=== PATIENT | female | born 1995 | race Caucasian/White ===

== ENCOUNTER 2023-07-22 14:01 | Outpatient (OUT) | payer OTHER, SELFPAY ==
[2023-07-22 14:49] LABS: HCG Quantitative <1 mIU/mL
== END 2023-07-22 14:02 | disposition home or self-care (01) ==
LOC: LAB 14:05
PROVIDERS: Visit Provider Obstetrics & Gynecology
DX: Z01.419 Encounter for gynecological examination (general) (routine) without abnormal findings (principal); N92.6 Irregular menstruation, unspecified
CPT/HCPCS: 36415; 84702; G0145

== ENCOUNTER 2023-07-22 19:12 | Outpatient (REF) | payer OTHER, SELFPAY ==
[2023-07-28 14:11] LABS: Age Gdln ACOG Testing Note (.); IGP, rfx Aptima HPV ASCU Note (.)
== END 2023-07-22 19:13 | disposition home or self-care (01) ==
LOC: LAB 19:12
PROVIDERS: Visit Provider Obstetrics & Gynecology
DX: Z01.419 Encounter for gynecological examination (general) (routine) without abnormal findings (principal)
CPT/HCPCS: G0145

== ENCOUNTER 2024-12-29 12:50 | Outpatient (OUT) | payer OTHER, SELFPAY ==
[2024-12-29 13:39] LABS: Estimated Average Glucose 100 mg/dL; Glycohemoglobin A1C 5.1 % (4.5-6.2)
[2024-12-29 14:08] LABS: Basophils Percent Auto 0.5 % (0.2-2.0); Eosinophils Absolute Auto 0.2 10^3/uL (0.0-0.7); Hematocrit 45.3 % (36.0-48.0); Hemoglobin 15.1 g/dL (12.0-16.0); Immature Granulocytes Abs Auto 0.01 10^3/uL (0.00-0.03); Immature Granulocytes Pct Auto 0.1 % (0.0-0.5); Lymphocytes Absolute Auto 2.3 10^3/uL (1.2-3.8); Lymphocytes Percent Auto 30.1 % (20.5-60.0); Mean Corpuscular HGB Conc 33.3 g/dL (29.9-35.2); Mean Corpuscular Hemoglobin 30.6 pg (26.7-34.0); Mean Corpuscular Volume 91.7 fL (81.0-99.0); Mean Platelet Volume 9.1 fL (9.5-13.5); Monocytes Absolute Auto 0.7 10^3/uL (0.3-0.8); Monocytes Percent Auto 8.9 % (1.7-12.0); Neutrophils Absolute Auto 4.4 10^3/uL (1.4-6.5); Neutrophils Percent Auto 58.4 % (43.0-75.0); Platelet Count 264 10^3/uL (150-450); Red Blood Count 4.94 10^6/uL (4.20-5.40); Red Cell Distribution Width 12.1 % (11.0-15.0); White Blood Count 7.5 10^3/uL (4.0-11.0)
[2024-12-29 14:10] LABS: Thyroid Stimulating Hormone 1.946 uIU/mL (0.358-3.740)
[2024-12-29 14:12] LABS: Free T4 1.05 ng/dL (0.76-1.46)
[2024-12-29 14:18] LABS: HCG Quantitative <1 mIU/mL
[2024-12-30 04:07] LABS: FSH 5.4 mIU/mL (.); Luteinizing Hormone(LH) 12.8 mIU/mL (.); Progesterone 0.4 ng/mL (.)
== END 2024-12-29 12:51 | disposition home or self-care (01) ==
LOC: LAB 13:00
PROVIDERS: Visit Provider Obstetrics & Gynecology
DX: E88.819 Insulin resistance, unspecified (principal); N97.0 Female infertility associated with anovulation; E28.2 Polycystic ovarian syndrome; N92.6 Irregular menstruation, unspecified
CPT/HCPCS: 36415; 82626; 82627; 83001; 83002; 83036; 84144; 84439; 84443; 84702; 85025

== ENCOUNTER 2025-02-04 23:05 | Emergency (ER) | payer OTHER, SELFPAY ==
[2025-02-04 23:15] VITALS: BP 146/80; PULSE 71; TEMP 37; O2SAT 98; BMI 49.6
--- NOTE | 2025-02-04 23:42 | ED.ABDPAIN1 ---
HPI - Abdominal Pain General Chief Complaint: Abdominal Pain Stated Complaint: abd pain Time Seen by Provider: 02/04/25 23:09 Source: patient Mode of arrival: walk-in Limitations: no limitations History of Present Illness HPI narrative: cc - I wanted a second opinion Patient Head: Few days of lower abdominal pain and went to the emergency department at [facility] and was found to have a 7 cm right ovarian cyst after CT scanning of the abdomen pelvis and pelvic ultrasound. test was negative. She is not sure whether or not she had a urinary tract infection but they put her on oral Keflex. She was told to take Motrin for pain and follow-up with Dr. Loredo. She did not take anything today for the pain. This evening she had a return of pain and was concerned that the ovarian cyst might be affecting her ability to get -she is currently taking medication to allow her to increase her chance of -so she decided to come to the emergency department in [facility] for evaluation. She had some nausea today but no vomiting. No diarrhea. No fever or chills. Related Data Home Medications ?Medication ?Instructions ?Recorded ?Confirmed cephalexin 500 mg capsule 500 mg PO DAILY 02/04/25 02/04/25 cholecalciferol (vitamin D3) 10 20 mcg PO DAILY 02/04/25 02/04/25 mcg (400 unit) tablet (Vitamin D3) Allergies Allergy/AdvReac Type Severity Reaction Status Date / Time No Known Drug Allergies Allergy Verified 02/04/25 23:21 PFSH PFSH Social History Little interest or pleasure in doing things: not at all Feeling down, depressed, or hopeless: not at all Exam Narrative Exam Narrative: Nurses notes and vital signs reviewed and patient is not hypoxic. afebrile General: Well-appearing and in no apparent distress. Skin: Warm, dry, no pallor noted. No rash. Eye: Pupils are equal, round and EOMI. No scleral icterus. Ears, Nose, Mouth, and Throat: Oral mucosa is moist Cardiovascular: Regular Rate and Rhythm without murmur, gallop or rub. Respiratory: No accessory muscle use or respiratory distress. Lungs are clear to auscultation, no wheezing, rales or rhonchi Back: No CVA tenderness Musculoskeletal: normal ROM GI: Abdomen is soft, non-distended. Normal bowel sounds. No masses appreciated but her obesity limits examination. Minimal right adnexal tenderness to palpation. No rebound, guarding, or rigidity noted. Neurological: A&O x4. No cranial nerve dysfunction observed. No truncal ataxia. Moves all extremities. Sensation intact. Psychiatric: Cooperative and interactive. Normal mood and affect. Constitutional Vital Signs, click to edit/add: Last Vital Signs Temp 98.6 F 02/04/25 23:15 Pulse 71 02/04/25 23:15 Resp 16 02/04/25 23:15 BP 146/80 H 02/04/25 23:15 Pulse Ox 98 02/04/25 23:15 O2 Del Method Room Air 02/04/25 23:15 Course Vital Signs Vital signs: Vital Signs Temperature 98.6 F 02/04/25 23:15 Pulse Rate 71 02/04/25 23:15 Respiratory Rate 16 02/04/25 23:15 Blood Pressure 146/80 H 02/04/25 23:15 Pulse Oximetry 98 02/04/25 23:15 Oxygen Delivery Method Room Air 02/04/25 23:15 Temperature 98.6 F 02/04/25 23:15 Pulse Rate 71 02/04/25 23:15 Respiratory Rate 16 02/04/25 23:15 Blood Pressure 146/80 H 02/04/25 23:15 Pulse Oximetry 98 02/04/25 23:15 Oxygen Delivery Method Room Air 02/04/25 23:15 MDM - Abdominal Pain MDM Narrative Medical decision making narrative: Patient already had an extensive workup with a diagnosis at [facility] 1 day ago. We requested that those records be sent to us for evaluation. Patient was given oral ibuprofen for her pain. I do long talk with the patient and family regarding her diagnosis, need for follow-up with Dr. Loredo, importance of taking Motrin and Tylenol at home for the pain, advised on appropriate use of the ED -not to be used as a second opinion . After 3 phone calls we finally got a fax from [facility] -I reviewed these documents and confirmed the patient was diagnosed with acute urinary tract infection for which she was placed on Keflex. I told her to continue the antibiotic as prescribed. Ultrasound showed good flow in both ovaries with a 6.6 cm ovarian cyst on the right ovary. She was informed of these results as well given reassurance. She was instructed to see Dr. Loredo in the upcoming week and to call his office on Thursday We discussed reasons to return to the ED, including pain that is worsening rather than improving after taking Tylenol and ibuprofen. Additionally she was reminded to take all antibiotics as prescribed. Discharge Plan Discharge Chief Complaint: Abdominal Pain Clinical Impression: Ovarian cyst, Abdominal pain Patient Disposition: Home, Self-Care Time of Disposition Decision: 00:58 Prescriptions / Home Meds: No Action cephalexin 500 mg capsule 500 mg PO DAILY cholecalciferol (vitamin D3) [Vitamin D3] 10 mcg (400 unit) tablet 20 mcg PO DAILY Print Language: Ukrainian Instructions: Ovarian Cyst (ED), Abdominal Pain (ED) Referrals: Jalen Loredo DO [Physician] - 02/06/25
[2025-02-04] MEDS: IBUPROFEN 400 MG TABLET 800 MG PO (23:55)
== END 2025-02-05 01:12 | disposition home or self-care (01) ==
PROVIDERS: Emergency Provider Emergency Medicine
DX: N83.201 Unspecified ovarian cyst, right side (principal); R10.9 Unspecified abdominal pain; Z87.440 Personal history of urinary (tract) infections
CPT/HCPCS: 99282

== ENCOUNTER 2025-02-09 08:16 | Outpatient (OUT) | payer OTHER, SELFPAY | END 2025-02-09 08:17 | disposition home or self-care (01) | LOC: PST 08:17 | PROVIDERS: Visit Provider Obstetrics & Gynecology | DX: Z01.818 Encounter for other preprocedural examination (principal); N83.201 Unspecified ovarian cyst, right side; R10.2 Pelvic and perineal pain ==

== ENCOUNTER 2025-02-14 06:13 | Day surgery (SDC) | payer OTHER, SELFPAY ==
[2025-02-09 08:55] VITALS: BP 119/67; PULSE 63; TEMP 36.3; O2SAT 98; BMI 52.3
[2025-02-14] VITALS (14 sets, daily range): BP systolic 114–171; BP diastolic 69–123; PULSE 94–114; TEMP 36.3; O2SAT 92–99; BMI 52.8
[2025-02-14 06:26] LABS: Basophils Percent Auto 0.5 % (0.2-2.0); Eosinophils Absolute Auto 0.2 10^3/uL (0.0-0.7); Eosinophils Percent Auto 2.3 % (0.9-7.0); Hematocrit 45.5 % (36.0-48.0); Hemoglobin 15.9 g/dL (12.0-16.0); Immature Granulocytes Abs Auto 0.02 10^3/uL (0.00-0.03); Immature Granulocytes Pct Auto 0.2 % (0.0-0.5); Mean Corpuscular HGB Conc 34.9 g/dL (29.9-35.2); Mean Corpuscular Hemoglobin 31.7 pg (26.7-34.0); Mean Corpuscular Volume 90.8 fL (81.0-99.0); Monocytes Absolute Auto 0.7 10^3/uL (0.3-0.8); Monocytes Percent Auto 8.5 % (1.7-12.0); Neutrophils Absolute Auto 4.2 10^3/uL (1.4-6.5); Neutrophils Percent Auto 51.5 % (43.0-75.0); Platelet Count 121 10^3/uL (150-450); Red Blood Count 5.01 10^6/uL (4.20-5.40); Red Cell Distribution Width 12.5 % (11.0-15.0); White Blood Count 8.2 10^3/uL (4.0-11.0)
[2025-02-14 06:50] LABS: HCG Quantitative <1 mIU/mL
[2025-02-14 07:32] LABS: Alanine Aminotransferase 37 U/L (14-59); Albumin Level 3.8 g/dL (3.4-5.0); Alkaline Phosphatase 47 U/L (46-116); Anion Gap 18.6; Aspartate Amino Transferase 22 U/L (15-37); Bilirubin Total 0.3 mg/dL (0.2-1.0); Calcium 8.9 mg/dL (8.5-10.1); Carbon Dioxide 22.4 mmol/L (21.0-32.0); Chloride 103 mmol/L (98-107); Estimated GFR (African America >60 (>=60 mL/min/1.73m^2); Estimated GFR (Non-African Ame >60 (>=60 mL/min/1.73m^2); Globulin 3.7 g/dL; Glucose 105 mg/dL (74-106); Sodium 140 mmol/L (136-145); Total Protein 7.5 g/dL (6.4-8.2)
[2025-02-14] MEDS: LACTATED RINGER'S SOLUTION 1,000 ML 50 ML IV ×2 (07:50→10:20)
[2025-02-14] MEDS: FAMOTIDINE/PF 20 MG/2 ML VIAL IV (07:50)
--- NOTE | 2025-02-14 08:14 | P.ON_ITS ---
Brief Operative Note Date of procedure: 02/14/25 Pre-op diagnosis general: pelvic pain, rt ovarian cyst Post-op diagnosis: same as pre-op Procedure: NAME OF PROCEDURE: robotic assisted laparoscopic rt ovarian cystectomy PROCEDURE: The patient was taken back to the Operating Room where she was given general anesthesia without difficulty. She was then prepped and draped in the normal sterile fashion after being placed in a dorsal lithotomy position. A wet sponge stick was placed into the patient's vagina. Attention was then turned to the patient's abdomen, where a scalpel was used to make a small infraumbilical inc ision. The S retractors were then used to dissect the underlying layers until the fascia could be seen. The fascia was then grasped with Ryan clamps and tented up. A knife was then used to make a small incision to the fascia. The muscle was identified, at that time two sutures of #0 Vicryl on a GI needle was then used and placed through the fascia. the peritoneum was then identified and entered bluntly. The 10-4 Peggy was then placed into the patient's abdomen. This was confirmed with direct visualization of the bowel, using the laparoscope. The patient's abdomen was then insufflated using approximately 4 liters of CO2 gas. Survey of the patient's abdomen demonstrated ovaries were normal in appearance as well as both tubes and uterus. A second and third rt and lt lateral robotic ports which were 8 mm in size, was then placed after the skin incision was made under direct visualization . the robotic arms were engaged. . the right ovary was identified and the vessel sealer was used to perform ovarian cystotomy. Excellent hemostasis was noted. no other pelvic disease identified, normal appearing lt ovary, uterus and tubes, no evidence of endometriosis. The lateral ports were then moved under direct visualization with excellent hemostasis. All instruments were removed from the patient's abdomen. The fascia was closed using the #0 Vicryl on GI needle. The skin was closed usi ng 4-0 Vicryl subcuticularly. All instruments were removed from the patient's vagina as well. The patient was taken out of the dorsal lithotomy position and placed in the supine position and taken to recovery in stable condition. Sponge, lap and needle counts were correct x2. ? Anesthesia: JEOVANNY Surgeon: Jalen Loredo Environmental Laboratory Technician: Rajni Lees Estimated blood loss (mL): 5 Pathology: none sent Condition: stable Disposition: PACU
[2025-02-14] MEDS: LACTATED RINGER'S SOLUTION 1,000 ML 1000 ML IV (08:51)
[2025-02-14] MEDS: MEPERIDINE HCL/PF 25 MG/ML VIAL IVP (09:41)
[2025-02-14] MEDS: HYDROCODONE/ACET 5-325 MG TABLET 1 TAB PO (10:18)
== END 2025-02-14 12:00 | disposition home or self-care (01) ==
PROVIDERS: Anesthesiology; Visit Provider Obstetrics & Gynecology
PROC: (CPT 840; principal; 2025-02-14 07:30)
DX: N83.201 Unspecified ovarian cyst, right side (principal); R10.2 Pelvic and perineal pain; E66.01 Morbid (severe) obesity due to excess calories; Z68.43 Body mass index [BMI] 50.0-59.9, adult
CPT/HCPCS: 58662; 36415; 80053; 82948; 84702; 85025; 99999; J1100; J1171; J1885; J2175; J2250; J2405; J2704; J3010; J3490

== ENCOUNTER 2025-03-01 14:10 | Outpatient (OUT) | payer OTHER, SELFPAY ==
--- OUTSIDE RECORDS SUMMARY | 2025-02-21 10:00 | XMS_ITS | Encounter Summary ---
Author Organization [facility] Address [address] [place] [address] Care Team Providers Care Program Specialist Name Role Phone Mariel Braun Unavailable Reason for Visit * Reason Comments Post-op Visit Encounter Details Date Type Department Care Team (Late st Contact Info) Description 02/21/2025 10:00 AM EDT Office Visit [facility] [address] [place] [address] Jalen Loredo, DO [address] [place] [address] Postoperative examination Social History Tobacco Use Types [...] (herpes simplex virus) infection 04/01/2023 Morbid obesity ([facility]) 04/01/2023 Ovarian cyst 04/01/2023 Pain in female genitalia on intercourse 04/01/2023 Pelvic pain 04/01/2023 Encounter for weight management 05/18/2024 COVID-19 05/18/2024 Insulin resistance 05/18/2024 Resolved Ambulatory Problems Diagnosis Date Noted No Resolved Ambulatory Problems Past Medical History: Diagnosis Date Abnormal weight gain Dyspareunia, female Encounter for gynecological examination (general) (routine) without abnormal findings Morbid obesity with BMI of 45.0-49.9, adult ([facility]) Patient desires HISTORY PAST MEDICAL HISTORY SOCIAL HISTORY Past Medical History: Diagnosis Date Abnormal weight gain Dyspareunia, female Encounter for gynecological examination (general) (routine) without abnormal findings HSV (herpes simplex virus) infection Morbid obesity with BMI of 45.0-49.9, adult ([facility]) Ovarian cyst Patient desires Pelvic [...] nursing note reviewed. Exam conducted with a secret service agent present. Vitals: Estimated body mass index is [...] Care Team (Late st Contact Info) Description 03/01/2025 3:30 PM EDT Office Visit [facility] [address] [place] [phone] Mariel Braun PA [address] [place] [address] 04/18/2025 2:00 PM EDT Office Visit [facility] [address] [place] [phone] Jalen Loredo DO [address] [place], [place] [id number] documented as of this encounter Procedures Procedure [...] surgery documented in this encounter Care Teams Program Specialist Relationship Specialty Start Date End Date Mariel Braun PA [address] [place], [place] [phone] PCP - [facility] 01/11/24 documented as of this encounter
--- OUTSIDE RECORDS SUMMARY | 2025-03-01 14:15 | XMS_ITS | Encounter Summary ---
Author Organization [facility] Address [address] [facility] [place] [address] Care Team Providers Care Sales Support Technician Name Role Phone Mariel Braun Unavailable Encounter Details Date Type Department Care Team (Late st Contact Info) Description 02/25/2024 Abstract [facility] [address] [place] [address] Lorin Rojas LPN [address] [facility] [address] [facility] Social History Tobacco Use Types Packs/Day Years Used Date Smoking Tobacco: Unknown Alcohol Use Standard Drinks/Week Comments Not Currently 0 (1 standard drink = 0.6 oz pur e alcohol) occasional Comments Unknown Sex and Gender Information Value Date Recorded Sex Assigned at Not on file Legal Sex Female 11:47 PM EDT Gender Identity Female 03/03/2023 10:11 PM EDT Sexual Orientation Not on file documented as of this encounter Plan of Treatment Upcoming Encounters Date Type Department Care Team (Late st Contact Info) Description 03/01/2025 3:30 PM EDT Office Visit [facility] [address] [place] [address] Mariel Braun PA [address] [place] [address] [place], [place] [id number] 04/18/2025 2:00 PM EDT Office Visit [facility] OB [address] [place] [address] [place] [address] Jalen Loredo DO [address] [place], [place] [id number] documented as of this encounter Visit Diagnoses Not on filedocumented in this encounter Care Teams Sales Support Technician Relationship Specialty Start Date End Date Mariel Braun PA [address] [place], [place] [id number] PCP - [facility] 01/11/24 documented as of this encounter
--- OUTSIDE RECORDS SUMMARY | 2025-03-01 14:15 | XMS_ITS | Clinical Summary ---
Author Organization [employer] tem Address [id number] [address] [place] [address] Care Team Providers Care Manufacturing Applications Engineer Name Role Phone Services, [facility] Primary Care Provider Allergies No known active allergies Medications 25/iron fum/folic/dha (-1 ORAL) Take by mouth. Activ e acetaminophen (TYLENOL EXTRA STRENGTH) 500 mg tablet Take 2 tablets (1,000 mg total) by mouth every 6 (six) hours as needed for pain. 30 tablet 3 Active Additional Information Patient not taking.Reported on 08/25/2024 ibuprofen (MOTRIN) 600 mg tablet Take 1 tablet (600 mg total) by mouth every 6 (six) hours as needed for pain. 30 tablet 3 Active Additional Information Patient not taking.Reported on 08/25/2024 Active Problems No known active problems Social History Tobacco Use Types Packs/Day Years Used Date Smoking Tobacco: Never Smokeless Tobacco: Never Alcohol Use Standard Drinks/Week Comments Yes 0 (1 standard drink = 0.6 oz pur e alcohol) occasional Childcare Answer Date Recorded Childcare Unknown 03/23/2019 Employment Answer Date Recorded Employment Unknown 03/23/2019 Hunger Screening Answer Date Recorded Within the past 12 months we worried whether our food would run out before we got money to buy more. Never True 09/12/2024 Within the past 12 months th e food we bought just didn't last and we didn't have money to get more. Never True 09/12/2024 Purpose - Life Answer Date Recorded Purpose and direction in life Unknown 02 /08/2021 Comments Unknown Sex and Gender Information Value Date Recorded Sex Assigned at Not on file Legal Sex Female 11:53 AM EDT Gender Identity Not on file Sexual Orientation Not on file Last Filed Vital Signs Vital Sign Reading Time Taken Comments Blood Pressure 143/99 09/12/2024 3:44 PM EST Pulse 88 09/12/2024 3:44 PM EST Temperature 37.3 C (99.2 F) 09/12/2024 3:44 PM EST Respiratory Rate 17 09/12/2024 3:44 PM EST Oxygen Saturation 100% 09/12/2024 3:44 PM EST Inhaled Oxygen Concentration - - Weight 127 kg (280 lb) 09/12/2024 3:44 PM EST Height 160 cm (5' 3 ) 09/12/2024 3:44 PM EST Body Mass Index 49.6 09/12/2024 3:44 PM EST Plan of Treatment Health Maintenance Due Date Last Done Comments Depression Screening 2009 Adult BMI Follow Up Plan 2015 DTaP,Tdap and Td Vaccines (7 - Td or Tdap) 11/10/2018 11/10/2008, 01/16/2003, 11/16/1998, Additional history exists Pap Smear 03/18/2025 03/18/2022 Influenza Vaccine 06/12/2025 10/13/2017, , 07/27/2014, Additional history exists Adult BMI Screening 09/12/2025 09/12/2024 Tobacco Screening 09/12/2025 09/12/2024 Medical Devices Not on file Insurance [employer] Care Teams Manufacturing Applications Engineer Relationship Specialty Start Date End Date Services, [facility] [address] [place], [place] PCP - General Family Medicine 08/25/24
--- OUTSIDE RECORDS SUMMARY | 2025-03-01 14:15 | XMS_ITS | Encounter Summary ---
Author Organization [facility] Address [address] [place] [address] Care Team Providers Care Human Resources Supervisor Name Role Phone Mariel Braun Unavailable Encounter Details Date Type Department Care Team (Late st Contact Info) Description 02/27/2025 Telephone [facility] [address] [facility] [place] [address] Larissa Álvarez LPN [address] [place] [address] Social History Tobacco Use Types Packs/Day Years [...] on file documented as of this encounter Miscellaneous Notes * Telephone Encounter - Larissa Álvarez LPN - 02/27/2025 1:22 PM EDT Hi, this is Unique Funez. I was just calling because I had as removed with Dr. Bird on february 14, but I know I came in for a follow up on february 21. He said I could resume to all activities, but just no heavy lifting. But I was just wondering like if it was normal for me to start bleeding Again, like it does not seem like it is a period, but I am bleeding, so I just wanted to make sure it was okay because I know I had an intercourse Thursday the and then Thursday I started bloating, so I was not sure if that is normal or if something is going on, if you guys could give me a [place] back at [phone] would appreciate it. Thank you. documented in this encounter Plan of Treatment Upcoming Encounters Date Type Department Care Team (Late st Contact Info) Description 03/01/2025 3:30 PM EDT Office Visit [facility] [address] [place] [phone] Mariel Braun PA [address] [facility] [place] [address] 04/18/2025 2:00 PM EDT Office Visit [facility] [address] [place] [phone] Jalen Loredo DO [address] [facility] [place] [address] Scheduled Orders Name Type Priority Associated Diagnoses Orde r Schedule CBC Lab Routine Low platelet count (CMS/HCC) Expected: 02/27/2025 (Approximate), Expires: 02/27/2026 documented as of this encounter Visit Diagnoses Diagnosis Low platelet count (CMS/HCC) documented in this encounter Care Teams Human Resources Supervisor Relationship Specialty Start Date End Date Mariel Braun PA [address] [place] [address] [place] [address] [facility] 01/11/24 documented as of this encounter
--- OUTSIDE RECORDS SUMMARY | 2025-03-01 14:15 | XMS_ITS | Patient Health Record ---
Author Organization [facility] vices Address [address] [place] [id number] Care Team Providers Care Gyn Physician Name Role Phone Steph Babb Primary Care Provider Char Lin Unavailable [phone] Diana Arriola Unavailable [phone] Allergies No Known Allergies Results Component Value Reference Range Notes VITAMIN D 25 HYDROXY Reviewed date:01/11/2025 08:09:19 AM Interpretation: Performing Lab: Notes/Report: VITAMIN D, 25 HYDROXY 14.2 30.0-100.0 ng/mL 25-OH VITAMIN D INTERPRETATION Deficiency.... <20.0 ng/ml Insufficiency..20.0-29.0 ng/ml Sufficiency....30.0-100.0 ng/ml Possible Toxicity...>150 ng/ml UNLESS OTHERWISE INDICATED, ALL TESTING PERFORMED AT: [employer] [address] [place] [address] UNIX SYSTEMS ADMINISTRATOR: DANIELLE SOUZA M.D. CLIA NUMBER [id number] CAP ACCREDITATION AUID [id number] Reason For Referral No Information Medications Medication SIG (Take, Route, Frequency, Duration) Notes Start Date End Date Status metFORMIN HCl ER (MOD) 500 MG 1 tablet with evening meal Orally Once a day for 30 day(s) 02/08/2025 Active Cephalexin 500 MG Oral for 7 Days Active Cholecalciferol 10 MCG (400 UNIT) 2 capsules Orally Once a day for 30 days 02/29/2024 Unknown Immunizations Vaccine Route Administration Date Status Comme nts Meningococcal MCV4P IM Intramuscular 01/05/2014 Administer ed Status:Complete ,Reason:Given or N/A ,[facility] [id number] Influenza, quadrivalent, split, preservative free, 3 years or older ID Intradermal 08/07/2015 Administered Status:Complete ,Reason:Given or N/A Influenza (split), 3 yrs and above IM Intramuscular 08/16/2010 Administered Status:Complete ,Reason:Given or N/A Influenza (split), 3 yrs and above IM Intramuscular 08/19/2012 Administered Status:Complete ,Reason:Given or N/A Influenza (split), 3 yrs and above IM Intramuscular 08/10/2013 Administered Status:Complete ,Reason:Given or N/A ,[facility]# [id number] Influenza (split), 3 yrs and above IM Intramuscular 07/27/2014 Administered Status:Complete ,Reason:Given or N/A *Hep A, ped/adol, 2 dose-VFC IM Intramuscular 01/05/2014 Administered Status:Complete ,Reason:Given or N/A ,[facility] [id number] Social History Tobacco Use: Social History Observation Description Date Details (start date - stop date) Never Smoker NA - NA Sex Assigned At : Social History Observation Description Sex Assigned At Female Tobacco Use/Smoking Question Answer Notes Tobacco use: nonsmoker patient enter ed data Alcohol Screen (Audit-C) Question Answer Notes Did you have a drink contain ing alcohol in the past year? Yes How often did you have a dri nk containing alcohol in the past year? Monthly or less (1 point) How many drinks did you have on a typical day when you were drinking in the past year? 3 or 4 drinks (1 point) How often did you have 6 or more drinks on one occasion in the past year? Never (0 point) Points 2 Interpretation Negative CAGE-AID Questionnaire (2018 Edition) Question Answer Notes Have you ever felt that you ought to cut down on your drinking or drug use? No patient entered data Have people annoyed you by c riticizing your drinking or drug use? No patient entered data Have you ever felt bad or gu ilty about your drinking or drug use? No patient entered data Have you ever had a drink or used drugs first thing in the morning to steady your nerves or to get rid of a hangover? No patient entered data CAGE-AID Score 0 Interpretation Negative PRAPARE Question Answer Notes Date Completed/Updated: 02/10/2024 maddie nt entered data What is your current housing situation? I have housing patient entered data Are you worried about losing your housing? No patient entered data What is the highest level of school that you have finished? 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 Check all that apply I do not have problems meeting my needs Has lack of transportation k ept you from medical appointments, meetings, work or from getting things needed for daily living? No How often do you see or talk to people that you care about and feel close to? (For example: talking to friends on the phone, visiting friends or family, going to oriental orthodox or club meetings) 1 or 2 times a week patient entered data How stressed are you? Stress is when someone feels tense, nervous, anxious, or can't sleep at night because their mind is troubled Not at all patient entered data In the past year have you sp ent more than 2 nights in a row in a assisted, alf, assisted center, or juvenile correctional facility? No patient entered data Are you a refugee? No patient en tered data What country are you from? [place] pa tient entered data Do you feel physically and emotionally safe where you currently live? Yes patient entered data In the past year, have you b een afraid of your partner or ex-partner? No patient entered data PRAPARE Score: 4 Problems Problem Type SNOMED Code ICD Code Onset Dates Problem Status W/U Status Risk Notes Problem 925921075 BMI 45.0-49.9, adult (Z68.42) Active confirmed Problem Paresthesia (33775958) Paresthesia (R20.2) Active confirmed Problem Hyperkalemia (60096888) Hyperkalemia (E87.5) Active confirmed Comment:-BMP was redrawn; potassium has normalized -K+ is at 4.6 -Pt is asymptomatic, Problem Hypokalemia (44370377) Hypokalemia (E87.6) Active confirmed Problem Nausea (926961917) Nausea (R11.0) Active confirmed Comment:N ausea and appetite change, weight gain, secondary amenorrhea: UCG neg. BHCG ordered. Patiuent counseled. Follow up HCG in a week. vitamin advised., Problem Venereal disease screening (779034760) Screening for STD (sexually transmitted disease) (Z11.3) Active confirmed Comment:pt desires bloodwork for std testing, Problem Chronic idiopathic constipation (89013702) Chronic idiopathic constipation (K59.04) Active confirmed Comment:-Pt suffering from chornic constipation; -Pt has failed treatment with miralax daily, lactulose and suppository -Encouraged continued use of miralax; recommend OTC ducolax daily -Also encouraged increased water consumption and intake of fruits and vegetables; also cut down on consumption of dairy and milk -Pt's mother requestion referral to GI d/t lack of improvement and d/t multiple trips to ER -Will refer to GI, Problem Viral syndrome (674834954) Viral syndrome (B34.9) Active confirmed Comment:VS stable. Patient appears well, in NAD, well hydrated. diet as discussed above tylenol for headaches. rest and fluids., Problem Intolerant of cold (62662645) Cold intolerance (R68.89) Active confirmed Comment:labs reviewed KATHARINA, CBC, ESR and TSH All WNL This is first occurence, has not had previous henson advised to limit drastic change in temperatures, wear gloves outdoors, layers to arm Monitor at this time. If pain worsening or skin color not returning to normal, RTO and can offer rheumatology referal mom verbalized understanding, Problem Impaired fasting glycaemia (842825878) Elevated fasting blood sugar (R73.01) Active confirmed Problem Depression screening (647392822) Screening for depression (Z13.31) Active confirmed Description:De pression screening Problem Trichomonal vulvovaginitis (32509934) Trichomonas vaginalis (TV) infection (A59.01) Active confirmed Comment:pt took antibiotic course, her for ijeoma, partner treated, Problem Needs influenza immunization (170949974) Need for prophylactic vaccination and inoculation against influenza (V04.81) (V04.81) Active confirmed Problem Acute non-suppurative otitis media - serous (605470906) ACUTE SEROUS OTITIS MEDIA (H65.00) 2008 Active confirmed Story:ASSESSME NT: RESOLVED, Problem Dyspepsia (567542340) Dyspepsia (K30) Active confirmed Comment:-Feel abdominal pain is possibly r/t to either GERD or peptic ulcer -Discussed lifestyle modifications that include avoiding tomato based foods, citrus foods, fatty/greasy foods, eating late at night, laying down after eating, and coffee -Start on trial of PPI for 1 month -If symptoms worsen, fever develops rto office, patient and mother verified understanding, Problem Pain in limb (22282266) Foot pain, left (M79.672) Active confirmed Comment:Get x-rays. Refer to podiatry for evaluation. Advised and explained RICE protocol. Discontinue Naproxen. Advised tylenol PRN for pain. Questions answered, PVU, Problem Urinary tract infectious disease (48415086) UTI symptoms (R39.9) Active confirmed Comment:+LE in urine Suspect UTI based on exam abx as ordered send for culture PVU, Problem Needs influenza immunization (576197696) Flu Shot > 3 yrs old (V04.81) (50941) (V04.81) Active confirmed Problem Metatarsalgia (84180739) Metatarsalgia (M77.40) Active confirmed Comment:Since pt is not currently having pain, encouraged her to wear supportive shoes, avoiding barefeet and flip flops. If pain returns, she is to monitor what aggravates the pain and what shoes she has been wearing. Pt's mother inquiring about orthotics. Discussed that custom molded vs OTC inserts. Advised waiting until the pt becomes symptomatic before trying these. Pt and mother agreed. RTO prn, Problem Follow-up status (397787487) Follow up (Z09) Active confirmed Comment: FOLLOW UP IN ONE MONTH AFTER LETTER SENT ON 12/20/19, Problem Irregular menstruation (93128309) Menstrual abnormality (N92.6) Active confirmed Comment:-Has abnormal period this months -States had 2 days of spotting -Not like normal -Had a negative urine home test -Take another home test or RTO; PVU, Problem Noninflammatory disorder of the vagina (42613053) Discharge from the vagina (N89.8) Active confirmed Comment:pt complains vaginal discharge, vaginal itching. Was treated for std exposure in ER a week ago - was given injection and pills, cannot recall name, will try and obtain records probiotics pt to keep areas clean and dry, stressed hygiene. encouraged condom use,Descriptio n:Vaginal Discharge Problem Skin rash (708183574) Skin rash (R21) Active confirmed Comment:pt has rash on right inner arm at about the elbow -pt states that she continues to be dx with shingles and treated with medication. Has occurred 3 times this year so far though - seems like a lot -shingles treatment has worked in the past. so will do that treatment today- but want opinion from specialist -will refer to derm -even if no active lesions - take pictures =f/u with me as needed, Problem Requires vaccination (196230325) Need for prophylactic vaccination against viral hepatitis (Z23) Active confirmed Description: [facility] [address] Problem Gastroenteritis (62612167) Gastroenteritis (K52.9) Active confirmed Comment:genera lized stomach pain likely viral as mother and sister is also ill with similar symptoms advised on clear liquid diet today follow by BRAT diet To ER if suddnen and severe worsening of abdominal pains PVU, Problem Abnormal vaginal bleeding (771651135) DUB (dysfunctional uterine bleeding) (N93.8) Active confirmed Comment:-pt has been having DUB -was bleeding for about 3 weeks - has finally started slowing down -pt has never had this issue previously -starting thyroid medication at this time to see if it helps bleeding -suggest pt f/u with Dr. 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 suggested she do so as soon as possible -f/u as needed before getting into Dr. Duncan, Problem Weight gain (147282717) Weight gain (R63.5) Active confirmed Comment:-Pt has weight gain of unknown etiology -GI wanted TSH redraw; previously TSH in 10/2014 was normal -Will reorder TSH and other baseline labs -Discussed importance of lifestyle modifications; also increased fruits and vegetables, Problem Allergic rhinitis (44770770) Allergic rhinitis (J30.9) Active confirmed Comment:-Nasal congestion and sneezing r/t allergic rhinitis -Start on flonase -Discusessed use of humidifier and normal nasal saline prn, Problem MENACTRA - MENINGOCOCCAL VACCINE (V03.89) 98871 (V03.89) Active confirmed Problem Abdominal pain (26843179) Abdominal cramping (R10.9) Active confirmed Comment:Suspec t lactose or other food intolerance. No evidence GI bleeding, and s/s not consistent with IBS due to lack of diarrhea or constipation. Will start a trial of avoiding lactose and fatty foods. Then reintroduce each group to determine the culprit. F/u in 3-4 weeks. If eliminating either of those does not impact the pain, consider reflux therapy. For now, c/w dicyclomine as needed., Problem Vitamin D deficiency (81060346) Vitamin D deficiency (E55.9) Active confirmed Comment:-Labs demonstrated mod-severe vit d deficiency at 13 10/31/15 -Completed 7 or 8 weeks of 50,000 units of vitamin D -Pt feels a lot better; no more headaches; more fatigue -Complete last dose of vitamin D; recheck labs; advised to check urine preg at home or come to office to check urine preg b/c safety of 50,000 units during has not been established; see message (pt could not give sample b/c already voided before leaving), Problem Needs influenza immunization (768746485) Flu Shot > 3 yrs old (Non-Medicare) (V04.81) (07730) (V04.81) Active confirmed Problem Acute diarrhea (781454892) Acute diarrhea (R19.7) Active confirmed Comment:-Acute diarrhea; likely r/t to viral gastroenteriti s -No red flag findings on examination -Patient is eating and drinking without issue -Will treat short tx with loperamide -Encourage light diet; do not eat greasy foods; avoid dairy, Problem Hypothyroid (87542392) Hypothyroid (E03.9) Active confirmed Comment:-pt had TSH of about 5.1 in ED in 02/2018 -T4 was in normal range, but on the low side of normal -pt's menstrual cycle is slightly irregular at this time. But not usually missing entire months -pt has also gained weight recently as well -so wondering if thyroid is off again -previously taking levothyroxine 25mcg. 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 [employer] -Pt is overweight; discussed need for dietary changes and increased physical activity -UTD on immunizations Signed work physical form., Problem Acute pharyngitis (661371530) Acute pharyngitis (J02.9) Active confirmed Comment:-Sympt oms present for 1 day; no fever or systemic symptoms, no tonsilar exudate -Explained likely viral; explain can take 7-10 days before start feeling better -Encouraged increased fluid intake, alternating tylenol and ibuprofen prn for pain, tea with honey, and cough lozenges -If symptoms worsen or pt develop fevers f/u prn; patient and mother verified understanding, Problem Follow-up in outpatient clinic (597489267) Follow-up examination (V67.9) (V67.9) Active confirmed Comment:1)Sore throat has resolved. Rapid Strep was negative. 2)Reassured Mom that what she saw was in fact just normal tongue papillae. 3)If any problems to come back PRN. Mom verbalized understanding. ,Description:F U ER Visit for SORE THROAT Problem Exposure to tuberculosis (9515118514843) TB TEST FOR EXPOSURE TO TUBERCULOSIS (V01.1) (V01.1) Active confirmed Problem Non-suppurative otitis media (669877273) LSOM (left serous otitis media) (H65.92) Active confirmed Comment:-Fluid bubbles visible behind left TM; no inflammation, bulging, or retractions -Pt is getting over URI and strep throat -No fever, chills, or systemic issues -F/u prn, Problem Lumbar strain (843164962) Lumbar strain (S39.012A) Active confirmed Comment:-LBP result of acute lumbar strain -Encouraged to take ibuprofen and flexeril given at the ER; discussed safe; take with food; flexeril can cause drowsiness -Encouraged home stretches and exercises -Can use heat and ice -Will start on PT -F/u in 1 month, Problem Childhood obesity (086393743) BMI (body mass index) pediatric, > 99% for age, obese child, tertiary care intervention (E66.9) Active confirmed Problem Acute upper respiratory infection (05023365) Acute upper respiratory infection of multiple sites (J06.9) Active confirmed Problem Tuberculosis screening (331114885) Screening examination for pulmonary tuberculosis (Z11.1) Active confirmed Comment:Blue Card given TST reading negative,Descr iption:SCREENI NG FOR PULMONARY TB Problem 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) Encounter for tuberculin skin test (Z11.1) Active confirmed Description:Tu berculin skin test encounter Problem Vaginal odor (456038505) Vaginal odor (N89.8) Active confirmed Comment:pt now sexually active, discussed safe sexual practices pt declines contraception, uses condoms, Problem Skin sensation disturbance (19739463) Paresthesia of hand, bilateral (R20.2) Active confirmed Comment:-Most likely r/t carpal tunnel -Had negative CT at ER 11/12/16 -No family hx of demyelinating diseases -Normal neuro exam -Discussed NSAIDs use regularly for next 2-3 weeks -Provide w/ wrist splints for carpal tunnel; also printed out stretches and exercises for carpal tunnel -Wrote note for work -F/u in 3 weeks; if no improvement need neuro and possible EMG; PVU, Problem Overweight (222388191) Excess weight (E66.3) 2008 Active confirmed Comment:EDUCAT ED ON DIET AND EXERCISE.,Desc ription:Overwe ight Problem Well child visit (593072610) Routine or child health check (V20.2) (V20.2) 2007 Active confirmed Vital Signs Heart Rate 78 /min 02/08/2025 Blood pressure diastolic 66 mm Hg 02/08/2025 Height-cm 162.56 cm 02/08/2025 Weight-kg 127.01 kg 02/08/2025 Height 64.00 in 02/08/2025 Blood pressure systolic 120 mm Hg 02/08/2025 Weight 280 lbs 02/08/2025 BMI 48.06 kg/m2 02/08/2025 Encounters Encounter Location Date Provider Diagnosis [facility] [address] [place], [place] [id number] 10/06/2024 Diana Arriola BMI 45.0-49.9, joann lt Z68.42 ; Dental caries into dentine K02.62 ; Encounter for dental examination and cleaning with abnormal findings Z01.21 ; Dietary counseling Z71.3 and Exercise counseling Z71.82 [facility] [address], [place] [id number] 02/08/2025 Char Lin Dental caries into dentine K02.62 and Encounter for dental examination and cleaning with abnormal findings Z01.21 [address] [place], [place] [id number] 03/04/2024 Steph ShethNeal Vitamin D deficien cy E55.9 [address] [place], [place] [id number] 03/09/2024 Steph Skinny Vitamin D deficien cy E55.9 [address] [place], [place] [id number] 01/09/2025 Steph Skinny Vitamin D deficien cy E55.9 Assessments Encounter Date Diagnosis (ICD Code) Assessment Notes Treatment Notes Treatment Clinical Notes Section Notes 01/09/2025 Vitamin D deficiency (ICD-10 - E55.9) 10/06/2024 BMI 45.0-49.9, adult (ICD-10 - Z68.42) 03/04/2024 Vitamin D deficiency (ICD-10 - E55.9) Comment:-Labs demonstrated mod-severe vit d deficiency at 13 10/31/15 -Completed 7 or 8 weeks of 50,000 units of vitamin D -Pt feels a lot better; no more headaches; more fatigue -Complete last dose of vitamin D; recheck labs; advised to check urine preg at home or come to office to check urine preg b/c safety of 50,000 units during has not been established; see message (pt could not give sample b/c already voided before leaving), 03/09/2024 Vitamin D deficiency (ICD-10 - E55.9) Comment:-Labs demonstrated mod-severe vit d deficiency at 13 1/20/16 -Completed 7 or 8 weeks of 50,000 units of vitamin D -Pt feels a lot better; no more headaches; more fatigue -Complete last dose of vitamin D; recheck labs; advised to check urine preg at home or come to office to check urine preg b/c safety of 50,000 units during has not been established; see message (pt could not give sample b/c already voided before leaving), 02/08/2025 Dental caries into dentine (ICD-10 - K02.62) 10/06/2024 Dental caries into dentine (ICD-10 - K02.62) 02/08/2025 Encounter for dental examination and cleaning with abnormal findings (ICD-10 - Z01.21) 10/06/2024 Encounter for dental examination and cleaning with abnormal findings (ICD-10 - Z01.21) 10/06/2024 Dietary counseling (ICD-10 - Z71.3) 10/06/2024 Exercise counseling (ICD-10 - Z71.82) Plan Of Treatment Pending Test Test Name Order Date Strep Screen (62986) 04/01/2012 Vitamin D, 25-Hydroxy (91571) 12/25/2015 Next Appt Details Provider Name:Diana rivera, 04/17/2025 02:15:00 PM, [address] [place] [address], [id number], Insurance Providers Payer Name Payer Address Payer Phone Subscriber Number Group Number Insured Name Patient Relationship to Insured Coverage Start Date Coverage End Date [employer] [address] [address] [place] [address] [id number] Gabriela Khan Self - patient is the insured 2 [place] [facility] [employer] [address] [place] [address] [id number] Gabriela Khan Self - patient is the insured 2 D[employer]icaid CFC after [place] [employer] [address] [place], [place] [id number] Gabriela Khan Self - patient is the insured 2 Medicaid [place] after [place] [address] [place] [address] [id number] Gabriela Khan Self - patient is the insured 2 Medical (General) History Medical History History ICD Code Allergic rhinitis Excess weight, DESCRIPTION: Overweight Vitamin D deficiency Surgical History Surgery Date(Month/Year)
--- OUTSIDE RECORDS SUMMARY | 2025-03-01 14:15 | XMS_ITS | Encounter Summary ---
Author Organization [facility] Address [address] [place] [address] Care Team Providers Care Brilliandeer Looper Name Role Phone Mariel Braun Unavailable Encounter Details Date Type Department Care Team (Late st Contact Info) Description 02/21/2025 Bamboo flowsheet [facility] [address] [place] [address] Jalen Loredo DO [address] [place] [address] Dr Avi [place], [id number] Social History Tobacco Use Types Packs/Day Years [...] 03/01/2025 3:30 PM EDT Office Visit [facility] [address] [place] [address] Mariel Braun PA [facility] [place] [address] 04/18/2025 2:00 PM EDT Office Visit [facility] [place] [address] [place] [address] Jalen Loredo DO [address] [place] [address] documented as of this encounter Visit Diagnoses Not on filedocumented in this encounter Care Teams Brilliandeer Looper Relationship Specialty Start Date End Date Mareil Braun PA [address] [place] [address] PCP - [facility] 01/11/24 documented as of this encounter
--- OUTSIDE RECORDS SUMMARY | 2025-03-01 14:15 | XMS_ITS | Clinical Summary ---
Author Organization [facility] Healthcare Address [address] [place] [address] Care Team Providers Care Drilling Fluids Specialist Name Role Phone Mariel Braun Unavailable Allergies No known active allergies Medications metFORMIN XR (Glucophage-XR) 500 MG 24 hr tabletIndications: PCOS (polycystic ovarian syndrome),Irregula r periods/menstrual cycles Take 1 tablet (500 mg) by mouth in the evening. Take with meals Do not crush, chew, or split. 30 tablet 11 5 Active ondansetron ODT (Zofran-ODT) 4 MG disintegrating tablet Take 4 mg by mouth every 8 (eight) hours if needed for nausea or vomiting 5 Active cholecalciferol (Vitamin D-3) 10 MCG (400 UNIT) capsule Take 400 Units by mouth Daily Active cephalexin (Keflex) 500 MG capsule Take 500 mg by mouth in the morning and 500 mg in the evening and 500 mg before bedtime. Active cephalexin (Keflex) 500 MG capsule Take 500 mg by mouth in the morning and 500 mg in the evening and 500 mg before bedtime. 5 02/12/20 25 HYDROcodone-acetam inophen ([place]) 5-325 MG tablet Take 1 tablet by mouth every 4 (four) hours if needed for moderate pain 5 02/08/20 25 metroNIDAZOLE (Flagyl) 500 MG tabletIndications: BV (bacterial vaginosis) Take 1 tablet (500 mg) by mouth in the morning and 1 tablet (500 mg) before bedtime. Do all this for 7 days. Do not drink alcohol while taking this medication. 14 tablet 5 02/22/20 25 Active Problems Problem Noted Date Diagnosed Date Encounter for weight management 05/18/2024 COVID-19 05/18/2024 Insulin resistance 05/18/2024 Weight gain 04/01/2023 HSV (herpes simplex virus) infection 04/01/2023 Morbid obesity 04/01/2023 Ovarian cyst 04/01/2023 Pain in female genitalia on intercourse 04/01/20 23 Pelvic pain 04/01/2023 Encounters Date Type Department Care Team Description 02/27/[address] [facility] [address] [place] [address] Larissa Álvarez, CREPE [employer]LE SC[employer]ER 02/21/2025 10:00 AM EDT Office Visit [facility] [address] [place] [address] Jalen Loredo, DO Postoperative examination 02/21/2025 Bamboo flowsheet [facility] [address] [place] [address] Jalen Loredo, DO 02/16/2025 Telephone [facility] [address] [place] [address] Jalen Loredo, DO 02/14/[address] [facility] [address] [place] [address] Katya Verdugo, [employer]ER 02/14/2025 Clinisync Result Encounter [facility] External Department Unsolicited Jalen Loredo, DO 02/09/[address] [facility] [address] [place] [address] Kay Felix MA 02/07/2025 9:00 AM EDT Office Visit [facility] [address] [place] [address] Jalen Loredo, DO Cyst of right ovary; Pelvic pain in female 02/07/2025 External Result Encounter [facility] External Department Unsolicited Jalen Loredo, DO 02/07/2025 Bamboo flowsheet [facility] [address] [place] [address] Jalen Loredo, DO 12/29/2024 Clinisync Result Encounter [facility] External Department Unsolicited Jalen Loredo, DO 12/28/[address] [facility] [address] [place] [address] Katya Verdugo LPN 12/20/2024 1:00 PM EDT Ancillary Procedure [facility] [address] [place] [address] PCOS (polycystic ovarian syndrome); Irregular periods/menstrual cycles 12/20/2024 Travel 12/12/[address] [facility] [address] [place] [address] Katya Verdugo LPN from Last 3 Months Family History Medical History Relation Name Comments Asthma Other COPD Other Coronary artery disease Other Diabetes Other Emphysema Other Hyperlipidemia Other Lung cancer Other Relation Name Status Comments Other Social History Tobacco Use Types Packs/Day Years Used Date Smoking Tobacco: Unknown Tobacco Cessation:Counseling Given: Not Answered Alcohol Use Standard Drinks/Week Comments Not Currently 0 (1 standard drink = 0.6 oz pur e alcohol) occasional Comments No Sex and Gender Information Value Date Recorded Sex Assigned at Not on file Legal Sex Female 11:47 PM EDT Gender Identity Female 03/03/2023 10:11 PM EDT Sexual Orientation Not on file Last Filed Vital Signs Vital Sign Reading Time Taken Comments Blood Pressure 120/70 02/21/2025 10:20 AM EDT Pulse - - Temperature - - Respiratory Rate - - Oxygen Saturation - - Inhaled Oxygen Concentration - - Weight 133 kg (293 lb 1.9 oz) 02/21/2025 10:20 A M EDT Height 160 cm (5' 3 ) 05/18/2024 11:42 AM EDT Body Mass Index 51.92 05/18/2024 11:42 AM EDT Plan of Treatment Upcoming Encounters Date Type Department Care Team (Late st Contact Info) Description 03/01/2025 3:30 PM EDT Office Visit [facility] [address] [place] [phone] Mariel Braun PA [address] [place] [address] 04/18/2025 2:00 PM EDT Office Visit [facility] [address] [place] [id number] Jalen Loredo, DO [address] [place], [place] [id number] Health Maintenance Due Date Last Done Comments Influenza Vaccine (Season Ended) 2025 10/13/2017, 08/07/2015, 07/27/2014, Additional history exists Procedures Procedure Name Priority Date/Time Associated Diagnosis Comments POCT URINALYSIS DIPSTICK Routine 025 10:28 AM EDT Postoperative examination TBH PREG QUANT HCG Routine 02/14/2025 6: 20 AM EDT ALL CBC WITH AUTO DIFF Routine 6:20 AM EDT RECURRENT VAGINITIS (HTRX) Routine 02/07 11:48 AM EDT POCT , URINE Routine 02/07/2025 9:21 AM EDT Cyst of right ovary Pelvic pain in female POCT URINALYSIS DIPSTICK Routine 025 9:20 AM EDT Cyst of right ovary Pelvic pain in female ALL DEHYDROEPIANDROSTERONE Routine 12/29 1:15 PM EDT ALL PROGESTERONE Routine 12/29/2024 1:15 PM EDT ALL FOLLICLE STIMULATING HORMONE Routine 12/29/2024 1:15 PM EDT ALL LUTEINIZING HORMONE Routine 12/30/19 25 1:15 PM EDT ALL DHEA SULFATE Routine 12/29/2024 1:15 PM EDT ALL CBC WITH AUTO DIFF Routine 5 1:15 PM EDT ALL THYROXINE (T4) FREE Routine 12/30/19 25 1:15 PM EDT TBH PREG QUANT HCG Routine 12/29/2024 1: 15 PM EDT ALL THYROID STIM HORMONE Routine 025 1:15 PM EDT MLR HEMOGLOBIN A1C Routine 12/29/2024 1: 15 PM EDT US PELVIS TRANSVAGINAL Routine 5 1:16 PM EDT PCOS (polycystic ovarian syndrome) Irregular periods/menstrual cycles from Last 3 Months Results * (ABNORMAL) POCT urinalysis dipstick manually resulted (02/21/2025 10:28 AM EDT) Only the most recent of2 resultswithin the time period is included. Color, UA Yellow Clarity, UA Clear Glucose, [...] Positive Urine 02/21/2025 10:2 8 AM EDT us Jalen Heo DO POINT OF CARE TEST ENTER/EDIT OR DERABLES Final Result * TBH PREG QUANT HCG (02/14/2025 6:20 AM EDT) Only the most recent of2 resultswithin the time period is included. Pathologist [facility] HCG QUANTITATIVE <1 mIU/mL TBH Comment: 5-50 0.2-1 WEEK 50-500 1-2 WEEKS 100-5,000 2-3 WEEKS 500-10,000 3-4 WEEKS 1,000-50,000 4-5 WEEKS 10,000-100,000 5-6 WEEKS 15,000-200,000 6-8 WEEKS 10,000-100,000 2-3 MONTHS 02/14/2025 6:2 0 AM EDT 02/14/2025 6:22 AM EDT Narrative CLINISYNC - 02/14/2025 6:50 AM EDT us Jalen Facundo DO CLINISYNC Final Result [facility] * (ABNORMAL) ALL CBC WITH AUTO DIFF (02/14/2025 6:20 AM EDT) Only the most recent of2 resultswithin the time period is included. [facility] TB WBC 8.2 4.0 - 11.0 10 3/uL TBH TB RBC 5.01 4.20 - 5.40 10 6/uL TBH TBH HGB 15.9 12.0 - 16.0 g/dL TB TB HCT 45.5 36.0 - 48.0 % TBH TB MCV 90.8 81.0 - 99.0 fL TBH TBH MCH 31.7 26.7 - 34.0 pg TBH TB MCHC 34.9 29.9 - 35.2 g/dL TBH TBH RDW 12.5 11.0 - 15.0 % TBH TBH PLT 121(L) 150 - 450 10 3/uL TBH TB MPV 11.0 9.5 - 13.5 fL TBH NEUTROPHILS PERCENT AUTO 51.5 43.0 - 75.0 % TBH LYMPHOCYTES PERCENT AUTO 37.0 20.5 - 60.0 % TBH MONOCYTES PERCENT AUTO 8.5 1.7 - 12.0 % TBH TBH EO % 2.3 0.9 - 7.0 % TBH BASOPHILS PERCENT AUTO 0.5 0.2 - 2.0 % TBH IMMATURE GRANULOCYTES PCT AUTO 0.2 0.0 - 0.5 % TBH NEUTROPHILS ABSOLUTE AUTO 4.2 1.4 - 6.5 10 3/uL TBH LYMPHOCYTES ABSOLUTE AUTO 3.0 1.2 - 3.8 10 3/uL TBH MONOCYTES ABSOLUTE AUTO 0.7 0.3 - 0.8 10 3/uL TBH TBH EO # 0.2 0.0 - 0.7 10 3/uL TBH BASOPHILS ABSOLUTE AUTO 0.0 0.0 - 0.1 10 3/uL TBH IMMATURE GRANULOCYTES ABS AUTO 0.02 0.00 - 0.03 10 3/uL TBH 02/14/2025 6:20 AM EDT 02/14/2025 6:23 AM EDT Narrative CLINISYNC - 02/14/2025 6:27 AM EDT Jalen Loredo DO CLINISYNC Final Result [facility] * (ABNORMAL) RECURRENT VAGINITIS (HTRX) (02/07/2025 11:48 AM EDT) Pathologist [facility] ATOPOBIUM VAGINAE 17.351(A) 19.961 - 24.689 ppm 02/08/2025 6:09 AM EDT [facility] ATOPOBIUM VAGINAE Detected(A) 19.961 - 24.689 ppm 02/08/2025 6:09 AM EDT [facility] BVAB 2,3 (BACTERIAL VAGINOSIS ASSOCIATED BACTERIA 2, 3); MOBILUNCUS SPP 10.615(A) 19.961 - 24.689 ppm 02/08/2025 6:09 AM EDT [facility] BVAB 2,3 (BACTERIAL VAGINOSIS ASSOCIATED BACTERIA 2, 3); MOBILUNCUS SPP Detected(A) 19.961 - 24.689 ppm 02/08/2025 6:09 AM EDT [facility] LORI ALBICANS, PARAPSILOSIS, TROPICALIS 0.000 19.961 - 30.770 ppm 02/08/2025 6:09 AM EDT [facility] LORI ALBICANS, PARAPSILOSIS, TROPICALIS Not Detected 19.961 - 30.770 ppm 02/08/2025 6:09 AM EDT [facility] LORI GLABRATA 0.000 23.000 - 32.138 ppm 02/08/2025 6:09 AM EDT [facility] LORI GLABRATA Not Detected 23.000 - 32.138 ppm 02/08/2025 6:09 AM EDT [facility] LORI KRUSEI 0.000 23.000 - 32.271 ppm 02/08/2025 6:09 AM EDT [facility] LORI KRUSEI Not Detected 23.000 - 32.271 ppm 02/08/2025 6:09 AM EDT [facility] CHLAMYDIA TRACHOMATIS 0.000 23.000 - 31.467 ppm 02/08/2025 6:09 AM EDT [facility] CHLAMYDIA TRACHOMATIS Not Detected 23.000 - 31.467 ppm 02/08/2025 6:09 AM EDT [facility] GARDNERELLA VAGINALIS 17.385(A) 19.961 - 24.689 ppm 02/08/2025 6:09 AM EDT [facility] GARDNERELLA VAGINALIS Detected(A) 19.961 - 24.689 ppm 02/08/2025 6:09 AM EDT [facility] MEGASPHAERA (TYPES 1, 2) 12.915(A) 19.961 - 24.689 ppm 02/08/2025 6:09 AM EDT [facility] MEGASPHAERA (TYPES 1, 2) Detected(A) 19.961 - 24.689 ppm 02/08/2025 6:09 AM EDT [facility] NEISSERIA GONORRHOEAE 0.000 23.000 - 32.117 ppm 02/08/2025 6:09 AM EDT [facility] NEISSERIA GONORRHOEAE Not Detected 23.000 - 32.117 ppm 02/08/2025 6:09 AM EDT [facility] TRICHOMONAS VAGINALIS 0.000 23.000 - 32.119 ppm 02/08/2025 6:09 AM EDT [facility] TRICHOMONAS VAGINALIS Not Detected 23.000 - 32.119 ppm 02/08/2025 6:09 AM EDT [facility] MYCOPLASMA GENITALIUM 0.000 19.961 - 24.689 ppm 02/08/2025 6:09 AM EDT [facility] MYCOPLASMA GENITALIUM Not Detected 19.961 - 24.689 ppm 02/08/2025 6:09 AM EDT [facility] ERMB, C; MEFA 13.834(A) 23.000 - 27.611 ppm 02/08/2025 6:09 AM EDT [facility] ERMB, C; MEFA Detected(A) 23.000 - 27.611 ppm 02/08/2025 6:09 AM EDT [facility] TET B, TET M 14.385(A) 23.000 - 27.778 ppm 02/08/2025 6:09 AM EDT [facility] TET B, TET M Detected(A) 23.000 - 27.778 ppm 02/08/2025 6:09 AM EDT [facility] Tissue 02/07/2025 11:4 8 AM EDT 02/08/2025 2:08 AM EDT Jalen Loredo DO LAB BLOOD ORDERABLES Final Resul t [facility] [address] [place] [address] * POCT , urine manually resulted (02/07/2025 9:21 AM EDT) Preg Test, Ur Negative Negative Urine 02/07/2025 9:21 AM EDT us Jalen Facundo DO POINT OF CARE TEST ENTER/EDIT OR DERABLES Final Result * MLR HEMOGLOBIN A1C (12/29/2024 1:15 PM EDT) GLYCOHEMOGLOBIN A1C 5.1 4.5 - 6.2 % [facility] Comment: ADA RECOMMENDED LIMIT 4.0 - 6.0 ADA THERAPEUTIC TARGET < 7.0 ACTION SUGGESTED > 7.0 ESTIMATED AVERAGE GLUCOSE 100 mg/dL TB 12/29/2024 1:15 PM EDT 12/29/2024 1:17 PM EDT Narrative CLINISYNC - 12/29/2024 1:46 PM EDT Jalen Facundo DO CLINISYNC Final Result CL[facility]IS[facility]NC [facility] * ALL THYROXINE (T4) FREE (12/29/2024 1:15 PM EDT) [facility] FREE T4 1.05 0.76 - 1.46 ng/dL [facility] 12/29/2024 1:15 PM EDT 12/29/2024 1:17 PM EDT Narrative CLINISYNC - 12/29/2024 2:19 PM EDT [facility] Fac[facility] DO CLINISYNC Final Result Performing Organization Address City/[facility]/ZIP Co de Phone Number CLINISYNC TB * ALL THYROID STIM HORMONE (12/29/2024 1:15 PM EDT) Pathologist [facility] THYROID STIMULATING HORMONE 1.946 0.358 - 3.740 uIU/mL TB 12/29/2024 1:15 PM EDT 12/29/2024 1:17 PM EDT Narrative CLINISYNC - 12/29/2024 2:19 PM EDT Jalen Facundo DO CLINISYNC Final Result CLINISYNC TB * ALL PROGESTERONE (12/29/2024 1:15 PM EDT) Pathologist [facility] PROGESTERONE 0.4 . ng/mL [facility] Comment: Follicular phase 0.1 - 0.9 Luteal phase 1.8 - 23.9 Ovulation phase 0.1 - 12.0 First trimester 11.0 - 44.3 Second trimester 25.4 - 83.3 Third trimester 58.7 - 214.0 Postmenopausal 0.0 - 0.1 Performed at: [address] [id number] Media Coordinator: Jaron Lewis PhD, Phone: [phone] 12/29/2024 1:15 PM EDT 12/29/2024 1:17 PM EDT Narrative CLINISYNC - 12/30/2024 4:07 AM EDT [facility] CLINISYNC Final Result Performing Organization Address [facility] de Phone Number [facility] * ALL LUTEINIZING HORMONE (12/29/2024 1:15 PM EDT) Pathologist [facility] LUTEINIZING HORMONE(LH) 12.8 . mIU/mL [facility]H Comment: Adult Female Range Follicular phase 2.4 - 12.6 Ovulation phase 14.0 - 95.6 Luteal phase 1.0 - 11.4 Postmenopausal 7.7 - 58.5 12/29/2024 1:15 PM EDT 12/29/2024 1:17 PM EDT Narrative CLINISYNC - 12/30/2024 4:07 AM EDT [facility] DO CLINISYNC Final Result Performing Organization Address City/[facility]/ZIP Co de Phone Number [facility] * ALL FOLLICLE STIMULATING HORMONE (12/29/2024 1:15 PM EDT) Pathologist [facility] FSH 5.4 . mIU/mL [facility]H Comment: Adult Female Range Follicular phase 3.5 - 12.5 Ovulation phase 4.7 - 21.5 Luteal phase 1.7 - 7.7 Postmenopausal 25.8 - 134.8 12/29/2024 1:15 PM EDT 12/29/2024 1:17 PM EDT Narrative CLINISYNC - 12/30/2024 4:07 AM EDT us Ajlen Facundo DO CLINISYNC Final Result Performing Organization Address [facility] Co de Phone Number [facility] * ALL DHEA SULFATE (12/29/2024 1:15 PM EDT) DHEA-SULFATE 107.0 84.8 - 378.0 ug/dL TB 12/29/2024 1:15 PM EDT 12/29/2024 1:17 PM EDT Narrative CLINISYNC - 12/30/2024 4:07 AM EDT Jalen Facundo DO CLINISYNC Final Result Performing Organization Address [facility] Co de Phone Number [facility] * ALL DEHYDROEPIANDROSTERONE (12/29/2024 1:15 PM EDT) DHEA, SERUM 212 31 - 701 ng/dL TB Comment: This test was developed and its performance characteristics determined by [facility]. It has not been cleared or approved by the Food and Drug Administration. Performed at: [address] [id number] Media Coordinator: Mina Dasilva MD, Phone: [phone] 12/29/2024 1:15 PM EDT 12/29/2024 1:17 PM EDT Narrative CLINISYNC - 01/06/2025 2:07 AM EDT us Jalen Heo DO CLINISYNC Final Result Performing Organization Address City/[facility] Co de Phone Number [facility] * US pelvis transvaginal (12/20/2024 1:16 PM EDT) Anatomical Region Laterality Modality Pelvis Ultrasound 12/21/2024 8:38 AM EDT Narrative 12/21/2024 8:38 AM EDT EXAM: US PELVIS TRANSVAGINAL HISTORY: PCOS, irregular periods, recent ER visit for pain. COMPARISON: Pelvic ultrasound 12/05/2024 - Report only. TECHNIQUE: Two-dimensional transvaginal grayscale ultrasound imaging of the pelvis was performed. Color flow Doppler imaging of the ovaries was also performed. FINDINGS: UTERUS 8.2 x 4.4 x 6.3 cm The uterus is anteverted in position and demonstrates a normal, homogeneous echotexture. Multiple nabothian cysts are visualized within the cervix. ENDOMETRIUM 0.4 cm The endometrium demonstrates a normal, homogeneous echotexture. RIGHT OVARY 4.3 x 2.6 x 2.8 cm The right ovary demonstrates a normal echotexture with follicles. The ovarian volume is 16 mL. There is normal color Doppler flow. LEFT OVARY 3.8 x 2.8 x 3.5 cm The left ovary demonstrates a normal echotexture with follicles. The ovarian volume of 20 mL. There is normal color Doppler flow. There is a 2.6 cm dominant follicle visualized. No fluid is present within the cul-de-sac. IMPRESSION: 1. Increased ovarian volumes, consistent with polycystic ovarian syndrome. 2. Normal color Doppler flow within the bilateral ovaries. Electronically Signed:Electronically signed by AMY BARTLETT II, MD, PHD at 21-Dec-2024 08:37:37 AM [facility] Procedure Note Amy Bartlett MD - 12/21/2024 EXAM: US PELVIS TRANSVAGINAL HISTORY: PCOS, irregular periods, recent ER visit for pain. COMPARISON: Pelvic ultrasound 12/05/2024 - Report only. TECHNIQUE: Two-dimensional transvaginal grayscale ultrasound imaging ofthe pelvis was performed. Color flow Doppler imaging of the ovaries wasalso performed. FINDINGS: UTERUS 8.2 x 4.4 x 6.3 cm The uterus is anteverted in position and demonstrates a normal,homogeneous echotexture. Multiple nabothian cysts are visualized withinthe cervix. ENDOMETRIUM 0.4 cm The endometrium demonstrates a normal, homogeneous echotexture. RIGHT OVARY 4.3 x 2.6 x 2.8 cm The right ovary demonstrates a normal echotexture with follicles. Theovarian volume is 16 mL. There is normal color Doppler flow. LEFT OVARY 3.8 x 2.8 x 3.5 cm The left ovary demonstrates a normal echotexture with follicles. Theovarian volume of 20 mL. There is normal color Doppler flow. There is a2.6 cm dominant follicle visualized. No fluid is present within the cul-de-sac. IMPRESSION: 1. Increased ovarian volumes, consistent with polycystic ovariansyndrome. 2. Normal color Doppler flow within the bilateral ovaries. Electronically Signed:Electronically signed by AMY BARTLETT II, MD, PHDat 21-Dec-2024 08:37:37 AM [facility] us Jalen Loredo DO IMG US PROCEDURES Final Result from Last [address] [place] [address] [employer] Care Teams Drilling Fluids Specialist Relationship Specialty Start Date End Date Mariel Braun PA [address] [place] [address] [place] [address] [facility] 01/11/24
--- OUTSIDE RECORDS SUMMARY | 2025-03-01 14:15 | XMS_ITS | Encounter Summary ---
Author Organization [facility] Address [address] [facility] [address] [place] [address] Care Team Providers Care Manager Medical Device Name Role Phone Mariel Braun Unavailable Encounter Details Date Type Department Care Team (Late st Contact Info) Description 02/14/2025 Telephone [facility] [address] [place] [address] Katya Verdugo LPN Social History Tobacco Use Types Packs/Day Years [...] encounter Miscellaneous Notes * Telephone Encounter - Katya Verdugo LPN - 02/14/2025 10:[address] Loredo please schedule patient for Weight Management in 2-3 weeks for Adipex. Thanks--Katya Quesada LPN documented in this encounter Plan of Treatment Upcoming Encounters Date Type Department Care Team (Late st Contact Info) Description 03/01/2025 3:30 PM EDT Office Visit [facility] [address] [place] [address] Mariel Braun PA [address] [place] [address] 04/18/2025 2:00 PM EDT Office Visit [facility] OB [address] [place] [id number] Jalen Loredo DO [address] [place], [place] [id number] documented as of this encounter Visit Diagnoses Not on filedocumented in this encounter Care Teams Manager Medical Device Relationship Specialty Start Date End Date Mariel Braun PA [address] [place], [place] [id number] PCP - [facility] 01/11/24 documented as of this encounter
--- OUTSIDE RECORDS SUMMARY | 2025-03-01 14:15 | XMS_ITS | Clinical Summary ---
Author Organization [facility] Address [address] [place] [address] Care Team Providers Care Engineering Psychologist Name Role Phone ReeceFransico wang Lm [employer] - [employer] Primary Care Provider Allergies No known active allergies Medications Eptgiwcm-Dab-Ci-FA ( 1 + IRON PO) Take by mouth Active cetirizine (ZYRTEC) 10 MG tablet 08/04/20 22 Active fluticasone (FLONASE) 50 MCG/ACT nasal spray 08/04/20 22 Active metFORMIN (GLUCOPHAGE-XR) 500 MG extended release tablet 08/21/20 22 Active phentermine 15 MG capsule Take 15 mg by mouth daily. Active brompheniramine-ps eudoephedrine-DM 2-30-10 MG/5ML syrup 08/04/20 22 Active valACYclovir (VALTREX) 1 g tabletIndications: Herpes simplex infection Take one pill PO daily as suppressive therapy 30 tablet 5 01/27/20 23 Active valACYclovir (VALTREX) 1 g tabletIndications: Herpes simplex infection Take one tablet PO BID x 3 days at first sign of HSV flare 18 tablet 2 01/27/20 23 Active ondansetron (ZOFRAN-ODT) 4 MG disintegrating tablet Take 1 tablet by mouth 3 times daily as needed for Nausea or Vomiting 21 tablet 02/05/20 25 Active HYDROcodone-acetam inophen (NORCO) 5-325 MG per tabletIndications: Cyst of right ovary Take 1 tablet by mouth every 4 hours as needed for Pain for up to 3 days. Intended supply: 3 days. Take lowest dose possible to manage pain Max Daily Amount: 6 tablets 18 tablet 02/05/20 025 cephALEXin (KEFLEX) 500 MG capsule Take 1 capsule by mouth 3 times daily for 7 days 21 capsule 02/05/20 025 Encounters Date Type Department Care Team Description 02/03/2025 9:40 PM EDT - 02/04/2025 1:47 AM EDT Emergency [facility] [address] [place] [id number] Jose Sanchez MD Cyst of right ovary (Primary Dx); Right lower quadrant abdominal pain; Nausea and vomiting, unspecified vomiting type; Acute cystitis without hematuria Discharge Disposition: Home or Self Care 02/03/2025 Travel 12/05/2024 12:35 PM EST - 12/05/2024 4:49 PM EST Emergency [facility] [address] [place] [id number] Romel Avila DO Acute bacterial conjunctivitis of right eye (Primary Dx); Bacterial vaginosis; Acute cystitis without hematuria Discharge Disposition: Home or Self Care 12/05/2024 Travel from Last 3 Months Social History Tobacco Use Types Packs/Day Years Used Date Smoking Tobacco: Never Smokeless Tobacco: Never Tobacco Cessation:Counseling Given: Not Answered Alcohol Use Standard Drinks/Week Comments No 0 (1 standard drink = 0.6 oz pur e alcohol) AUDIT-C Answer Date Recorded Q1: How often do you have a drink containing alc ohol? Monthly or less 02/03/2025 Q2: How many drinks containi ng alcohol do you have on a typical day when you are drinking? 1 or 2 02/03/2025 Q3: How often do you have si x or more drinks on one occasion? Never 02/03/2025 Interpersonal Safety Domain Source: IP Abuse Scr eening Answer Date Recorded Physical abuse Denies 02/03/2025 Verbal abuse Denies 02/03/2025 Emotional abuse Denies 02/03/2025 Financial abuse Denies 02/03/2025 Sexual abuse Denies 02/03/2025 Comments Unknown Sex and Gender Information Value Date Recorded Sex Assigned at Female 12/05/2024 12:57 PM EST Legal Sex Female 12:45 AM EDT Gender Identity Not on file Sexual Orientation Not on file Last Filed Vital Signs Vital Sign Reading Time Taken Comments Blood Pressure 145/78 02/04/2025 1:24 AM EDT Pulse 94 02/04/2025 1:24 AM EDT Temperature 36.7 C (98 F) 02/04/2025 1:24 AM EDT Respiratory Rate 18 02/04/2025 1:24 AM EDT Oxygen Saturation 100% 02/04/2025 1:24 AM EDT Inhaled Oxygen Concentration - - Weight 127 kg (280 lb) 02/03/2025 9:26 PM EDT Height 160 cm (5' 3 ) 02/03/2025 9:26 PM EDT Body Mass Index 49.6 02/03/2025 9:26 PM EDT Plan of Treatment Health Maintenance Due Date Last Done Comments Depression Screen 2009 Varicella vaccine (1 of 2 - 13+ 2-dose series) 2010 HIV screen 2012 Hepatitis C screen 2015 DTaP/Tdap/Td vaccine (1 - Tdap) 2016 Hepatitis B vaccine (1 of 3 - 19+ 3-dose series) 2016 Pap smear 2018 COVID-19 Vaccine ( - 2023- season) 2024 Flu vaccine (Season Ended) 2025 10/13/2017 Chlamydia/GC screen Discontinued 12/05/2024, 08/29/2024, 04/12/2024, Additional history exists HPV vaccine Aged Out No longer eligi ble based on patient's age to complete this topic Hepatitis A vaccine Aged Out No longe r eligible based on patient's age to complete this topic Hib vaccine Aged Out No longer eligi ble based on patient's age to complete this topic Meningococcal (ACWY) vaccine Aged Out No longer eligible based on patient's age to complete this topic Meningococcal B vaccine Aged Out No l onger eligible based on patient's age to complete this topic Pneumococcal 0-49 years Vaccine Aged Out No longer eligible based on patient's age to complete this topic Polio vaccine Aged Out No longer elig ible based on patient's age to complete this topic Procedures Procedure Name Priority Date/Time Associated Diagnosis Comments CT ABDOMEN PELVIS W IV CONTRAST STAT 02/03/2025 11:06 PM EDT US DUP ABD PEL RETRO SCROT COMPLETE STAT 02/03/2025 11:04 PM EDT US NON OB TRANSVAGINAL STAT 02/03/2025 11:04 PM EDT HCG, SERUM, QUALITATIVE Stat [employer] Label print 02/03/2025 10:28 PM EDT PROTIME-INR Stat [employer] Label print 02/03/2025 10:28 PM EDT MAGNESIUM Stat [employer] Label print 02/03/2025 10:28 PM EDT LIPASE Stat [employer] Label print 02/03/2025 10:28 PM EDT COMPREHENSIVE METABOLIC PANEL Stat [employer] Label print 02/03/2025 10:28 PM EDT CBC WITH AUTO DIFFERENTIAL Stat [employer] Label print 02/03/2025 10:28 PM EDT MICROSCOPIC URINALYSIS Stat [employer] Label print 02/03/2025 9:41 PM EDT URINE DRUG SCREEN Stat [employer] Label print 02/03/2025 9:41 PM EDT URINALYSIS WITH REFLEX TO CULTURE Stat [employer] Label print 02/03/2025 9:41 PM EDT US DUP ABD PEL RETRO SCROT COMPLETE STAT 12/05/2024 2:31 PM EST US PELVIS COMPLETE STAT 12/05/2024 2: 31 PM EST VAGINITIS DNA PROBE Stat [employer] Label print 12/05/2024 1:55 PM EST C.TRACHOMATIS N.GONORRHOEAE DNA Stat [employer] Label print 12/05/2024 1:55 PM EST MICROSCOPIC URINALYSIS Stat [employer] Label print 12/05/2024 12:30 PM EST , URINE Stat [employer] Label print 12/05/2024 12:30 PM EST URINALYSIS WITH REFLEX TO CULTURE Stat [employer] Label print 12/05/2024 12:30 PM EST CULTURE, URINE Routine 12/05/2024 12:30 PM EST from Last 3 Months Results * CT ABDOMEN PELVIS W IV CONTRAST Additional Contrast? None (02/03/2025 11:06 PM EDT) Anatomical Region Laterality Modality Abdomen, Pelvis, Hip Computed To mography 02/04/2025 1:20 AM EDT Impressions 02/04/2025 1:26 AM EDT 1. No acute finding in the abdomen. 2. Normal appendix. 3. Simple appearing right adnexal/ovarian cyst measuring 6.53 cm x 5.44 cm. Follow-up recommendation as below. RECOMMENDATIONS: Managing Incidental Adnexal Cystic Mass by CT or MR Benign cyst: Premenopausal (< or equal to 50 years if LMP unknown) < or equal to 5 cm: no follow up >5 cm: US in 6-12 weeks > or equal to 10 cm: US promptly Reference: Amol et al. Managing Incidental Findings on Abdominal CT: White Paper of the ACR Incidental Findings Committee. J Am Emily Radiol 2010;[id number] Narrative 02/04/2025 1:26 AM EDT EXAMINATION: CT OF THE ABDOMEN AND PELVIS WITH CONTRAST 02/03/2025 11:01 pm TECHNIQUE: CT of the abdomen and pelvis was performed with the administration of intravenous contrast. Multiplanar reformatted images are provided for review. Automated exposure control, iterative reconstruction, and/or weight based adjustment of the mA/kV was utilized to reduce the radiation dose to as low as reasonably achievable. COMPARISON: None. HISTORY: ORDERING SYSTEM PROVIDED HISTORY: abdominal pain TECHNOLOGIST PROVIDED HISTORY: abdominal pain Decision Support Exception - unselect if not a suspected or confirmed emergency medical condition->Emergency Medical Condition (MA) Reason for Exam: abdominal pain Additional signs and symptoms: Mid to lower abdominal pain, right grioin pain. Diarrhea, bnausea/ vomiting 5 days ago FINDINGS: Lower Chest: The lung bases are clear and the heart size is normal. Organs: The gallbladder is mildly dilated. There are no calcified gallstones. No pericholecystic fluid or fat stranding. Bile ducts are not dilated. The liver, spleen, pancreas, adrenal glands and kidneys are normal. GI/Bowel: Normal appendix. Unopacified bowel loops are unremarkable. No bowel obstruction. Pelvis: There is a simple appearing right adnexal/ovarian cyst measuring 6.53 cm x 5.44 cm. Uterus and left ovary are unremarkable. Urinary bladder was not well distended but appeared grossly. Peritoneum/Retroperitoneum: There is no adenopathy, free air or free fluid. Bones/Soft Tissues: No acute bone finding. Obesity. Procedure Note Eleuterio Bundy MD - 02/04/2025 EXAMINATION: CT OF THE ABDOMEN AND PELVIS WITH CONTRAST 02/03/2025 11:01 pm TECHNIQUE: CT of the abdomen and pelvis was performed with the administration of intravenous contrast. Multiplanar reformatted images are provided forreview. Automated exposure control, iterative reconstruction, and/or weightbased adjustment of the mA/kV was utilized to reduce the radiation dose to aslow as reasonably achievable. COMPARISON: None. HISTORY: ORDERING SYSTEM PROVIDED HISTORY: abdominal pain TECHNOLOGIST PROVIDED HISTORY: abdominal pain Decision Support Exception - unselect if not a suspected or confirmed emergency medical condition->Emergency Medical Condition (MA) Reason for Exam: abdominal pain Additional signs and symptoms: Mid to lower abdominal pain, right grioin pain. Diarrhea, bnausea/ vomiting 5 days ago FINDINGS: Lower Chest: The lung bases are clear and the heart size is normal. Organs: The gallbladder is mildly dilated. There are no calcified gallstones. No pericholecystic fluid or fat stranding. Bile ducts arenot dilated. The liver, spleen, pancreas, adrenal glands and kidneys arenormal. GI/Bowel: Normal appendix. Unopacified bowel loops are unremarkable.No bowel obstruction. Pelvis: There is a simple appearing right adnexal/ovarian cyst measuring6.53 cm x 5.44 cm. Uterus and left ovary are unremarkable. Urinary bladderwas not well distended but appeared grossly. Peritoneum/Retroperitoneum: There is no adenopathy, free air or freefluid. Bones/Soft Tissues: No acute bone finding. Obesity. IMPRESSION: 1. No acute finding in the abdomen. 2. Normal appendix. 3. Simple appearing right adnexal/ovarian cyst measuring 6.53 cm x 5.44cm. Follow-up recommendation as below. RECOMMENDATIONS: Managing Incidental Adnexal Cystic Mass by CT or MR Benign cyst: Premenopausal (< or equal to 50 years if LMP unknown) < or equal to 5 cm: no follow up >5 cm: US in 6-12 weeks > or equal to 10 cm: US promptly Reference: Amol et al. Managing Incidental Findings on Abdominal CT: White Paperof the ACR Incidental Findings Committee. J Am Emily Radiol 2010;[id number] us Jose Sanchez MD IMG CT ORDERABLES Final Resul t * US DUP ABD PEL RETRO SCROT COMPLETE (02/03/2025 11:04 PM EDT) Only the most recent of2 resultswithin the time period is included. Anatomical Region Laterality Modality Abdomen, Pelvis Ultrasound 02/04/2025 1:17 AM EDT Impressions 02/04/2025 1:22 AM EDT 1. Normal bilateral arterial and venous ovarian Doppler flow without evidence of torsion. 2. 6.6 cm simple appearing right ovarian cyst. Recommend follow-up pelvic ultrasound in 3-6 months. Narrative 02/04/2025 1:22 AM EDT EXAMINATION: PELVIC ULTRASOUND; DOPPLER EVALUATION OF THE PELVIS 02/03/2025 TECHNIQUE: Transvaginal pelvic ultrasound duplex ultrasound using B-mode/coe scaled imaging, Doppler spectral analysis and color flow Doppler was obtained. COMPARISON: Pelvic ultrasound 12/05/2024. HISTORY: ORDERING SYSTEM PROVIDED HISTORY: rlq abdominal pain TECHNOLOGIST PROVIDED HISTORY: rlq abdominal pain; ORDERING SYSTEM PROVIDED HISTORY: rlq pain TECHNOLOGIST PROVIDED HISTORY: rlq pain LMP 01/11/2025. FINDINGS: Measurements: Uterus: 9.2 x 4.4 x 4.2 cm Endometrial stripe: 0.3 cm Right Ovary:6.6 x 5.3 x 5.4 cm Left Ovary: 3.3 x 2.2 x 2.3 cm Ultrasound Findings: Uterus: Uterus demonstrates normal myometrial echotexture. Endometrial stripe: Endometrial stripe is within normal limits. Right Ovary: A 6.6 cm simple appearing right ovarian cyst is seen. There is normal arterial and venous Doppler flow. Left Ovary: Left ovary is within normal limits. There is normal arterial and venous Doppler flow. Free Fluid: No evidence of free fluid. Procedure Note Brian Prabhakar MD - 02/04/2025 EXAMINATION: PELVIC ULTRASOUND; DOPPLER EVALUATION OF THE PELVIS 02/03/2025 TECHNIQUE: Transvaginal pelvic ultrasound duplex ultrasound using B-mode/grayscaled imaging, Doppler spectral analysis and color flow Doppler was obtained. COMPARISON: Pelvic ultrasound 12/05/2024. HISTORY: ORDERING SYSTEM PROVIDED HISTORY: rlq abdominal pain TECHNOLOGIST PROVIDED HISTORY: rlq abdominal pain; ORDERING SYSTEM PROVIDED HISTORY: rlq pain TECHNOLOGIST PROVIDED HISTORY: rlq pain LMP 01/11/2025. FINDINGS: Measurements: Uterus: 9.2 x 4.4 x 4.2 cm Endometrial stripe: 0.3 cm Right Ovary:6.6 x 5.3 x 5.4 cm Left Ovary: 3.3 x 2.2 x 2.3 cm Ultrasound Findings: Uterus: Uterus demonstrates normal myometrial echotexture. Endometrial stripe: Endometrial stripe is within normal limits. Right Ovary: A 6.6 cm simple appearing right ovarian cyst is seen. Thereis normal arterial and venous Doppler flow. Left Ovary: Left ovary is within normal limits. There is normal arterialand venous Doppler flow. Free Fluid: No evidence of free fluid. IMPRESSION: 1. Normal bilateral arterial and venous ovarian Doppler flow withoutevidence of torsion. 2. 6.6 cm simple appearing right ovarian cyst. Recommend follow-uppelvic ultrasound in 3-6 months. us Jose Sanchez MD IMG US ORDERABLES Final Resul t * US NON OB TRANSVAGINAL (02/03/2025 11:04 PM EDT) Anatomical Region Laterality Modality Pelvis Ultrasound 02/04/2025 1:17 AM EDT Impressions 02/04/2025 1:22 AM EDT 1. Normal bilateral arterial and venous ovarian Doppler flow without evidence of torsion. 2. 6.6 cm simple appearing right ovarian cyst. Recommend follow-up pelvic ultrasound in 3-6 months. Narrative 02/04/2025 1:22 AM EDT EXAMINATION: PELVIC ULTRASOUND; DOPPLER EVALUATION OF THE PELVIS 02/03/2025 TECHNIQUE: Transvaginal pelvic ultrasound duplex ultrasound using B-mode/coe scaled imaging, Doppler spectral analysis and color flow Doppler was obtained. COMPARISON: Pelvic ultrasound 12/05/2024. HISTORY: ORDERING SYSTEM PROVIDED HISTORY: rlq abdominal pain TECHNOLOGIST PROVIDED HISTORY: rlq abdominal pain; ORDERING SYSTEM PROVIDED HISTORY: rlq pain TECHNOLOGIST PROVIDED HISTORY: rlq pain LMP 01/11/2025. FINDINGS: Measurements: Uterus: 9.2 x 4.4 x 4.2 cm Endometrial stripe: 0.3 cm Right Ovary:6.6 x 5.3 x 5.4 cm Left Ovary: 3.3 x 2.2 x 2.3 cm Ultrasound Findings: Uterus: Uterus demonstrates normal myometrial echotexture. Endometrial stripe: Endometrial stripe is within normal limits. Right Ovary: A 6.6 cm simple appearing right ovarian cyst is seen. There is normal arterial and venous Doppler flow. Left Ovary: Left ovary is within normal limits. There is normal arterial and venous Doppler flow. Free Fluid: No evidence of free fluid. Procedure Note Brian Prabhakar MD - 02/04/2025 EXAMINATION: PELVIC ULTRASOUND; DOPPLER EVALUATION OF THE PELVIS 02/03/2025 TECHNIQUE: Transvaginal pelvic ultrasound duplex ultrasound using B-mode/grayscaled imaging, Doppler spectral analysis and color flow Doppler was obtained. COMPARISON: Pelvic ultrasound 12/05/2024. HISTORY: ORDERING SYSTEM PROVIDED HISTORY: rlq abdominal pain TECHNOLOGIST PROVIDED HISTORY: rlq abdominal pain; ORDERING SYSTEM PROVIDED HISTORY: rlq pain TECHNOLOGIST PROVIDED HISTORY: rlq pain LMP 01/11/2025. FINDINGS: Measurements: Uterus: 9.2 x 4.4 x 4.2 cm Endometrial stripe: 0.3 cm Right Ovary:6.6 x 5.3 x 5.4 cm Left Ovary: 3.3 x 2.2 x 2.3 cm Ultrasound Findings: Uterus: Uterus demonstrates normal myometrial echotexture. Endometrial stripe: Endometrial stripe is within normal limits. Right Ovary: A 6.6 cm simple appearing right ovarian cyst is seen. Thereis normal arterial and venous Doppler flow. Left Ovary: Left ovary is within normal limits. There is normal arterialand venous Doppler flow. Free Fluid: No evidence of free fluid. IMPRESSION: 1. Normal bilateral arterial and venous ovarian Doppler flow withoutevidence of torsion. 2. 6.6 cm simple appearing right ovarian cyst. Recommend follow-uppelvic ultrasound in 3-6 months. us Jose Sanchez MD IMG US ORDERABLES Final Resul t * (ABNORMAL) CBC with Auto Differential (02/03/2025 10:28 PM EDT) WBC 9.4 3.5 - 11.0 k/uL 02/03/2025 10:28 PM EDT [facility] RBC 4.89 4.0 - 5.2 m/uL 02/03/2025 10:28 PM EDT [facility] Hemoglobin 15.3 12.0 - 16.0 g/dL 02/03/2025 10:28 PM EDT [facility] Hematocrit 44.2 36 - 46 % 02/03/2025 10:28 PM EDT [facility] MCV 90.5 80 - 100 fL 02/03/2025 10:28 PM EDT [facility] MCH 31.4 26 - 34 pg 02/03/2025 10:28 PM EDT [facility] MCHC 34.7 31 - 37 g/dL 02/03/2025 10:28 PM EDT [facility] RDW 13.1 11.5 - 14.9 % 02/03/2025 10:28 PM EDT [facility] Platelets 242 150 - 450 k/uL 02/03/2025 10:28 PM EDT [facility] MPV 7.0 6.0 - 12.0 fL 02/03/2025 10:28 PM EDT [facility] Neutrophils % 57 36 - 66 % 02/03/2025 10:28 PM EDT [facility] Lymphocytes % 31 24 - 44 % 02/03/2025 10:28 PM EDT [facility] Monocytes % 9(H) 1 - 7 % 02/03/2025 10:28 PM EDT [facility] Eosinophils % 2 0 - 4 % 02/03/2025 10:28 PM EDT [facility] Basophils % 1 0 - 2 % 02/03/2025 10:28 PM EDT [facility] Neutrophils Absolute 5.30 1.3 - 9.1 k/uL 02/03/2025 10:28 PM EDT [facility] Lymphocytes Absolute 2.90 1.0 - 4.8 k/uL 02/03/2025 10:28 PM EDT [facility] Monocytes Absolute 0.90 0.1 - 1.3 k/uL 02/03/2025 10:28 PM EDT [facility] Eosinophils Absolute 0.20 0.0 - 0.4 k/uL 02/03/2025 10:28 PM EDT [facility] Basophils Absolute 0.10 0.0 - 0.2 k/uL 02/03/2025 10:28 PM EDT [facility] Blood BLOOD SPECIMEN / Unknown 02/03/2025 10:28 PM EDT 02/03/2025 10:30 PM EDT us Jose Sanchez MD HEMATOLOGY ORDERABLES Final R esult [facility] [address] Or[address]. [address] [phone] * Protime-INR (02/03/2025 10:28 PM EDT) Protime 13.2 11.8 - 14.6 sec 02/03/2025 10:28 PM EDT [facility] INR 0.9 02/03/2025 10:28 PM EDT [facility] Comment: Therapeutic Range: Moderate Anticoagulant Intensity: INR = 2.0-3.0 High Anticoagulant Intensity: INR = 2.5-3.5 Blood BLOOD SPECIMEN / Unknown 02/03/2025 10:28 PM EDT 02/03/2025 10:30 PM EDT us Jose Sanchez MD HEMATOLOGY ORDERABLES Final R esult Performing Organization Address [facility]/ZIP Co de Phone Number [facility] [address] [place] [address], [facility] [phone] * HCG Qualitative, Serum (02/03/2025 10:28 PM EDT) Preg, Serum NEGATIVE NEGATIVE 02/03/2025 10:28 PM EDT [facility] Comment: Specimens with hCG levels near the threshold of the test (25 mIU/mL) may give a negative or indeterminate result. In such cases, another test should be performed with a new specimen in 48-72 hours. If early is suspected clinically in this setting, correlation with quantitative serum b-hCG level is suggested. Blood BLOOD SPECIMEN / Unknown 02/03/2025 10:28 PM EDT 02/03/2025 10:30 PM EDT us Jose Sanchez MD CHEMISTRY ORDERABLES Final Re sult Performing Organization Address [facility]/[place] Co de Phone Number [facility] [address] [place] [address], [facility] [phone] * Magnesium (02/03/2025 10:28 PM EDT) Magnesium 1.7 1.6 - 2.6 mg/dL 02/03/2025 10:28 PM EDT [facility] Blood BLOOD SPECIMEN / Unknown 02/03/2025 10:28 PM EDT 02/03/2025 10:30 PM EDT us Jose Sanchez MD CHEMISTRY ORDERABLES Final Re sult Performing Organization Address City/[facility]/ZIP Co de Phone Number [facility] [address] [facility] [place] [address], [facility] [phone] * Lipase (02/03/2025 10:28 PM EDT) Lipase 21 13 - 60 U/L 02/03/2025 10:28 PM EDT [facility] Blood BLOOD SPECIMEN / Unknown 02/03/2025 10:28 PM EDT 02/03/2025 10:30 PM EDT Jose Sanchez MD CHEMISTRY ORDERABLES Final Re sult [facility] [address] [place] [address], [facility] [phone] * (ABNORMAL) CMP (02/03/2025 10:28 PM EDT) Sodium 141 136 - 145 mmol/L 02/03/2025 10:28 PM EDT [facility] Potassium 4.1 3.7 - 5.3 mmol/L 02/03/2025 10:28 PM EDT [facility] Chloride 108(H) 98 - 107 mmol/L 02/03/2025 10:28 PM EDT [facility] CO2 23 20 - 31 mmol/L 02/03/2025 10:28 PM EDT [facility] Anion Gap 10 9 - 16 mmol/L 02/03/2025 10:28 PM EDT [facility] Glucose 122(H) 74 - 99 mg/dL 02/03/2025 10:28 PM EDT [facility] BUN 9 6 - 20 mg/dL 02/03/2025 10:28 PM EDT [facility] Creatinine 0.5(L) 0.7 - 1.2 mg/dL 02/03/2025 10:28 PM EDT [facility] Est, Glom Filt Rate >90 >60 mL/min/1.7 3m2 02/03/2025 10:28 PM EDT [facility] Comment: These results are not intended for use in patients <18 years of age. eGFR results are calculated without a race factor using the 2020 CKD-EPI equation. Careful clinical correlation is recommended, particularly when comparing to results calculated using previous equations. The CKD-EPI equation is less accurate in patients with extremes of muscle mass, extra-renal metabolism of creatine, excessive creatine ingestion, or following therapy that affects renal tubular secretion. Calcium 9.5 8.6 - 10.4 mg/dL 02/03/2025 10:28 PM EDT [facility] Total Protein 6.9 6.6 - 8.7 g/dL 02/03/2025 10:28 PM EDT [facility] Albumin 4.2 3.5 - 5.2 g/dL 02/03/2025 10:28 PM EDT [facility] Total Bilirubin 0.5 0.0 - 1.2 mg/dL 02/03/2025 10:28 PM EDT [facility] Alkaline Phosphatase 40 35 - 104 U/L 02/03/2025 10:28 PM EDT [facility] ALT 48(H) 10 - 35 U/L 02/03/2025 10:28 PM EDT [facility] AST 26 10 - 35 U/L 02/03/2025 10:28 PM EDT [facility] Blood BLOOD SPECIMEN / Unknown 02/03/2025 10:28 PM EDT 02/03/2025 10:30 PM EDT us Jose Sanchez MD CHEMISTRY ORDERABLES Final Re sult [facility] [address] [place] [address], [facility] [phone] * (ABNORMAL) Urinalysis with Reflex to Culture (02/03/2025 9:41 PM EDT) Only the most recent of2 resultswithin the time period is included. Color, UA Yellow Yellow 02/03/2025 9:41 PM EDT [facility] Turbidity UA Cloudy(A) Clear 02/03/2025 9:41 PM EDT [facility] Glucose, Ur NEGATIVE NEGATIVE mg/dL 02/03/2025 9:41 PM EDT [facility] Bilirubin, Urine NEGATIVE NEGATIVE 02/03/2025 9:41 PM EDT [facility] Ketones, Urine TRACE(A) NEGATIVE mg/dL 02/03/2025 9:41 PM EDT [facility] Specific [place], UA 1.024 1.000 - 1.030 02/03/2025 9:41 PM EDT [facility] Urine Hgb NEGATIVE NEGATIVE 02/03/2025 9:41 PM EDT [facility] pH, Urine 5.0 5.0 - 8.0 02/03/2025 9:41 PM EDT [facility] Protein, UA NEGATIVE NEGATIVE mg/dL 02/03/2025 9:41 PM EDT [facility] Urobilinogen, Urine Normal 0.0 - 1.0 EU/dL 02/03/2025 9:41 PM EDT [facility] Nitrite, Urine NEGATIVE NEGATIVE 02/03/2025 9:41 PM EDT [facility] Leukocyte Esterase, Urine TRACE(A) NEGATIVE 02/03/2025 9:41 PM EDT [facility] Urine 02/03/2025 9:41 PM EDT 02/03/2025 10:07 PM EDT Jose Sanchez MD URINE ORDERABLES Final Result [facility] [facility] [place] [address], [facility] [phone] * Urine Drug Screen (02/03/2025 9:41 PM EDT) Amphetamine Screen, Ur NEGATIVE NEGATIVE 02/03/2025 9:41 PM EDT [facility] Comment:Cutoff: 1000 ng/mL Barbiturate Screen, Ur NEGATIVE NEGATIVE 02/03/2025 9:41 PM EDT [facility] Comment:Cutoff: 200 ng/ml Benzodiazepine Screen, Urine NEGATIVE NEGATIVE 02/03/2025 9:41 PM EDT [facility] Comment:Cutoff: 200 ng/ml Cocaine Metabolite, Urine NEGATIVE NEGATIVE 02/03/2025 9:41 PM EDT [facility] Comment:Cutoff: 300 ng/ml Methadone Screen, Urine NEGATIVE NEGATIVE 02/03/2025 9:41 PM EDT [facility] Comment:Cutoff: 300 ng/ml Opiates, Urine NEGATIVE NEGATIVE 02/03/2025 9:41 PM EDT [facility] Comment:Cutoff: 300 ng/ml Phencyclidine, Urine NEGATIVE NEGATIVE 02/03/2025 9:41 PM EDT [facility] Comment:Cutoff: 25 ng/ml Cannabinoid Scrn, Ur NEGATIVE NEGATIVE 02/03/2025 9:41 PM EDT [facility] Comment:Cutoff: 50 ng/ml Oxycodone Screen, Ur NEGATIVE NEGATIVE 02/03/2025 9:41 PM EDT [facility] Comment:Cutoff: 100 ng/ml Fentanyl, Ur NEGATIVE NEGATIVE 02/03/2025 9:41 PM EDT [facility] Comment:Cutoff: 5 ng/ml Test Information This method is a screening test to detect only these drug classes as part of a medical workup. Confirmatory testing by another method should be ordered if clinically indicated. 02/03/2025 9:41 PM EDT [facility] Urine 02/03/2025 9:41 PM EDT 02/03/2025 10:07 PM EDT Jose Sanchez MD URINE ORDERABLES Final Result [facility] [address] [place] [address], [facility] [phone] * (ABNORMAL) Microscopic Urinalysis (02/03/2025 9:41 PM EDT) Only the most recent of2 resultswithin the time period is included. WBC, UA 6 TO 9(A) 0 TO 5 /HPF 02/03/2025 9:41 PM EDT [facility] RBC, UA 0 TO 2 0 TO 2 /HPF 02/03/2025 9:41 PM EDT [facility] Casts UA 3 to 5(A) None /LPF 02/03/2025 9:41 PM EDT [facility] Epithelial Cells, UA 10 TO 20 /HPF 02/03/2025 9:41 PM EDT [facility] Bacteria, UA MANY(A) None 02/03/2025 9:41 PM EDT [facility] 02/03/2025 9:41 PM EDT 02/03/2025 10:07 PM EDT us Jose Sanchez MD URINE ORDERABLES Final Result [facility] [address] [phone] * US PELVIS COMPLETE (12/05/2024 2:31 PM EST) Anatomical Region Laterality Modality Abdomen, Pelvis, Hip Ultrasound 12/05/2024 3:11 PM EST Addenda Addendum by Clarence Siegel MD on 12/05/2024 4:35 PM EST ADDENDUM: 3.4 cm left ovarian adnexal cyst appears to be simple. In a patient of this age this almost certainly reflects physiologic cyst. Because transvaginal pelvis ultrasound imaging was not performed, suboptimally characterized adnexa, may and right pericolic consider follow-up pelvis ultrasound 8-12 weeks.* The results were called by Dr. Clarence Siegel to RUFINO MURO on 12/05/2024 at 16:27. ___ ____ * recommendation per the 202 ACR White Paper, RP Best Practice recommendation Impressions 12/05/2024 3:13 PM EST 1. Unremarkable appearance of the adnexa, vascular flow documented in the right and left ovaries on duplex and Doppler waveform interrogation. 2. Normal sonographic appearance of the uterus. Narrative 12/05/2024 3:13 PM EST EXAMINATION: DOPPLER EVALUATION OF THE PELVIS; PELVIC ULTRASOUND 12/05/2024 2:31 pm COMPARISON: None. TECHNIQUE: Transabdominal grayscale, duplex and Doppler waveform interrogation was performed of female pelvic organs. HISTORY: Left-sided pelvis pain, left lower quadrant pain FINDINGS: Uterus: 8.6 x 6.3 x 4.7 cm. Endometrial stripe 3 mm. Normal sonographic appearance of the uterus. Right ovary: 2.8 x 3 x 1.4 cm. Normal sonographic appearance. Vascular flow is confirmed on duplex interrogation at multiple points of the ovary. Left ovary: 5.4 x 3.6 x 3.4 cm. Normal sonographic appearance. Vascular flow is confirmed on duplex interrogation at multiple points of the ovary. Free fluid: None. Procedure Note Clarence Siegel MD - 12/05/2024 EXAMINATION: DOPPLER EVALUATION OF THE PELVIS; PELVIC ULTRASOUND 12/05/2024 2:31 pm COMPARISON: None. TECHNIQUE: Transabdominal grayscale, duplex and Doppler waveform interrogation was performed of female pelvic organs. HISTORY: Left-sided pelvis pain, left lower quadrant pain FINDINGS: Uterus: 8.6 x 6.3 x 4.7 cm. Endometrial stripe 3 mm. Normalsonographic appearance of the uterus. Right ovary: 2.8 x 3 x 1.4 cm. Normal sonographic appearance. Vascularflow is confirmed on duplex interrogation at multiple points of the ovary. Left ovary: 5.4 x 3.6 x 3.4 cm. Normal sonographic appearance. Vascularflow is confirmed on duplex interrogation at multiple points of the ovary. Free fluid: None. IMPRESSION: 1. Unremarkable appearance of the adnexa, vascular flow documented inthe right and left ovaries on duplex and Doppler waveform interrogation. 2. Normal sonographic appearance of the uterus. us Rufino Muro PA-C [facility] US ORDERABLES Edited Result - Final * C.trachomatis N.gonorrhoeae DNA (12/05/2024 1:55 PM EST) Specimen Description .CERVIX 12/05/2024 1:55 PM EST [facility] [employer] [facility] C. trachomatis DNA NEGATIVE NEGATIVE 12/05/2024 1:55 PM EST [facility] Comment: CHLAMYDIA TRACHOMATIS DNA not detected by nucleic acid amplification. This test is intended for medical purposes only and is not valid for the evaluation of suspected sexual abuse or for other forensic purposes. In certain contexts, culture may be required to meet applicable laws and regulations for diagnosis of C. trachomatis and N. gonorrhoeae infections. Per 2014 CDC recommendations, this test does not include confirmation of positive results by an alternative nucleic acid target. N. gonorrhoeae DNA NEGATIVE NEGATIVE 12/05/2024 1:55 PM EST [facility] Comment: NEISSERIA GONORRHOEAE DNA not detected by nucleic acid amplification. This test is intended for medical purposes only and is not valid for the evaluation of suspected sexual abuse or for other forensic purposes. In certain contexts, culture may be required to meet applicable laws and regulations for diagnosis of C. trachomatis and N. gonorrhoeae infections. Per 2014 CDC recommendations, this test does not include confirmation of positive results by an alternative nucleic acid target. CERVICAL SWAB / Unknown 12/05/2024 1:55 PM EST 12/05/2024 1:57 PM EST Rufino Muro PA-C MICROBIOLOGY - GENERAL O RDERABLES Final Result [facility] [address] [place] [address], [facility] [phone] [facility] [address] [place] [address], [facility] [phone] * (ABNORMAL) Vaginitis DNA Probe (12/05/2024 1:55 PM EST) Source .VAGINAL SWAB 12/05/2024 1:55 PM EST [facility] Trichomonas NEGATIVE NEGATIVE 12/05/2024 1:55 PM EST [facility] Comment:for Trichomonas Vagi nalis GARDNERELLA VAGINALIS POSITIVE(A) NEGATIVE 12/05/2024 1:55 PM EST [facility] Comment:for Gardnerella vagi nalis Angle species NEGATIVE NEGATIVE 1:55 PM EST [facility] Comment: for Angle sp. Method of testing is a DNA probe intended for detection and identification of Angle species, Gardnerella vaginalis, and Trichomonas vaginalis nucleic acid in vaginal fluid specimens from patients with symptoms of vaginitis/vaginosis. SPECIMEN FROM CERVIX OR VAGINA / Unknown 12/05/2024 1:55 PM EST 12/05/2024 1:57 PM EST Rufino Muro PA-C MICROBIOLOGY - GENERAL O RDERABLES Final Result Performing Organization Address [facility] Co de Phone Number [facility] [address] [place] [address]. [place] [address], [facility] [phone] * , Urine (12/05/2024 12:30 PM EST) Pathologist [facility] , Urine NEGATIVE NEGATIVE 12/05/19 12:30 PM EST [facility] Comment: Specimens with hCG levels near the threshold of the test (25 mIU/mL) may give a negative or indeterminate result. In such cases, another test should be performed with a new specimen in 48-72 hours. If early is suspected clinically in this setting, correlation with quantitative serum b-hCG level is suggested. Urine (Urine) 12/05/2024 12: 30 PM EST 12/05/2024 12:40 PM EST Rufino Muro PA-C URINE ORDERABLES Final R esult Performing Organization Address City/[facility]/ZIP Co de Phone Number [facility] [address] [place] [address]. [place] [address], [facility] [phone] * Culture, Urine (12/05/2024 12:30 PM EST) Pathologist [facility] Specimen Description .CLEAN CATCH URINE 12/05/2024 12:30 PM EST [facility] NO SIGNIFICANT GROWTH 12/05/2024 12:30 PM EST [facility] URINE SPECIMEN / Unknown 12/05/2024 12:30 PM EST 12/05/2024 1:02 PM EST Fransico Reece [employer] - [employer] WORK[employer] MICROBIOLOGY - GENERAL ORDERABLES Final Result [facility] [address] [place] [address], [facility] [phone] [facility] [address] [place] [address], [facility] [phone] from Last 3 Months Additional Health Concerns Infection Onset Date Last Indicated ESBL (Extended Spectrum Beta Lactamase) 08/30/20 24 08/30/[address] [place] [address] [facility] [address] [facility] Care Teams Engineering Psychologist Relationship Specialty Start Date End Date Fransico Reece, [employer] WORK[employer] PCP - General Family Medicine 03/17/18
--- OUTSIDE RECORDS SUMMARY | 2025-03-01 14:15 | XMS_ITS | Encounter Summary ---
Author Organization [facility] Address [address] [place] [address] Care Team Providers Care Poultry Farmer Egg Name Role Phone Mariel Braun Unavailable Encounter Details Date Type Department Care Team (Late st Contact Info) Description 02/16/2025 Telephone [facility] [address] [place] [phone] Jalen Loredo, DO [address] [place], [place] [id number] Social History Tobacco Use Types Packs/Day Years [...] encounter Miscellaneous Notes * Telephone Encounter - Lorin RojasYOLY - 02/16/2025 3:02 PM EDT 2:52 pm-Patient called the office states that she is having an odor from her surgery on Thursday andcolton did call [facility] and was advised to call our office. 3:00pm- Patient call was returned and she was asked where the odor was coming from and she states vaginal odor. Patient was advised I can send a script in for her she states Dr mora send one in for her while in office and this is the flagyl upon looking she was advised to start taking that as that would be medication I would be sending in for her. Patient also asking if Dr would be able to send in more [place] for her and she was advised he is not in office and se states that he did send in IBU and was encouraged to try this as she states having constipation issues. Patient is encouraged fluids and use of colace to help with constipation and this medication is safe with all her other medications. Patient does have follow up appointment on Thursday and was advised if pain and odro still persist ent to notify Dr. SARABIA. documented in this encounter Plan of Treatment Upcoming Encounters Date Type Department Care Team (Late st Contact Info) Description 03/01/2025 3:30 PM EDT Office Visit [facility] [address] [place] [phone] Mariel Braun PA [address] [facility] [place] [address] 04/18/2025 2:00 PM EDT Office Visit [facility] [address] [place] [phone] Jalen Loredo DO [address] [place] [address] documented as of this encounter Visit Diagnoses Not on filedocumented in this encounter Care Teams Poultry Farmer Egg Relationship Specialty Start Date End Date Mariel Braun PA [address] [place] [address] [place] - Felicia Jones [facility] 01/11/24 documented as of this encounter
--- OUTSIDE RECORDS SUMMARY | 2025-03-01 14:16 | XMS_ITS | CCD ---
Author Organization [facility] Care Team Providers Care Floor Scraper Name Role Phone Physician, No PCP Unavailable Unavailable CHAVEZ MARTINEZ Unavailable Unavailable Physician, No PCP Unavailable Unavailable GAYLE MENDOZA Unavailable Unavailable LYNNE REYNOLDS Admitting Unavailable SELF, REFERRED Referring Unavailable SELF, REFERRED Primary Care Unavailable TERE STALEY Attending Unavailable WILI REECE Primary Care Unavailable OLIVIER GUADALUPE Attending Unavailable Wili Reece S Primary Care Provider KATIE PARHAM Referring Unavailable WILI REECE Primary Care Unavailable Chevy REVENUE OFFICER - TOURISM RADIO PRESENTER, Wili S Primary Care Provider Chevy REVENUE OFFICER - TOURISM RADIO PRESENTER, Wili S Primary Care Provider Chevy REVENUE OFFICER - TOURISM RADIO PRESENTER, Wili S Primary Care Provider REQUEST, NONE LISTED Primary Care Unavaila ble JAMES, DR DENNEY Consulting Unavailable KARASIK, DR DENNEY Admitting Unavailable KARASILauryn, DR DENNEY Attending Unavailable [facility] Unava ilable HERMELINDO, DR IRENE Beasley Admitting Unavailable DEEJAY BRAUN Consulting Unavailable HERMELINDO, DR IRENE Beasley Attending Unavailable FACUNDO, DR GONZALEZ Consulting Unavailable FACUNDO, DR GONZALEZ Admitting Unavailable [facility] Unava ilable FACUDNO, DR GONZALEZ Attending Unavailable JAMES, DR DENNEY Attending Unavailable REQUEST, NONE LISTED Primary Care Unavaila ble JAMES, DR DENNEY Consulting Unavailable JAMES, DR DENNEY Admitting Unavailable PASCALE, DR YESIKA Mulligan Consulting Unavailable BRANNON, DR MARAVILLA LISTED Primary Care Unavaila ble KARASILauryn, DR DENNEY Consulting Unavailable JAMES, DR DENNEY Admitting Unavailable JAMES, DR DENNEY Attending Unavailable Chevy REVENUE OFFICER - TOURISM RADIO PRESENTER, Wili S Primary Care Provider Chevy REVENUE OFFICER - TOURISM RADIO PRESENTER, Wili S Primary Care Provider Unavailable Primary Care Provider Unavailnagi Reece REVENUE OFFICER - TOURISM RADIO PRESENTER, Wili S Primary Care Provider SHERLYN VILLATORO Attending Unavailable JALEN LOREDO Referring Unavailable TIFFANIE LOERA Primary Care Unavailable SHERLYN VILLATORO Attending Unavailable TIFFANIE LOERA Referring Unavailable TIFFANIE LOERA Primary Care Unavailable CANDICE CALDERÓN Attending Unavailable SERVICES, [facility] Primary Care Unava ilable SERVICES, [facility] Primary Care Unava ilable Luz Maria BELTRAN, Tiffanie Holguin Primary Care Provider Mariel Carr Unavailable CHEVY, WILI S Primary Care Unavailable BINTA WILSON Attending Unavailable CHEVY, WILI S Primary Care Unavailable CHEVY, WILI S Referring Unavailable JOSE GALVAN Attending Unavailable STEPHANE AVILA Attending Unavailable CHEVY, WILI S Primary Care Unavailable CHEVY, WILI S Primary Care Unavailable JOSE GALVAN Attending Unavailable JALEN LOREDO Attending Unavailable MARIEL RBAUN Attending Unavailable FACUNDO, JALEN Attending Unavailable FACUNDO, JALEN Attending Unavailable JALEN LOREDO Attending Unavailable MARIEL BRAUN Attending Unavailable Medications Current Medications Medication Drug Class(es) Dates Sig (Normalized) Sig (Original) acetaminophen 500 mg oral tablet (1 source) Start: 10-27-2022 take 2 tablets by mouth every six hours as needed for pain acetaminophen (TYLENOL EXTRA STRENGTH) 500 mg tablet Take 2 tablets (1,000 mg total) by mouth every 6 (six) hours as needed for pain. 30 tablet 10/27/2022 Active acetaminophen 325 mg / HYDROcodone bitartrate 5 mg oral tablet (3 sources) Opioid Agonist Start: 02-04-2025 End: 02-07-2025 take 1 tablet by mouth every four hours as needed for pain HYDROcodone-acetam inophen (Jackman) 5-325 MG tablet Take 1 tablet by mouth every 4 (four) hours if needed for moderate pain 02/04/2025 02/07/2025 Active brompheniramine maleate 0.4 mg/ml / dextromethorphan hydrobromide 2 mg/ml / pseudoephedrine hydrochloride 6 mg/ml oral solution (6 sources) alpha-Adrenergic Agonist, Uncompetitive H-yxttql-G-asparta te Receptor Antagonist, Sigma-1 Agonist Start: 08-04-2022 brompheniramine-ps eudoephedrine-DM 2-30-10 MG/5ML syrup 08/04/2022 Active cephalexin 500 mg oral capsule (9 sources) Cephalosporin Antibacterial Start: 02-04-2025 End: 02-11-2025 take 1 capsule by mouth in the morning, then take 1 capsule by mouth in the evening, then take 1 capsule by mouth at bedtime cephalexin (Keflex) 500 MG capsule Take 500 mg by mouth in the morning and 500 mg in the evening and 500 mg before bedtime. 02/04/2025 02/11/2025 Active Start: 02-04-2025 End: 02-04-2025 take 1 dose by mouth once 500 mg, Oral, ONCE, 1 dose, On 02/04/25 at 0145, Antimicrobial Indications: Urinary Tract Infection Start: 12-05-2024 End: 12-12-2024 take 1 capsule by mouth three times daily cephALEXin (KEFLEX) 500 MG capsule Take 1 capsule by mouth 3 times daily for 7 days 21 capsule 12/05/2024 12/12/2024 Active Start: 08-30-2024 End: 09-06-2024 take 1 capsule by mouth three times daily cephALEXin (KEFLEX) 500 MG capsule Take 1 capsule by mouth 3 times daily for 7 days 21 capsule 08/30/2024 09/06/2024 Active cetirizine hydrochloride 10 mg oral tablet (6 sources) Histamine-1 Receptor Antagonist Start: 08-04-2022 cetirizine (ZYRTEC) 10 MG tablet 08/04/2022 Active doxycycline hyclate 100 mg oral tablet (10 sources) Tetracycline-class Drug Start: 08-30-2024 End: 09-06-2024 take 1 tablet by mouth twice daily doxycycline hyclate (VIBRA-TABS) 100 MG tablet Take 1 tablet by mouth 2 times daily for 7 days 14 tablet 08/30/2024 09/06/2024 Active Start: 08-30-2024 End: 08-30-2024 take 1 dose by mouth once 100 mg, Oral, ONCE, 1 dose, On 08/30/24 at 0045, Antimicrobial Indications: Urinary Tract Infection, This medication can interact with tube feedings (TF)- obtain MD order to manage. Recommend holding TF for 1 h before and 2 h after dose. Take 1 h before or 2 h after dairy, calcium, iron, magnesium, aluminum or zinc. Start: 04-12-2024 End: 04-12-2024 doxycycline monohydrate (MON ODOX) capsule 100 mg Start: 04-12-2024 End: 04-19-2024 take 1 capsule by mouth twice daily doxycycline hyclate (VIBRAMYCIN) 100 MG capsule Take 1 capsule by mouth 2 times daily for 7 days 14 capsule 0 04/12/2024 04/19/2024 Active Start: 03-15-2023 End: 03-15-2023 doxycycline monohydrate (MON ODOX) capsule 100 mg Start: 03-15-2023 End: 03-22-2023 take 1 tablet by mouth twice daily doxycycline hyclate (VIBRA-TABS) 100 MG tablet Take 1 tablet by mouth 2 times daily for 7 days 14 tablet 0 03/15/2023 03/22/2023 Active Start: 12-26-2022 End: 01-02-2023 take 1 tablet by mouth twice daily doxycycline hyclate (VIBRA-TABS) 100 MG tablet Take 1 tablet by mouth 2 times daily for 7 days 14 tablet 0 12/26/2022 01/02/2023 Active Start: 01-24-2022 End: 01-31-2022 take 1 tablet by mouth twice daily doxycycline hyclate (VIBRA-TABS) 100 MG tablet Take 1 tablet by mouth 2 times daily for 7 days 14 tablet 0 01/24/2022 01/31/2022 Active Start: 01-24-2022 End: 01-24-2022 doxycycline monohydrate (MON ODOX) capsule 100 mg Start: 07-31-2021 End: 08-07-2021 take 1 tablet by mouth twice daily doxycycline hyclate (VIBRA-TABS) 100 MG tablet Take 1 tablet by mouth 2 times daily for 7 days 14 tablet 0 07/31/2021 08/07/2021 Active fluticasone propionate 0.05 mg/actuat metered dose nasal spray (6 sources) Corticosteroid Start: 08-04-2022 fluticasone (FLONASE) 50 MCG/ACT nasal spray 08/04/2022 Active hydrocortisone 10 mg/ml topical cream (1 source) Corticosteroid Start: 10-06-2019 End: 10-13-2019 hydrocortisone 1 % cream Apply topically 2 -3 times daily for 5 - 7 days. 1 Tube 1 10/06/2019 10/13/2019 Active ibuprofen 600 mg oral tablet (1 source) Nonsteroidal Anti-inflammatory Drug Start: 10-27-2022 take 1 tablet by mouth every six hours as needed for pain ibuprofen (MOTRIN) 600 mg tablet Take 1 tablet (600 mg total) by mouth every 6 (six) hours as needed for pain. 30 tablet 10/27/2022 Active ketoconazole 20 mg/ml topical cream (2 sources) Azole Antifungal Start: 12-05-2018 ketoconazole (NIZORAL) 2 % cream Apply topically twice a day. 60 g 0 12/05/2018 Active 24 hr metFORMIN hydrochloride 500 mg extended release oral tablet (20 sources) Biguanide Start: 05-20-2024 End: 11-28-2024 take 1 tablet by mouth once daily at mealtime metFORMIN XR (Glucophage-XR) 500 MG 24 hr tablet Indications: Insulin resistance , Weight gain TAKE ONE TABLET BY MOUTH EVERY EVENING *TAKE WITH MEALS DO NOT CRUSH, CHEW OR SPLIT* 90 tablet 3 05/20/2024 11/28/2024 Discontinued (Other) Start: 08-21-2022 End: 12-29-2024 take 1 tablet by mouth every twenty-four hours at mealtime metFORMIN XR (Glucophage-XR) 500 MG 24 hr tablet Indications: PCOS (polycystic ovarian syndrome) , Irregular periods/menstrual cycles Take 1 tablet (500 mg) by mouth in the evening. Take with meals Do not crush, chew, or split. 30 tablet 11 11/29/2024 Active metroNIDAZOLE 500 mg oral tablet (12 sources) Nitroimidazole Antimicrobial Start: 02-09-2025 End: 02-21-2025 take 1 tablet by mouth in the morning metroNIDAZOLE (Flagyl) 500 MG tablet Indications: BV (bacterial vaginosis) Take 1 tablet (500 mg) by mouth in the morning and 1 tablet (500 mg) before bedtime. Do all this for 7 days. Do not drink alcohol while taking this medication. 14 tablet 02/09/2025 02/21/2025 Active Start: 12-05-2024 End: 12-12-2024 take 1 tablet by mouth at bedtime metroNIDAZOLE (FLAGYL) 500 MG tablet Take 1 tablet by mouth in the morning and at bedtime for 7 days 14 tablet 12/05/2024 12/12/2024 Active Start: 08-30-2024 End: 09-06-2024 take 1 tablet by mouth twice daily metroNIDAZOLE (FLAGYL) 500 MG tablet Take 1 tablet by mouth 2 times daily for 7 days 14 tablet 08/30/2024 09/06/2024 Active Start: 08-30-2024 End: 08-30-2024 take 1 dose by mouth once 500 mg, Oral, ONCE, 1 dose, On Thu08/30/24 at 0045, Antimicrobial Indications: Urinary Tract Infection Start: 04-12-2024 End: 04-19-2024 take 1 tablet by mouth twice daily metroNIDAZOLE (FLAGYL) 500 MG tablet Take 1 tablet by mouth 2 times daily for 7 days 14 tablet 0 04/12/2024 04/19/2024 Active Start: 03-15-2023 End: 03-15-2023 metroNIDAZOLE (FLAGYL) table t 500 mg Start: 03-15-2023 End: 03-22-2023 take 1 tablet by mouth twice daily metroNIDAZOLE (FLAGYL) 500 MG tablet Take 1 tablet by mouth 2 times daily for 7 days 14 tablet 0 03/15/2023 03/22/2023 Active Start: 12-26-2022 End: 01-02-2023 take 1 tablet by mouth twice daily metroNIDAZOLE (FLAGYL) 500 MG tablet Take 1 tablet by mouth 2 times daily for 7 days 14 tablet 0 12/26/2022 01/02/2023 Active Start: 01-24-2022 End: 01-31-2022 take 1 tablet by mouth twice daily metroNIDAZOLE (FLAGYL) 500 MG tablet Take 1 tablet by mouth 2 times daily for 7 days 14 tablet 0 01/24/2022 01/31/2022 Active Start: 12-13-2019 End: 12-20-2019 take 1 tablet by mouth twice daily metroNIDAZOLE (FLAGYL) 500 MG tablet Take 1 tablet by mouth 2 times daily for 7 days 14 tablet 0 12/13/2019 12/20/2019 Active ondansetron 4 mg disintegrating oral tablet (9 sources) Serotonin-3 Receptor Antagonist Start: 02-04-2025 take 1 tablet by mouth every eight hours as needed for nausea and vomiting ondansetron ODT (Zofran-ODT) 4 MG disintegrating tablet Take 4 mg by mouth every 8 (eight) hours if needed for nausea or vomiting 02/04/2025 Active Start: 02-04-2025 take 1 tablet by ifeanyi th three times daily as needed for nausea ondansetron (ZOFRAN-ODT) 4 MG disintegrating tablet Take 1 tablet by mouth 3 times daily as needed for Nausea or Vomiting 21 tablet 02/04/2025 Active Start: 02-03-2025 End: 02-03-2025 4 mg, IntraVENous, ONCE, 1 d ose, On Thu02/03/25 at 2200 polymyxin b [id number] unt/ml / trimethoprim 1 mg/ml ophthalmic solution (1 source) Dihydrofolate Reductase Inhibitor Antibacterial, Polymyxin-class Antibacterial Start: 12-05-2024 End: 12-10-2024 take 1 drop(s) into the eye(s) every six hours trimethoprim-polymyxin b (POLYTRIM) 95215-1.1 UNIT/ML-% ophthalmic solution Place 1 drop into the right eye every 6 hours for 5 days 1 mL 12/05/2024 12/10/2024 Active 25/iron fum/folic/dha (-1 ORAL) (1 source) 25/iron fum/folic/dha (-1 ORAL) Take by mouth. Active Oanyjhjz-Mvn-Eq- FA ( 1 + IRON PO) (6 sources) Lkjufids-Pxe-Hy-FA ( 1 + IRON PO) Take by mouth Active Multivi t-Min-Fe-FA ( 1 + IRON PO) Take by mouth 0 Active valACYclovir 1000 mg oral tablet (18 sources) Herpesvirus Nucleoside Analog DNA Polymerase Inhibitor, Herpes Simplex Virus Nucleoside Analog DNA Polymerase Inhibitor, Herpes Zoster Virus Nucleoside Analog DNA Polymerase Inhibitor Start: 01-26-2023 take 1 tablet by mouth once daily valACYclovir (VALTREX) 1 g tablet Indications: Herpes simplex infection Take one pill PO daily as suppressive therapy 30 tablet 5 01/26/2023 Active Start: 01-26-2023 take 1 tablet by ifeanyi th twice daily valACYclovir (VALTREX) 1 g tablet Indications: Herpes simplex infection Take one tablet PO BID x 3 days at first sign of HSV flare 18 tablet 2 01/26/2023 Active Start: 09-24-2022 take 1 tablet by ifeanyi once daily valACYclovir (VALTREX) 500 MG tablet Indications: Herpes simplex infection Take one pill PO QD 30 tablet 5 09/24/2022 Active Start: 06-06-2021 take 1 tablet by ifeanyi twice daily valACYclovir (VALTREX) 500 MG tablet Indications: Herpes simplex infection Take one pill PO BID x 3 days at the first sign of rash 30 tablet 0 06/06/2021 Active Start: 04-03-2021 take 1 tablet by ifeanyi twice daily valACYclovir (VALTREX) 1 g tablet Indications: Vesicular eruption Take one pill PO BID x 7 days 14 tablet 0 04/03/2021 Active Start: 09-26-2020 take 1 tablet by ifeanyi twice daily valACYclovir (VALTREX) 1 g tablet Indications: Vesicular eruption Take one pill PO BID x 7 days 14 tablet 0 09/26/2020 Active Completed/Discontinued Medications Medication Drug Class(es) Dates Sig (Normalized) Sig (Original) [id number] 200 actuat albuterol 0.09 mg/actuat metered dose inhaler (3 sources) beta2-Adrenergic Agonist Start: 05-18-2024 End: 11-28-2024 take 2 puff(s) by inhalation every four hours for wheezing albuterol HFA (Ventolin HFA) 90 mcg/act inhaler Indications: COVID-19 Inhale 2 puffs every 4 (four) hours if needed for wheezing 18 g 05/18/2024 11/28/2024 Discontinued (Other) amoxicillin 80 mg/ml oral suspension (5 sources) Penicillin-class Antibacterial Start: 08-07-2022 End: 12-05-2024 amoxicillin (AMOXIL) 400 MG/5ML suspension 08/07/2022 12/05/2024 Discontinued (LIST CLEANUP) azithromycin 250 mg oral tablet (4 sources) Macrolide Antimicrobial Start: 12-05-2024 End: 12-05-2024 take 1 dose by mouth once 1,000 mg, Oral, ONCE, 1 dose, On Thu12/05/24 at 1545, Antimicrobial Indications: STD infection Start: 05-18-2024 End: 11-28-2024 azithromycin (Zithromax Z-Pa k) 250 MG tablet Indications: COVID-19 As directed 6 tablet 05/18/2024 11/28/2024 Discontinued (Other) cefTRIAXone 500 mg injection (7 sources) Cephalosporin Antibacterial Start: 12-05-2024 End: 12-05-2024 inject 1 dose by intramuscular injection once 500 mg, IntraMUSCular, ONCE, 1 dose, On Thu12/05/24 at 1545, Antimicrobial Indications: STD infection Start: 08-30-2024 End: 08-30-2024 inject 1 dose by intramuscular injection once 500 mg, IntraMUSCular, ONCE, 1 dose, On Thu08/30/24 at 0045, Antimicrobial Indications: STD infection Start: 04-12-2024 End: 04-12-2024 cefTRIAXone (ROCEPHIN) injec tion 500 mg Start: 03-15-2023 End: 03-15-2023 cefTRIAXone (ROCEPHIN) injec tion 500 mg Start: 12-26-2022 End: 12-26-2022 cefTRIAXone (ROCEPHIN) injec tion 500 mg Start: 01-24-2022 End: 01-24-2022 cefTRIAXone (ROCEPHIN) injec tion 1,000 mg Start: 07-31-2021 End: 07-31-2021 cefTRIAXone (ROCEPHIN) injec tion 500 mg cholecalciferol 0.01 mg oral tablet (5 sources) Vitamin D Start: 03-14-2024 End: 11-28-2024 cholecalciferol (Vitamin D-3) 10 MCG (400 UNIT) tablet 03/14/2024 11/28/2024 Discontinued (Other) take 1 capsule by mouth once mikey ly cholecalciferol (Vitamin D-3) 10 MCG (400 UNIT) capsule Take 400 Units by mouth Daily Active diphenhydrAMINE hydrochloride 20 mg/ml topical cream (1 source) Histamine-1 Receptor Antagonist End: 10-06-2019 diphenhydrAMINE (BENADRYL) 2 % cream Apply topically 3 times daily as needed for Itching Apply topically 3 times daily as needed. 0 10/06/2019 Discontinued (Therapy completed) iopamidol (ISOVUE-370) 76 % injection 75 mL (1 source) Start: 02-03-2025 End: 02-03-2025 take 1 dose intravenously once 75 mL, IntraVENous, IMG ONCE PRN, 1 dose, Starting on Thu02/03/25 at 2251, Until Thu02/03/25 at 2308, Other 1 ml ketorolac tromethamine 30 mg/ml cartridge (1 source) Nonsteroidal Anti-inflammatory Drug, Cyclooxygenase Inhibitor Start: 02-03-2025 End: 02-03-2025 15 mg, IntraVENous, ONCE, 1 dose, On Thu02/03/25 at 2200, Do not administer for more than 5 days. 1 ml morphine sulfate 4 mg/ml cartridge (2 sources) Opioid Agonist Start: 02-04-2025 End: 02-04-2025 take 1 dose by mouth every hour 4 mg, IntraVENous, NOW, 1 dose, On Thu02/04/25 at 0115, If oral and IV narcotics ordered, use oral first and only use IV if oral is ineffective or cannot take oral. Do Not give oral and IV within 1 hour of each other unless specifically ordered. Start: 02-03-2025 End: 02-03-2025 take 1 dose by mouth every hour 4 mg, IntraVENous, NOW, 1 dose, On Thu02/03/25 at 2200, If oral and IV narcotics ordered, use oral first and only use IV if oral is ineffective or cannot take oral. Do Not give oral and IV within 1 hour of each other unless specifically ordered. phentermine hydrochloride 37.5 mg oral tablet (13 sources) Sympathomimetic Amine Anorectic Start: 05-18-2024 End: 11-28-2024 take 1 tablet by mouth before mealtime phentermine (Adipex-P) 37.5 MG tablet Indications: Encounter for weight management Take 1 tablet (37.5 mg) by mouth in the morning. Take before meals. 90 tablet 05/18/2024 11/28/2024 Discontinued (Other) Start: 09-17-2023 End: 11-18-2023 take 1 tablet by mouth before mealtime phentermine (Adipex-P) 37.5 MG tablet Indications: Encounter for weight management Take 1 tablet (37.5 mg) by mouth in the morning. Take before meals. 30 tablet 0 10/19/2023 11/18/2023 Discontinued take 1 capsule by [facility] once daily phentermine 15 MG capsule Take 15 mg by mouth daily. Active predniSONE 20 mg oral tablet (1 source) Start: 10-06-2019 End: 10-06-2019 predniSONE (DELTASONE) tablet 60 mg proparacaine hydrochloride 5 mg/ml ophthalmic solution (1 source) Local Anesthetic Start: 12-05-2024 End: 12-05-2024 take 1 dose into the eye(s) once 1 drop, Right Eye, ONCE, 1 dose, On Thu12/05/24 at 1315 1000 ml sodium chloride 9 mg/ml injection (3 sources) Start: 02-03-2025 End: 02-03-2025 10 mL, IntraVENous, PRN, 1 dose, Starting on Thu02/03/25 at 2251, Until Thu02/03/25 at 2308, Line Care, For Line Patency: Peripheral IV = 5 mL; Midline or Central Line = 10 mL/lumen. If following IV push medication, administer flush at same rate as the IV push. Flush volume is determined by type of infusion therapy being given. For non-viscous solutions use: Peripheral IV = 5 mL Midline or Central Line = 10 mL/lumen For viscous solutions (i.e. blood components, parenteral nutrition, contrast media, or after obtaining blood sample) use: Peripheral IV = 10 mL Midline or Central Line = 20 mL/lumen Start: 02-03-2025 End: 02-04-2025 100 mL (0.787 mL/kg), IntraV ENous, at 3,000 mL/hr, Administer over 2 Minutes, ONCE, On Thu02/03/25 at 2300, For 1 dose thyroid (care home) 30 mg oral tablet (1 source) End: 10-06-2019 take 1 tablet by mouth once daily thyroid (ARMOUR) 30 MG tablet Take 30 mg by mouth daily Unsure of dose 0 10/06/2019 Discontinued (Therapy completed) water 1000 mg/ml injectable solution (2 sources) Start: 12-05-2024 End: 12-05-2024 1 dose, Starting on Thu12/05/24 at 1555, Until Thu12/05/24 at 1601, Brandi Sylvester: cabinet override, Brandi Sylvester: cabinet override Start: 03-15-2023 End: 03-15-2023 sterile water injection Problems Active Problems Problem Classification Problem Date Documented Date Episodic/Chronic Acute bronchitis (1 source) Acute bronchitis, unspecified; Translations: [Acute bronchitis, unspecified] Onset: 08-25-2024 Episodic Inflammation; infection of eye (except that caused by tuberculosis or sexually transmitteddisease) (2 sources) Acute infectious conjunctivitis; Translations: [Unspecified acute conjunctivitis, right eye] Onset: 12-05-2024 12-05-2024 Episodic Menstrual disorders (2 sources) Irregular periods; Translations: [Irregular menstruation, unspecified] 11-28-2024 Chronic Nausea and vomiting (2 sources) Nausea and vomiting; Translations: [Nausea with vomiting, unspecified] Onset: 02-03-2025 02-04-2025 Episodic Other aftercare (2 sources) Surgical follow-up; Translations: [Encounter for follow-up examination after completed treatment for conditions other than malignant neoplasm] 02-21-2025 Episodic Other endocrine disorders (2 sources) Polycystic ovary syndrome; Translations: [Polycystic ovarian syndrome] 11-28-2024 Chronic Other female genital disorders (1 source) Unspecified dyspareunia; Translations: [UNSPECIFIED DYSPAREUNIA] Onset: 03-22-2022 Chronic Other female genital disorders (13 sources) Pain in female genitalia on intercourse; Translations: [Unspecified dyspareunia] Onset: 04-01-2023 04-01-2023 Chronic Other female genital disorders (4 sources) Vaginal discharge; Translations: [Other specified noninflammatory disorders of vagina] Onset: 09-12-2024 Episodic Other lower respiratory disease (1 source) Shortness of breath; Translations: [Shortness of breath] Onset: 08-25-2024 Episodic Other lower respiratory disease (2 sources) Shortness of breath Onset: 08-25-2024 Episodic Other nutritional; endocrine; and metabolic disorders (14 sources) Morbid obesity; Translations: [Morbid (severe) obesity due to excess calories] Onset: 04-01-2023 04-01-2023 Chronic Other nutritional; endocrine; and metabolic disorders (1 source) Morbid (severe) obesity due to excess calories; Translations: [Morbid (severe) obesity due to excess calories] Onset: 03-09-2024 Chronic Other nutritional; endocrine; and metabolic disorders (11 sources) Insulin resistance; Translations: [Insulin resistance] Onset: 05-18-2024 05-18-2024 Chronic Other nutritional; endocrine; and metabolic disorders (1 source) Abnormal weight gain; Translations: [Abnormal weight gain] Onset: 03-09-2024 Episodic Other and delivery including normal (4 sources) Encounter for test, result positive; Translations: [ENC TEST RESULT POSITIVE] Onset: 05-19-2022 Episodic Other skin disorders (1 source) Vesicular eruption; Translations: [Vesicular eruption] Episodic Other upper respiratory infections (4 sources) Acute pharyngitis, unspecified; Translations: [ACUTE PHARYNGITIS UNSPECIFIED] Onset: 07-14-2022 Episodic Unclassified (1 source) Unknown / UNK(Unknown) Onset: 12-02-2017 Unclassified (1 source) CONTACT W/AND (SUSP) EXPOS COVID-19; Translations: [CONTACT W/AND (SUSP) EXPOS COVID-19] Onset: 07-16-2022 Urinary tract infections (4 sources) Acute cystitis; Translations: [Acute cystitis without hematuria] Onset: 02-03-2025 08-30-2024 Episodic Past or Other Problems Problem Classification Problem Date Documented Date Episodic/Chronic Abdominal pain (20 sources) Pelvic and perineal pain; Translations: [Pain in pelvis] Onset: 03-19-2022 Episodic Bacterial infection; unspecified site (1 source) Other specified bacterial agents as the cause of diseases classified elsewhere; Translations: [Other specified bacterial agents as the cause of diseases classified elsewhere] Onset: 04-12-2024 Episodic Immunizations and screening for infectious disease (4 sources) At risk of sexually transmitted infection ; Translations: [Contact with and (suspected) exposure to infections with a predominantly sexual mode of transmission] Onset: 04-12-2024 04-12-2024 Episodic Inflammatory diseases of female pelvic organs (7 sources) Bacterial vaginosis; Translations: [Acute vaginitis] Onset: 04-12-2024 Episodic Other nutritional; endocrine; and metabolic disorders (2 sources) Abnormal weight gain; Translations: [Abnormal weight gain] Onset: 04-01-2023 04-01-2023 Episodic Other nutritional; endocrine; and metabolic disorders (1 source) Weight gain; Translations: [Abnormal weight gain] 03-09-2024 Episodic Other nutritional; endocrine; and metabolic disorders (11 sources) Weight increased; Translations: [Abnormal weight gain] Onset: 04-01-2023 05-18-2024 Episodic Other screening for suspected conditions (not mental disorders or infectious disease) (20 sources) Patient encounter status; Translations: [Encounter for screening, unspecified] Onset: 03-18-2022 Episodic Other skin disorders (1 source) Inflammatory dermatosis Episodic Ovarian cyst (17 sources) Cyst of ovary; Translations: [Unspecified ovarian cyst, unspecified side] Onset: 04-01-2023 04-01-2023 Episodic Unclassified (1 source) R ARM RASH Onset: 12-02-2017 Viral infection (20 sources) Herpes simplex; Translations: [Herpesviral infection, unspecified] Onset: 04-01-2023 04-01-2023 Episodic Results Test Name Value Interpretation Reference Range Facility Urinalysis macro (dipstick) panel (U)on 02-21-2025 Bilirubin, UA Negative Negative - 4(70) +++ mg/dL [facility] Blood, UA Negative Negative - 50 Adelfo/mcL [facility] Clarity, UA Clear [facility] Color, UA Yellow [facility] Glucose, UA Negative Negative - 2000(110) ++++ mg/dL [facility] Interpretation and review of laboratory results Abnormal [facility] Ketones, UA Positive Negative - 160(16) ++++ mg/dL [facility] Leukocytes, UA Trace Negative - 500+++ Orin/mcL [facility] Nitrite, UA Negative Negative - Positive [facility] pH, UA 5.5 5 - 9 [facility] Protein, UA Negative Negative - 2000(20) ++++ mg/dL [facility] Spec Grav, UA 1.03 1 - 1.03 [facility] Urobilinogen, UA 1.0 0.2 - 12 mg/dL [facility] ALL CBC WITH AUTO DIFFon BASOPHILS ABSOLUTE AUTO 0 [facility] Basophils/100 WBC (Bld) 0.5 % 0.2 - 2.0 % [facility] Eosinophils/100 WBC (Bld) 2.3 % 0.9 - 7.0 % [facility] Erythrocyte distribution width (RBC) [Ratio] 12.5 % 11.0 - 15.0 % [facility] Hematocrit (Bld) [Volume fraction] 45.5 % 36.0 - 48.0 % [facility] Hemoglobin (Bld) [Mass/Vol] 15.9 g/dL 12.0 - 16.0 g/dL [facility] IMMATURE GRANULOCYTES ABS AUTO 0.02 [facility] Immature granulocytes/100 WBC (Bld) 0.2 % 0.0 - 0.5 % [facility] Interpretation and review of laboratory results Abnormal [facility] LYMPHOCYTES ABSOLUTE AUTO 3 [facility] Lymphocytes/100 WBC (Bld) 37 % 20.5 - 60.0 % [facility] MCH (RBC) [Entitic mass] 31.7 pg 26.7 - 34.0 pg [facility] MCHC (RBC) [Mass/Vol] 34.9 g/dL 29.9 - 35.2 g/dL [facility] MCV (RBC) [Entitic vol] 90.8 fL 81.0 - 99.0 fL [facility] MONOCYTES ABSOLUTE AUTO 0.7 [facility] Monocytes/100 WBC (Bld) 8.5 % 1.7 - 12.0 % [facility] NEUTROPHILS ABSOLUTE AUTO 4.2 [facility] Neutrophils/100 WBC (Bld) 51.5 % 43.0 - 75.0 % [facility] Platelet mean volume (Bld) [Entitic vol] 11 fL 9.5 - 13.5 fL [facility] TBH EO # 0.2 [facility] TBH PLT 121 Low [facility] RBC 5.01 [facility] WBC 8.2 [facility] CLINISYNC [facility] RECURRENT VAGINITIS (HTRX)on 02-08-2025 ATOPOBIUM VAGINAE 17.351 Abnormal [facility] ATOPOBIUM VAGINAE Detected Abnormal [facility] BVAB 2,3 (BACTERIAL VAGINOSIS ASSOCIATED BACTERIA 2, 3); MOBILUNCUS SPP 10.615 Abnormal [facility] BVAB 2,3 (BACTERIAL VAGINOSIS ASSOCIATED BACTERIA 2, 3); MOBILUNCUS SPP Detected Abnormal [facility] LORI ALBICANS, PARAPSILOSIS, TROPICALIS 0 [facility] LORI ALBICANS, PARAPSILOSIS, TROPICALIS Not detected [facility] LORI GLABRATA 0 [facility] LORI GLABRATA Not detected [facility] LORI KRUSEI 0 [facility] LORI KRUSEI Not detected [facility] CHLAMYDIA TRACHOMATIS 0 [facility] CHLAMYDIA TRACHOMATIS Not detected [facility] ERMB, C; MEFA 13.834 Abnormal [facility] ERMB, C; MEFA Detected Abnormal [facility] GARDNERELLA VAGINALIS 17.385 Abnormal [facility] GARDNERELLA VAGINALIS Detected Abnormal [facility] Interpretation and review of laboratory results Abnormal [facility] MEGASPHAERA (TYPES 1, 2) 12.915 Abnormal [facility] MEGASPHAERA (TYPES 1, 2) Detected Abnormal [facility] MYCOPLASMA GENITALIUM 0 [facility] MYCOPLASMA GENITALIUM Not detected [facility] NEISSERIA GONORRHOEAE 0 [facility] NEISSERIA GONORRHOEAE Not detected [facility] TET B, TET M 14.385 Abnormal [facility] TET B, TET M Detected Abnormal [facility] TRICHOMONAS VAGINALIS 0 [facility] TRICHOMONAS VAGINALIS Not detected [facility] HCG ( test) Ql (U)o n 02-07-2025 Interpretation and review of laboratory results Normal [facility] Preg Test, Ur Negative Negative [facility] Urinalysis macro (dipstick) panel (U)on 02-07-2025 Bilirubin, UA Negative Negative - 4(70) +++ mg/dL [facility] Blood, UA Negative Negative - 50 Adelfo/mcL [facility] Clarity, UA Clear [facility] Color, UA Yellow [facility] Glucose, UA Negative Negative - 2000(110) ++++ mg/dL [facility] Interpretation and review of laboratory results Normal [facility] Ketones, UA Negative Negative - 160(16) ++++ mg/dL [facility] Leukocytes, UA Negative Negative - 500+++ Orin/mcL [facility] Nitrite, UA Negative Negative - Positive [facility] pH, UA 5.5 5 - 9 [facility] Protein, UA Negative Negative - 2000(20) ++++ mg/dL [facility] Spec Grav, UA 1.03 1 - 1.03 [facility] Urobilinogen, UA 0.2 0.2 - 12 mg/dL [facility] CT ABDOMEN PELVIS W IV CONTR Allie 02-04-2025 CT ABDOMEN PELVIS W IV CONTRAST EXAMINATION: CT OF THE ABDOMEN AND PELVIS [...] was not well distended but appeared grossly. Peritoneum/Retroperitoneum : There is no adenopathy, free air or [...] equal to 10 cm: US promptly Reference: Berland et al. Managing Incidental Findings on Abdominal CT: White Paper of the ACR Incidental Findings Committee. J Am Emily Radiol 2010;7:754-773 Interpreted by: Amy Bundy MD Signed by: Amy Bundy MD 02/04/25 Final result Normal [facility] CT Abdomen and Pelvis W cont rast Vern 02-04-2025 1. No acute finding in the abdomen. [...] Findings Committee. J Am Emily Radiol 2010;7:[id number] [facility] EXAMINATION: CT OF THE ABDOMEN AND PELVIS [...] was not well distended but appeared grossly. Peritoneum/Retroperitoneum : There is no adenopathy, free air or free fluid. Bones/Soft Tissues: No acute bone finding. Obesity. [facility] Amy Bundy MD - 02/04/2025 EXAMINATION: CT OF [...] was not well distended but appeared grossly. Peritoneum/Retroperitoneum : There is no adenopathy, free air or [...] equal to 10 cm: US promptly Reference: Berland et al. Managing Incidental Findings on Abdominal CT: White Paper of the ACR Incidental Findings Committee. J Am Emily Radiol 2010;7:[id number] [facility] [address] Abdomen and Pelvis W cont rast IVOrdered By: Amy Bundy on 02-04-2025 [facility] Work Phone: No Panel Informationon 02-04 1. Normal bilateral arterial and venous ovarian Doppler flow without evidence of torsion. 2. 6.6 cm simple appearing right ovarian cyst. Recommend follow-up pelvic ultrasound in 3-6 months. Brian Solano MD - 02/04/2025 EXAMINATION: PELVIC ULTRASOUND; DOPPLER [...] Recommend follow-up pelvic ultrasound in 3-6 months. [facility] No Panel InformationOrdered By: Brian Prabhakar on 02-04-2025 [facility] Work Phone: CBC with Auto Differentialon 02-03-2025 Basophils (Bld) [#/Vol] 0.1 10*3/uL [facility] Basophils/100 WBC (Bld) 1 % 0 - 2 % [facility] Eosinophils (Bld) [#/Vol] 0.2 10*3/uL [facility] Eosinophils/100 WBC (Bld) 2 % 0 - 4 % [facility] Erythrocyte distribution width (RBC) [Ratio] 13.1 % 11.5 - 14.9 % [facility] Hematocrit (Bld) [Volume fraction] 44.2 % 36 - 46 % [facility] Hemoglobin (Bld) [Mass/Vol] 15.3 g/dL 12.0 - 16.0 g/dL [facility] Interpretation and review of laboratory results Abnormal [facility] Lymphocytes/100 WBC (Bld) 31 % 24 - 44 % [facility] Lymphocytes/100 WBC (Bld) 2.9 % [facility] MCH (RBC) [Entitic mass] 31.4 pg 26 - 34 pg [facility] MCHC (RBC) [Mass/Vol] 34.7 g/dL 31 - 37 g/dL [facility] MCV (RBC) [Entitic vol] 90.5 fL 80 - 100 fL [facility] Monocytes/100 WBC (Bld) 9 % High 1 - 7 % [facility] Monocytes/100 WBC (Bld) 0.9 % [facility] Neutrophils/100 WBC (Bld) 57 % 36 - 66 % [facility] Platelet mean volume (Bld) [Entitic vol] 7 fL 6.0 - 12.0 fL [facility] Platelets (Bld) [#/Vol] 242 10*3/uL [facility] RBC (Bld) [#/Vol] 4.89 10*6/uL 4.0 - 5.2 m/uL [facility] Segmented neutrophils/100 WBC (Bld) 5.3 % [facility] WBC other (Bld) [#/Vol] 9.4 [facility] CBC with Diffon 02-03-2025 Abs. Basophil 0.10 k/uL Normal 0.0-0.2 [facility] Comment on above: Performed By: #### M G, CDP, PT, HCG, CP, LIP #### [facility] [place] [address] Demand Inspector: Julian Rubio DO Abs.Neutrophil (Seg) 5.30 k/uL Normal 1.3-9.1 [facility] Comment on above: Performed By: #### M G, CDP, PT, HCG, CP, LIP #### [facility] [address] [place] [address] Demand Inspector: Julian Rubio DO Basophils/100 WBC (Bld) 1 % Normal 0-2 [facility] Comment on above: Performed By: #### M G, CDP, PT, HCG, CP, LIP #### [facility] [address] [place] [address] Demand Inspector: Julian Rubio DO Eosinophils (Bld) [#/Vol] 0.20 10*3/uL Normal 0.0-0.4 [facility] Comment on above: Performed By: #### M G, CDP, PT, HCG, CP, LIP #### [facility] [address] [place] [address] Demand Inspector: Julian Rubio DO Eosinophils/100 WBC (Bld) 2 % Normal 0-4 [facility] Comment on above: Performed By: #### M G, CDP, PT, HCG, CP, LIP #### [facility] [address] [place] [address] Demand Inspector: Julian Rubio DO Erythrocyte distribution width (RBC) [Ratio] 13.1 % Normal 11.5-14.9 [facility] Comment on above: Performed By: #### M G, CDP, PT, HCG, CP, LIP #### [facility] [address] [facility] [place] [address] Demand Inspector: Julian Rubio DO Hematocrit (Bld) [Volume fraction] 44.2 % Normal 36-46 [facility] Comment on above: Performed By: #### M G, CDP, PT, HCG, CP, LIP #### [facility] [address] [facility] [place] [address] Demand Inspector: Julian Rubio DO Hemoglobin (Bld) [Mass/Vol] 15.3 g/dL Normal 12.0-16.0 [facility] Comment on above: Performed By: #### M G, CDP, PT, HCG, CP, LIP #### [facility] [address] [place] [address] Demand Inspector: Julian Rubio DO Lymphocytes (Bld) [#/Vol] 2.90 10*3/uL Normal 1.0-4.8 [facility] Comment on above: Performed By: #### M G, CDP, PT, HCG, CP, LIP #### [facility] [place] [address] Demand Inspector: Julian Rubio DO Lymphocytes/100 WBC (Bld) 31 % Normal 24-44 [facility] Comment on above: Performed By: #### M G, CDP, PT, HCG, CP, LIP #### [facility] [place] [address] Demand Inspector: Julian Rubio DO MCH (RBC) [Entitic mass] 31.4 pg Normal 26-34 [facility] Comment on above: Performed By: #### M G, CDP, PT, HCG, CP, LIP #### [facility] [address] [place] [address]. [place] [address] Demand Inspector: Julian Rubio DO MCHC (RBC) [Mass/Vol] 34.7 g/dL Normal 31-37 [facility] Comment on above: Performed By: #### M G, CDP, PT, HCG, CP, LIP #### [facility] [address] [place] [address] Demand Inspector: Julian Rubio DO MCV (RBC) [Entitic vol] 90.5 fL Normal 80-100 [facility] Comment on above: Performed By: #### M G, CDP, PT, HCG, CP, LIP #### [facility] [address] [place] [address] Demand Inspector: Julian Ruibo DO Monocytes (Bld) [#/Vol] 0.90 10*3/uL Normal 0.1-1.3 [facility] Comment on above: Performed By: #### M G, CDP, PT, HCG, CP, LIP #### [facility] [address] [place] [address] Demand Inspector: Julian Rubio DO Monocytes/100 WBC (Bld) 9 % High 1-7 [facility] Comment on above: Performed By: #### M G, CDP, PT, HCG, CP, LIP #### [facility] [address] [place] [address] Demand Inspector: Julian Rubio DO Neutrophil (Seg) 57 % Normal 36-66 [facility] Comment on above: Performed By: #### M G, CDP, PT, HCG, CP, LIP #### [facility] [address] [place] [address] Demand Inspector: Julian Rubio DO Platelet mean volume (Bld) [Entitic vol] 7.0 fL Normal 6.0-12.0 [facility] Comment on above: Performed By: #### Jose Antonio G, CDP, PT, HCG, CP, LIP #### [facility] [address] [place] [address] Demand Inspector: Julian Rubio DO Platelets (Bld) [#/Vol] 242 10*3/uL Normal 150-450 [facility] Comment on above: Performed By: #### M G, CDP, PT, HCG, CP, LIP #### [facility] [address] [place] [address] Demand Inspector: Julian Rubio DO RBC (Bld) [#/Vol] 4.89 10*6/uL Normal 4.0-5.2 [facility] Comment on above: Performed By: #### M G, CDP, PT, HCG, CP, LIP #### [facility] [address] [place] [address] Demand Inspector: Julian Rubio DO WBC (Bld) [#/Vol] 9.4 10*3/uL Normal 3.5-11.0 [facility] Comment on above: Performed By: #### M G, CDP, PT, HCG, CP, LIP #### [facility] [address] [address] Demand Inspector: Julian Rubio DO CMPon 02-03-2025 Albumin [Mass/Vol] 4.2 g/dL 3.5 - 5.2 g/dL [facility] ALP [Catalytic activity/Vol] 40 U/L 35 - 104 U/L [facility] ALT [Catalytic activity/Vol] 48 U/L High 10 - 35 U/L [facility] Anion gap [Moles/Vol] 10 mmol/L 9 - 16 mmol/L [facility] AST [Catalytic activity/Vol] 26 U/L 10 - 35 U/L [facility] Bilirubin [Mass/Vol] 0.5 mg/dL 0.0 - 1 .2 mg/dL [facility] Calcium [Mass/Vol] 9.5 mg/dL 8.6 - 10. 4 mg/dL [facility] Chloride [Moles/Vol] 108 mmol/L High 98 - 10 7 mmol/L [facility] CO2 [Moles/Vol] 23 mmol/L 20 - 31 mmol/L [facility] Creatinine [Mass/Vol] 0.5 mg/dL Low 0.7 - 1.2 mg/dL [facility] Est, Glom Filt Rate - PINF [facility] Comment on above: These results are not intended for use [...] following therapy that affects renal tubular secretion. Glucose [Mass/Vol] 122 mg/dL High 74 - 99 mg/dL [facility] Interpretation and review of laboratory results Abnormal [facility] Potassium [Moles/Vol] 4.1 mmol/L 3.7 - 5.3 mmol/L [facility] Protein [Mass/Vol] 6.9 g/dL 6.6 - 8.7 g/dL [facility] Sodium [Moles/Vol] 141 mmol/L 136 - 145 mmol/L [facility] Urea nitrogen [Mass/Vol] 9 mg/dL 6 - 20 mg/dL [facility] CT Abdomen and Pelvis W cont rast Vern 02-03-2025 Radiology Study observation (narrative) [facility] Comp Metabolic Profon 2024 Albumin [Mass/Vol] 4.2 g/dL Normal 3.5-5.2 [facility] Comment on above: Performed By: #### M G, CDP, PT, HCG, CP, LIP #### [facility] [address] [place] [address] Demand Inspector: Julian Rubio DO Alkaline Phos 40 U/L Normal 35-104 [facility] Comment on above: Performed By: #### M G, CDP, PT, HCG, CP, LIP #### [facility] [address] [place] [address] Demand Inspector: Julian Rubio DO ALT [Catalytic activity/Vol] 48 U/L High 10-35 [facility] Comment on above: Performed By: #### M G, CDP, PT, HCG, CP, LIP #### [facility] [address] [place] [address] Demand Inspector: Julian Rubio DO Anion gap [Moles/Vol] 10 mmol/L Normal 9-16 [facility] Comment on above: Performed By: #### M G, CDP, PT, HCG, CP, LIP #### [facility] [address] [place] [address] Demand Inspector: Julian Ruboi DO AST [Catalytic activity/Vol] 26 U/L Normal 10-35 [facility] Comment on above: Performed By: #### M G, CDP, PT, HCG, CP, LIP #### [facility] [address] [place] [address] Demand Inspector: Julian Rubio DO Bilirubin [Mass/Vol] 0.5 mg/dL Normal 0.0-1.2 [facility] Comment on above: Performed By: #### M G, CDP, PT, HCG, CP, LIP #### [facility] [address] [place] [address] Demand Inspector: Julian Rubio DO Calcium [Mass/Vol] 9.5 mg/dL Normal 8.6-10.4 [facility] Comment on above: Performed By: #### M G, CDP, PT, HCG, CP, LIP #### [facility] [address] [facility] [place] [address] Demand Inspector: Julian Rubio DO Chloride [Moles/Vol] 108 mmol/L High 98-107 [facility] Comment on above: Performed By: #### M G, CDP, PT, HCG, CP, LIP #### [facility] [address] [facility] [place] [address] Demand Inspector: Julian Rubio DO CO2 [Moles/Vol] 23 mmol/L Normal 20-31 [facility] Comment on above: Performed By: #### M G, CDP, PT, HCG, CP, LIP #### [facility] [address] [facility] [place] [address] Demand Inspector: Julian Rubio DO Creatinine [Mass/Vol] 0.5 mg/dL Low 0.7-1.2 [facility] Comment on above: Performed By: #### M G, CDP, PT, HCG, CP, LIP #### [facility] [address] [place] [address] Demand Inspector: Julian Rubio DO GFR/1.73 sq M.predicted among non-blacks MDRD (S/P/Bld) [Vol rate/Area] mL/min/{1.73_m2} Normal >60 [facility] Comment on above: Result Comment: These results are not intended for [...] following therapy that affects renal tubular secretion. Performed By: #### M G, CDP, PT, HCG, CP, LIP #### [facility] [address] [place] [address] Demand Inspector: Julian Rubio DO Glucose [Mass/Vol] 122 mg/dL High 74-99 [facility] Comment on above: Performed By: #### M G, CDP, PT, HCG, CP, LIP #### [facility] [address] [facility] [place] [address] Demand Inspector: Julian Rubio DO Potassium [Moles/Vol] 4.1 mmol/L Normal 3.7-5.3 [facility] Comment on above: Performed By: #### M G, CDP, PT, HCG, CP, LIP #### [facility] [place] [address] Demand Inspector: Julian Rubio DO Protein [Mass/Vol] 6.9 g/dL Normal 6.6-8.7 [facility] Comment on above: Performed By: #### M G, CDP, PT, HCG, CP, LIP #### [facility] [place] [address] Demand Inspector: Julian Rubio DO Sodium [Moles/Vol] 141 mmol/L Normal 136-145 [facility] Comment on above: Performed By: #### M G, CDP, PT, HCG, CP, LIP #### [facility] [address] [place] [address] Demand Inspector: Julian Rubio DO Urea nitrogen [Mass/Vol] 9 mg/dL Normal 6-20 [facility] Comment on above: Performed By: #### M G, CDP, PT, HCG, CP, LIP #### [facility] [address] [place] [address] Demand Inspector: Julian Rubio DO Drug Scr, Abuse, Uron 2024 Amphetamine(s),Ur Negative Normal NEG [facility] Comment on above: Result Comment: Cuto ff: 1000 ng/mL Performed By: #### M G, CDP, PT, HCG, CP, LIP #### [facility] [address] [place] [address] Demand Inspector: Julian Rubio DO Barbiturate(s),Ur Negative Normal NEG [facility] Comment on above: Result Comment: Cuto ff: 200 ng/ml Performed By: #### M G, CDP, PT, HCG, CP, LIP #### [facility] [address] [place] [address] Demand Inspector: Julian Rubio DO Benzodiazepine(s) Negative Normal NEG [facility] Comment on above: Result Comment: Cuto ff: 200 ng/ml Performed By: #### M G, CDP, PT, HCG, CP, LIP #### [facility] [address] [place] [address] Demand Inspector: Julian Rubio DO Cannabinoid(s),Ur Negative Normal NEG [facility] Comment on above: Result Comment: Cuto ff: 50 ng/ml Performed By: #### M G, CDP, PT, HCG, CP, LIP #### [facility] [address] [place] [address] Demand Inspector: Julian Rubio DO Cocaine Metabolite Negative Normal NEG [facility] Comment on above: Result Comment: Cuto ff: 300 ng/ml Performed By: #### M G, CDP, PT, HCG, CP, LIP #### [facility] [address] [place] [address] Demand Inspector: Julian Rubio DO Fentanyl, Urine Negative Normal NEG [facility] Comment on above: Result Comment: Cuto ff: 5 ng/ml Performed By: #### M G, CDP, PT, HCG, CP, LIP #### [facility] [address] [place] [address] Demand Inspector: Julian Rubio DO Methadone Ql (U) Negative Normal NEG [facility] Comment on above: Result Comment: Cuto ff: 300 ng/ml Performed By: #### M G, CDP, PT, HCG, CP, LIP #### [facility] [facility] [address] [place] [address] Demand Inspector: Julian Rubio DO Opiate(s), Ur Negative Normal NEG [facility] Comment on above: Result Comment: Cuto ff: 300 ng/ml Performed By: #### M G, CDP, PT, HCG, CP, LIP #### [facility] [address] [place] [address] Demand Inspector: Julian Rubio DO Oxycodone, Urine Negative Normal NEG [facility] Comment on above: Result Comment: Cuto ff: 100 ng/ml Performed By: #### M G, CDP, PT, HCG, CP, LIP #### [facility] [address] [place] [address] Demand Inspector: Julian Rubio DO Phencyclidine, Ur Negative Normal NEG [facility] Comment on above: Result Comment: Cuto ff: 25 ng/ml Performed By: #### M G, CDP, PT, HCG, CP, LIP #### [facility] [address] [facility] [place] [address] Demand Inspector: Julian Rubio DO Interpretive Info This method is a scr eening test to detect only these drug classes as part of a Normal [facility] Comment on above: Result Comment: medi yoshi workup. Confirmatory testing by another method should be ordered if clinically indicated. Performed By: #### M G, CDP, PT, HCG, CP, LIP #### [facility] [address] [facility] [place] [address] Demand Inspector: Julian Rubio DO HCG Qualitative, Serumon HCG ( test) Ql Negative NEGATIVE [facility] Comment on above: Specimens with hCG l evels near the threshold of the test (25 mIU/mL) may give a negative or indeterminate result. In such cases, another test should be performed with a new specimen in 48-72 hours. If early is suspected clinically in this setting, correlation with quantitative serum b-hCG level is suggested. [facility] HCG Screen, Bloodon 02-04-20 25 HCG Screen, Blood Negative Normal NEG [facility] Comment on above: Result Comment: Spec imens with hCG levels near the threshold of the test (25 mIU/mL) may give a negative or indeterminate result. In such cases, another test should be performed with a new specimen in 48-72 hours. If early is suspected clinically in this setting, correlation with quantitative serum b-hCG level is suggested. Performed By: #### M G, CDP, PT, HCG, CP, LIP #### [facility] [address] [facility] [place] [address] Demand Inspector: Julian Rubio DO Lipaseon 02-03-2025 Lipase [Catalytic activity/Vol] 21 U/L 13 - 60 U/L [facility] Lipase [Catalytic activity/Vol] 21 U/L Normal 13-60 [facility] Comment on above: Performed By: #### M G, CDP, PT, HCG, CP, LIP #### [facility] [address] [place] [address] Demand Inspector: Julian Rubio DO Magnesiumon 02-03-2025 Magnesium [Mass/Vol] 1.7 mg/dL 1.6 - 2 .6 mg/dL [facility] Magnesium [Mass/Vol] 1.7 mg/dL Normal 1.6-2.6 [facility] Comment on above: Performed By: #### M G, CDP, PT, HCG, CP, LIP #### [facility] [address] [facility] [place], [place] [id number] Demand Inspector: Julian Rubio DO Microscopic Urinalysison Bacteria LM Ql (Urine sed) MANY Abnormal None [facility] Casts LM.LPF (Urine sed) [#/Area] 3 to 5 Abnormal None /LPF [facility] Epithelial cells LM.HPF (Urine sed) [#/Area] 10 TO 20 /HPF [facility] Interpretation and review of laboratory results Abnormal [facility] RBC LM.HPF (Urine sed) [#/Area] 0 TO 2 0 TO 2 /HPF [facility] WBC LM.HPF (Urine sed) [#/Area] 6 TO 9 Abnormal 0 TO 5 /HPF [facility] No Panel Informationon 02-03 Radiology Study observation (narrative) [facility] PTon 02-03-2025 INR Coag (PPP) [Relative time] 0.9 {INR} Normal [facility] Comment on above: Result Comment: Therapeutic Range: Moderate Anticoagulant Intensity: INR = 2.0-3.0 High Anticoagulant Intensity: INR = 2.5-3.5 Performed By: #### M G, CDP, PT, HCG, CP, LIP #### [facility] [address] [facility] [place] [address] Demand Inspector: Julian Rubio DO PT Coag (PPP) [Time] 13.2 s Normal 11.8-14.6 [facility] Comment on above: Performed By: #### M G, CDP, PT, HCG, CP, LIP #### [facility] [address] [place] [address] Demand Inspector: Julian Rubio DO Protime-INRon 02-03-2025 INR Coag (PPP) [Relative time] 0.9 {INR} [facility] Comment on above: Therapeutic Range: Moderate Anticoagulant Intensity: INR = 2.0-3.0 High Anticoagulant Intensity: INR = 2.5-3.5 PT Coag (PPP) [Time] 13.2 s [facility] UA w/Reflex Cultureon 2024 Bilirubin, SemiQt,Ur Negative Normal NEG [facility] Comment on above: Performed By: #### M G, CDP, PT, HCG, CP, LIP #### [facility] [place] [address] Demand Inspector: Julian Rubio DO Blood, Urine Negative Normal NEG [facility] Comment on above: Performed By: #### Jose Antonio G, CDP, PT, HCG, CP, LIP #### [facility] [place] [address] Demand Inspector: Julian Rubio DO Clarity (U) Cloudy Abnormal CLEAR [facility] Comment on above: Performed By: #### Jose Antonio G, CDP, PT, HCG, CP, LIP #### [facility] [place] [address] Demand Inspector: Julian Rubio DO Color (U) Yellow Normal YEL [facility] Comment on above: Performed By: #### M G, CDP, PT, HCG, CP, LIP #### [facility] [place] [address] Demand Inspector: Julian Rubio DO Glucose Ql (U) Negative Normal NEG [facility] Comment on above: Performed By: #### M G, CDP, PT, HCG, CP, LIP #### [facility] [place] [address] Demand Inspector: Julian Rubio DO Ketones Ql (U) TRACE Abnormal NEG [facility] Comment on above: Performed By: #### M G, CDP, PT, HCG, CP, LIP #### [facility] [address] [place] [address] Demand Inspector: Julian Rubio DO Leukocyte esterase Test strip Ql (U) TRACE Abnormal NEG [facility] Comment on above: Performed By: #### M G, CDP, PT, HCG, CP, LIP #### [facility] [address] [place] [address] Demand Inspector: Julian Rubio DO Nitrite,Ur Negative Normal NEG [facility] Comment on above: Performed By: #### M G, CDP, PT, HCG, CP, LIP #### [facility] [address] [place] [address] Demand Inspector: Julian Rubio DO PH,Ur 5.0 Normal 5.0-8.0 [facility] Comment on above: Performed By: #### M G, CDP, PT, HCG, CP, LIP #### [facility] [address] [place] [address] Demand Inspector: Julian Rubio DO Protein Ql (U) Negative Normal NEG [facility] Comment on above: Performed By: #### M G, CDP, PT, HCG, CP, LIP #### [facility] [address] [place] [address] Demand Inspector: Julian Rubio DO Spec. [place],Ur 1.024 Normal 1.000-1.030 [facility] Comment on above: Performed By: #### M G, CDP, PT, HCG, CP, LIP #### [facility] [address] [facility] [place] [address] Demand Inspector: Julian Rubio DO Urobilinogen,Ur Normal Normal 0.0-1.0 [facility] Comment on above: Performed By: #### M G, CDP, PT, HCG, CP, LIP #### [facility] [address] [facility] [place] [address] Demand Inspector: Julian Rubio DO Urinalysis with Reflex to Cu ltureon 02-03-2025 Bilirubin Ql (U) Negative NEGATIVE [facility] Clarity (U) Cloudy Abnormal Clear [facility] Color (U) Yellow Yellow [facility] Glucose Test strip (U) [Mass/Vol] Negative NEGATIVE mg/dL [facility] Hemoglobin Auto test strip Ql (U) Negative NEGATIVE [facility] Interpretation and review of laboratory results Abnormal [facility] Ketones (U) [Mass/Vol] TRACE Abnormal NEGATIVE mg/dL [facility] Leukocyte esterase Test strip Ql (U) TRACE Abnormal NEGATIVE [facility] Nitrite Ql (U) Negative NEGATIVE [facility] pH (U) 5 [pH] 5.0 - 8.0 [facility] Protein (U) [Mass/Vol] Negative NEGATIVE mg/dL [facility] Specific gravity (U) [Rel density] 1.024 1.000 - 1.030 [facility] Urobilinogen Qn (U) Normal 0.0 - 1. 0 EU/dL [facility] Urinalysis,Microon 5 Bacteria MANY Abnormal [facility] Comment on above: Performed By: #### M G, CDP, PT, HCG, CP, LIP #### [facility] [address] [facility] [place] [address] Demand Inspector: Julian Rubio DO Casts 3 to 5 Abnormal [facility] Comment on above: Performed By: #### M G, CDP, PT, HCG, CP, LIP #### [facility] [address] [facility] [place] [address] Demand Inspector: Julian Rubio DO Epithelial cells LM Ql (Urine sed) 10 TO 20 Normal [facility] Comment on above: Performed By: #### M G, CDP, PT, HCG, CP, LIP #### [facility] [address] [facility] [place] [address] Demand Inspector: Julian Rubio DO Urine RBC's 0 TO 2 Normal 2 [facility] Comment on above: Performed By: #### M G, CDP, PT, HCG, CP, LIP #### [facility] [address] [facility] [place] [address] Demand Inspector: Julian Rubio DO Urine WBC's 6 TO [address] Comment on above: Performed By: #### M G, CDP, PT, HCG, CP, LIP #### [facility] [address] [facility] [place] [address] Demand Inspector: Julian Rubio DO Urine Drug Screenon 02-04-20 25 Amphetamines Ql (U) Negative NEGATIVE [facility] Comment on above: Cutoff: 1000 ng/mL Barbiturates Screen Ql (U) Negative NEGATIVE [facility] Comment on above: Cutoff: 200 ng/ml Benzodiazepines Ql (U) Negative NEGATIVE [facility] Comment on above: Cutoff: 200 ng/ml Cannabinoids Screen Ql (U) Negative NEGATIVE [facility] Comment on above: Cutoff: 50 ng/ml Cocaine Ql (U) Negative NEGATIVE [facility] Comment on above: Cutoff: 300 ng/ml fentaNYL Ql (U) Negative NEGATIVE [facility] Comment on above: Cutoff: 5 ng/ml Methadone Ql (U) Negative NEGATIVE [facility] Comment on above: Cutoff: 300 ng/ml Opiates Screen Ql (U) Negative NEGATIVE [facility] Comment on above: Cutoff: 300 ng/ml oxyCODONE Ql (U) Negative NEGATIVE [facility] Comment on above: Cutoff: 100 ng/ml Phencyclidine Ql (U) Negative NEGATIVE [facility] Comment on above: Cutoff: 25 ng/ml Test Information This method is a scr eening test to detect only these drug classes as part of a medical workup. Confirmatory testing by another method should be ordered if clinically indicated. [facility] US PELVIS TRANSVAGINALon US PELVIS TRANSVAGINAL EXAM: US PELVIS TRANSVAGINAL HISTORY: PCOS, irregular [...] II, MD, PHD at 21-Dec-2024 08:37:37 AM [facility] Normal Not Available Comment on above: Order Comment: US PE LVIS-TRANSVAG IF INDICATED No LMP recorded. Chlamydia/GC,DNA Ampon 12-06 Chlamydia Probe Negative Normal NEG [facility] Comment on above: Result Comment: CHLA MYDIA TRACHOMATIS DNA not detected by nucleic acid [...] results by an alternative nucleic acid target. Performed By: #### M G, CDP, PT, HCG, CP, LIP #### [facility] [address] [place] [address] Demand Inspector: Julian Rubio DO Gonorrhea Probe Negative Normal [facility] Comment on above: Result Comment: NEIS SERIA GONORRHOEAE DNA not detected by nucleic acid [...] results by an alternative nucleic acid target. Performed By: #### M G, CDP, PT, HCG, CP, LIP #### [facility] [address] [place] [address] Demand Inspector: Julian Rubio DO Cult,Urineon 12-06-2024 Cult,Urine Specimen Description .CLEAN CATCH URINE Culture NO SIGNIFICANT GROWTH Report Status FINAL 12/06/2024 Normal [facility] Comment on above: Performed By: #### U RC #### [facility] [address] [place] [address] Demand Inspector: Julian Rubio DO [address] [id number] Demand Inspector: Juan Medley MD HCG, ,Urineon 12-05 Beta HCG ( test) Ql (U) Negative Normal [facility] Comment on above: Result Comment: Spec imens with hCG levels near the threshold of the test (25 mIU/mL) may give a negative or indeterminate result. In such cases, another test should be performed with a new specimen in 48-72 hours. If early is suspected clinically in this setting, correlation with quantitative serum b-hCG level is suggested. Performed By: #### U HCG #### [facility] [address] [place] [address] Demand Inspector: Julian Rubio DO Microscopic Urinalysison Bacteria LM Ql (Urine sed) FEW Abnormal None [facility] Casts LM.LPF (Urine sed) [#/Area] 0 TO 2 Abnormal None /LPF [facility] Epithelial cells LM.HPF (Urine sed) [#/Area] 10 TO 20 /HPF [facility] Interpretation and review of laboratory results Abnormal [facility] RBC LM.HPF (Urine sed) [#/Area] 0 TO 2 0 TO 2 /HPF [facility] WBC LM.HPF (Urine sed) [#/Area] 10 TO 20 Abnormal 0 TO 5 /HPF [facility] No Panel Informationon 12-05 Addendum by Clarence Garza MD on 12/05/2024 4:35 PM EST ADDENDUM: 3.4 cm left ovarian adnexal cyst appears to be simple. In a patient of this age this almost certainly reflects physiologic cyst. Because transvaginal pelvis ultrasound imaging was not performed, suboptimally characterized adnexa, may and right pericolic consider follow-up pelvis ultrasound 8-12 weeks.* The results were called by Dr. Clarence Siegel to RUFINO NAVARRO on 12/05/2024 at 16:27. ___ ____ * recommendation per the 2020 ACR White Paper, RP Best Practice recommendation [facility] 1. Unremarkable appe arance of the adnexa, vascular flow documented in the right and left ovaries on duplex and Doppler waveform interrogation. 2. Normal sonographic appearance of the uterus. [facility] Clarence Lee MD - 12/05/2024 EXAMINATION: DOPPLER EVALUATION OF [...] 2. Normal sonographic appearance of the uterus. [facility] [employer] Radiology Study observation (narrative) [facility] [employer] No Panel InformationOrdered By: Clarence Siegel on 12-05-2024 [facility] [employer] Work Phone: , Urineon HCG ( test) Ql (U) Negative NEGATIVE [employer] Comment on above: Specimens with hCG l evels near the threshold of the test (25 mIU/mL) may give a negative or indeterminate result. In such cases, another test should be performed with a new specimen in 48-72 hours. If early is suspected clinically in this setting, correlation with quantitative serum b-hCG level is suggested. [facility] UA w/Reflex Cultureon 2024 Clarity (U) Cloudy Abnormal CLEAR [facility] [employer] Comment on above: Performed By: #### U HCG #### [employer] [facility] [address] [place] [address] Demand Inspector: Julian Rubio DO Color (U) Yellow Normal YEL [facility] Comment on above: Performed By: #### U HCG #### [facility] [address] [place] [address] Demand Inspector: Julian Rubio DO Leukocyte esterase Test strip Ql (U) TRACE Abnormal NEG [facility] Comment on above: Performed By: #### U HCG #### [facility] [address] [place] [address] Demand Inspector: Julian Rubio DO Bilirubin, SemiQt,Ur Negative Normal NEG [facility] Comment on above: Performed By: #### U HCG #### [facility] [address] [place] [address] Demand Inspector: Julian Rubio DO Blood, Urine Negative Normal NEG [facility] Comment on above: Performed By: #### U HCG #### [facility] [address] [place] [address] Demand Inspector: Julian Rubio DO Glucose Ql (U) Negative Normal NEG [facility] Comment on above: Performed By: #### U HCG #### [facility] [address] [place] [address] Demand Inspector: Julian Rubio DO Ketones Ql (U) Negative Normal NEG [facility] Comment on above: Performed By: #### U HCG #### [facility] [address] [place] [address] [place] [address] Demand Inspector: Julian Rubio DO Nitrite,Ur Negative Normal NEG [facility] Comment on above: Performed By: #### U HCG #### [facility] [address] [place] [address] Demand Inspector: Julian Rubio DO PH,Ur 5.5 Normal 5.0-8.0 [facility] Comment on above: Performed By: #### U HCG #### [facility] [address] [facility] [place] [address] Demand Inspector: Julian Rubio DO Protein Ql (U) Negative Normal NEG [facility] Comment on above: Performed By: #### U HCG #### [facility] [address] [facility] [place] [address] Demand Inspector: Julian Rubio DO Spec. [place],Ur 1.016 Normal 1.000-1.030 [facility] Comment on above: Performed By: #### U HCG #### [facility] [address] [facility] [place] [address] Demand Inspector: Julian Rubio DO Urobilinogen,Ur Normal Normal 0.0-1.0 [facility] Comment on above: Performed By: #### U HCG #### [facility] [address] [facility] [place] [address] Demand Inspector: Julian Rubio DO US DUP ABD PEL RETRO SCROT C OMPLETEon 12-05-2024 US DUP ABD PEL RETRO SCROT COMPLETE ADDENDUM: 3.4 cm left ovarian adnexal cyst appears to be simple. In a patient of this age this almost certainly reflects physiologic cyst. Because transvaginal pelvis ultrasound imaging was not performed, suboptimally characterized adnexa, may and right pericolic consider follow-up pelvis ultrasound 8-12 weeks.* The results were called by Dr. Clarence Siegel to RUFINO NAVARRO on 12/05/2024 at 16:27. ____ * recommendation per the 2020 ACR White Paper, RP Best Practice recommendation Electronically Signed by: CLARENCE SIEGEL on ThuDec 05, 2024 4:35:54 PM EST EXAMINATION: DOPPLER EVALUATION OF THE [...] 2. Normal sonographic appearance of the uterus. Interpreted by: Clarence Siegel MD Signed by: Clarence Siegel MD 12/05/24 Edited Result - FINAL Normal [facility] US PELVIS COMPLETEon 025 US PELVIS COMPLETE ADDENDUM: 3.4 cm left ovarian adnexal cyst appears to be simple. In a patient of this age this almost certainly reflects physiologic cyst. Because transvaginal pelvis ultrasound imaging was not performed, suboptimally characterized adnexa, may and right pericolic consider follow-up pelvis ultrasound 8-12 weeks.* The results were called by Dr. Clarence Siegel to RUFINO NAVARRO on 12/05/2024 at 16:27. ____ * recommendation per the 2020 ACR White Paper, RP Best Practice recommendation Electronically Signed by: CLARENCE SIEGEL on ThuDec 05, 2024 4:35:55 PM EST EXAMINATION: DOPPLER EVALUATION OF THE [...] 2. Normal sonographic appearance of the uterus. Interpreted by: Clarence Siegel MD Signed by: Clarence Siegel MD 12/05/24 Edited Result - FINAL Normal [facility] Urinalysis with Reflex to Cu ltureon 12-05-2024 Bilirubin Ql (U) Negative NEGATIVE [facility] Glucose Test strip (U) [Mass/Vol] Negative NEGATIVE mg/dL [facility] Hemoglobin Auto test strip Ql (U) Negative NEGATIVE [facility] Interpretation and review of laboratory results Abnormal [facility] Ketones (U) [Mass/Vol] Negative NEGATIVE mg/dL [facility] Nitrite Ql (U) Negative NEGATIVE [facility] pH (U) 5.5 [pH] 5.0 - 8.0 [facility] Protein (U) [Mass/Vol] Negative NEGATIVE mg/dL [facility] Specific gravity (U) [Rel density] 1.016 1.000 - 1.030 [facility] Urobilinogen Qn (U) Normal 0.0 - 1. 0 EU/dL [facility] Urinalysis,Microon 5 Bacteria FEW Abnormal NONE [facility] Comment on above: Performed By: #### U HCG #### [facility] [address] [place] [address] Demand Inspector: Julian Rubio DO Casts 0 TO 2 Abnormal NONE [facility] Comment on above: Performed By: #### U HCG #### [facility] [address] [place] [address] Demand Inspector: Julian Rubio DO Epithelial cells LM Ql (Urine sed) 10 TO 20 Normal [facility] Comment on above: Performed By: #### U HCG #### [facility] [address] [facility] [place] [address] Demand Inspector: Julian Rubio DO Urine RBC's 0 TO 2 Normal 2 [facility] Comment on above: Performed By: #### U HCG #### [facility] [address] [facility] [place] [address] Demand Inspector: Julian Rubio DO Urine WBC's 10 TO [address] Comment on above: Performed By: #### U HCG #### [facility] [address] [facility] [place] [address] Demand Inspector: Julian Rubio DO Vaginitis DNA Probeon 2024 Lori species Negative NEGATIVE [facility] Comment on above: for Lori sp. Method of testing is a DNA probe intended for detection and identification of Lori species, Gardnerella vaginalis, and Trichomonas vaginalis nucleic acid in vaginal fluid specimens from patients with symptoms of vaginitis/vaginosis. GARDNERELLA VAGINALIS Positive Abnormal NEGATIVE [facility] Comment on above: for Gardnerella vagi nalis Interpretation and review of laboratory results Abnormal [facility] Source .VAGINAL SWAB [facility] Trichomonas Negative NEGATIVE [facility] Comment on above: for Trichomonas Vagi nalis [facility] Lori Negative Normal NEG [facility] Comment on above: Result Comment: for Lori sp. Method of testing is a DNA probe intended for detection and identification of Lori species, Gardnerella vaginalis, and Trichomonas vaginalis nucleic acid in vaginal fluid specimens from patients with symptoms of vaginitis/vaginosis. Performed By: #### M G, CDP, PT, HCG, CP, LIP #### [facility] [address] [facility] [place] [address] Demand Inspector: Julian Rubio DO Gardnerella Positive Abnormal NEG [facility] Comment on above: Result Comment: for Gardnerella vaginalis Performed By: #### M G, CDP, PT, HCG, CP, LIP #### [facility] [address] [place] [address] Demand Inspector: Julian Rubio DO Trichomonas Negative Normal NEG [facility] Comment on above: Result Comment: for Trichomonas Vaginalis Performed By: #### M G, CDP, PT, HCG, CP, LIP #### [facility] [address] [facility] [place] [address] Demand Inspector: Julian Rubio DO Source .VAGINAL SWAB Normal [facility] Comment on above: Performed By: #### M G, CDP, PT, HCG, CP, LIP #### [facility] [address] [facility] [place] [address] Demand Inspector: Julian Rubio DO CHLAMYDIA/GC BY PCRon 2023 CHLAMYDIA/GC BY PCR SPECIMEN SOURCE VAGINAL CHLAMYDIA DNA(PCR) Negative (qualifier value) Chlamydia trachomatis not detected by nucleic acid amplification. This does not exclude the possibility of infection because results are dependent on adequate specimen collection. GONORRHOEAE DNA(PCR) Negative (qualifier value) Neisseria gonorrhoeae not detected by nucleic acid amplification. This does not exclude the possibility of infection because results are dependent on adequate specimen collection. Normal [facility] Comment on above: Performed By: #### C GS #### [facility] ([id number]) [address] [place] [address], [place] [address] [facility] ([id number]) [address] [place] [address], [address] [place] [address] HCG ( test) Ql (U)o n 09-12-2024 Beta HCG ( test) Ql (U) Negative Normal NEG [facility] Comment on above: Performed By: #### 2 106-3 #### [facility] ([id number]) [address] [place] [address] T. pallidum IgG+IgM IA Ql (S )on 09-12-2024 Syphilis Total 0.2 AI Normal 0.0-0.8 [facility] Comment on above: Result Comment: NON REACTIVE No serologic evidence of infection to Treponema pallidum (syphilis). Repeat testing may be considered in patients with suspected acute or primary syphilis in 2 to 4 weeks. Performed By: #### 4 [id number] #### [facility] ([id number]) [address] [place] [address], [address] [place] [address] URN MACROSCOPIC NURon 2023 BILIRUBIN KATHERINE Negative Normal NEG [facility] Comment on above: Performed By: #### N UM #### [facility] ([id number]) [address] [place] [address] BLOOD/HGB KATHERINE Small Abnormal NEG [facility] Comment on above: Performed By: #### N UM #### [facility] ([id number]) [address] [place] [address] GLUCOSE KATHERINE Negative Normal NEG [facility] Comment on above: Performed By: #### N UM #### [facility] ([id number]) [address] [place] [address] KETONES KATHERINE Negative Normal NEG [facility] Comment on above: Performed By: #### N UM #### [facility] ([id number]) [address] [place] [address] LEUKOCYTE ESTERASE KATHERINE Small Abnormal NEG [facility] Comment on above: Performed By: #### N UM #### [facility] ([id number]) [address] [place] [address] NITRITE KATHERINE Negative Normal NEG [facility] Comment on above: Performed By: #### N UM #### [facility] ([id number]) [address] [place] [address] PH KATHERINE 5.0 Normal 5.0-8.5 [facility] Comment on above: Performed By: #### N UM #### [facility] ([id number]) [address] [place] [address] PROTEIN KATHERINE Negative Normal NEG [facility] Comment on above: Performed By: #### N UM #### [facility] ([id number]) [address] [place] [address] SPECIFIC GRAVITY KATHERINE >=1.030 Normal 1.003-1.035 [facility] Comment on above: Performed By: #### N UM #### [facility] ([id number]) [address] [place] [address] UROBILINOGEN KATHERINE 0.2 eu/dL Normal <1.1 [facility] Comment on above: Performed By: #### N UM #### [facility] ([id number]) [address] [place] [address] VAGINITIS PANEL PCRon 2023 VAGINITIS PANEL PCR BACT. VAGINOSIS DNA Detected (qualifier value) Qualitative results are reported based on detection and quantitation of targeted organism markers which include: Lactobacillus spp. (L. crispatus and L. jensenii), Gardnerella vaginalis, Atopobium vaginae, Bacterial Vaginosis Associated Bacteria-2 (BVAB-2) and Megasphaera-1 LORI SPECIES DNA Detected (qualifier value) Lori species result based on detection of one or more of the following species: C. albicans, C. tropicalis, C. parapsilosis or C. dubliniensis LORI KRUSEI DNA Not detected (qualifier value) No Lori krusei detected LORI GLABRATA DNA Not detected (qualifier value) No Lori glabrata detected TRICHOMONAS VAG DNA Detected (qualifier value) Trichomonas vaginalis detected NOTE BD MAX Vaginal Panel has not been evaluated for patients under 18 years old. Results for these patients should be reviewed and assessed in accordance with clinical presentation to determine patient diagnosis. Normal [facility] Comment on above: Performed By: #### V PPCR #### [facility] ([id number]) [address], [address] [place] [address] Cult,Urineon 09-02-2024 Cult,Urine Specimen Description .CLEAN CATCH URINE Culture ESCHERICHIA COLI >100,000 CFU/ML This organism is an Extended Spectrum Beta Lactamase (ESBL) Frame Assembler and resistance to therapy with penicillins, cephalosporins and aztreonam is expected. These organisms generally remain susceptible to carbapenems. Consider ID Consultation. CONTACT PRECAUTIONS INDICATED. Report Status FINAL 09/02/2024 SUSCEPTIBILITY Organism ESCHERICHIA COLI Method ANTWAN Ampicillin >=32 RESISTANT Cefazolin >=64 RESISTANT Cefazolin sensitivity results can be used to predict the effectiveness of oral cephalosporins (eg. Cephalexin) in uncomplicated Urinary Tract Infections due to E. coli, K. pneumoniae, and P. mirabilis Cefepime 1 RESISTANT Ceftriaxone 32 RESISTANT ESBL POSITIVE Gentamicin <=1 SUSCEPTIBLE Imipenem <=0.25 SUSCEPTIBLE Levofloxacin 1 SUSCEPTIBLE Nitrofurantoin <=16 SUSCEPTIBLE Piperacillin/Tazobactam <=4 RESISTANT Tobramycin <=1 SUSCEPTIBLE Trimethoprim/Sulfa >=320 RESISTANT Amikacin <=2 SUSCEPTIBLE Meropenem <=0.25 SUSCEPTIBLE Susceptible [facility] Comment on above: Performed By: #### U HCG #### [facility] [address] [place] [address] Demand Inspector: Julian Rubio DO Chlamydia/GC,DNA Ampon 08-30 Chlamydia Probe Negative Normal NEG [facility] Comment on above: Result Comment: CHLA MYDIA TRACHOMATIS DNA not detected by nucleic acid [...] results by an alternative nucleic acid target. Performed By: #### M G, CDP, PT, HCG, CP, LIP #### [facility] [address] [facility] [place] [address] Demand Inspector: Julian Rubio DO Gonorrhea Probe Negative Normal NEG [facility] Comment on above: Result Comment: NEIS SERIA GONORRHOEAE DNA not detected by nucleic acid [...] results by an alternative nucleic acid target. Performed By: #### M G, CDP, PT, HCG, CP, LIP #### [facility] [place] [address] Demand Inspector: Julian Rubio DO HCG, ,Urineon 08-30 Beta HCG ( test) Ql (U) Negative Normal [facility] Comment on above: Result Comment: Spec imens with hCG levels near the threshold of the test (25 mIU/mL) may give a negative or indeterminate result. In such cases, another test should be performed with a new specimen in 48-72 hours. If early is suspected clinically in this setting, correlation with quantitative serum b-hCG level is suggested. Performed By: #### U HCG #### [facility] [address] [facility] [place] [address] Demand Inspector: Julian Rubio DO Microscopic Urinalysison Amorphous sediment LM Ql (Urine sed) 1+ [facility] Bacteria LM Ql (Urine sed) FEW Abnormal None [facility] Casts LM.LPF (Urine sed) [#/Area] HYALINE Abnormal None /LPF [facility] Casts LM.LPF (Urine sed) [#/Area] 0 TO 2 Abnormal None /LPF [facility] Epithelial cells LM.HPF (Urine sed) [#/Area] 10 TO 20 /HPF [facility] Interpretation and review of laboratory results Abnormal [facility] RBC LM.HPF (Urine sed) [#/Area] 0 TO 2 0 TO 2 /HPF [facility] WBC LM.HPF (Urine sed) [#/Area] 10 TO 20 Abnormal 0 TO 5 /HPF [facility] Urinalysis,Microon 4 Amorphous sediment LM Ql (Urine sed) 1+ Normal [facility] Comment on above: Performed By: #### U HCG #### [facility] [address] [place] [address] Demand Inspector: Julian Rubio DO Bacteria FEW Abnormal [facility] Comment on above: Performed By: #### U HCG #### [facility] [address] [place] [address] Demand Inspector: Julian Rubio DO Casts HYALINE Abnormal [facility] Comment on above: Result Comment: 0 TO 2 Performed By: #### U HCG #### [facility] [address] [place] [address] Demand Inspector: Julian Rubio DO Epithelial cells LM Ql (Urine sed) 10 TO 20 Normal [facility] Comment on above: Performed By: #### U HCG #### [facility] [address] [place] [address] Demand Inspector: Julian Rubio DO Urine RBC's 0 TO [address] Comment on above: Performed By: #### U HCG #### [facility] [address] [place] [address] Demand Inspector: Julian Rubio DO Urine WBC's 10 TO [address] Comment on above: Performed By: #### U HCG #### [facility] [address] [place] [address] Demand Inspector: uJlian Rubio DO Urine Preg (Lab)on HCG ( test) Ql (U) Negative NEGATIVE [facility] Comment on above: Specimens with hCG l evels near the threshold of the test (25 mIU/mL) may give a negative or indeterminate result. In such cases, another test should be performed with a new specimen in 48-72 hours. If early is suspected clinically in this setting, correlation with quantitative serum b-hCG level is suggested. [facility] Vaginitis DNA Probeon 2023 Lori species Negative NEGATIVE [facility] Comment on above: for Lori sp. Method of testing is a DNA probe intended for detection and identification of Lori species, Gardnerella vaginalis, and Trichomonas vaginalis nucleic acid in vaginal fluid specimens from patients with symptoms of vaginitis/vaginosis. GARDNERELLA VAGINALIS Positive Abnormal NEGATIVE [facility] Comment on above: for Gardnerella vagi nalis Interpretation and review of laboratory results Abnormal [facility] Source .VAGINAL SWAB [facility] Trichomonas Negative NEGATIVE [facility] Comment on above: for Trichomonas Vagi nalis [facility] Lori Negative Normal NEG [facility] Comment on above: Result Comment: for Lori sp. Method of testing is a DNA probe intended for detection and identification of Lori species, Gardnerella vaginalis, and Trichomonas vaginalis nucleic acid in vaginal fluid specimens from patients with symptoms of vaginitis/vaginosis. Performed By: #### M G, CDP, PT, HCG, CP, LIP #### [facility] [address] [place] [address] Demand Inspector: Julian Rubio DO Gardnerella Positive Abnormal NEG [facility] Comment on above: Result Comment: for Gardnerella vaginalis Performed By: #### M G, CDP, PT, HCG, CP, LIP #### [facility] [address] [place] [address] Demand Inspector: Julian Rubio DO Trichomonas Negative Normal NEG [facility] Comment on above: Result Comment: for Trichomonas Vaginalis Performed By: #### M G, CDP, PT, HCG, CP, LIP #### [facility] [address] [place] [address] Demand Inspector: Julian Rubio DO UA w/Reflex Cultureon 2023 Bilirubin, SemiQt,Ur Negative Normal NEG [facility] Comment on above: Performed By: #### U HCG #### [facility] [address] [place] [address] Demand Inspector: Julian Rubio DO Blood, Urine Negative Normal [facility] Comment on above: Performed By: #### U HCG #### [facility] [address] [place] [address] Demand Inspector: Julian Rubio DO Clarity (U) Cloudy Abnormal CLEAR [facility] Comment on above: Performed By: #### U HCG #### [facility] [address] [place] [address] Demand Inspector: Julian Rubio DO Color (U) Yellow Normal YEL [facility] Comment on above: Performed By: #### U HCG #### [facility] [address] [place] [address] Demand Inspector: Julian Rubio DO Glucose Ql (U) Negative Normal NEG [facility] Comment on above: Performed By: #### U HCG #### [facility] [address] [place] [address] Demand Inspector: Julian Rubio DO Ketones Ql (U) Negative Normal NEG [facility] Comment on above: Performed By: #### U HCG #### [facility] [address] [facility] [place] [address] Demand Inspector: Julian Rubio DO Leukocyte esterase Test strip Ql (U) TRACE Abnormal NEG [facility] Comment on above: Performed By: #### U HCG #### [facility] [address] [place] [address] Demand Inspector: Julian Rubio DO Nitrite,Ur Negative Normal NEG [facility] Comment on above: Performed By: #### U HCG #### [facility] [address] [place] [address] Demand Inspector: Julian Rubio DO PH,Ur 5.0 Normal 5.0-8.0 [facility] Comment on above: Performed By: #### U HCG #### [facility] [address] [place] [address] Demand Inspector: Julian Rubio DO Protein Ql (U) Negative Normal NEG [facility] Comment on above: Performed By: #### U HCG #### [facility] [address] [place] [address] Demand Inspector: Julian Rubio DO Spec. [place],Ur 1.022 Normal 1.000-1.030 [facility] Comment on above: Performed By: #### U HCG #### [facility] [address] [place] [address] Demand Inspector: Julian Rubio DO Urobilinogen,Ur Normal Normal 0.0-1.0 [facility] Comment on above: Performed By: #### U HCG #### [facility] [address] [place] [address] Demand Inspector: Julian Rubio DO Urinalysis with Reflex to Cu ltureon 08-29-2024 Bilirubin Ql (U) Negative NEGATIVE [facility] Clarity (U) Cloudy Abnormal Clear [facility] Color (U) Yellow Yellow [facility] Glucose Test strip (U) [Mass/Vol] Negative NEGATIVE mg/dL [facility] Hemoglobin Auto test strip Ql (U) Negative NEGATIVE [facility] Interpretation and review of laboratory results Abnormal [facility] Ketones (U) [Mass/Vol] Negative NEGATIVE mg/dL [facility] Leukocyte esterase Test strip Ql (U) TRACE Abnormal NEGATIVE [facility] Nitrite Ql (U) Negative NEGATIVE [facility] pH (U) 5.0 [pH] 5.0 - 8.0 [facility] Protein (U) [Mass/Vol] Negative NEGATIVE mg/dL [facility] Specific gravity (U) [Rel density] 1.022 1.000 - 1.030 [facility] Urobilinogen Qn (U) Normal 0.0 - 1. 0 EU/dL [facility] Vaginitis DNA Probeon 2023 Source .VAGINAL SWAB Normal [facility] Comment on above: Performed By: #### M G, CDP, PT, HCG, CP, LIP #### [facility] [address] [address] Demand Inspector: Julian Rubio DO XR CHEST 2 VWSon 08-25-2024 XR CHEST 2 VWS XR CHEST 2 VWS PA and lateral chest: HISTORY: Cough. 2 views the chest are obtained. Cardiac and mediastinal contours are within normal limits. Lungs are clear. There is no vascular congestion, effusion, or pneumothorax. Osseous structures appear intact. IMPRESSION: No acute findings. Finalized by Jaron Cruz MD on 08/25/2024 3:00 PM Normal [facility] Chlamydia/GC,DNA Ampon 04-13 Chlamydia Probe Negative Normal NEG [facility] Comment on above: Result Comment: CHLA MYDIA TRACHOMATIS DNA not detected by nucleic acid [...] results by an alternative nucleic acid target. Performed By: #### S WC #### [address] [place], [place] [id number] Demand Inspector: Juan Medley MD Gonorrhea Probe Negative Normal NEG [facility] Comment on above: Result Comment: NEIS SERIA GONORRHOEAE DNA not detected by nucleic acid [...] results by an alternative nucleic acid target. Performed By: #### S WC #### [address] [id number] Demand Inspector: Juan Medley MD HCG, ,Urineon 04-12 Beta HCG ( test) Ql (U) Negative Normal [facility] Comment on above: Result Comment: Spec imens with hCG levels near the threshold of the test (25 mIU/mL) may give a negative or indeterminate result. In such cases, another test should be performed with a new specimen in 48-72 hours. If early is suspected clinically in this setting, correlation with quantitative serum b-hCG level is suggested. Performed By: #### M G, CDP, PT, HCG, CP, LIP #### [facility] [address] [place] [address] Demand Inspector: Julian Rubio DO Microscopic Urinalysison Amorphous sediment LM Ql (Urine sed) 2+ [facility] Bacteria LM Ql (Urine sed) MANY Abnormal None [facility] Epithelial cells LM.HPF (Urine sed) [#/Area] TOO NUMEROUS TO COUNT /HPF [facility] Interpretation and review of laboratory results Abnormal [facility] Mucus Ql (Urine sed) 1+ [facility] RBC LM.HPF (Urine sed) [#/Area] None Abnormal 0 TO 2 /HPF [facility] WBC LM.HPF (Urine sed) [#/Area] 6 TO 9 Abnormal 0 TO 5 /HPF [facility] , Urineon HCG ( test) Ql (U) Negative NEGATIVE [facility] Comment on above: Specimens with hCG l evels near the threshold of the test (25 mIU/mL) may give a negative or indeterminate result. In such cases, another test should be performed with a new specimen in 48-72 hours. If early is suspected clinically in this setting, correlation with quantitative serum b-hCG level is suggested. [facility] UA w/Reflex Cultureon 2023 Bilirubin, SemiQt,Ur Negative Normal NEG [facility] Comment on above: Performed By: #### M G, CDP, PT, HCG, CP, LIP #### [facility] [address] [place] [address]. [place] [address] Demand Inspector: Julian Rubio DO Blood, Urine Negative Normal NEG [facility] Comment on above: Performed By: #### M G, CDP, PT, HCG, CP, LIP #### [facility] [address] [place] [address]. [place] [address] Demand Inspector: Julian Ruboi DO Clarity (U) Cloudy Abnormal CLEAR [facility] Comment on above: Performed By: #### M G, CDP, PT, HCG, CP, LIP #### [facility] [address] [place] [address]. [place] [address] Demand Inspector: Julian Rubio DO Color (U) Yellow Normal YEL [facility] Comment on above: Performed By: #### M G, CDP, PT, HCG, CP, LIP #### [facility] [address] [place] [address]. [place] [address] Demand Inspector: Julian Rubio DO Glucose Ql (U) Negative Normal NEG [facility] Comment on above: Performed By: #### M G, CDP, PT, HCG, CP, LIP #### [facility] [address] [place] [address] Demand Inspector: Julian Rubio DO Ketones Ql (U) TRACE Abnormal NEG [facility] Comment on above: Performed By: #### M G, CDP, PT, HCG, CP, LIP #### [facility] [address] [place] [address] Demand Inspector: Julian Rubio DO Leukocyte esterase Test strip Ql (U) TRACE Abnormal NEG [facility] Comment on above: Performed By: #### M G, CDP, PT, HCG, CP, LIP #### [facility] [address] [place] [address] Demand Inspector: Julian Rubio DO Nitrite,Ur Negative Normal NEG [facility] Comment on above: Performed By: #### M G, CDP, PT, HCG, CP, LIP #### [facility] [address] [place] [address] Demand Inspector: Julian Rubio DO PH,Ur 5.5 Normal 5.0-8.0 [facility] Comment on above: Performed By: #### M G, CDP, PT, HCG, CP, LIP #### [facility] [address] [place] [address] [place] [address] Demand Inspector: Julian Rubio DO Protein Ql (U) TRACE Abnormal NEG [facility] Comment on above: Performed By: #### M G, CDP, PT, HCG, CP, LIP #### [facility] [address] [place] [address] Demand Inspector: Julian Rubio DO Spec. [place],Ur 1.036 High 1.000-1.030 [facility] Comment on above: Performed By: #### M G, CDP, PT, HCG, CP, LIP #### [facility] [address] [facility] [place] [address] Demand Inspector: Julian Rubio, DO Urobilinogen,Ur Normal Normal 0.0-1.0 [facility] Comment on above: Performed By: #### M G, CDP, PT, HCG, CP, LIP #### [facility] [address] [facility] [place] [address] Demand Inspector: Julian Rubio, DO Urinalysis with Reflex to Cu ltureon 04-12-2024 Bilirubin Ql (U) Negative NEGATIVE [facility] [facility] Clarity (U) Cloudy Abnormal Clear [facility] Color (U) Yellow Yellow [facility] Glucose Test strip (U) [Mass/Vol] Negative NEGATIVE mg/dL [facility] Hemoglobin Auto test strip Ql (U) Negative NEGATIVE [facility] Interpretation and review of laboratory results Abnormal [facility] Ketones (U) [Mass/Vol] TRACE Abnormal NEGATIVE mg/dL [facility] Leukocyte esterase Test strip Ql (U) TRACE Abnormal NEGATIVE [facility] Nitrite Ql (U) Negative NEGATIVE [facility] pH (U) 5.5 [pH] 5.0 - 8.0 [facility] Protein (U) [Mass/Vol] TRACE Abnormal NEGATIVE mg/dL [facility] Specific gravity (U) [Rel density] 1.036 High 1.000 - 1.030 [facility] Urobilinogen Qn (U) Normal 0.0 - 1. 0 EU/dL [facility] Urinalysis,Microon 4 Amorphous sediment LM Ql (Urine sed) 2+ Normal [facility] Comment on above: Performed By: #### M G, CDP, PT, HCG, CP, LIP #### [facility] [address] [facility] [place] [address] Demand Inspector: Julian Rubio DO Bacteria MANY Abnormal NONE [facility] [place] Comment on above: Performed By: #### M G, CDP, PT, HCG, CP, LIP #### [facility] [address] [facility] [place] [address] Demand Inspector: Julian Rubio DO Epithelial cells LM Ql (Urine sed) TOO NUMEROUS TO COUNT Normal [facility] Comment on above: Performed By: #### M G, CDP, PT, HCG, CP, LIP #### [facility] [address] [facility] [place] [address] Demand Inspector: Julian Rubio DO Mucus Strands 1+ Normal [facility] Comment on above: Performed By: #### M G, CDP, PT, HCG, CP, LIP #### [facility] [address] [facility] [place] [address] Demand Inspector: Julian Rubio DO Urine RBC's None Abnormal 2 [facility] [place] Comment on above: Performed By: #### M G, CDP, PT, HCG, CP, LIP #### [facility] [address] [facility] [place] [address] Demand Inspector: Julian Rubio DO Urine WBC's 6 TO 9 Abnormal 5 [facility] Comment on above: Performed By: #### Jose Antonio G, CDP, PT, HCG, CP, LIP #### [facility] [address] [facility] [place] [address] Demand Inspector: Julian Rubio DO Vaginitis DNA Probeon 2023 Lori species Negative NEGATIVE [facility] Comment on above: for Lori sp. Method of testing is a DNA probe intended for detection and identification of Lori species, Gardnerella vaginalis, and Trichomonas vaginalis nucleic acid in vaginal fluid specimens from patients with symptoms of vaginitis/vaginosis. GARDNERELLA VAGINALIS Positive Abnormal NEGATIVE [facility] Comment on above: for Gardnerella vagi nalis Interpretation and review of laboratory results Abnormal [facility] Source .VAGINAL SWAB [facility] Trichomonas Negative NEGATIVE [facility] Comment on above: for Trichomonas Vagi nalis [facility] Lori Negative Normal NEG [facility] Comment on above: Result Comment: for Lori sp. Method of testing is a DNA probe intended for detection and identification of Lori species, Gardnerella vaginalis, and Trichomonas vaginalis nucleic acid in vaginal fluid specimens from patients with symptoms of vaginitis/vaginosis. Performed By: #### U HCG #### [facility] [address] [facility] [place] [address] Demand Inspector: Julian Rubio DO Gardnerella Positive Abnormal NEG [facility] Comment on above: Result Comment: for Gardnerella vaginalis Performed By: #### U HCG #### [facility] [address] [facility] [place] [address] Demand Inspector: Julian Rubio DO Trichomonas Negative Normal NEG [facility] Comment on above: Result Comment: for Trichomonas Vaginalis Performed By: #### U HCG #### [facility] [address] [facility] [place] [address] Demand Inspector: Julian Rubio DO Source .VAGINAL SWAB Normal [facility] Comment on above: Performed By: #### U HCG #### [facility] [address] [facility] [place] [address] Demand Inspector: Julian Rubio DO HCG, ,Urineon 03-15 Beta HCG ( test) Ql (U) Negative NEGATIVE [facility] Comment on above: Specimens with hCG l evels near the threshold of the test (25 mIU/mL) may give a negative or indeterminate result. In such cases, another test should be performed with a new specimen in 48-72 hours. If early is suspected clinically in this setting, correlation with quantitative serum b-hCG level is suggested. [facility] Microscopic Urinalysison Amorphous sediment LM Ql (Urine sed) 1+ Abnormal None [facility] Bacteria LM Ql (Urine sed) MODERATE Abnormal None [facility] Epithelial cells LM.HPF (Urine sed) [#/Area] 21 TO 50 /HPF [facility] Interpretation and review of laboratory results Abnormal [facility] Mucus Ql (Urine sed) 1+ Abnormal None [facility] RBC LM.HPF (Urine sed) [#/Area] 21 TO 50 /HPF [facility] WBC LM.HPF (Urine sed) [#/Area] 10 TO 20 /HPF [facility] Yeast LM Ql (Urine sed) FEW Abnormal None [facility] Urinalysis with Reflex to Cu ltureon 03-15-2023 Bilirubin Ql (U) SMALL Abnormal NEGATIVE [facility] Clarity (U) Cloudy Abnormal Clear [facility] Color (U) Dark Yellow Abnormal Yellow [facility] Glucose Test strip (U) [Mass/Vol] Negative NEGATIVE [facility] Hemoglobin Auto test strip Ql (U) Negative NEGATIVE [facility] Interpretation and review of laboratory results Abnormal [facility] Ketones (U) [Mass/Vol] Negative NEGATIVE [facility] Leukocyte esterase Test strip Ql (U) TRACE Abnormal NEGATIVE [facility] Nitrite Ql (U) Negative NEGATIVE [facility] pH (U) 5.0 [pH] 5.0 - 8.0 [facility] Protein (U) [Mass/Vol] TRACE Abnormal NEGATIVE [facility] Specific gravity (U) [Rel density] 1.030 1.000 - 1.030 [facility] Urobilinogen Qn (U) Normal Normal [facility] Vaginitis DNA Probeon 2022 Lori Species, DNA Probe Negative NEGATIVE [facility] Comment on above: for Lori sp. Method of testing is a DNA probe intended for detection and identification of Lori species, Gardnerella vaginalis, and Trichomonas vaginalis nucleic acid in vaginal fluid specimens from patients with symptoms of vaginitis/vaginosis. Gardnerella Vaginalis, DNA Probe Positive Abnormal NEGATIVE [facility] Comment on above: for Gardnerella vagi nalis Interpretation and review of laboratory results Abnormal [facility] Source .VAGINAL SWAB [facility] Trichomonas Vaginalis DNA Negative NEGATIVE [facility] Comment on above: for Trichomonas Vagi nalis [facility] Vaginitis DNA Probeon 2022 Lori Species, DNA Probe Negative NEGATIVE [facility] Comment on above: for Lori sp. Method of testing is a DNA probe intended for detection and identification of Lori species, Gardnerella vaginalis, and Trichomonas vaginalis nucleic acid in vaginal fluid specimens from patients with symptoms of vaginitis/vaginosis. Gardnerella Vaginalis, DNA Probe Positive Abnormal NEGATIVE [facility] Comment on above: for Gardnerella vagi nalis Interpretation and review of laboratory results Abnormal [facility] Source .VAGINAL SWAB [facility] Trichomonas Vaginalis DNA Negative NEGATIVE [facility] Comment on above: for Trichomonas Vagi nalis [facility] HCG, ,Urineon 12-25 Beta HCG ( test) Ql (U) Negative NEGATIVE [facility] Comment on above: Specimens with hCG l evels near the threshold of the test (25 mIU/mL) may give a negative or indeterminate result. In such cases, another test should be performed with a new specimen in 48-72 hours. If early is suspected clinically in this setting, correlation with quantitative serum b-hCG level is suggested. [facility] Microscopic Urinalysison Bacteria, UA FEW Abnormal None [facility] Casts UA 0 TO 2 /LPF [facility] Epithelial Cells UA 6 TO 9 /HPF [facility] Interpretation and review of laboratory results Abnormal [facility] RBC clumps Auto (Urine sed) [#/Area] 0 TO 2 /HPF [facility] WBC, UA 10 TO 20 /HPF [facility] Urinalysis with Reflex to Cu ltureon 12-25-2022 Bilirubin Urine Negative NEGATIVE [facility] Color, UA Yellow Yellow [facility] Glucose Auto test strip (U) [Mass/Vol] Negative NEGATIVE [facility] Interpretation and review of laboratory results Abnormal [facility] Ketones (U) [Mass/Vol] Negative NEGATIVE [facility] Leukocyte esterase Auto test strip Ql (U) TRACE Abnormal NEGATIVE [facility] Nitrite Auto test strip Ql (U) Negative NEGATIVE [facility] Protein (U) [Mass/Vol] 6.0 mg/dL 5.0 - 8.0 [facility] Protein (U) [Mass/Vol] Negative NEGATIVE [facility] Specific [place], UA 1.025 1.000 - 1.030 [facility] Turbidity UA Clear Clear [facility] Urine Hgb Negative NEGATIVE [facility] Urobilinogen, Urine Normal Normal [facility] Covid-19 PCR ([facility])on SARS-CoV-2 (COVID-19) RNA OWEN+probe Ql (Unsp spec) Not detected Normal NOT DETECTED [facility] Comment on above: Result Comment: When diagnostic testing is negative, the possibility of a false negative should be considered in the context of a patient's recent exposures and the presence of clinical signs and symptoms consistent with SARS-CoV-2. This test is not yet approved or cleared by the [place] FDA. When there are no FDA-approved or cleared tests available, and other criteria are met, FDA can make tests available under an emergency access mechanism called an Emergency Use Authorization (EUA). The EUA for this test is supported by the [place] of Health and Human Service's declaration that circumstances exist to justify the emergency use of in vitro diagnostics for the detection and/or diagnosis of the virus that causes COVID-19. This EUA will remain in effect for the duration of the COVID-19 declaration justifying emergency of IVDs, unless it is terminated or revoked by the FDA (after which the test may no longer be used). Performed By: #### C VDTB #### [facility] [address] [address] [address] Rosio Fu GROUP A STREP CULTUREon S. pyogenes Ag Ql (Unsp spec) Culture Observations: NEGATIVE FOR GROUP A STREPTOCOCCUS. Normal [facility] Comment on above: Performed By: #### G RASTCX, SSCRN #### [facility] [address] [place] [address] Dr. Rosio Fu STREPT SCREENon 07-14-2022 STREP SCREEN A Negative Normal NEGATIVE [facility] Comment on above: Performed By: #### G RASTCX, SSCRN #### [facility] [address] [place] [address] Dr. Rosio Fu HCG-BETA SUBUNIT QUANTon hCG,Beta Subunit,Qnt,Serum <1 Normal [facility] Comment on above: Result Comment: Fema le (Non-) 0 - 5 (Postmenopausal) 0 - 8 . Female () Weeks of Gestation 3 6 - 71 4 10 - 750 5 707 - 2048 6 158 - 88546 7 [phone] 8 [phone] 9 [phone] 10 [phone] -[phone] 12 [phone] 14 97864 - 47350 15 24463 - 33932 16 5677 - 22913 17 5625 - 27611 18 [phone] - [phone] [employer] ECLIA methodology Performed By: #### H CGSUB #### [facility] [address] [place] [address] Dr. Rosio Fu CHLAMYDIA/GONOCOCCUS OWEN (SW AB/URINE/PAPon 03-21-2022 Chlamydia trachomatis, OWEN Negative Normal Negative [facility] Comment on above: Performed By: #### C T/NGNA #### [facility] [address] [place] [address] Dr. Rosio Fu Neisseria gonorrhoeae, OWEN Negative Normal Negative [facility] Comment on above: Performed By: #### C T/NGNA #### [facility] [address] [place] [address] Dr. Rosio Fu PAP ACOG PANEL 2: 21 to 29on 03-21-2022 . . Normal [facility] Comment on above: Performed By: #### [id number] #### [facility] [address] [place] [address] Dr. Rosio Fu Age Gdln ACOG Testing 21-29 Normal [facility] Comment on above: Performed By: #### [id number] #### [facility] [address] [place] [address] Dr. Rosio Fu DIAGNOSIS: Comment Normal [facility] Comment on above: Result Comment: NEGA TIVE FOR INTRAEPITHELIAL LESION OR MALIGNANCY. Performed By: #### [id number] #### [facility] [address] [place] [address] Dr. Rosio Fu Methodology: Comment Normal [facility] Comment on above: Result Comment: This liquid based ThinPrep(R) pap test was screened with the use of an image guided system. Performed By: #### 4 [id number] #### [facility] [address] [place] [address] Dr. Rosio Fu Note: Comment Normal [facility] Comment on above: Result Comment: The Pap smear is a screening test designed to aid in the detection of premalignant and malignant conditions of the uterine cervix. It is not a diagnostic procedure and should not be used as the sole means of detecting cervical cancer. Both false-positive and false-negative reports do occur. . Performed By: #### [id number] #### [facility] [address] [place] [address] Dr. Rosio Fu Performed by: Comment Normal [facility] Comment on above: Result Comment: Eloisa Oakley, Senior Air Director (ASCP) Performed By: #### 4 [id number] #### [facility] [address] [place] [address] Dr. Rosio Fu Reflex Criteria: Comment Normal [facility] Comment on above: Result Comment: The HPV DNA reflex criteria were not met with this specimen result therefore, no HPV testing was performed. . Performed By: #### [id number] #### [facility] [address] [place] [address] Dr. Rosio Fu Specimen adequacy: Comment Normal [facility] Comment on above: Result Comment: Sati sfactory for evaluation. Endocervical and/or squamous metaplastic cells (endocervical component) are present. Performed By: #### 4 [id number] #### [facility] [address] [address] [address] Rosio Fu VAGINITIS/VAGINOSIS DNA PROB [place] 03-20-2022 Lori species Negative Normal Negative [facility] Comment on above: Performed By: #### V AGINT #### [facility] [address] [address] [address] Rosio Fu Gardnerella vaginalis Negative Normal Negative [facility] Comment on above: Performed By: #### V AGINT #### [facility] [address] [address] [address] Rosio Fu Trichomonas vaginalis Negative Normal Negative [facility] Comment on above: Performed By: #### V AGINT #### [facility] [address] [address] [address] Rosio Fu US PELVIS TRANSVAGon 022 US PELVIS TRANSVAG EXAMINATION: US PELV IS TRANSVAG HISTORY: Pelvic and perineal pain COMPARISON: No relevant comparison available. FINDINGS: The uterus is normal in size, contour and echotexture measuring 8.6 x 5.9 x 4.2 cm, anteverted. The endometrium measures 4 mm, normal. Areas of anechoic echogenicity in the cervix, nabothian cysts The right ovary is normal in appearance measuring 2.8 x 2.8 x 2.8 cm. Normal subcentimeter follicles. Normal color and Doppler flow. Normal resistive index of 0.43. The left ovary is normal in appearance measuring 2.9 x 2.8 x 2.0 cm. Normal subcentimeter follicles. Normal color and Doppler flow. Normal resistive index of 0.47. IMPRESSION: No acute abnormality Electronically authenticated by: YESIKA ASHRAF Date: 2022-03-19 16:19 Normal [facility] , Urineon 2 Beta HCG ( test) Ql (U) Negative NEGATIVE [employer] Comment on above: Specimens with hCG l evels near the threshold of the test (25 mIU/mL) may give a negative or indeterminate result. In such cases, another test should be performed with a new specimen in 48-72 hours. If early is suspected clinically in this setting, correlation with quantitative serum b-hCG level is suggested. [facility] Urinalysis with Microscopico n 01-24-2022 Bacteria, UA MANY Abnormal None [facility] Bilirubin Urine [facility] C[facility]A 6 TO 9 /LPF [facility] Color, UA Dark Yellow Abnormal Yellow [facility] Epithelial Cells UA 6 TO 9 /HPF [facility] Glucose, Ur Negative NEGATIVE [facility] Interpretation and review of laboratory results Abnormal [facility] Ketones Ql (U) TRACE Abnormal NEGATIVE [facility] Leukocyte esterase Test strip Ql (U) SMALL Abnormal NEGATIVE [facility] Nitrite, Urine Negative NEGATIVE [facility] pH, UA 6.0 [facility] Protein, UA TRACE Abnormal NEGATIVE [facility] RBC, UA 0 TO 2 /HPF [facility] Specific [place], UA 1.027 [facility] Turbidity UA Turbid Abnormal Clear [facility] Urine Hgb LARGE Abnormal NEGATIVE [facility] Urobilinogen, Urine Normal Normal [facility] WBC, UA 21 TO 50 /HPF [facility] Vaginitis DNA Probeon 2021 LORI SPECIES, DNA PROBE Negative NEGATIVE [facility] Comment on above: for Lori sp. Method of testing is a DNA probe intended for detection and identification of Lori species, Gardnerella vaginalis, and Trichomonas vaginalis nucleic acid in vaginal fluid specimens from patients with symptoms of vaginitis/vaginosis. GARDNERELLA VAGINALIS, DNA PROBE Positive Abnormal NEGATIVE [facility] Comment on above: for Gardnerella vagi nalis Interpretation and review of laboratory results Abnormal [facility] Source .VAGINAL SWAB [facility] Trichomonas Vaginalis DNA Negative NEGATIVE [facility] Comment on above: for Trichomonas Vagi nalis [facility] HCG, ,UrineOrdered By: Rufino Hodges on 07-31-2021 Beta HCG ( test) Ql (U) Negative NEGATIVE [facility] Work Phone: Comment on above: Specimens with hCG l evels near the threshold of the test (25 mIU/mL) may give a negative or indeterminate result. In such cases, another test should be performed with a new specimen in 48-72 hours. If early is suspected clinically in this setting, correlation with quantitative serum b-hCG level is suggested. [facility] Work Phone: Microscopic UrinalysisOrdere d By: Rufino Hodges on 07-31-2021 - [facility] Work Phone: Amorphous, UA NOT REPORTED None [facility] Work Phone: Bacteria, UA FEW Abnormal None [facility] Work Phone: Casts UA NOT REPORTED /LPF [facility] Work Phone: Crystals, UA NOT REPORTED None /HPF [facility] Work Phone: Epithelial Cells UA 20 TO 50 /HPF [facility] Work Phone: Interpretation and review of laboratory results Abnormal [facility] Work Phone: Mucus, UA NOT REPORTED None [facility] Work Phone: Other Observations UA NOT REPORTED NOT REQ. [facility] Work Phone: RBC, UA 0 TO 2 /HPF [facility] Work Phone: Renal Epithelial, UA NOT REPORTED 0 /HPF [facility] Work Phone: Trichomonas, UA NOT REPORTED None [facility] Work Phone: WBC, UA 2 TO 5 /HPF [facility] Work Phone: Yeast, UA NOT REPORTED None [facility] Work Phone: [facility] Work Phone: Urinalysis Reflex to Culture Ordered By: Rufino Hodges on 07-31-2021 Bilirubin Urine Negative NEGATIVE [facility] Work Phone: Color, UA Yellow Yellow [facility] Work Phone: Glucose, Ur Negative NEGATIVE [facility] [employer] Work Phone: Interpretation and review of laboratory results Abnormal [facility] Work Phone: Ketones Ql (U) Negative NEGATIVE [facility] Work Phone: Leukocyte esterase Test strip Ql (U) SMALL Abnormal NEGATIVE [facility] [employer] Work Phone: Nitrite, Urine Negative NEGATIVE [facility] Work Phone: pH, UA 7.0 [facility] [employer] Work Phone: Protein, UA Negative NEGATIVE [facility] Work Phone: Specific [place], UA 1.016 [facility] [employer] Work Phone: Turbidity UA Turbid Abnormal Clear [facility] [employer] Work Phone: Urinalysis Comments NOT REPORTED [facility] [employer] Work Phone: Urine Hgb Negative NEGATIVE [facility] Work Phone: Urobilinogen, Urine Normal Normal [facility] Work Phone: [facility] [employer] Work Phone: VZ & HSV, Molecularon 2019 HSV-1, NAAT Negative Normal NEG [facility] Comment on above: Result Comment: HSV- 1 DNA not detected by nucleic acid amplification Performed By: #### V ZHSV #### [employer] [address] [place] [id number] Demand Inspector: Juan Medley MD HSV-2, NAAT Positive Abnormal NEG [facility] Comment on above: Result Comment: HSV- 2 DNA detected by nucleic acid amplification Performed By: #### V ZHSV #### [employer] [address] [place] [address] Demand Inspector: Juan Medley MD Varicella Zost, NAAT Negative Normal NEG [facility] Comment on above: Result Comment: Vari jordyn-Zoster DNA not detected by nucleic acid amplification Performed By: #### V ZHSV #### [employer] [address] [place] [address] Demand Inspector: Juan Medley MD VZ & HSV, Molecularon 2019 Source: .SKIN Normal [facility] Comment on above: Performed By: #### V ZHSV #### [employer] [place] [address] Demand Inspector: Juan Medley MD HCG, ,Urineon 12-12 Beta HCG ( test) Ql (U) Negative NEGATIVE [place] Comment on above: Specimens with hCG l evels near the threshold of the test (25 mIU/mL) may give a negative or indeterminate result. In such cases, another test should be performed with a new specimen in 48-72 hours. If early is suspected clinically in this setting, correlation with quantitative serum b-hCG level is suggested. Microscopic Urinalysison Amorphous, UA NOT REPORTED None [place], [place] Bacteria, UA MODERATE Abnormal None [place] Casts UA NOT REPORTED /LPF [place] Crystals, UA NOT REPORTED None /HPF [place] Epithelial Cells UA 10 TO 20 /HPF [place] Interpretation and review of laboratory results Abnormal [place] Mucus, UA 1+ Abnormal None [place] Other Observations UA NOT REPORTED NOT REQ. [place] RBC (U) [#/Vol] 2 TO 5 /HPF [place] Renal Epithelial, UA NOT REPORTED 0 /HPF [place] Trichomonas, UA NOT REPORTED None [place] WBC, UA 2 TO 5 /HPF [place] Yeast, UA NOT REPORTED None [place] - [place] Otheron 12-13-2019 Direct Exam Negative [place] Urinalysis Reflex to Culture on 12-13-2019 Bilirubin Urine Negative NEGATIVE [place] Color, UA YELLOW YELLOW [place] Glucose, Ur Negative NEGATIVE [place] Interpretation and review of laboratory results Abnormal [place] Ketones Ql (U) Negative NEGATIVE [place] Leukocyte esterase Test strip Ql (U) SMALL Abnormal NEGATIVE [place] Nitrite, Urine Negative NEGATIVE [place] pH, UA 5.5 [facility] Protein (U) [Mass/Vol] Negative NEGATIVE [facility] Specific [place], UA 1.026 [facility] [place] Turbidity UA CLOUDY Abnormal CLEAR [facility] [place] Urinalysis Comments NOT REPORTED [facility] [place] Urine Hgb Negative NEGATIVE [facility] [place] Urobilinogen, Urine Normal Normal [facility] Vaginitis DNA Probeon 2019 Direct Exam Positive Abnormal [facility] Interpretation and review of laboratory results Abnormal [facility] Special Requests NOT REPORTED [facility] Specimen Description .VAGINA [facility] Depart Summaryon 12-04-2017 Depart Summary EMERGENCY DEPARTMENT DISCHARGE SUMMARYPATIENT NAME:LISANDRA KINSEY MRN: ([id number]: 22 Years SEX: Female PHONE:[id number]: 12/04/2017 4:13 PM : 1995 ATTENDING PHYSICIAN:Олег Valdes PCP: Physician, No PCP CHIEF COMPLAINT: RASH Allergies No Known Medication AllergiesProblems Active No Chronic Problems DISCHARGE DIAGNOSIS: DISCHARGE INSTRUCTIONS: Herpetic Marcella HISTORY OF PRESENT ILLNESS:MEDICAL DECISION MAKING:PROCEDURES:DISPOSIT ION:Time of Departure From ER 12/04/2017 16:47 Discharge/Transfer From ER Home 01 MEDICATION LISTS: CURRENT MEDICATION LISTacyclovir (acyclovir 800 mg oral tablet) 1 Tab(s) By Mouth 5 Times/Day for 10 Days. Refills: 0.acyclovir-hydrocortisone topical (acyclovir-hydrocortisone topical 5%-1% cream) 1 Application Topical 5 Times/Day. supply sufficient amount. Refills: 0.PredniSONE (predniSONE 20 mg oral tablet) 1 Tab(s) By Mouth once a day. Take 3 tabs daily for 4 days Take 2 tabs dialy for 3 days Take 1 tab daily for 2 days. Refills: 0. MEDICATIONS GIVEN DURING MEDICAL VISITNone LAB RESULTS: RADIOLOGY: FOLLOW UP:With: Address: When: Follow up with primary care provider Within 3 to 4 days With: Address: When: No PCP Physician, Family Practice, Internal Medicine Within Follow-up as needed [facility] ED Pat Eduon 12-04-2017 ED [place] [address] [facility] Department Discharge Instructions LISANDRA KINSEY , Please provide this information to your Primary Care/Specialist Name : LISANDRA KINSEY Current Date : 12/04/2017 16:48:07DOB : 1995 12:00 PM Primary Care Physician : Physician, No PCP Diagnosis : Follow-Up Instructions:LISANDRA IKNSEY has been given these follow-up instructions: Provider: Specialty: Address: Date: No PCP Physician Family Practice; Internal Medicine Follow-up as needed Provider: Specialty: Address: Date: Follow up with primary care provider 3 to 4 days Laboratory Orders: None Ordered Radiology Orders: None Ordered Diagnostic Tests: None Ordered Procedure(s) and Patient Education(s) : Herpetic [facility] EMERGENCY SERVICES MEDICATION LISTLista de Medicaciones de los Servicios de Emergencia Name LISANDRA KINSEY PLEASE READ THE FOLLOWING REGARDING YOUR MEDICATIONS Based on the information available during your visit we have given you the medication instructions below. Continue taking medications you took prior to your visit unless you have been told to change. Please share this information with your own doctor. Carry a list of your medications with you in case of an emergency. Update it when medications are stopped, doses are changed, or new medications (including gusi-eyk-ciyjezx products) are added. If you have any questions, check with your doctor. Por la informaci??n disponible lucie groves visita, las instrucciones de medicaci??n aparecen debajo. Favor de continuar tomando las medicaciones Ud. toshia?? antes de groves visita por lo menos que hay cambios. Favor de compartir esta informaci??n con groves medico. Lleva kin lista de medicaciones consigo por palak de emergenc??a. Actualiza la lista cuando Ud. neil de regla las medicaciones, si cambian las dosis, o si hay nuevas medicaciones a??adidas (incluyendo medicaciones vendidas sin prescripci??n). Favor de preguntar a groves medico por cualquier sania. THESE ARE THE MEDICATIONS YOU SHOULD BE TAKINGacyclovir (acyclovir 800 mg oral tablet) 1 Tab(s) By Mouth 5 Times/Day for 10 Days. Refills: 0.acyclovir-hydrocortisone topical (acyclovir-hydrocortisone topical 5%-1% cream) 1 Application Topical 5 Times/Day. supply sufficient amount. Refills: 0.PredniSONE (predniSONE 20 mg oral tablet) 1 Tab(s) By Mouth once a day. Take 3 tabs daily for 4 days Take 2 tabs dialy for 3 days Take 1 tab daily for 2 days. Refills: 0.MEDICATIONS GIVEN DURING MEDICAL VISITNone NON-MEDICATION PRESCRIPTION SCHEDULING PHONE NUMBER: MEDICATION CHANGE DETAILS (Not your Final Home Medication List) During the course of your visit, your home medication list was updated with the most current information. The details of those changes are shown below: NEW MEDICATIONSPrinted Prescriptionsacyclovir (acyclovir 800 mg oral tablet) 1 Tab(s) By Mouth 5 Times/Day for 10 Days. Refills: 0.Comment Pr edniSONE (predniSONE 20 mg oral tablet) 1 Tab(s) By Mouth once a day. Take 3 tabs daily for 4 days Take 2 tabs dialy for 3 days Take 1 tab daily for 2 days. Refills: 0.Comment UP DATED MEDICATIONSNoneUNCHANGED MEDICATIONSOther Medicationsacyclovir-hydro cortisone topical (acyclovir-hydrocortisone topical 5%-1% cream) 1 Application Topical 5 Times/Day. supply sufficient amount. Refills: 0.Comment ST OP TAKING THESE MEDICATIONSNoneDO NOT TAKE UNTIL YOU TALK TO YOUR DOCTORNone [place] [address] [facility] Department Discharge Instructions Name: LISANDRA KINSEY Current Date: 12/04/2017 16:48:07 : 1995 12:00 PM Primary Physician: Physician, No PCP We would like to thank you for choosing [facility] for your emergency medical needs. We examined and treated you today on an emergency basis only. This was not a substitute for, or an effort to provide, complete medical care. In most cases, you must let your doctor (or the doctor we referred you to) check you again. Tell your doctor about any new or lasting problems. We cannot recognize and treat all injuries or illnesses in one emergency department visit. After you leave, you should follow the directions attached. Instructions for obtaining X-rays:When following up with your doctor or a bone doctor, you may need to take copies of your x-rays that were done in the Emergency Department. If you didn't receive these upon your discharge from the emergency department, please call . When the final report becomes available and it is reviewed, the emergency department will attempt to contact you if there are any changes in your instructions. It is important that you leave accurate information with us on how to contact you. IF you cannot be contacted, YOU must contact the follow-up doctor that you were assigned to make sure that the final official x-ray report does not require a change in your treatment. Instructions for obtaining medical records:If you need a copy of your medical records for follow-up, please contact the Health Information Management Department at . Their office hours are 8 AM- 4:30 PM, Thursday through Thursday. Please note: Results are not immediately available. Please allow a minimum of 48 hours for documentation and results.If you were prescribed an antibiotic:Antibiotics are life-saving drugs and they need to be used properly. Your team might change your antibiotic because test results show that a different antibiotic would be better to treat your infection. Like all medications, antibiotics have side effects. Some can be serious. This includes the risk of getting an antibiotic-resistant infection later, which may be difficult to treat. Remember to take your antibiotics as prescribed. If you have any questions please talk to your healthcare team.Seatbelts:There is no doubt that seatbelts save lives. Every day, people without seatbelts have more serious injuries. Have everyone buckle up, using age appropriate seatbelts or car seats, to reduce their risk of injury.Smoking:If you do smoke, we encourage you to stop. Smoking affects all aspects of your health and the health of those around you. [facility] offers many resources to help with smoking cessation. Call the [place] Tobacco Quit Line at 2-888-VTFQNOW ( ).High blood pressure: Your screening blood pressure today was 126 mm Hg / 71 mm Hg. Hypertension (high blood pressure) is blood pressure over 120/80. People with hypertension should contact their primary care provider within 30 days to follow up. Check your patient portal for additional blood pressure information.Immunizations: Immunization is a way to protect against deadly infections. Discuss this with your child's homicide squad lieutenant, or Public Health Department. Your family practice doctor can determine if you need pneumonia or flu vaccine. The [facility] can be reached at .Domestic Violence:If you are a victim of domestic violence (physical, verbal, or emotional), you are not alone. Discuss this with your physician or a friend and call the [place] Domestic Violence Hotline or [place] Domestic Violence Hotline for assistance and support.You are the most important factor in your recovery. Follow the provided instructions carefully. Take your medications as prescribed. Most importantly, see a doctor again as discussed. If you have problems that we have not discussed, call or visit your doctor right away. If you do not have a primary care physician, we have provided one for you to follow up with. When you call for an appointment, please inform them that you were seen in the emergency department and the date of your visit. If you are unable to reach your doctor and are still experiencing problems, return to the emergency department. For assistance finding a primary care physician, call the Physician Referral Line at [phone] ([phone]). Suicide Hotline:Your mental and emotional well-being is important. If you are in a mental health crisis or are having thoughts of suicide, please call the nationwide suicide hotline, anytime day or night, at 3-246-487-AIEK (1247).Community Wound Care Nurse: You may be contacted by your local fire department for a follow up visit from a community computer game programmer. The community computer game programmer can help with a home safety check; follow up care, and general home care management. Pharmacy Information:Below is a list of 24 hour pharmacies that we are aware of. We suggest that you call the specific pharmacy for their hours before traveling to a location. Hours may vary on holidays. [facility] Pharmacy [facility] [address] [address] [phone] [address] [phone] [address] [phone] [address] [phone], [place] [phone] [place] [address] [phone] [place] [address] [phone] Take all medications as directed. If you need prescription assistance, contact the following agencies:?? [facility] for Prescription Assistance at or www.LapSpacex.org?? [facility] at or www.Forest2Marketrx.org?? [employer] is a site with many valuable coupons Patient Education Materials LISANDRA KINSEY has been given the following patient education materials: Infectious DiseaseHerpetic WhitlowHerpetic marcella is an infection that affects the skin. It most commonly affects the fingers. The infection can recur, but the first occurrence is usually the most severe.CAUSESThis condition is caused by herpes simplex virus (HSV) type 1 and HSV type 2. You can get herpetic marcella if body fluids that are infected with either of these viruses get into a break in the skin.HSV commonly affects the mouth and genitals, but it can affect many other parts of the body. Most people who get herpetic marcella have an HSV infection in another part of the body that spreads to the fingers through a cut. Health care workers can get herpetic marcella from touching the mouths of patients who have oral herpes.RISK FACTORSThis condition is more likely to develop in:???People who have an HSV infection.???People who work in the health care industry, particularly in dentistry.SYMPTOMSSymptoms of this condition usually develop 2?20 days after exposure to the virus. Early symptoms include:???Pain, burning, or tingling in the infected area.???Fever.???Redness.? ??Swelling.About 7?10 days after symptoms begin to appear, the lymph nodes may swell, and rice-sized fluid-filled bumps will develop on the infected area. These bumps will develop into sores or break open. Symptoms usually improve 10?14 days later when the sores crust over and heal.DIAGNOSISThis condition may be diagnosed with a physical exam. A sample of your skin or your blood may also be taken for testing.TREATMENTThis condition goes away on its own. Your health care provider may prescribe topical or oral antiviral medicines to relieve symptoms and to prevent the infection from spreading to others.HOME CARE INSTRUCTIONS???Take or apply medicines only as directed by your health care provider.???Wash your hands often.???If you work in the health care industry, wear gloves.???Apply ice to the affected area:???Put ice in a plastic bag.???Place a towel between your skin and the bag.???Leave the ice on for 20 minutes, 2?3 times per day.???The infection can spread to other people. It can also spread to other areas of your body, especially to your mouth and your genital area. To keep it from spreading:???Cover the affected area with a bandage (dressing). If you work in the health care industry, wear gloves.???Avoid close contact with other people until the bumps heal.???Do not share towels and washcloths.???Do not touch the bumps with your other hand or pick at your scabs.???Do not touch your eyes, mouth, or genital area unless you wash your hands first.SEEK MEDICAL CARE IF:???The infection has spread to another area of your body.???Your symptoms become severe.???The infection recurs.This information is not intended to replace advice given to you by your health care provider. Make sure you discuss any questions you have with your health care provider.Document Released: 12/19/2003 Document Revised: 02/12/2016 Document Reviewed: 07/10/2015[employer] Patient Education ?2016 [email or web address].VIRUSES OR BACTERIA: WHAT'S GOT YOU SICK?Antibiotics only treat BACTERIAL infections.VIRAL ILLNESSES do not get better with antibiotics.When an antibiotic is not prescribed, ask your healthcare professional for tips on how to relieve symptoms and feel better. Usual Cause Illness Viruses Bacteria Antibiotic Needed? Cold/Runny Nose X NO Bronchitis/Chest Cold(in otherwise healthy adults) X NO Whooping Cough X Yes Flu(not complicated by pneumonia) X NO Strep Throat X Yes Sore Throat X NO Fluid in the Middle Ear(otitis media with effusion) X NO Urinary Tract Infection X Yes For more information visit: www.cdc.gov/getsmart<><><> <><><><><><><><><><><><><> <><><><><><><><><><> Patient Visit Summary Signature LISANDRA KINSEY has been given the following list of patient education materials, prescriptions and follow-up instructions: AMELIE Aguilar MARYANN, have received the above patient education materials/instructions and have verbalized understanding: Date Time Patient Signature Date Time Provider Signature [facility] ED Physician Noteson 018 ED Physician Notes Chief Complaint RASH ED Assigned Provider/Time Time Seen: Олег Valdes / 12/04/2017 16:22 History of Present Illness The patient is a 22 year old female with no significant medical history presenting to the ED requesting a new prescription. The patient states that she was evaluated at the ED 2 days ago for herpetic marcella on her right inner arm. She was written for topical acyclovir/steroid cream and discharged home. Pt presents now stating that she was unable to fill her prescription due to insufficient funds. She denies any new or worsening symptoms. Denies any other complaints at this time. Review of Systems ROS: Pertinent positives noted in the history of present illness. Nursing triage notes were reviewed by me and I agree. Physical Exam Vitals and Measurements T: 99 F HR: 81 RR: 17 BP: 126/71 SpO2: 99% HT: 160 cm WT: 97.7 kg BMI: 38.2 CONSTITUTIONAL: Well-appearing and well-nourished. HEAD: Normocephalic, atraumatic. EYES: No conjunctival injection, no icterus. EARS: External ears appear normal. NOSE: Nose appears normal. No rhinorrhea. NECK: No JVD, no thyromegaly. RESPIRATORY: Normal chest excursion with respiration, no stridor. CARDIOVASCULAR: Regular rhythm. No cyanosis. GASTROINTESTINAL: Abdomen soft, non-distended, non-tender, without rigidity. NEUROLOGICAL: Awake, alert and oriented. PSYCHOLOGICAL: The patient's mood and manner are appropriate. Grooming and personal hygiene are appropriate. INTEGUMENTARY: Warm and dry. Herpetic lesion right upper medial arm. Medical Decision Making The patient's presenting pulse oximetry was 99% on room air. This was interpreted as normal. 22-year-old female comes emergency department requesting a new prescription. She was here 2 days ago. She was diagnosed with herpetic marcella. She states they send her home with a cream of a cyclical beer/hydrocortisone. She states that when she went to get it filled it was $1200. She states that she could not afford that. She is here for new medication. On exam she does have a herpetic lesion to her right upper medial arm. I suspect this is herpetic marcella. Patient will be placed on a cyclical beer orally, and prednisone orally. She is stable for discharge. Supervising Physician: Dr. Gayle Mendoza Impression 1. Herpetic marcella, medication change 2. 3. Problem List/Past Medical History Ongoing No chronic problems Historical No qualifying data Medications Home No active home medications ED Administered Medications Prescriptions No active Prescriptions Allergies No Known Medication Allergies Social History Alcohol - Denies Alcohol Use Substance Abuse - Denies Substance Abuse Tobacco Smoking Status: Never smokedScribe Attestation Statement SCRIBE NOTE: I personally performed the services described in this documentation as scribed by Keena Wynn in my presence, and it is both accurate and complete. I, Keena Wnyn, am serving as a scribe to document services personally performed by the provider based on the patient's responses to questions from the provider and the provider's statements to me. [facility] ED Physician Notes PDF [facility] Depart Summaryon 12-02-2017 Depart Summary EMERGENCY DEPARTMENT DISCHARGE SUMMARYPATIENT NAME:LISANDRA KINSEY MRN: (ISC)-[id number]: 22 Years SEX: Female PHONE:[phone]: 12/02/2017 12:40 PM : 1995 ATTENDING PHYSICIAN:Anita Milton PCP: Physician, No PCP CHIEF COMPLAINT: right arm rash Allergies No Known Medication AllergiesProblems No Problems Documented DISCHARGE DIAGNOSIS: DISCHARGE INSTRUCTIONS: Rash, Rasj-bt-Iauk; Herpetic Marcella HISTORY OF PRESENT ILLNESS:MEDICAL DECISION MAKING:PROCEDURES:DISPOSIT ION:Time of Departure From ER 12/02/2017 13:14 Discharge/Transfer From ER Home 01 MEDICATION LISTS: CURRENT MEDICATION LISTacyclovir-hydrocortiso ne topical (acyclovir-hydrocortisone topical 5%-1% cream) 1 Application Topical 5 Times/Day. supply sufficient amount. Refills: 0. MEDICATIONS GIVEN DURING MEDICAL VISITNone LAB RESULTS: RADIOLOGY: FOLLOW UP:With: Address: When: Return to Emergency Department Within Follow-up as needed With: Address: When: Follow up with primary care provider Within 5 to 7 days With: Address: When: No PCP Physician, Family Practice, Internal Medicine Within Follow-up as needed [facility] ED Pat Edu 12-02-2017 ED [place] [address] [facility] Discharge Instructions AMELIELISANDRA GARZON , Please provide this information to your Primary Care/Specialist Name : LISANDRA KINSEY Current Date : 12/02/2017 13:18:16DOB : 1995 12:00 PM Primary Care Physician : Physician, No PCP Diagnosis : Follow-Up Instructions:LISANDRA KINSEY has been given these follow-up instructions: Provider: Specialty: Address: Date: No PCP Physician Family Practice; Internal Medicine Follow-up as needed Provider: Specialty: Address: Date: Follow up with primary care provider 5 to 7 days Provider: Specialty: Address: Date: Return to Emergency Department Follow-up as needed Laboratory Orders: None Ordered Radiology Orders: None Ordered Diagnostic Tests: None Ordered Procedure(s) and Patient Education(s) : Rash, [id number]-Yhlv; Herpetic [facility] EMERGENCY SERVICES MEDICATION LISTLista de Medicaciones de los Servicios de Emergencia Name LISANDRA KINSEY MRN [facility]-[id number] PLEASE READ THE FOLLOWING REGARDING YOUR MEDICATIONS Based on the information available during your visit we have given you the medication instructions below. Continue taking medications you took prior to your visit unless you have been told to change. Please share this information with your own doctor. Carry a list of your medications with you in case of an emergency. Update it when medications are stopped, doses are changed, or new medications (including nncw-nzl-oypqrrs products) are added. If you have any questions, check with your doctor. Por la informaci??n disponible lucie groves visita, las instrucciones de medicaci??n aparecen debajo. Favor de continuar tomando las medicaciones Ud. toshia?? antes de groves visita por lo menos que hay cambios. Favor de compartir esta informaci??n con groves medico. Lleva kin lista de medicaciones consigo por palak de emergenc??a. Actualiza la lista cuando Ud. neil de regla las medicaciones, si cambian las dosis, o si hay nuevas medicaciones a??adidas (incluyendo medicaciones vendidas sin prescripci??n). Favor de preguntar a groves medico por cualquier sania. THESE ARE THE MEDICATIONS YOU SHOULD BE TAKINGacyclovir-hydrocorti sone topical (acyclovir-hydrocortisone topical 5%-1% cream) 1 Application Topical 5 Times/Day. supply sufficient amount. Refills: 0.MEDICATIONS GIVEN DURING MEDICAL VISITNone NON-MEDICATION PRESCRIPTION SCHEDULING PHONE NUMBER: MEDICATION CHANGE DETAILS (Not your Final Home Medication List) During the course of your visit, your home medication list was updated with the most current information. The details of those changes are shown below: NEW MEDICATIONSPrinted Prescriptionsacyclovir-hyd rocortisone topical (acyclovir-hydrocortisone topical 5%-1% cream) 1 Application Topical 5 Times/Day. supply sufficient amount. Refills: 0.Comment UP DATED MEDICATIONSNoneUNCHANGED MEDICATIONSNoneSTOP TAKING THESE MEDICATIONSNoneDO NOT TAKE UNTIL YOU TALK TO YOUR DOCTORNone [address] [address] Emergency Department Discharge Instructions Name: LISANDRA KINSEY Current Date: 12/02/2017 13:18:16 : 1995 12:00 PM Primary Physician: Physician, No PCP We would like to thank you for choosing [facility] for your emergency medical needs. We examined and treated you today on an emergency basis only. This was not a substitute for, or an effort to provide, complete medical care. In most cases, you must let your doctor (or the doctor we referred you to) check you again. Tell your doctor about any new or lasting problems. We cannot recognize and treat all injuries or illnesses in one emergency department visit. After you leave, you should follow the directions attached. Instructions for obtaining X-rays:When following up with your doctor or a bone doctor, you may need to take copies of your x-rays that were done in the Emergency Department. If you didn't receive these upon your discharge from the emergency department, please call . When the final report becomes available and it is reviewed, the emergency department will attempt to contact you if there are any changes in your instructions. It is important that you leave accurate information with us on how to contact you. IF you cannot be contacted, YOU must contact the follow-up doctor that you were assigned to make sure that the final official x-ray report does not require a change in your treatment. Instructions for obtaining medical records:If you need a copy of your medical records for follow-up, please contact the Health Information Management Department at . Their office hours are 8 AM- 4:30 PM, Thursday through Thursday. Please note: Results are not immediately available. Please allow a minimum of 48 hours for documentation and results.If you were prescribed an antibiotic:Antibiotics are life-saving drugs and they need to be used properly. Your team might change your antibiotic because test results show that a different antibiotic would be better to treat your infection. Like all medications, antibiotics have side effects. Some can be serious. This includes the risk of getting an antibiotic-resistant infection later, which may be difficult to treat. Remember to take your antibiotics as prescribed. If you have any questions please talk to your healthcare team.Seatbelts:There is no doubt that seatbelts save lives. Every day, people without seatbelts have more serious injuries. Have everyone buckle up, using age appropriate seatbelts or car seats, to reduce their risk of injury.Smoking:If you do smoke, we encourage you to stop. Smoking affects all aspects of your health and the health of those around you. [facility] offers many resources to help with smoking cessation. Call the [place] Tobacco Quit Line at 6-124-MREXNOW ( ).High blood pressure: Your screening blood pressure today was 130 mm Hg / 78 mm Hg. Hypertension (high blood pressure) is blood pressure over 120/80. People with hypertension should contact their primary care provider within 30 days to follow up. Check your patient portal for additional blood pressure information.Immunizations: Immunization is a way to protect against deadly infections. Discuss this with your child's homicide squad lieutenant, or Public Health Department. Your family practice doctor can determine if you need pneumonia or flu vaccine. The [facility] can be reached at .Domestic Violence:If you are a victim of domestic violence (physical, verbal, or emotional), you are not alone. Discuss this with your physician or a friend and call the [place] Domestic Violence Hotline or [place] Domestic Violence Hotline for assistance and support.You are the most important factor in your recovery. Follow the provided instructions carefully. Take your medications as prescribed. Most importantly, see a doctor again as discussed. If you have problems that we have not discussed, call or visit your doctor right away. If you do not have a primary care physician, we have provided one for you to follow up with. When you call for an appointment, please inform them that you were seen in the emergency department and the date of your visit. If you are unable to reach your doctor and are still experiencing problems, return to the emergency department. For assistance finding a primary care physician, call the Physician Referral Line at [phone] ([phone]). Suicide Hotline:Your mental and emotional well-being is important. If you are in a mental health crisis or are having thoughts of suicide, please call the nationwide suicide hotline, anytime day or night, at 4-456-524-PHXZ (0557).Community Wound Care Nurse: You may be contacted by your local fire department for a follow up visit from a community computer game programmer. The community computer game programmer can help with a home safety check; follow up care, and general home care management. Pharmacy Information:Below is a list of 24 hour pharmacies that we are aware of. We suggest that you call the specific pharmacy for their hours before traveling to a location. Hours may vary on holidays. [facility] [place] [phone] [address] [phone] [address] [phone] [address] [phone] [address] [phone] [address] [phone] [place] [address] [phone] Take all medications as directed. If you need prescription assistance, contact the following agencies:?? Partnership for Prescription Assistance at or www.pparx.org?? [facility] at or www.[employer]bestrx.org?? www.[employer] Mobile[employer]ravtar[employer] is a site with many valuable coupons Patient Education Materials LISANDRA KINSEY has been given the following patient education materials: AllergyRashA rash is a change in the color or feel of your skin. There are many different types of rashes. You may have other problems along with your rash. HOME CARE???Avoid the thing that caused your rash.???Do not scratch your rash. ???You may take cools baths to help stop itching.???Only take medicines as told by your doctor.???Keep all doctor visits as told.GET HELP RIGHT AWAY IF:???Your pain, puffiness (swelling), or redness gets worse.???You have a fever.???You have new or severe problems.???You have body aches, watery poop (diarrhea), or you throw up (vomit).???Your rash is not better after 3 days.MAKE SURE YOU:???Understand these instructions.???Will watch your condition.???Will get help right away if you are not doing well or get worse.This information is not intended to replace advice given to you by your health care provider. Make sure you discuss any questions you have with your health care provider.Document Released: 03/16/2009 Document Revised: 12/20/2012 Document Reviewed: 07/12/2012[employer] Patient Education ?2016 [email or web address].Infectious DiseaseHerpetic WhitlowHerpetic marcella is an infection that affects the skin. It most commonly affects the fingers. The infection can recur, but the first occurrence is usually the most severe.CAUSESThis condition is caused by herpes simplex virus (HSV) type 1 and HSV type 2. You can get herpetic marcella if body fluids that are infected with either of these viruses get into a break in the skin.HSV commonly affects the mouth and genitals, but it can affect many other parts of the body. Most people who get herpetic marcella have an HSV infection in another part of the body that spreads to the fingers through a cut. Health care workers can get herpetic marcella from touching the mouths of patients who have oral herpes.RISK FACTORSThis condition is more likely to develop in:???People who have an HSV infection.???People who work in the health care industry, particularly in dentistry.SYMPTOMSSymptoms of this condition usually develop 2?20 days after exposure to the virus. Early symptoms include:???Pain, burning, or tingling in the infected area.???Fever.???Redness.? ??Swelling.About 7?10 days after symptoms begin to appear, the lymph nodes may swell, and rice-sized fluid-filled bumps will develop on the infected area. These bumps will develop into sores or break open. Symptoms usually improve 10?14 days later when the sores crust over and heal.DIAGNOSISThis condition may be diagnosed with a physical exam. A sample of your skin or your blood may also be taken for testing.TREATMENTThis condition goes away on its own. Your health care provider may prescribe topical or oral antiviral medicines to relieve symptoms and to prevent the infection from spreading to others.HOME CARE INSTRUCTIONS???Take or apply medicines only as directed by your health care provider.???Wash your hands often.???If you work in the health care industry, wear gloves.???Apply ice to the affected area:???Put ice in a plastic bag.???Place a towel between your skin and the bag.???Leave the ice on for 20 minutes, 2?3 times per day.???The infection can spread to other people. It can also spread to other areas of your body, especially to your mouth and your genital area. To keep it from spreading:???Cover the affected area with a bandage (dressing). If you work in the health care industry, wear gloves.???Avoid close contact with other people until the bumps heal.???Do not share towels and washcloths.???Do not touch the bumps with your other hand or pick at your scabs.???Do not touch your eyes, mouth, or genital area unless you wash your hands first.SEEK MEDICAL CARE IF:???The infection has spread to another area of your body.???Your symptoms become severe.???The infection recurs.This information is not intended to replace advice given to you by your health care provider. Make sure you discuss any questions you have with your health care provider.Document Released: 12/19/2003 Document Revised: 02/12/2016 Document Reviewed: 07/10/2015[employer] Patient Education ?2016 [email or web address].<><><><><><><><><>< ><><><><><><><><><><><><>< ><><><> Patient Visit Summary Signature LISANDRA KINSEY has been given the following list of patient education materials, prescriptions and follow-up instructions: I, LISANDRA KINSEY, have received the above patient education materials/instructions and have verbalized understanding: Date Time Patient Signature Date Time Provider Signature Normal [facility] ED Physician Noteson 018 ED Physician Notes Chief Complaint righ t arm rashED Assigned Provider/Time Time Seen: Anita Milton / 12/02/2017 12:43History of Present Illness The patient is a 22-year old female with no significant past medical hx presenting to the ED for evaluation of rash. Patient states that for the past two days she has had a red rash under her right arm. She notes that the area is not itchy or painful. She notes that she has not had chicken pox before. Patient rates her current discomfort as a 0/10. Denies any other complaints at this time. 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 Review of Systems ROS: Nursing triage notes were reviewed by me and I agree. Physical Exam Vital Signs: Vital Signs (First and Last Sets of This Visit): Date Route Temp Resp SBP/DBP Pulse O2 Sat O2 Flow O2 Delivery 12/02/17 12:43 Oral 98.6 18 130/ 78 87 99 - Room air CONSTITUTIONAL: Well-appearing. Well-nourished. EYES: No conjunctival injection, no icterus HENT: Head atraumatic. External ears appear normal. External nose appears normal RESPIRATORY: Normal chest excursion with respiration, no stridor. CARDIOVASCULAR: No cyanosis. GASTROINTESTINAL: Non-distended NEUROLOGICAL: Awake, alert and oriented. PSYCHOLOGICAL: The patient's mood and manner are appropriate. INTEGUMENTARY: Warm and dry. There is a cluster of vesicles on an erythematous base to the inner aspect of the left arm, minimally tender, no other rash noted, no drainage. MUSCULOSKELETAL: Medical Decision Making This is a 22-year-old female presents for evaluation of a rash to her inner arm that she noticed for the past few days. She says it is not itchy, not really painful. On exam, there is a cluster of vesicles on an erythematous base, minimally tender, is not itchy. This does not follow any dermatomal pattern and is not painful therefore I feel that shingles is unlikely. It is not itchy, nothing to suggest allergic reaction. This does seem almost like a herpetic marcella on her arm. I'll prescribe topical acyclovir/steroid cream and dsicussed that this is likely self limiting. Advised follow up with PCP, warned of signs or symptoms return the ER. Supervising Physician: Mateusz Velazco Impression 1. vesicular rash, left upper arm SCRIBE NOTE: I elicited a history from and performed a physical examination on the patient. I have discussed the patient's management with the scribe. I reviewed the scribe's note and agreed with the documented findings and plan of care I,Rebeka Prabhakar, am serving as a scribe to document services personally performed by Anita Bingham based on the patient's responses to questions from the provider and the provider's statements to me.Physical Exam Vitals and Measurements T: 98.6 F HR: 87 RR: 18 BP: 130/78 SpO2: 99% HT: 160.02 cm WT: 97.7 kg BMI: 38.2 Problem List/Past Medical History Ongoing No qualifying data Historical No qualifying dataMedications Home No active home medications ED Administered Medications Prescriptions No active PrescriptionsAllergies No Known Medication AllergiesSocial History Alcohol - Denies Alcohol Use Substance Abuse - Denies Substance Abuse Tobacco Smoking Status: Never smoked Normal [facility] ED Physician Notes PDF Normal [facility] Vital Signs Date Time Vital Sign Value Performing Clinician Santana machado 02-21-2025 10:20-0400 Body mass index (BMI) [Ratio] 51.92 kg/m2 Jalensabiha Loredo DO Work Phone: [facility] 02-21-2025 10:20-0400 Body weight 132.96 kg Jalen Facundo DO Work Phone: [facility] 02-21-2025 10:20-0400 Diastolic blood pressure 70 mm[Hg] Jalen Facundo DO Work Phone: [facility] 02-21-2025 10:20-0400 Systolic blood pressure 120 mm[Hg] Jalen Facundo DO Work Phone: [facility] 02-07-2025 09:12-0400 Body mass index (BMI) [Ratio] 52.93 kg/m2 Jalen Facundo DO Work Phone: [facility] 02-07-2025 09:12-0400 Body weight 135.53 kg Jalen Facundo DO Work Phone: [facility] 02-07-2025 09:12-0400 Diastolic blood pressure 70 mm[Hg] Jalen Facundo DO Work Phone: [facility] 02-07-2025 09:12-0400 Systolic blood pressure 110 mm[Hg] Jalen Facundo DO Work Phone: [facility] 02-04-2025 01:24-0400 Body temperature 98.01 [degF] Jose Galvan MD [facility] 02-04-2025 01:24-0400 Diastolic blood pressure 78 mm[Hg] Jose Galvan MD Work Phone: [facility] [employer] 02-04-2025 01:24-0400 Heart rate 94 /min Jose Galvan MD Work Phone: [facility] [employer] 02-04-2025 01:24-0400 Respiratory rate 18 /min Jose Galvan MD Work Phone: [facility] [employer] 02-04-2025 01:24-0400 SaO2% (BldA) [Mass fraction] 100 % Jose Galvan MD Work Phone: [facility] [employer] 02-04-2025 01:24-0400 Systolic blood pressure 145 mm[Hg] Jose Galvan MD Work Phone: [employer] 02-03-2025 21:26-0400 Body height 160 cm Jose Galvan MD Work Phone: [facility] [employer] 02-03-2025 21:26-0400 Body mass index (BMI) [Ratio] 49.6 kg/m2 Jose Galvan MD Work Phone: [facility] [employer] 02-03-2025 21:26-0400 Body weight 127.01 kg Jose Galvan MD Work Phone: [employer] 12-05-2024 12:28-0500 Body height 160 cm Stephane Margarita DO Work Phone: [facility] [employer] 12-05-2024 12:28-0500 Body mass index (BMI) [Ratio] 46.06 kg/m2 Stephane Margarita DO Work Phone: [employer] 12-05-2024 12:28-0500 Body temperature 98.1 [degF] Stephane Margarita DO Work Phone: [employer] 12-05-2024 12:28-0500 Body weight 117.94 kg Stephane Margarita DO Work Phone: [employer] 12-05-2024 12:28-0500 Diastolic blood pressure 91 mm[Hg] Stephane Margarita DO Work Phone: [employer] 12-05-2024 12:28-0500 Heart rate 67 /min Stephane Margarita DO Work Phone: [employer] 12-05-2024 12:28-0500 Respiratory rate 18 /min Stephane Margarita DO Work Phone: [employer] 12-05-2024 12:28-0500 SaO2% (BldA) [Mass fraction] 98 % Stephane Margarita DO Work Phone: [employer] 12-05-2024 12:28-0500 Systolic blood pressure 151 mm[Hg] Stephane Avila DO [facility] [employer] 11-28-2024 15:25-0500 Body mass index (BMI) [Ratio] 52.04 kg/m2 Jalen Facundo DO Work Phone: [facility] 11-28-2024 15:25-0500 Body weight 133.27 kg Jalen Facundo DO Work Phone: [facility] 11-28-2024 15:25-0500 Diastolic blood pressure 72 mm[Hg] Jalen Facundo DO Work Phone: [facility] 11-28-2024 15:25-0500 Systolic blood pressure 128 mm[Hg] Jalen Facundo DO Work Phone: [facility] 08-29-2024 22:31-0500 Body height 157.5 cm Jose Galvan MD [facility] 08-29-2024 22:31-0500 Body mass index (BMI) [Ratio] 51.21 kg/m2 Jose Galvan MD Work Phone: [facility] 08-29-2024 22:31-0500 Body temperature 98.6 [degF] Jose Galvan MD [facility] 08-29-2024 22:31-0500 Body weight 127.01 kg Jose Galvan MD Work [facility] 08-29-2024 22:31-0500 Diastolic blood pressure 89 mm[Hg] Jose Galvan MD Work [facility] 08-29-2024 22:31-0500 Heart rate 94 /min Jose Galvan MD Work [facility] 08-29-2024 22:31-0500 Respiratory rate 18 /min Jose Galvan MD Work Phone: [employer] 08-29-2024 22:31-0500 SaO2% (BldA) [Mass fraction] 95 % Jose Galvan MD Work Phone: [employer] 08-29-2024 22:31-0500 Systolic blood pressure 136 mm[Hg] Jose Galvan MD Work Phone: [employer] 04-12-2024 18:45-0400 Body temperature 98.4 [degF] Binta Wilson MD Work Phone: [employer] 04-12-2024 18:45-0400 Diastolic blood pressure 68 mm[Hg] Binta Wilson MD Work Phone: [employer] 04-12-2024 18:45-0400 Heart rate 82 /min Binta Wilson MD Work Phone: [employer] 04-12-2024 18:45-0400 Respiratory rate 18 /min Binta Wilson MD Work Phone: [employer] 04-12-2024 18:45-0400 SaO2% (BldA) [Mass fraction] 99 % Binta Wilson MD Work Phone: [employer] 04-12-2024 18:45-0400 Systolic blood pressure 135 mm[Hg] Binta Wilson MD Work Phone: [employer] 04-12-2024 18:41-0400 Body height 160 cm Binta Wilson MD Work Phone: [employer] 04-12-2024 18:41-0400 Body mass index (BMI) [Ratio] 51.56 kg/m2 Binta Wilson MD Work Phone: [employer] 04-12-2024 18:41-0400 Body weight 132 kg Binta Wilson MD Work Phone: [employer] 11-18-2023 13:19-0500 Body height 160 cm Mariel [place] PA Work Phone: [facility] 11-18-2023 13:19-0500 Body mass index (BMI) [Ratio] 52.26 kg/m2 Mariel VILLALBA Work Phone: [facility] 11-18-2023 13:19-0500 Body weight 133.81 kg Mariel Braun PA Work Phone: [facility] 11-18-2023 13:19-0500 Diastolic blood pressure 74 mm[Hg] Mariel Braun PA Work Phone: [facility] 11-18-2023 13:19-0500 Systolic blood pressure 120 mm[Hg] Mariel Braun PA Work Phone: [facility] 03-15-2023 15:01-0400 Body height 160 cm Nolan Penny MD [facility] [employer] 03-15-2023 15:01-0400 Body mass index (BMI) [Ratio] 46.06 kg/m2 Nolan Penny MD [facility] [employer] 03-15-2023 15:01-0400 Body temperature 98.49 [degF] Nolan Penny MD [facility] [employer] 03-15-2023 15:01-0400 Body weight 117.94 kg Nolan Penny MD [facility] [employer] 03-15-2023 15:01-0400 Diastolic blood pressure 88 mm[Hg] Nolan Penny MD [facility] [employer] 03-15-2023 15:01-0400 Heart rate 79 /min Nolan Penny MD [facility] [employer] 03-15-2023 15:01-0400 Respiratory rate 16 /min Nolan Penny MD [facility] [employer] 03-15-2023 15:01-0400 SaO2% (BldA) [Mass fraction] 99 % Nolan Penny MD [facility] [employer] 03-15-2023 15:01-0400 Systolic blood pressure 146 mm[Hg] Nolan Penny MD [facility] [employer] 12-25-2022 22:23-0400 Body height 160 cm Jose Galvan MD Work Phone: [facility] [employer] 12-25-2022 22:23-0400 Body mass index (BMI) [Ratio] 46.06 kg/m2 Jose Galvan MD Work Phone: [facility] [employer] 12-25-2022 22:23-0400 Body temperature 98.4 [degF] Jose Galvan MD Work Phone: [facility] [employer] 12-25-2022 22:23-0400 Body weight 117.94 kg Jose Galvan MD Work Phone: [facility] [employer] 12-25-2022 22:23-0400 Diastolic blood pressure 73 mm[Hg] Jose Galvan MD Work Phone: [facility] [employer] 12-25-2022 22:23-0400 Heart rate 79 /min Jose Galvan MD Work Phone: [facility] [employer] 12-25-2022 22:23-0400 Respiratory rate 16 /min Jose Galvan MD Work Phone: [facility] [employer] 12-25-2022 22:23-0400 SaO2% (BldA) [Mass fraction] 97 % Jose Galvan MD Work Phone: [facility] [employer] 12-25-2022 22:23-0400 Systolic blood pressure 128 mm[Hg] Jose Galvan MD Work Phone: [facility] [employer] 01-24-2022 03:35-0400 Respiratory rate 16 /min Robbie Ibrahim MD Work Phone: [employer] 01-24-2022 01:25-0400 Body height 160 cm Robbie Ibrahim MD Work Phone: [employer] 01-24-2022 01:25-0400 Body mass index (BMI) [Ratio] 50.13 kg/m2 Robbie Ibrahim MD Work Phone: [employer] 01-24-2022 01:25-0400 Body temperature 98.29 [degF] Robbie Ibrahim MD Work Phone: [employer] 01-24-2022 01:25-0400 Body weight 128.37 kg Robbie Ibrahim MD Work Phone: [employer] 01-24-2022 01:25-0400 Diastolic blood pressure 74 mm[Hg] Robbie Ibrahim MD Work Phone: [employer] 01-24-2022 01:25-0400 Heart rate 66 /min Robbie Ibrahim MD Work Phone: [employer] 01-24-2022 01:25-0400 SaO2% (BldA) [Mass fraction] 98 % Robbie Ibrahim MD Work Phone: [employer] 01-24-2022 01:25-0400 Systolic blood pressure 132 mm[Hg] Robbie Ibrahim MD Work Phone: [employer] 07-31-2021 17:37-0400 Diastolic blood pressure 83 mm[Hg] Amy Nickerson DO Work Phone: [employer] Work Phone: 07-31-2021 17:37-0400 Systolic blood pressure 147 mm[Hg] Amy Riceak DO Work Phone: [employer] Work Phone: 07-31-2021 15:49-0400 Body height 160 cm Amy Riceak DO Work Phone: [employer] Work Phone: 07-31-2021 15:49-0400 Body mass index (BMI) [Ratio] 50.31 kg/m2 Amy Riceak DO Work Phone: [employer] Work Phone: 07-31-2021 15:49-0400 Body temperature 97.11 [degF] Amy Riceak DO Work Phone: [employer] Work Phone: 07-31-2021 15:49-0400 Body weight 128.82 kg Amy Nickerson DO Work Phone: [employer] Work Phone: 07-31-2021 15:49-0400 Heart rate 79 /min Amy Nickerson [employer] Work Phone: [employer] Work Phone: 07-31-2021 15:49-0400 Respiratory rate 18 /min Amy iNckerson [employer] Work Phone: [employer] Work Phone: 07-31-2021 15:49-0400 SaO2% (BldA) [Mass fraction] 100 % Amy [employer] Work Phone: [employer] Work Phone: 12-13-2019 15:42-0500 BP Diastolic 99 mm[Hg] Jeffrey [employer] [facility] [employer] [facility], [place] 12-13-2019 15:42-0500 BP Systolic 155 mm[Hg] Jeffrey [employer] [place] 12-13-2019 15:41-0500 BMI (Body Mass Index) 42.51 kg/m2 Jeffrey [employer] [facility] 12-13-2019 15:41-0500 Body Temperature 98.4 [degF] [place] 12-13-2019 15:41-0500 Body weight 108.86 kg [facility] [place] 12-13-2019 15:41-0500 Height 160 cm [place], [place] 12-13-2019 15:41-0500 Pulse (Heart Rate) 83 /min Jeffrey [facility] hospitalTru[facility]28msec [facility] [place], [place] 12-13-2019 15:41-0500 Pulse Oximetry 98 % Jeffrey [place], [place] 12-13-2019 15:41-0500 Respiratory Rate 16 /min Jeffrey [employer] [place], [place] 10-06-2019 20:26-0500 Body height 160 cm Olivier Guadalupe MD Work Phone: [employer] Work Phone: 10-06-2019 20:26-0500 Body mass index (BMI) [Ratio] 42.51 kg/m2 Olivier Guadalupe MD Work Phone: [employer] Work Phone: 10-06-2019 20:26-0500 Body temperature 98.71 [degF] Olivier Guadalupe MD Work Phone: [employer] Work Phone: 10-06-2019 20:26-0500 Body weight 108.86 kg Olivier Guadalupe MD Work Phone: [employer] Work Phone: 10-06-2019 20:26-0500 Diastolic blood pressure 85 mm[Hg] Olivier Guadalupe MD Work Phone: [employer] Work Phone: 10-06-2019 20:26-0500 Heart rate 66 /min Olivier Guadalupe MD Work Phone: [employer] Work Phone: 10-06-2019 20:26-0500 Respiratory rate 18 /min Olivier Guadalupe MD Work Phone: [employer] Work Phone: 10-06-2019 20:26-0500 SaO2% (BldA) [Mass fraction] 100 % Olivier Guadalupe MD Work Phone: [employer] Work Phone: 10-06-2019 20:26-0500 Systolic blood pressure 146 mm[Hg] Olivier Guadalupe MD Work Phone: [employer] Work Phone: Encounters Encounter Date Encounter Type Care Provider Facility Start: 02-21-2025 End: 02-21-2025 [employer] Activity [employer] Jalen Facundo CPXi Work Phone: [facility] Start: 02-21-2025 End: 02-21-2025 Bamboo [employer] Jalen Facundo CPXi Work Phone: [facility] Start: 02-21-2025 End: 02-21-2025 ambulatory JALEN FACUNDO Not Available Start: 02-21-2025 End: 02-21-2025 Postop follow up visit related to original px Jalen Facundo DO Work Phone: [facility] Comment on above: Postoperative examin ation Start: 02-14-2025 End: 02-14-2025 Clinisync Result Encounter Jalen Facundo DO Work Phone: [facility] Unsolicited Start: 02-14-2025 End: 02-14-2025 Clinisync Result Encounter Jalen Facundo DO Work Phone: [facility] External Department Unsolicited Start: 02-07-2025 End: 02-07-2025 Bamboo flowsheet Jalen Facundo DO Work Phone: [facility] Start: 02-07-2025 End: 02-08-2025 Bamboo flowsheet Jalen Facundo DO Work Phone: [facility] Start: 02-07-2025 End: 02-08-2025 External Result Encounter Ajlen Facundo DO Work Phone: [facility] Unsolicited Start: 02-07-2025 End: 02-07-2025 Office outpatient visit 15 minutes Jalen Facundo DO Work Phone: [facility] Comment on above: Cyst of right ovary; Pelvic pain in female Start: 02-07-2025 End: 02-07-2025 ambulatory JALEN FACUNDO Not Available Start: 02-03-2025 End: 02-04-2025 Emergency department patient visit Jose Galvan MD Work Phone: [facility] Emergency Department Comment on above: Cyst of right ovary (Primary Dx); Right lower quadrant abdominal pain; Nausea and vomiting, unspecified vomiting type; Acute cystitis without hematuria Start: 12-20-2024 End: 12-20-2024 ambulatory JALEN FACUNDO Not Available Start: 12-05-2024 End: 12-05-2024 Emergency department patient visit Stephane Avila DO Work Phone: [facility] Emergency Department Comment on above: Acute bacterial conj unctivitis of right eye (Primary Dx); Bacterial vaginosis; Acute cystitis without hematuria Start: 11-28-2024 End: 11-28-2024 Office outpatient visit 15 minutes Jalen Facundo DO Work Phone: [facility] Comment on above: Encounter for fertil ity planning; PCOS (polycystic ovarian syndrome); Irregular periods/menstrual cycles Start: 11-28-2024 End: 11-28-2024 ambulatory JALEN FACUNDO Not Available Start: 11-28-2024 End: 11-28-2024 Bamboo flowsheet Jalen Facundo DO Work Phone: [facility] Start: 11-28-2024 End: 11-28-2024 Bamboo flowsheet Jalen Facundo DO Work Phone: [facility] Start: 09-12-2024 End: 09-12-2024 Emergency department patient visit [facility] Start: 08-29-2024 End: 08-30-2024 Emergency department patient visit Jose Galvan MD Work Phone: [facility] ED Comment on above: Vaginitis and vulvov aginitis (Primary Dx); STD exposure; Acute cystitis without hematuria Start: 08-25-2024 End: 08-25-2024 Emergency department patient visit CANDICE CALDERÓN [facility] Start: 06-06-2024 End: 06-06-2024 ambulatory SHERLYN VILLATORO [facility] Start: 05-18-2024 End: 05-18-2024 ambulatory MARIEL BRAUN Not Available Start: 04-12-2024 End: 04-12-2024 Emergency department patient visit Binta Wilson MD Work Phone: [facility] ED Comment on above: Bacterial vaginosis (Primary Dx); Possible exposure to STD Start: 04-12-2024 End: 04-12-2024 ambulatory JALEN FACUNDO Not Available Start: 03-15-2024 End: 03-15-2024 ambulatory MARIEL BRAUN Not Available Start: 03-09-2024 End: 03-09-2024 Telemedicine consultation with patient Sherlyn Villatoro LD Work Phone: [facility] Comment on above: Weight gain; Obesity, morbid ([facility]) Start: 03-09-2024 End: 03-09-2024 ambulatory SHERLYN VILLATORO [facility] Start: 11-18-2023 End: 11-18-2023 Office outpatient visit 10 minutes Mariel Braun PA Work Phone: [facility] Comment on above: Encounter for weight management Start: 03-15-2023 End: 03-15-2023 Emergency department patient visit Nolan Penny MD [facility] Comment on above: BV (bacterial vagino sis) (Primary Dx) Start: 12-25-2022 End: 12-26-2022 Emergency department patient visit Jose Galvan MD Work Phone: [facility] Comment on above: Vaginal discharge (P rimary Dx); BV (bacterial vaginosis) Start: 07-14-2022 End: 07-14-2022 ambulatory [facility] Facility:[facility] Start: 05-19-2022 End: 05-20-[address] JALEN LOREDO Facility:[facility] Start: 04-19-2022 End: 04-19-2022 Emergency department patient visit Jeffrey Moore MD Work Phone: [facility] ED Start: 03-21-2022 Encounter for gynecological examination (general) (routine) without abnormal findings DR ОЛЕГ RAMIREZ [facility] Start: 03-19-2022 End: 03-20-[address] ОЛЕГ RAMIREZ Facility:[facility]1 Start: 03-18-2022 End: 03-18-2022 ambulatory NONE LISTED REQUEST Facility:[facility]1 Start: 03-18-2022 End: 03-19-2022 ambulatory NONE LISTED REQUEST Facility:H1 Start: 03-18-2022 End: 03-19-2022 Encounter for gynecological examination (general) (routine) without abnormal findings NONE LISTED REQUEST Facility:[facility]1 Start: 01-24-2022 End: 01-24-2022 Emergency department patient visit Robbie Ibrahim MD Work Phone: [facility] ED Comment on above: Encounter for medica l screening examination (Primary Dx) Start: 07-31-2021 End: 07-31-2021 Emergency department patient visit Amy Marinellimary DO Work Phone: [facility] ED Comment on above: Vaginal discharge (P rimary Dx) Start: 09-26-2020 End: 09-27-2020 Patient encounter procedure KATIE PARHAM [facility] Start: 09-26-2020 End: 09-26-2020 Subsequent hospital visit by physician Wili LOPEZ [facility] Comment on above: Vesicular eruption Start: 12-13-2019 End: 12-13-2019 Emergency department patient visit Jeffrey Moore Work Phone: [facility] ED Comment on above: Vaginal discharge (P rimary Dx); Bacterial vaginosis Start: 10-06-2019 End: 10-07-2019 [facility] Start: 10-06-2019 End: 10-06-2019 Emergency department patient visit Olivier Guadalupe MD Work Phone: [facility] Comment on above: Dermatitis (Primary Dx) Start: 12-04-2017 End: 12-04-2017 Emergency department patient visit No PCP Physician Facility:[facility] Start: 12-02-2017 End: 12-02-2017 Emergency department patient visit No PCP Physician Facility:[facility] Start: 09-12-2017 End: 09-12-2017 Emergency department patient visit LYNNE REYNOLDS Facility:[facility] Procedures Date Procedure Procedure Detail Performing Clinician Start: 02-21-2025 Urnls dip stick/tabl et rgnt non-auto w/o micrscp Jalen Facundo DO Work Phone: Start: 02-14-2025 ALL CBC WITH AUTO DIFF Jalen Facundo DO Work Phone: Start: 02-07-2025 RECURRENT VAGINITIS (HTRX) Jalen Facundo DO Work Phone: Start: 02-07-2025 End: 02-07-2025 Urnls dip stick/tablet rgnt non-auto w/o micrscp Jalensabiha Heo DO Work Phone: Start: 02-03-2025 Ct abdomen & pelvis w/contrast material Jose Galvan MD Work Phone: Start: 02-03-2025 Dup-scan artl inna abdl/pel/scrot&/rpr orgn com Jose Galvan MD Work Phone: Start: 02-03-2025 Us transvaginal Jose Galvan MD Work Phone: Start: 02-03-2025 Comprehensive metabo lic panel Jose Galvan MD Work Phone: Start: 02-03-2025 Drug tst prsmv instr mnt chem analyzers pr date Jose Galvan MD Work Phone: Start: 02-03-2025 Urinalysis microscopic only Jose Galvan MD Work Phone: Start: 02-03-2025 Urnls dip stick/tabl et rgnt auto w/o microscopy Jose Galvan MD Work Phone: Start: 12-05-2024 Dup-scan artl inna abdl/pel/scrot&/rpr orgn com Rufino Shane Pontius PA-C Work Phone: Start: 12-05-2024 Us pelvic nonobstetr ic real-time image complete Rufino Svitlana Pontius PA-C Work Phone: Start: 12-05-2024 Iadna lori specie s direct probe tq Rufino C Pontius PA-C Work Phone: Start: 12-05-2024 Urinalysis microscopic only Rufino Svitlana Pontius PA-C Work Phone: Start: 12-05-2024 Urine test visual color cmprsn meths Rufino Svitlana Pontius PA-C Work Phone: Start: 08-29-2024 Urine test visual color cmprsn meths Jose Galvan MD Work Phone: Start: 08-29-2024 End: 08-29-2024 Iadna lori species direct probe tq Jose Galvan MD Work Phone: Start: 04-12-2024 Urine test visual color cmprsn meths Ana Rosa Reilly MD Work Phone: Start: 04-12-2024 End: 04-12-2024 Iadna lori species direct probe tq Ana Rosa Reilly MD Work Phone: Start: 03-15-2023 End: 03-15-2023 Iadna lori species direct probe tq Nolan Penny MD Start: 03-15-2023 Urine test visual color cmprsn meths Nolan Penny MD Start: 12-25-2022 Iadna lori specie s direct probe tq Ana Rosadeneen Zapata DO Work Phone: Start: 12-25-2022 Urine test visual color cmprsn meths Ana Rosa Zapata DO Work Phone: Start: 03-18-2022 Microscopic observat ion [Identifier] in Cervix by Cyto stain Sherlyn MURDOCK Work Phone: Start: 01-24-2022 Urine test visual color cmprsn meths Robbie Ibrahim MD Work Phone: Start: 01-24-2022 End: 01-24-2022 Urnls dip stick/tablet reagent auto microscopy Robbie Ibrahim MD Work Phone: Start: 07-31-2021 Urinalysis microscopic only Rufino Hodges PA-C Work Phone: Start: 07-31-2021 Urine test visual color cmprsn meths Rufino Hodges PA-C Work Phone: Start: 09-26-2020 VARICELLA ZOSTER/HER PES SIMPLEX 1 AND 2, MOLECULAR KATIE HEURING Start: 12-13-2019 Iadna lori specie s direct probe tq Hector Ezio Purcell Work Phone: Start: 12-13-2019 Urinalysis microscopic only Hector Purcell Work Phone: Start: 12-13-2019 Urine test visual color cmprsn meths Hector Purcell Work Phone: Start: 12-13-2019 Urnls dip stick/tabl et rgnt auto w/o microscopy Hector Purcell Work Phone: Plan of Treatment Date Care Activity Detail Author Start: 06-12-2025 Influenza vaccination Influenz a Vaccine (Season Ended) [facility] Start: 05-12-2025 Influenza vaccination Flu vacc ine (Season Ended) [facility] Start: 04-18-2025 End: 04-18-2025 Patient encounter procedure 04/18/2025 2:00 PM EDT Office Visit [facility] [address] [place] [id number] Jalen Loredo, [facility] [address], [place] [address] [facility] Start: 03-18-2025 Screening for malign ant neoplasm of cervix Pap Smear [facility] Start: 02-07-2025 End: 02-07-2025 Patient encounter procedure 02/07/2025 9:00 AM EDT Office Visit [facility] [address] [place] [id number] Jalen Loredo, [facility] [address], [facility] Arrived [facility] Comment on above: Arrived Start: 12-20-2024 End: 12-20-2024 Professional / ancillary services management 12/20/2024 1:00 PM EDT Ancillary Procedure [facility] [address] [place] [id number] [facility] Start: 11-28-2024 End: 11-28-2024 Patient encounter procedure 11/28/2024 3:40 PM EST Office Visit [facility] [address] [place] [place] [address] Jalen Loredo, [address] [place] [address] Arrived [facility] Comment on above: Arrived Start: 11-28-2024 End: 11-28-2025 DHEA DHEA Lab Routine PCOS (polycystic ovarian syndrome) Irregular periods/menstrual cycles Expected: 11/28/2024 (Approximate), Expires: 11/28/2025 [facility] Comment on above: Expected: 11/28/2024 (Approximate), Expires: 11/28/2025 Start: 11-28-2024 End: 11-28-2025 US Pelvis US Pelvis w/ TV Imaging Routine PCOS (polycystic ovarian syndrome) Irregular periods/menstrual cycles Expected: 11/28/2024, Expires: 11/28/2025 [facility] Comment on above: Expected: 11/28/2024 , Expires: 11/28/2025 Start: 06-20-2024 End: 06-20-2024 Patient encounter procedure 06/20/2024 2:40 PM EDT Office Visit [facility] [address] [place] [place] [address] Jalen Loredo, [address] [place] [address] [facility] Start: 06-12-2024 COVID-19 Vaccine ( season) COVID-19 Vaccine ( season) [facility] Start: 06-12-2024 COVID-19 Vaccine ( season) COVID-19 Vaccine ( season) [facility] Start: 06-12-2024 Influenza vaccination P [facility] Start: 06-06-2024 End: 06-06-2024 Telemedicine consultation with patient 06/06/2024 3:30 PM EDT Telemedicine [facility] [address] [place], [place] [address] [address] Sherlyn Villatoro, [place] [address] [facility] [address], [facility] [address] [place] [address] [facility] Start: 05-12-2024 Influenza vaccination Flu vaccine (# 1) [facility] Start: 04-12-2024 Adult BMI Screening Adult BMI Screen ing [facility] Start: 04-12-2024 Tobacco Screening Tobacco Screening [facility] Start: 02-16-2024 End: 02-16-2024 Patient encounter procedure 02/16/2024 2:30 PM EDT Office Visit [facility] [address] [place] [place] [phone] Mariel Braun PA [address] [place] [address] [facility] Start: 05-12-2023 Influenza vaccination Flu vacc ine (Season Ended) [facility] Start: 02-20-2023 Screening for Chlamy pablo trachomatis Chlamydia screen [facility] Start: 01-26-2023 End: 01-26-2023 Telemedicine consultation with patient 01/26/2023 Telemedicine Dermatology Katie Parham MD [address], [address] [place] [id number] [facility] Dermat[facility] Start: 07-31-2022 Screening for Chlamy pablo trachomatis Chlamydia screen [facility] Start: 06-12-2022 Influenza vaccination [facility] Start: 06-12-2022 End: 06-12-2022 Patient encounter procedure [facility] Dermatology Start: 05-12-2022 Influenza vaccination Flu vaccine (# 1) [facility] Start: 06-12-2021 Influenza vaccination Flu vaccine (# 1) [facility] Work Phone: Start: 12-12-2020 Screening for Chlamy pablo trachomatis Chlamydia screen [place] Start: 06-12-2020 Influenza vaccination Flu vaccine (# 1) [place], [place] Start: 06-12-2019 Influenza vaccination Flu vaccine (# 1) [facility] Work Phone: Start: 11-10-2018 DTaP,Tdap and Td Vaccines (7 - Td or Tdap) DTaP,Tdap and Td Vaccines (7 - Td or Tdap) [facility] Start: 2018 Screening for malign ant neoplasm of cervix [facility] Start: 2016 DTaP/Tdap/Td vaccine (1 - Tdap) DTaP/Tdap/Td vaccine (1 - Tdap) [facility] Start: 2016 Hepatitis B vaccine (1 of 3 - 19+ 3-dose series) Hepatitis B vaccine (1 of 3 - 19+ 3-dose series) [facility] Start: 2015 Adult BMI Follow Up Plan Adult BMI Follow Up Plan [facility] Start: 2015 Hepatitis C screening Hepatitis C sc reen [facility] Start: 2012 HIV screening [facility] screen [facility] Start: 2012 HPV vaccine (1 - 3-d ose series) HPV vaccine (1 - 3-dose series) [facility] Start: 2010 Varicella vaccine (1 of 2 - 13+ 2-dose series) Varicella vaccine (1 of 2 - 13+ 2-dose series) [facility] Start: 2009 COVID-19 Vaccine (1) COVID-19 Vaccin e (1) [facility] Work Phone: Start: 2009 Depression Screen Depression Screen [facility] Start: 2009 Depression Screening Depression Scre ening [facility] Start: 2008 HPV vaccine (1 - 2-d ose series) HPV vaccine (1 - 2-dose series) [facility] Start: 2002 COVID-19 Vaccine (1) COVID-19 Vaccin e (1) [facility] Start: 1998 Varicella vaccine (1 of 2 - 2-dose childhood series) Varicella vaccine (1 of 2 - 2-dose childhood series) [facility] Start: 05-05-1998 COVID-19 Vaccine (#1) COVID-19 Vacci ne (#1) [facility] Start: 1997 Hepatitis B vaccine (1 of 3 - 3-dose series) Hepatitis B vaccine (1 of 3 - 3-dose series) [facility] Start: 1997 Hepatitis C screening Hepatitis C sc reen [facility] [employer] End: 12-13-2019 C.trachomatis N.gonorrhoeae DNA C.trachomatis N.gonorrhoeae DNA Microbiology Routine One Time for 1 Occurrences starting 12/13/2019 until 12/13/2019 [facility] [place] Comment on above: One Time for 1 Occur rences starting 12/13/2019 until 12/13/2019 C.trachomatis N.gonorrhoeae DNA [facility] [place] End: 07-31-2021 C.trachomatis N.gonorrhoeae DNA C.trachomatis N.gonorrhoeae DNA Microbiology Routine One Time for 1 Occurrences starting 07/31/2021 until 07/31/2021 [employer] Phone: Comment on above: One Time for 1 Occur rences starting 07/31/2021 until 07/31/2021 End: 01-24-2022 C.trachomatis N.gonorrhoeae DNA C.trachomatis N.gonorrhoeae DNA Microbiology Routine One Time for 1 Occurrences starting 01/24/2022 until 01/24/2022 [employer] Phone: Comment on above: One Time for 1 Occur rences starting 01/24/2022 until 01/24/2022 C.trachomatis N.gonorrhoeae DNA C.trachomatis N.gonorrhoeae DNA Microbiology Stat [employer] Label print 01/24/2022 1:50 AM EDT [employer] Phone: End: 12-25-2022 C.trachomatis N.gonorrhoeae DNA [facility] [employer] Phone: Comment on above: One Time for 1 Occur rences starting 12/25/2022 until 12/25/2022 End: 03-15-2023 C.trachomatis N.gonorrhoeae DNA [facility] [employer] Phone: Comment on above: One Time for 1 Occur rences starting 03/15/2023 until 03/15/2023 C.trachomatis N.gonorrhoeae DNA C.trachomatis N.gonorrhoeae DNA Microbiology Stat [employer] Label print 04/12/2024 7:20 PM EDT [employer] C.trachomatis N.gonorrhoeae DNA C.trachomatis N.gonorrhoeae DNA Microbiology Stat [employer] Label print 08/29/2024 11:42 PM EST [employer] C.trachomatis N.gonorrhoeae DNA C.trachomatis N.gonorrhoeae DNA Microbiology Stat [employer] Label print 12/05/2024 1:55 PM EST [employer] CBC W Auto Different ial panel - Blood CBC and differential Lab Routine PCOS (polycystic ovarian syndrome) Irregular periods/menstrual cycles Ordered: 11/28/2024 [facility] Comment on above: Ordered: 11/28/2024 CHLAMYDIA TRACHOMATI S (GENITO/STI) CHLAMYDIA TRACHOMATIS (GENITO/STI) Lab Routine Cyst of right ovary Pelvic pain in female Ordered: 02/07/2025 [facility] Comment on above: Ordered: 02/07/2025 End: 12-25-2022 Culture, Urine [employer] Work Phone: Comment on above: Once for 1 Occurrenc es starting 12/25/2022 until 12/25/2022 End: 03-15-2023 Culture, Urine [employer] Work Phone: Comment on above: Once for 1 Occurrenc es starting 03/15/2023 until 03/15/2023 End: 08-30-2024 Culture, Urine Culture, Urine Microbiology Routine Once for 1 Occurrences starting 08/30/2024 until 08/30/2024 [employer] Comment on above: Once for 1 Occurrenc es starting 08/30/2024 until 08/30/2024 Culture, Urine Culture, Urine Microbiology Routine 08/30/2024 12:06 AM EST [employer] End: 12-05-2024 Culture, Urine [employer] Work Phone: Comment on above: Once for 1 Occurrenc es starting 12/05/2024 until 12/05/2024 DHEA-sulfate DHEA-sulfate Lab Routine PCOS (polycystic ovarian syndrome) Irregular periods/menstrual cycles Ordered: 11/28/2024 [facility] Comment on above: Ordered: 11/28/2024 Follicle stimulating hormone Follicle stimulating hormone Lab Routine PCOS (polycystic ovarian syndrome) Irregular periods/menstrual cycles Ordered: 11/28/2024 [facility] Comment on above: Ordered: 11/28/2024 hCG, quantitative, hCG, quantitative, Lab Routine PCOS (polycystic ovarian syndrome) Irregular periods/menstrual cycles Ordered: 11/28/2024 [facility] Work Phone: Comment on above: Ordered: 11/28/2024 Hemoglobin A1c/Hemoglobin.total in Blood Hemoglobin A1c Lab Routine PCOS (polycystic ovarian syndrome) Irregular periods/menstrual cycles Ordered: 11/28/2024 [facility] Comment on above: Ordered: 11/28/2024 Luteinizing hormone Luteinizing hormone Lab Routine PCOS (polycystic ovarian syndrome) Irregular periods/menstrual cycles Ordered: 11/28/2024 [facility] Comment on above: Ordered: 11/28/2024 Neisseria gonorrhoea e DNA [Presence] in Unspecified specimen by OWEN with probe detection Neisseria gonorrhea DNA probe, direct Lab Routine Cyst of right ovary Pelvic pain in female Ordered: 02/07/2025 [facility] Comment on above: Ordered: 02/07/2025 SURESWAB(R) ADVANCED VAGINITIS PLUS, TMA SURESWAB(R) ADVANCED VAGINITIS PLUS, TMA Pathology and Cytology Routine Cyst of right ovary Pelvic pain in female Ordered: 02/07/2025 [facility] Work Phone: Comment on above: Ordered: 02/07/2025 Thyrotropin [Units/volume] in Serum or Plasma TSH Lab Routine PCOS (polycystic ovarian syndrome) Irregular periods/menstrual cycles Ordered: 11/28/2024 [facility] Comment on above: Ordered: 11/28/2024 Thyroxine (T4) free [Mass/volume] in Serum or Plasma T4, free Lab Routine PCOS (polycystic ovarian syndrome) Irregular periods/menstrual cycles Ordered: 11/28/2024 [facility] Comment on above: Ordered: 11/28/2024 End: 07-31-2021 Vaginitis DNA Probe Vaginitis DNA Probe Microbiology STAT One Time for 1 Occurrences starting 07/31/2021 until 07/31/2021 [employer] Work Phone: Comment on above: One Time for 1 Occur rences starting 07/31/2021 until 07/31/2021 Vaginitis DNA Probe Vaginitis DN A Probe Microbiology Stat [employer] Label print 07/31/2021 5:09 PM EDT [employer] Work Phone: End: 09-26-2020 Varicella Zoster/Herpes Simplex 1 & 2, Molecular Varicella Zoster/Herpes Simplex 1 & 2, Molecular Lab Routine Vesicular eruption 1 Occurrences starting 09/26/2020 until 09/26/2020 [facility] [place] Comment on above: 1 Occurrences starti ng 09/26/2020 until 09/26/2020 Varicella Zoster/Her pes Simplex 1 & 2, Molecular Varicella Zoster/Herpes Simplex 1 & 2, Molecular Lab Routine Vesicular eruption 09/26/2020 6:38 PM EST [place] Immunizations Immunization Date Immunization Notes Care Provider Arielle martinez 10-13-2017 influenza virus vaccine, unspecified formulation Sherlyn Villatoro LD Work Phone: [facility] [employer] Payers Date Payer Category Payer Medicaid (Managed Care) [employer] [id number] 2017 Unknown [facility] xxxxxxxxxxxx 2017-Present [phone] [address] [place] [address] xxxxxxxxxxxx [id number] 2003 Medicaid [id number] 1997 Unknown [id number] 2.16.840.1.236862.3.579.2. 647 1997 Unknown [id number] 2.16.840.1.897390.3.579.2. 177 1997 Unknown [id number] 2.16.840.1.124149.3.579.2. 175 1997 Unknown [id number] 2.16.840.1.098010.3.579.2. 593 1997 Unknown [id number] 2.16.840.1.563139.3.579.2. 593 1997 Unknown [id number] 2.16.840.1.938757.3.579.2. 593 1997 Unknown [id number] 2.16.840.1.932983.3.579.2. 593 1997 Unknown [id number] 2.16.840.1.351163.3.579.2. 593 1997 Unknown [id number] 2.16.840.1.040242.3.579.2. 1286 1997 Unknown [id number] 2.16.840.1.688541.3.579.2. 1286 1997 Unknown [id number] 2.16.840.1.541380.3.579.2. 1286 1997 Unknown [id number] 2.16.840.1.353023.3.579.2. 1286 1997 Unknown [id number] 2.16.840.1.149232.3.579.2. 176 1997 Unknown [id number] 2.16.840.1.749503.3.579.2. 176 1997 Unknown [id number] 2.16.840.1.789665.3.579.2. 176 1997 Unknown [id number] 2.16.840.1.323011.3.579.2. 176 1997 Unknown [id number] 2.16.840.1.101990.3.579.2. 9 1997 Unknown [id number] 2.16.840.1.454442.3.579.2. 9 1997 Unknown [id number] 2.16.840.1.090636.3.579.2. 9 1997 Unknown [id number] 2.16.840.1.232234.3.579.2. 9 1997 Unknown [id number] 2.16.840.1.628462.3.579.2. 9 1997 Unknown [id number] 2.16.840.1.204735.3.579.2. 9 1997 Unknown [id number] 2.16.840.1.018668.3.579.2. 9 1959 Unknown [id number] Social History Date Type Detail Facility Start: 12-13-2019 End: 09-24-2022 Tobacco smoking status [facility] Never smoker [employer] Phone: Start: 12-13-2019 End: 02-03-2025 Alcohol intake Current non-drinker of alcohol (finding) [employer] Phone: Start: 1995 Sex Assigned At Not on file [employer] Phone: Start: 09-26-2020 End: 09-24-2022 Tobacco use and exposure Never used [employer] [place] Start: 01-14-2022 End: 12-26-2022 Exposure to SARS-CoV-2 (event) [facility] sure [facility] [place] [place] Start: 12-26-2022 History SDOH Alcohol Frequency 2 [employer] Phone: Start: 12-26-2022 History SDOH Alcohol Std Drinks 1 [employer] Phone: Start: 03-04-2023 Tobacco smoking stat [facility] Tobacco smoking consumption unknown [facility] Start: 11-18-2023 End: 02-21-2025 Alcohol intake Ex-drinker (finding) [facility] Start: 03-03-2021 End: 05-01-2023 Alcohol Comment occasional [facility] Start: 03-03-2023 Gender identity Identifies as female gender (finding) [facility] Start: 10-21-2023 End: 02-03-2025 Sexual orientation Not on file [facility] Start: 10-21-2023 End: 02-03-2025 History of Social function [facility] How often to you hav e a drink containing alcohol? Monthly or less [facility] How many standard drinks containing alcohol do you have on a typical day? 3 or 4 [facility] How often do you hav e 6 or more drinks on 1 occasion? Never [facility] Read-Only, Retired: Physical Abuse Denies [facility] Start: 04-12-2023 Alcoholic beverage intake Current drinker of alcohol (finding) [facility] How many standard drinks containing alcohol do you have on a typical day? 1 or 2 [facility] Start: 1995 Sex assigned at Female B on [facility] Start: 01-01-2018 Sex Female (finding) [facility] Medical Equipment Procedure Code Equipment Code Equipment Origin al Text Equipment Identifier Dates 1 mg (1 strip), Right Eye, ONCE, 1 dose, On Thu12/05/24 at 1315, 1 mg = 1 strip Start: 12-05-2024 End: 12-05-2024 Functional Status Date Assessment Result Facility [facility] Clinical Notes 12-26-2022 to 02-21-2025 Sarah Early LPN - 02/21/2025 10:00 AM Hany Early LPN - 02/07/2025 9:00 AM EDTDischarge InstructionsAttachmentsDischarge InstructionsAttachmentsKatya Verdugo LPN - 11/28/2024 3:40 PM EST Note Date & Type Note Facility 02-21-2025 History of Present illness Narrative Reason for Appointment: Patient ID: Lisandra Kinsey is a 29 y.o. female who presents [...] (herpes simplex virus) infection 04/01/2023 Morbid obesity (CMS/HCC) 04/01/2023 Ovarian cyst 04/01/2023 Pain in female genitalia on intercourse 04/01/2023 Pelvic pain 04/01/2023 Encounter for weight management 05/18/2024 COVID-19 05/18/2024 Insulin resistance 05/18/2024 Resolved Ambulatory Problems Diagnosis Date Noted No Resolved Ambulatory Problems Past Medical History: Diagnosis Date Abnormal weight gain Dyspareunia, female Encounter for gynecological examination (general) (routine) without abnormal findings Morbid obesity with BMI of 45.0-49.9, adult ([facility]) Patient desires HISTORY PAST MEDICAL HISTORY SOCIAL HISTORY Past Medical History: Diagnosis Date Abnormal weight gain Dyspareunia, female Encounter for gynecological examination (general) (routine) without abnormal findings HSV (herpes simplex virus) infection Morbid obesity with BMI of 45.0-49.9, adult ([facility]) Ovarian cyst Patient desires Pelvic pain Social [...] nursing note reviewed. Exam conducted with a chromium plater present. Vitals: Estimated body mass index is 51.92 kg/m as calculated from the following: Height as of 05/18/24: 5' 3 . Weight as of this [...] needed. Pt has bruising from surgery- discussed with pt. Documented by Sarah Early LPN on behalf of: Jalen Loredo DO documented in this encounter [facility] 02-07-2025 History of Present illness Narrative Reason for Appointment: Patient ID: Lisandra Kinsey is a 29 y.o. female who presents for ER Follow-up (Ovarian Cyst) Patient presents today for Acute Visit. MEDICATIONS Current Outpatient Medications Medication Instructions cephalexin (KEFLEX) 500 mg, 3 times daily HYDROcodone-acetaminophen (Jackman) 5-325 MG tablet 1 tablet, Every 4 hours PRN metFORMIN XR (GLUCOPHAGE-XR) 500 mg, Oral, Daily with evening meal, Do not crush, chew, or split. ondansetron ODT (ZOFRAN-ODT) 4 mg, Every 8 hours PRN ALLERGIES No Known Allergies PROBLEMS Active Ambulatory Problems Diagnosis Date Noted Weight gain 04/01/2023 HSV (herpes simplex virus) infection 04/01/2023 Morbid obesity ([facility]/HCC) 04/01/2023 Ovarian cyst 04/01/2023 Pain in female genitalia on intercourse 04/01/2023 Pelvic pain 04/01/2023 Encounter for weight management 05/18/2024 COVID-19 05/18/2024 Insulin resistance 05/18/2024 Resolved Ambulatory Problems Diagnosis Date Noted No Resolved Ambulatory Problems Past Medical History: Diagnosis Date Abnormal weight gain Dyspareunia, female Encounter for gynecological examination (general) (routine) without abnormal findings Morbid obesity with BMI of 45.0-49.9, adult ([facility]) Patient desires HISTORY PAST MEDICAL HISTORY SOCIAL HISTORY Past Medical History: Diagnosis Date Abnormal weight gain Dyspareunia, female Encounter for gynecological examination (general) (routine) without abnormal findings HSV (herpes simplex virus) infection Morbid obesity with BMI of 45.0-49.9, adult ([facility]) Ovarian cyst Patient desires Pelvic pain Social History Tobacco Use Smoking status: Unknown Smokeless tobacco: Not on file Substance Use Topics Alcohol use: Not Currently Comment: occasional Drug use: Never FAMILY HISTORY Family History Problem Relation Name Age of Onset Diabetes Other Coronary artery disease Other Lung cancer Other COPD Other Emphysema Other Asthma Other Hyperlipidemia Other SURGICAL HISTORY History reviewed. No pertinent surgical history. REVIEW OF SYSTEMS Review of Systems: Review of Systems Constitutional: Negative. HENT: Negative. Eyes: Negative. Respiratory: Negative. Cardiovascular: Negative. Gastrointestinal: Negative. Genitourinary: Negative. Musculoskeletal: Negative. Skin: Negative. Neurological: Negative. All other systems reviewed and are negative. Hematological: Negative. Endocrine: Negative. Allergic/Immunologic: Negative. OBJECTIVE Objective: Physical Exam Constitutional: Appearance: Normal appearance. She is well-developed. Genitourinary: Vulva normal. Cardiovascular: Rate and Rhythm: Normal rate and [...] nursing note reviewed. Exam conducted with a chromium plater present. Vitals: Estimated body mass index is 52.93 kg/m as calculated from the following: Height as of 24: 5' 3 . Weight as of this encounter: 298 lb 12.8 oz. BP: 110/70 Patient's last menstrual period was 01/11/2025. ASSESSMENT & PLAN ICD-10-CM 1. Cyst of right ovary N83.201 POCT , urine manually resulted POCT urinalysis dipstick manually resulted SURESWAB(R) ADVANCED VAGINITIS PLUS, TMA CHLAMYDIA TRACHOMATIS (GENITO/STI) Neisseria gonorrhea DNA probe, direct 2. Pelvic pain in female R10.2 POCT , urine manually resulted POCT urinalysis dipstick manually resulted SURESWAB(R) ADVANCED VAGINITIS PLUS, TMA CHLAMYDIA TRACHOMATIS (GENITO/STI) Neisseria gonorrhea DNA probe, direct Pt presents as an ER follow up- Pt ultrasound showed 6.6cm cyst on right ovary simple appearing. Discussed options. Pt to be scheduled for dx lap with poss jt poss foe, with cyst removal. Pt to return for preop exam. Cultures obtained without difficulty. Pt to wait one normal cycle after surgery and then will start femara again. Pt to have ultrasound after femara for visualization of ovarian cysts. Documented by Sarah Early LPN on behalf of: Jalen Loredo DO documented in this encounter [facility] 02-04-2025 Hospital Discharge instructions Jose Galvan MD - 02/04/2025 1:33 AM EDT Follow-up with your FIG WASHER repeat ultrasound in 3 to 6 months The following attachments cannot be sent through Care Everywhere.Nausea and Vomiting (Omani)Ovarian Cyst: Functional (Omani)UTI (Urinary Tract Infection): Female (Omani)documented in this encounter [facility] 02-04-2025 Note EXAMINATION: PELVIC ULTRASOUND; DOPPLER EVALUATION OF THE [...] Free Fluid: No evidence of free fluid. [facility] 02-04-2025 Note EXAMINATION: PELVIC ULTRASOUND; DOPPLER EVALUATION OF THE [...] Free Fluid: No evidence of free fluid. [facility] 02-04-2025 Note EXAMINATION: PELVIC ULTRASOUND; DOPPLER EVALUATION OF THE [...] Recommend follow-up pelvic ultrasound in 3-6 months. Interpreted by: Brian Prabhakar MD Signed by: Brian Prabhakar MD 02/04/25 Final result [facility] 02-04-2025 Note EXAMINATION: PELVIC ULTRASOUND; DOPPLER EVALUATION OF THE [...] Recommend follow-up pelvic ultrasound in 3-6 months. Interpreted by: Brian Prabhakar MD Signed by: Brian Prabhakar MD 02/04/25 Final result [facility] 12-05-2024 Hospital Discharge instructions Rufino Navarro PA-C - 12/05/2024 4:43 PM EST Please follow-up with your primary care physician, [facility]. Recommend return to the ED if you develop any worsening eye drainage, eye redness, eye swelling, eye pain, pain with eye movements, vision changes or loss, headaches, rash. Please return to the ED if you develop any worsening pelvic pain, develop vaginal bleeding, vaginal discharge, lesions or rashes, abdominal pain, nausea, vomiting, back pain, fevers, chills or any other concerning symptoms. You were treated for gonorrhea and chlamydia. Recommend no intercourse for 2 weeks. Your gonorrhea and Chlamydia results should be resulted in 2 days. Do not drink alcohol with flagyl. The following attachments cannot be sent through Care Everywhere.Bacterial Vaginosis (Omani)Conjunctivitis (Omani)documented in this encounter [facility] 12-05-2024 Note EXAMINATION: DOPPLER EVALUATION OF THE PELVIS; PELVIC [...] points of the ovary. Free fluid: None. [facility] 12-05-2024 Note EXAMINATION: DOPPLER EVALUATION OF THE PELVIS; PELVIC [...] points of the ovary. Free fluid: None. [facility] 11-28-2024 History of Present illness Narrative Reason for Appointment: Patient ID: Lisandra Kinsey is a 29 y.o. female who presents for Discuss Fertility Patient presents today for Consult appointment. MEDICATIONS No current outpatient medications ALLERGIES No Known Allergies PROBLEMS Active Ambulatory Problems Diagnosis Date Noted Weight gain 04/01/2023 HSV (herpes simplex virus) infection 04/01/2023 Morbid obesity ([facility]) 04/01/2023 Ovarian cyst 04/01/2023 Pain in female genitalia on intercourse 04/01/2023 Pelvic pain 04/01/2023 Encounter for weight management 05/18/2024 COVID-19 05/18/2024 Insulin resistance 05/18/2024 Resolved Ambulatory Problems Diagnosis Date Noted No Resolved Ambulatory Problems Past Medical History: Diagnosis Date Abnormal weight gain Dyspareunia, female Encounter for gynecological examination (general) (routine) without abnormal findings Morbid obesity with BMI of 45.0-49.9, adult ([facility]) Patient desires HISTORY PAST MEDICAL HISTORY SOCIAL HISTORY Past Medical History: Diagnosis Date Abnormal weight gain Dyspareunia, female Encounter for gynecological examination (general) (routine) without abnormal findings HSV (herpes simplex virus) infection Morbid obesity with BMI of 45.0-49.9, adult ([facility]) Ovarian cyst Patient desires Pelvic pain Social History Tobacco Use Smoking status: Unknown Smokeless tobacco: Not on file Substance Use Topics Alcohol use: Not Currently Comment: occasional Drug use: Never FAMILY HISTORY Family History Problem Relation Name Age of Onset Diabetes Other Coronary artery disease Other Lung cancer Other COPD Other Emphysema Other Asthma Other Hyperlipidemia Other SURGICAL HISTORY History reviewed. No pertinent surgical history. REVIEW OF SYSTEMS Review of Systems: Review of Systems All other systems reviewed and are negative. OBJECTIVE Objective: Physical Exam Constitutional: Appearance: Normal [...] nursing note reviewed. Exam conducted with a chromium plater present. Vitals: Estimated body mass index is 52.04 kg/m as calculated from the following: Height as of 24: 5' 3 . Weight as of this encounter: 293 lb 12.8 oz. BP: 128/72 No LMP recorded. ASSESSMENT & PLAN ICD-10-CM 1. Encounter for fertility planning Z31.89 2. PCOS (polycystic ovarian syndrome) E28.2 hCG, quantitative, TSH T4, free CBC and differential Follicle stimulating hormone Luteinizing hormone Hemoglobin A1c DHEA-sulfate DHEA US Pelvis w/ TV DHEA 3. Irregular periods/menstrual cycles N92.6 hCG, quantitative, TSH T4, free CBC and differential Follicle stimulating hormone Luteinizing hormone Hemoglobin A1c DHEA-sulfate DHEA US Pelvis w/ TV DHEA Patient presents to office today to discuss irregular cycles and fertility. Patient voiced that she has had on/off vaginal bleeding for the past 3 weeks. Discussed options with patient and Metformin will be sent to patients pharmacy to start taking. Patient was given labs and ultrasound to have obtained. Discussed with patient fertility planning and patient to call office once her cycle starts to have Femara sent to pharmacy. Also, discussed with patient having HSG obtained in the future if needed. Patient to schedule Annual/Fertility follow up in 4 months. Patient to call office with any further questions. Documented by Katya Verdugo LPN on behalf of: Jalen Loredo DO documented in this encounter [facility] 04-12-2024 Hospital Discharge instructions Ana Rosa Reilly MD - 04/12/2024 9:35 PM EDT You are seen in the emergency department today for vaginal discharge. He requested to be tested for STDs. We did obtain vaginal swabs which were showing that you do have a infection called bacterial vaginosis, this is not a sexually transmitted infection, this is a common bacterial infection of the vagina. This is easily treated with an antibiotic called Flagyl. Please take this for 7 days as prescribed. You also requested to be prophylactically treated for an STD just in case you have 1, your results for chlamydia and gonorrhea will not be in for the next 24 to 48 hours. We treated you for these infections, you received Rocephin which is an antibiotic via shot. You will also need to continue taking doxycycline which is an antibiotic pill documented in this encounter [facility] 03-09-2024 History of Present illness Narrative OUTPATIENT NUTRITION CONSULTATION- ADULT Date: 03/09/24 Time in: 3:30pm Time out: 4:30pm Patient Lisandra Kinsey Age () 28 y.o. (1995) Sex female Accompanied by alone Reason for Visit: Chief Complaint Patient presents with MNT - Individual MNT; wt loss Assessment: Height/Weight: BMI Category Obese class 3 (> or = 40.00) Weight Wt Readings from Last 3 Encounters: 04/12/23 117.9 kg (260 lb) 02/01/23 117.9 kg (260 lb) 10/28/22 129.3 kg (285 lb) [place] Body Weight Patient weight not recorded Lab Results: Kidney Lab Results Component Value Date GLU 93 11/27/2021 K 4.5 11/27/2021 BUN 12 11/27/2021 CREATININE 0.67 11/27/2021 Hgb Hemoglobin Date/Time Value Ref Range Status 11/27/2021 03:41 PM 14.6 11.7 - 15.5 g/dL Final Psychosocial / Economic Comments: Pt lives in a town house. Works 6 days a week. Nutrition/Diet Counseling: Prior Nutrition Counseling Prior nutrition counseling was not provided. Diet History Revealed Energy Intake: Inconsistent Total Fat Intake: Excessive Sodium Intake: Excessive Fiber Intake: Inadequate Carbohydrate Intake: Excessive Protein Intake: Inadequate Food Recall Breakfast Time:: (P) 1400 Breakfast Meal:: (P) I dont eat breakfast Lunch Time:: (P) 1500 Lunch Meal:: (P) Bowl of cereal Dinner Time:: (P) 1800 Dinner Meal:: (P) Whatever i have to make for dinner Snack Time:: (P) 1700 Snack:: (P) Fruits Snack Time:: (P) 2100 Snack:: (P) Yogurt What beverages do you consume and approxiate amount?: (P) Only drink water Pertinent Comments: Background Lisandra is here today via [employer]. Pt has been struggling ot loose weight since roughly 2019. Has tried MTM, decreasing intake, and increased activity. Is frustrated that everything seems to cause her to gain weight. States she has thyroid issues. Has been screened for PCOS. Never seen an terra cotta mold maker. Relevant Medication Therapy Pt is taking Adipex. Has not seen much weight loss with this but has experienced a big decrease in appetite. Is on Metformin as well; having GI discomfort and irregularity since starting it 1 roughly 1 month ago per pt. Does not have A1C done as far as pt knows; provider unable to see any A1C test results. Movement/Exercise Pt does walk each day and is moving at work. Does not get any other form of movement. Discussed the benefits and need for muscle building movement. Encouraged muscle building movement if and when able; weight lifting, resistant training, at home seated movement. Discussed the benefits of movement/exercise in weight loss, BG control, and all over wellbeing. Concerns Pt is concerned she will be unable to loose weight. Diagnosis: Inconsistent Energy Intake Related to Lack of prior nutrition-related education As evidenced by Weight gain, 24 hr recall, and Questions and comments Intervention: Nutrition Education: Patient was instructed on carbohydrate counting, healthy food selections, sources of fiber, and sources protein Notes: Previous Eating Habits Pt likes to cook. Has a very decreased appetite at this time as well as buys schedule with work so not cooking as much. Does not like; fish, asparagus, broccoli, cauliflower, or brussels sprouts. Is open to new foods but unsure how to approach trying new foods. Gets in 1-2 meals per day. Lacking in fiber and lean protein some days. Gets very little balance. Feels over whelmed with what foods are good vs bad . Discussed focusing on what foods fuel her body vs what foods stress the body out. Drinks lots of water Explained the role of macronutrient's and their impact on metabolism and energy levels. Discussed the impact of carbohydrates on BG levels, encouraged supportive nutrients with carbs for digestive and BG level support. Educated on balanced meals and snacks with a focus on protein and fiber for fullness/satisfaction. Recommended spacing meals 3-5 hours apart, including snacks between meals (as needed) with carb/protein pairings. Recommended carb intake provided above. Provided with supportive resources that include but were not limited to: snack ideas, lean proteins, fiber containing foods, plate method. Monitoring & Evaluation: Goals Increase muscle building movement; 20-30min per day; resistance bands, seated movement, stretching, body weight strength training Focus on balance; use the MyPlate as a visual (protein, quality carbs, and vegetables) Increase soluble fiber; eventually want you to be able to tolerate more insoluble fiber foods but you may have to increase those slowly Aim for 2 small meals and a snack each day; really don't want you skipping lunch What is a new food you want to try? Parnips, edamame/black mun[place] pasta, different lentils, different wants of cooking chicken or fish? Follow-Up Plan Follow up appointment with Ross pascal. Department phone number provided for questions after session. COLLETTE ALEX, RDN, CDCES [facility] Diabetes and Nutrition Education Video Visit via Real-time Synchronous Audiovisual Provider Location: [facility] - OUTPATIENT DIABETES AND NUTRITION EDUCATION PROGRAM [address] [place], [place] [address] [id number] Patient Location: Other Video Visit Consent Statement: I discussed risks, benefits, and alternatives of a real-time synchronous audiovisual consultation with the patient (and any accompanying persons) including the risks that the patient's personal health details and medical records will be discussed over real-time, synchronous, interactive video/audio/telecommunication technology, the visit will not be recorded without the express consent of both the provider and the patient, and that there are some limitations compared to [id number] evaluations. The patient consented to the presence of additional virtual and/or in-person participants. We elected to proceed. documented in this encounter [facility] 11-18-2023 History of Present illness Narrative Reason for Appointment: Patient ID: Lisandra Kinsey is a 28 y.o. female who presents for Adipex #4 Patient presents today for a weight management consultation. Patient has been prescribed Adipex and she is here for her 4th prescription Today's Vitals: Estimated body mass index is 52.26 kg/m as calculated from the following: Height as of this encounter: 5' 3 . Weight as of this encounter: 295 lb. Previous Weight/BMI: Wt Readings from Last 3 Encounters: 11/18/23 295 lb 10/19/23 288 lb 12.8 oz 09/17/23 297 lb 1.9 oz BMI Readings from Last 3 Encounters: 11/18/23 52.26 kg/m 10/19/23 51.16 kg/m 09/17/23 52.63 kg/m Allergies as of 11/18/2023 (No Known Allergies) Past Medical History: Diagnosis Date Abnormal weight gain Dyspareunia, female Encounter for gynecological examination (general) (routine) without abnormal findings HSV (herpes simplex virus) infection Morbid obesity with BMI of 45.0-49.9, adult ([facility]) Ovarian cyst Patient desires Pelvic pain History reviewed. No pertinent surgical history. Review of Systems: Review of Systems Constitutional: Negative. HENT: Negative. Eyes: Negative. Respiratory: Negative. Cardiovascular: Negative. Gastrointestinal: Negative. Genitourinary: Negative. Musculoskeletal: Negative. Skin: Negative. Neurological: Negative. All other systems reviewed and are negative. Hematological: Negative. Endocrine: Negative. Allergic/Immunologic: Negative. Objective Physical Exam Constitutional: Appearance: Normal appearance. She is normal weight. HENT: Head: Normocephalic. Cardiovascular: Rate and Rhythm: Normal rate. Pulses: Normal pulses. Pulmonary: Effort: Pulmonary effort is normal. Breath sounds: Normal breath sounds. Abdominal: Palpations: Abdomen is soft. Musculoskeletal: General: Normal range of motion. Neurological: General: No focal deficit present. Mental Status: She is alert and oriented to person, place, and time. Psychiatric: Mood and Affect: Mood normal. Behavior: Behavior normal. Thought Content: Thought content normal. Judgment: Judgment normal. Vitals and nursing note reviewed. Assessment/Plan Encounter Diagnosis Name Primary? Encounter for weight management Patient presents today for 4th Adipex prescription. Patient desires additional weigh loss and she is currently taking metformin along with working out to achieve further results. Weight and blood pressure has been captured and I have discussed/reiterated the importance of keeping a food journal, proper nutrition/diet, and exercise regimen. Patient verbalized understanding. Patient has not lost more than 5% of her initial body weight. Other medications including contrave, ozempic offered and pt declined at this time. We discussed the importance of taking eating and fueling the body. She states she is not hungry and does not want to eat. Pt wishes to continue with metformin and follow up in several months Follow Up: Patient is to return to office for annual well women exam unless needed otherwise. Documented by: DEEJAY Chauhan on behalf of DEEJAY Chauhan documented in this encounter [facility] 12-26-2022 Hospital Discharge instructions Ana Rosa Zapata, DO - 12/26/2022 12:06 AM EDT Thank you for coming to [facility] emergency department! You were seen today for vaginal discharge, you were diagnosed with bacterial vaginosis. You were prescribed flagyl, doxycycline (STI treatment), please pick these medications up at the pharmacy. Follow up with your results on MyChart and stop taking doxycycline if negative for gonorrhea or chlamydia. Follow up with your primary care doctor. If you have any worsening of symptoms or any other concerns, please return to the emergency department. We are always available! The following attachments cannot be sent through Care Everywhere.Bacterial Vaginosis (Omani)documented in this encounter [facility] Phone: Evaluation note Diagnosis Vaginal discharge- Primary Leukorrhea, not specified as infective documented in this encounter [employer] Phone: evaluation note* Diagnosis Dermatitis- Primary Contact dermatitis and other eczema, due to unspecified cause documented in this encounter [employer] Phone: evaluation note* Diagnosis Encounter for medical screening examination- Primary documented in this encounter [employer] Phone: evaluation note* Diagnosis Vaginal discharge- Primary Leukorrhea, not specified as infective BV (bacterial vaginosis) Vaginitis and vulvovaginitis, unspecified documented in this encounter [facility] Phone: evaluation note* Diagnosis BV (bacterial vaginosis)- Primary Vaginitis and vulvovaginitis, unspecified documented in this encounter [employer] Phone: evaluation note* Diagnosis Encounter for weight management [facility] Diagnosis Bacterial vaginosis- Primary Vaginitis and vulvovaginitis, unspecified Possible exposure to STD Other specified personal history presenting hazards to health documented in this encounter [facility]* Diagnosis Vaginitis and vulvovaginitis- Primary Vaginitis and vulvovaginitis, unspecified STD exposure Acute cystitis without hematuria Acute cystitis documented in this encounter [facility]* Diagnosis Weight gain Other symptoms concerning nutrition, metabolism, and development Obesity, morbid ([facility]) Morbid obesity [facility] Diagnosis Encounter for fertility planning PCOS (polycystic ovarian syndrome) Polycystic ovaries Irregular periods/menstrual cycles [facility]* Diagnosis Acute bacterial conjunctivitis of right eye- Primary Bacterial vaginosis Vaginitis and vulvovaginitis, unspecified Acute cystitis without hematuria Acute cystitis documented in this encounter [facility] note* Diagnosis Cyst of right ovary- Primary Other and unspecified ovarian cyst Right lower quadrant abdominal pain Abdominal pain, right lower quadrant Nausea and vomiting, unspecified vomiting type Acute cystitis without hematuria Acute cystitis documented in this encounter [facility] note* Diagnosis Cyst of right ovary Other and unspecified ovarian cyst Pelvic pain in female Unspecified symptom associated with female genital organs [facility] [place] [facility] Diagnosis Postoperative examination Follow-up examination, following unspecified surgery [facility] Attachments The following attachments cannot be sent through Care Everywhere. * [facility]i[facility]* Attachments The following attachments cannot be sent through Care Everywhere. * Dermatitis ([place]mani) [facility]* Instructions* Robbie Ibrahim MD - 01/24/2022 Do not drink any alcohol while taking this medicine * Attachments The following attachments cannot be sent through Care Everywhere. * Bacterial Vaginosis ([place]i) [facility] Discharge instructions* Attachments The following attachments cannot be sent through Care Everywhere. * Bacterial Vaginosis ([place]) [facility]* Attachments The following attachments cannot be sent through Care Everywhere. * UTI (Urinary Tract Infection): Female (Omani) * STI (Omani) * Bacterial Vaginosis (Omani) [facility] Purpose Family History No Family History Records FoundNo Family History Records FoundNo Family History Records FoundNo Family History Records FoundNo Family History Records FoundNo Family History Records FoundNo Family History Records FoundNo Family History Records FoundNo Family History Records Found Advance Directives No Advanced Directives Records FoundDocuments on File Type Date Recorded Patient Cloth Bolt Bander Expl anation Advance Directives and Living Will Power of Carry Out Clerk And Shelf Stocker Documents on File Type Date Recorded Patient Cloth Bolt Bander Expl anation ACP-Advance Directive ACP-Power of Carry Out Clerk And Shelf Stocker Discharge Instructions * Attachments The following attachments cannot be sent through Care Everywhere. * Bacterial Vaginosis (Omani) documented in this encounter [facility] Diagnosis Vaginal discharge- Primary Leukorrhea, not specified as infective Bacterial vaginosis Vaginitis and vulvovaginitis, unspecified Diagnosis Vesicular eruption Other specified disorder of skin Additional Source Comments INFORMATION SOURCE (unrecogn ized section and content) DATE CREATED AUTHOR 04/02/2018 [facility] DATE CREATED AUTHOR AUTHOR'S ORGANIZ ATION 07/17/2019 [facility] DATE CREATED AUTHOR AUTHOR'S ORGANIZ ATION 10/07/2019 [facility] DATE CREATED AUTHOR AUTHOR'S ORGANIZ ATION 09/28/2020 [facility] DATE CREATED AUTHOR AUTHOR'S ORGANIZ ATION 07/18/2022 [facility] DATE CREATED AUTHOR AUTHOR'S ORGANIZ ATION 06/08/2024 [facility] DATE CREATED AUTHOR AUTHOR'S ORGANIZ ATION 09/14/2024 [facility] DATE CREATED AUTHOR AUTHOR'S ORGANIZ ATION 02/05/2025 [facility] DATE CREATED AUTHOR AUTHOR'S ORGANIZ ATION 02/22/2025 [facility] EPIC Reason for Visit (unrecogniz ed section and content) Reason Comments Exposure to STD Reason Comments Other STD concern Reason Comments Rash with itching to bila teral arms and inner thighs past week /tx for possible shingles to rt arm last month by PCP Reason Comments Rash Reason Comments Vaginal Discharge STD check Reason Comments Adipex #4 Reason Comments Vaginal Discharge Greenish discharge a nd odor x 6 days, unsure if exposed to STI Reason Comments MNT - Individual MNT; wt loss Specialty Diagnoses / Procedures Referred By Nestor t Referred To Contact Endocrinology, Diabetes & Metabolism Diagnoses Weight gain Obesity, morbid ([facility]) Jalen Loredo R, DO [address] , [place] [address] [facility] [address] [place] [address] Referral ID Status Reason Start Date Expiration Date Visits Requested Visits Authorized [id number] Pending Review Specialty Services Required 02/25/2024 02/24/2025 1 1 Reason Comments Discuss Fertility Reason Comments Exposure to STD Conjunctivitis Reason Comments Flank Pain Right Vomiting Reason Comments ER Follow-up Ovarian Cyst Reason Comments Post-op Visit Ordered Prescriptions (unrec ognized section and content) Prescription Sig Dispensed Refills Start Date End Da te doxycycline hyclate (VIBRA-TABS) 100 MG tablet Take 1 tablet by mouth 2 times daily for 7 days 14 tablet 0 07/31/2021 08/07/2021 Prescription Sig Dispensed Refills Start Date End Da te doxycycline hyclate (VIBRA-TABS) 100 MG tablet Take 1 tablet by mouth 2 times daily for 7 days 14 tablet 0 01/24/2022 01/31/2022 metroNIDAZOLE (FLAGYL) 500 MG tablet Take 1 tablet by mouth 2 times daily for 7 days 14 tablet 0 01/24/2022 01/31/2022 Prescription Sig Dispensed Refills Start Date End Da te doxycycline hyclate (VIBRA-TABS) 100 MG tablet Take 1 tablet by mouth 2 times daily for 7 days 14 tablet 0 12/26/2022 01/02/2023 metroNIDAZOLE (FLAGYL) 500 MG tablet Take 1 tablet by mouth 2 times daily for 7 days 14 tablet 0 12/26/2022 01/02/2023 Prescription Sig Dispensed Refills Start Date End Da te metroNIDAZOLE (FLAGYL) 500 MG tablet Take 1 tablet by mouth 2 times daily for 7 days 14 tablet 0 03/15/2023 03/22/2023 doxycycline hyclate (VIBRA-TABS) 100 MG tablet Take 1 tablet by mouth 2 times daily for 7 days 14 tablet 0 03/15/2023 03/22/2023 Prescription Sig Dispensed Refills Start Date End Da te metroNIDAZOLE (FLAGYL) 500 MG tablet Take 1 tablet by mouth 2 times daily for 7 days 14 tablet 0 04/12/2024 04/19/2024 doxycycline hyclate (VIBRAMYCIN) 100 MG capsule Take 1 capsule by mouth 2 times daily for 7 days 14 capsule 0 04/12/2024 04/19/2024 Prescription Sig Dispensed Refills Start Date End Da te cephALEXin (KEFLEX) 500 MG capsule Take 1 capsule by mouth 3 times daily for 7 days 21 capsule 08/30/2024 09/06/2024 doxycycline hyclate (VIBRA-TABS) 100 MG tablet Take 1 tablet by mouth 2 times daily for 7 days 14 tablet 08/30/2024 09/06/2024 metroNIDAZOLE (FLAGYL) 500 MG tablet Take 1 tablet by mouth 2 times daily for 7 days 14 tablet 08/30/2024 09/06/2024 Prescription Sig Dispensed Refills Start Date End cephALEXin (KEFLEX) 500 MG capsule Take 1 capsule by mouth 3 times daily for 7 days 21 capsule 12/05/2024 12/12/2024 trimethoprim-polymyxin b (POLYTRIM) 34404-3.1 UNIT/ML-% ophthalmic solution Place 1 drop into the right eye every 6 hours for 5 days 1 mL 12/05/2024 12/10/2024 metroNIDAZOLE (FLAGYL) 500 MG tablet Take 1 tablet by mouth in the morning and at bedtime for 7 days 14 tablet 12/05/2024 12/12/2024 Prescription Sig Dispense Quantity Refills Last Filled Start Date End Date cephALEXin (KEFLEX) 500 MG capsule Take 1 capsule by mouth 3 times daily for 7 days 21 capsule 02/04/2025 5 HYDROcodone-acetamin ophen (NORCO) 5-325 MG per tabletIndications:Cy st of right ovary Take 1 tablet by mouth every 4 hours as needed for Pain for up to 3 days. Intended supply: 3 days. Take lowest dose possible to manage pain Max Daily Amount: 6 tablets 18 tablet 02/04/2025 5 ondansetron (ZOFRAN-ODT) 4 MG disintegrating tablet Take 1 tablet by mouth 3 times daily as needed for Nausea or Vomiting 21 tablet 02/04/2025 Scheduled Active and Recently Administ ered Medications (unrecognized section and content) Medication Order 07/29/2021 07/30/2021 07/31/2021 cefTRIAXone (ROCEPHIN) injection 500 mg (COMPLETED) 500 mg, IntraMUSCular, ONCE, On Thu07/31/21 at 1615, For 1 dose 1700 (Given - Provid er: Samra Denny RN) Scheduled Medication Order 01/22/2022 01/23/2022 01/24/2022 cefTRIAXone (ROCEPHIN) injection 1,000 mg (COMPLETED) 1,000 mg, IntraMUSCular, ONCE, 1 dose, On Thu01/24/22 at 0315, Antimicrobial Indications: STD infection 0316 (Given - Provid er: Branden Harmon RN) doxycycline monohydrate (MONODOX) capsule 100 mg (COMPLETED) 100 mg, Oral, ONCE, 1 dose, On Thu01/24/22 at 0315, Antimicrobial Indications: STD infection, This medication can interact with tube feedings (TF)- obtain MD order to manage. Recommend holding TF for 1 h before and 2 h after dose. Take 1 h before or 2 h after dairy, calcium, iron, magnesium, aluminum or zinc. 0315 (Given - Provid er: Branden Harmon RN) Scheduled Medication Order 12/24/2022 12/25/2022 12/26/2022 cefTRIAXone (ROCEPHIN) injection 500 mg (COMPLETED) 500 mg, IntraMUSCular, ONCE, 1 dose, On Thu12/26/22 at 0015, Antimicrobial Indications: STD infection 0026 (Given - Provid er: Eloisa Meza RN) Scheduled Medication Order 03/13/2023 03/14/2023 03/15/2023 cefTRIAXone (ROCEPHIN) injection 500 mg (COMPLETED) 500 mg, IntraMUSCular, ONCE, 1 dose, On 03/15/23 at 1515, Antimicrobial Indications: STD infection 1528 (Given - Provid er: Eli Gutiérrez RN) doxycycline monohydrate (MONODOX) capsule 100 mg (COMPLETED) 100 mg, Oral, ONCE, 1 dose, On 03/15/23 at 1515, Antimicrobial Indications: STD infection, This medication can interact with tube feedings (TF)- obtain MD order to manage. Recommend holding TF for 1 h before and 2 h after dose. Take 1 h before or 2 h after dairy, calcium, iron, magnesium, aluminum or zinc. 1528 (Given - Provid er: Eli Gutiérrez RN) metroNIDAZOLE (FLAGYL) tablet 500 mg (COMPLETED) 500 mg, Oral, ONCE, 1 dose, On 03/15/23 at 1630, Antimicrobial Indications: STD infection 1621 (Given - Provid er: Eli Gutiérrez RN) No Frequency Medication Order 03/13/2023 03/14/2023 03/15/2023 sterile water injection (COMPLETED) 1 dose, Starting on Sun 23 at 1523, Until Thu03/15/23 at 1528, Eli Gutiérrez: cabinet override, Eli Gutiérrez: cabinet override 1528 (Given - Provid er: Eli Gutiérrez RN) Scheduled Medication Order 04/10/2024 04/11/2024 04/12/2024 cefTRIAXone (ROCEPHIN) injection 500 mg (COMPLETED) 500 mg, IntraMUSCular, ONCE, 1 dose, On Thu04/12/24 at 2100, Antimicrobial Indications: STD infection 2058 (Given - Provid er: Chucky Eduardo RN) doxycycline monohydrate (MONODOX) capsule 100 mg (COMPLETED) 100 mg, Oral, ONCE, 1 dose, On Thu04/12/24 at 2100, Antimicrobial Indications: STD infection, This medication can interact with tube feedings (TF)- obtain MD order to manage. Recommend holding TF for 1 h before and 2 h after dose. Take 1 h before or 2 h after dairy, calcium, iron, magnesium, aluminum or zinc. 2058 (Given - Provid er: Chucky Eduardo RN) Scheduled Medication Order 08/28/2024 08/29/2024 08/30/2024 cefTRIAXone (ROCEPHIN) injection 500 mg (COMPLETED) 500 mg, IntraMUSCular, ONCE, 1 dose, On Thu08/30/24 at 0045, Antimicrobial Indications: STD infection 115 (Given - Provid er: Nevaeh Snell RN - Comment: dose rescheduled) doxycycline monohydrate (MONODOX) capsule 100 mg (COMPLETED) 100 mg, Oral, ONCE, 1 dose, On Thu08/30/24 at 0045, Antimicrobial Indications: Urinary Tract Infection, This medication can interact with tube feedings (TF)- obtain MD order to manage. Recommend holding TF for 1 h before and 2 h after dose. Take 1 h before or 2 h after dairy, calcium, iron, magnesium, aluminum or zinc. 113 (Given - Provid er: Nevaeh Snell RN) metroNIDAZOLE (FLAGYL) tablet 500 mg (COMPLETED) 500 mg, Oral, ONCE, 1 dose, On Thu08/30/24 at 0045, Antimicrobial Indications: Urinary Tract Infection 011 (Given - Provid er: Nevaeh Snell RN) No Frequency Medication Order 08/28/2024 08/29/2024 08/30/2024 sterile water injection 1 dose, Starting on Thu08/30/24 at 0108, Until Thu08/30/24 at 1314, Nevaeh Snell: cabinet override, Nevaeh Snell: cabinet override 0115 (Due) Scheduled Medication Order 12/03/2024 12/04/2024 12/05/2024 azithromycin (ZITHROMAX) tablet 1,000 mg (COMPLETED) 1,000 mg, Oral, ONCE, 1 dose, On Thu12/05/24 at 1545, Antimicrobial Indications: STD infection 1601 (Given - Provid er: Brandi Sylvester RN) cefTRIAXone (ROCEPHIN) injection 500 mg (COMPLETED) 500 mg, IntraMUSCular, ONCE, 1 dose, On Thu12/05/24 at 1545, Antimicrobial Indications: STD infection 1601 (Given - Provid er: Brandi Sylvester RN) fluorescein ophthalmic strip 1 mg (COMPLETED) 1 mg (1 strip), Right Eye, ONCE, 1 dose, On Thu12/05/24 at 1315, 1 mg = 1 strip 1600 (Given - Provid er: Brandi Sylvester RN) proparacaine (ALCAINE) 0.5 % ophthalmic solution 1 drop (COMPLETED) 1 drop, Right Eye, ONCE, 1 dose, On Thu12/05/24 at 1315 1600 (Given - Provid er: Brandi Sylvester RN) No Frequency Medication Order 12/03/2024 12/04/2024 12/05/2024 sterile water injection (COMPLETED) 1 dose, Starting on Thu12/05/24 at 1555, Until Thu12/05/24 at 1601, Brandi Sylvester: cabinet override, Brandi Sylvester: cabinet override 1601 (Given - Provid er: Brandi Sylvester RN) Scheduled Medication Order 02/02/2025 02/03/2025 02/04/2025 cephALEXin (KEFLEX) capsule 500 mg (COMPLETED) 500 mg, Oral, ONCE, 1 dose, On 02/04/25 at 0145, Antimicrobial Indications: Urinary Tract Infection 0142 (Given - Provid er: Oleksandr Handy RN) ketorolac (TORADOL) injection 15 mg (COMPLETED) 15 mg, IntraVENous, ONCE, 1 dose, On Thu02/03/25 at 2200, Do not administer for more than 5 days. 2315 (Given - Provider: Oleksandr Handy RN) morphine injection 4 mg (COMPLETED) 4 mg, IntraVENous, NOW, 1 dose, On Thu02/03/25 at 2200, If oral and IV narcotics ordered, use oral first and only use IV if oral is ineffective or cannot take oral. Do Not give oral and IV within 1 hour of each other unless specifically ordered. 2224 (Given - Provider: Oleksandr Handy RN) morphine injection 4 mg (COMPLETED) 4 mg, IntraVENous, NOW, 1 dose, On Thu02/04/25 at 0115, If oral and IV narcotics ordered, use oral first and only use IV if oral is ineffective or cannot take oral. Do Not give oral and IV within 1 hour of each other unless specifically ordered. 0107 (Given - Provid er: Oleksandr Handy RN) ondansetron (ZOFRAN) injection 4 mg (COMPLETED) 4 mg, IntraVENous, ONCE, 1 dose, On Thu02/03/25 at 2200 2221 (Given - Provider: Oleksandr Handy RN) sodium chloride 0.9 % bolus 1,000 mL (COMPLETED) 1,000 mL (7.87 mL/kg), IntraVENous, at 495.9 mL/hr, Administer over 121 Minutes, ONCE, On Thu02/03/25 at 2200, For 1 dose 2218 (New Bag - Provider: Oleksandr Handy RN) 0124 (Stopped - Provider: Oleksandr Handy RN) sodium chloride 0.9 % bolus 100 mL (COMPLETED) 100 mL (0.787 mL/kg), IntraVENous, at 3,000 mL/hr, Administer over 2 Minutes, ONCE, On Thu02/03/25 at 2300, For 1 dose 2308 (New Bag - Provider: Elham Quan)2316 (Stopped - Provider: Oleksandr Handy RN) PRN Medication Order 02/02/2025 02/03/2025 02/04/2025 iopamidol (ISOVUE-370) 76 % injection 75 mL (COMPLETED) 75 mL, IntraVENous, IMG ONCE PRN, 1 dose, Starting on Thu02/03/25 at 2251, Until Thu02/03/25 at 2308, Other 2308 (Given - Provider: Mohit Quan) sodium chloride flush 0.9 % injection 10 mL (COMPLETED) 10 mL, IntraVENous, PRN, 1 dose, Starting on Thu02/03/25 at 2251, Until Thu02/03/25 at 2308, Line Care, For Line Patency: Peripheral IV = 5 mL; Midline or Central Line = 10 mL/lumen. If following IV push medication, administer flush at same rate as the IV push. Flush volume is determined by type of infusion therapy being given. For non-viscous solutions use: Peripheral IV = 5 mL Midline or Central Line = 10 mL/lumen For viscous solutions (i.e. blood components, parenteral nutrition, contrast media, or after obtaining blood sample) use: Peripheral IV = 10 mL Midline or Central Line = 20 mL/lumen 2308 (Given - Provider: Mohit Quan) Care Teams (unrecognized sec tion and content) Floor Scraper Relationship Specialty Start Date End Date Wili Reece APRN - CNP PCP - General Family Medicine 03/17/18 Floor Scraper Relationship Specialty Start Date End Date Wili Reece APRN - CNP PCP - General Family Medicine 03/17/18 Floor Scraper Relationship Specialty Start Date End Date Wili Reece APRN - CNP PCP - General Family Medicine 03/17/18 Floor Scraper Relationship Specialty Start Date End Date Wili Reece APRN - CNP PCP - General Family Medicine 03/17/18 Floor Scraper Relationship Specialty Start Date End Date Wili Reece APRN - CNP PCP - General Family Medicine 03/17/18 Floor Scraper Relationship Specialty Start Date End Date Wili Reece APRN - CNP PCP - General Family Medicine 03/17/18 Floor Scraper Relationship Specialty Start Date End Date Tiffanie Loera PA-C [address] [place] [address] [phone] PCP - General Physician Inbound Call Center Representative 05/24/22 Floor Scraper Relationship Specialty Start Date End Date Mariel Braun PA [facility] [address] [place], [facility] PCP - [facility] 01/11/24 Floor Scraper Relationship Specialty Start Date End Date Mariel Braun PA [facility] [address], [facility] PCP [facility] 01/11/24 Floor Scraper Relationship Specialty Start Date End Date Wili Reece APRN - [employer] PCP - General Family Medicine 03/17/18 Floor Scraper Relationship Specialty Start Date End Date Wili Reece APRN - [employer] PCP - [facility] 03/17/18 Floor Scraper Relationship Specialty Start Date End Date Mariel Braun PA [facility] [address], [facility] PCP - [facility] 01/11/24 Floor Scraper Relationship Specialty Start Date End Date Mariel Braun [place] [facility] [place] [address] [facility] 01/11/24 Floor Scraper Relationship Specialty Start Date End Date Mariel Braun PA [facility] [place], [place] [id number] [facility] 01/11/24 Floor Scraper Relationship Specialty Start Date End Date Mariel Braun PA [address] [place] [address] [place] [address] [facility] 01/11/24 Floor Scraper Relationship Specialty Start Date End Date Mariel Braun PA [address] [place] [address] [place] [address] [facility] 01/11/24 FOR RECORDS PERTAINING TO PATIENTS WHO ARE OR HAVE BEEN ENROLLED IN A CHEMICAL DEPENDENCY/SUBSTANCEABUSE PROGRAM, SOME INFORMATION MAY BE OMITTED. This clinical summary was aggregated from multiple sources. Caution should be exercised in using it in the provision of clinical care. This summary normalizes information from multiple sources, and as a consequence, information in this document may materially change the coding, format and clinical context of patient data. In addition, data may be omitted in some cases. CLINICAL DECISIONS SHOULD BE BASED ON THE PRIMARY CLINICAL RECORDS. [facility]. provides no warranty or guarantee of the accuracy or completeness of information in this document.
[2025-03-01 14:35] LABS: Basophils Percent Auto 0.4 % (0.2-2.0); Eosinophils Absolute Auto 0.2 10^3/uL (0.0-0.7); Eosinophils Percent Auto 2.2 % (0.9-7.0); Hematocrit 45.4 % (36.0-48.0); Hemoglobin 15.4 g/dL (12.0-16.0); Immature Granulocytes Abs Auto 0.02 10^3/uL (0.00-0.03); Immature Granulocytes Pct Auto 0.3 % (0.0-0.5); Lymphocytes Absolute Auto 2.3 10^3/uL (1.2-3.8); Lymphocytes Percent Auto 30.3 % (20.5-60.0); Mean Corpuscular HGB Conc 33.9 g/dL (29.9-35.2); Mean Corpuscular Volume 91.3 fL (81.0-99.0); Mean Platelet Volume 8.8 fL (9.5-13.5); Monocytes Absolute Auto 0.6 10^3/uL (0.3-0.8); Monocytes Percent Auto 7.7 % (1.7-12.0); Neutrophils Absolute Auto 4.5 10^3/uL (1.4-6.5); Neutrophils Percent Auto 59.1 % (43.0-75.0); Platelet Count 294 10^3/uL (150-450); Red Blood Count 4.97 10^6/uL (4.20-5.40); Red Cell Distribution Width 12.7 % (11.0-15.0); White Blood Count 7.7 10^3/uL (4.0-11.0)
== END 2025-03-01 14:11 | disposition home or self-care (01) ==
LOC: LAB 14:13
PROVIDERS: Visit Provider Obstetrics & Gynecology
DX: D69.6 Thrombocytopenia, unspecified (principal); E88.819 Insulin resistance, unspecified; N97.0 Female infertility associated with anovulation
CPT/HCPCS: 36415; 85025

== ENCOUNTER 2025-03-03 07:54 | Outpatient (OUT) | payer OTHER, SELFPAY ==
--- OUTSIDE RECORDS SUMMARY | 2025-01-23 09:42 | XMS_ITS | Continuity of Care Document ---
Author Organization [facility] Address [address] [place] [address] Phone Care Team Providers Care Industrial Recruiter Name Role Phone Miguel Prabhakar MD Unavailable Unavailable Allergies, Adverse Reactions, Alerts Substance Reaction Status Criticality No Known Allergies Active No Inform ation Procedures Procedure Date OFFICE/OUTPATIENT VISIT, EST XRAY FOOT, 3+ VIEWS OFFICE/OUTPATIENT VISIT, EST OFFICE/OUTPATIENT VISIT, EST XRAY KNEE, 3 VIEWS KENALOG 40/TRIAMCINOLONE PER 10 MG MARCAINE INJECT/ ASP MAJOR JOINT/BURS A . SHLDR, HIP, KNEE, W/OUT ULTRASOUND GUIDANCE OFFICE/OUTPATIENT VISIT, NEW Advance Directives Directive Yes / No Effective Date File Name No Information Encounters Encounter Description Practice Location Reason(s) For Visit Diagnoses Date Provider Providers Copied on Encounter [facility], [address] [place] [address], [address], [place] tel:[phone] [facility] No Information 5 Aki Rivera. [address], [place], [id number] , [place]. tel:[phone] OFFICE/OUTPA TIENT VISIT, EST [facility], [address] [place] [address], [address], [place] tel:[phone] [facility] left knee pain (chief complaint) Other tear of lateral meniscus, current injury, left knee, initial encounter 5 Aki Rivera. [address], [place], [id number] , [place]. tel: [phone] OFFICE/OUTPA TIENT VISIT, [facility], [address] [place], [address], [place] tel:[phone] [facility] left ankle pain (chief complaint) Body mass index [BMI] 50.0-59.9, adultSprain of other ligament of left ankle, initial encounterLeft foot pain 5 Dileep Baez. [address], [place], [id number] , [place]. tel: [phone] OFFICE/OUTPA TIENT VISIT, [facility], [address] [place] [address], [address], [place] tel:[phone] [facility] (chief complaint) Chondromalacia patellae, left kneePain in joint of left kneeOther internal derangements of left knee 5 Aki Rivera. [address], [place], [id number] , [place]. tel: [phone] OFFICE/OUTPA TIENT VISIT, [facility], [address] [place], [address], [place] tel:[phone] [facility]) Pain in joint of left kneeContusion of left knee, initial encounterChondro malacia patellae, left knee 4 Aki Rivera. [address], [place], [id number] , [place]. tel: [phone] Family History Family Member Type Diagnosis Age At Onset No Information Payers Payer name Insurance type Covered libertarian ID Authorlenny thomaslandon(s) [facility] [id number] Social History Type Description Quantity Date Captured Comments Alcohol Use Details Unknown Caffeine Use Details Unknown Tobacco Use Status No Information Smoking Status No Information Sex Female Chief Complaint And Reason For Visit No Information Reason For Referral Reason For Referral No Information Plan Of Treatment Date Type Action Status Goal Dietary management education , guidance, and counseling completed History Of Present Illness Encounter Date Complaint History Of Prese nt Illness left knee pain Gabriela Khan is a 29 year old female. She presents with pain on the left side. The symptoms occur intermittently. Currently the patient states that the symptoms are variable. The pain is described as discomforting and sharp. She rates her current pain as 6/10. left ankle pain Gabriela Khan is a 29 year old female. She presents with pain, swelling and pain on the left side. She indicates the injury occurred at work. She is on Worker's Comp. Gabriela states that the symptoms began as the result of a fall. The problem is improving. The pain is described as throbbing. The symptoms occur intermittently. The patient is experiencing pain in the following location: medial ankle on the left side. She rates her worst pain as 7/10. She rates her current pain as 5/10. The pain does not radiate. Gabriela states that the symptoms are relieved by elevation. In addition to left ankle pain the patient is also experiencing ability to bear weight on left foot. Pertinent negatives include warmth, erythema and calf pain. The patient has had a previous x-ray. left ankle (comments) Fell on . Denied prior treatments. left knee pain Ms Khan is a 29 year old female who complains of left knee pain. She presents with pain, decreased rom and instability on the left side. The symptoms occur constantly with intermittent worsening. The problem is unchanged. Currently the patient states that the symptoms are variable. The pain is described as aching and discomforting. She rates her worst pain as 8/10. She rates her current pain as 8/10. knee Ms Khan is a 28 year old female who complains of. She presents with pain and instability on the left side. She states that the symptoms have been acute traumatic and began on 08/07/2024. She indicates the injury occurred at work. She is on Worker's Comp. Gabriela states that the symptoms began as the result of a fall. The problem is worse. The pain is described as aching. The symptoms occur continuously. The patient is experiencing pain in the following location: global knee on the left side. She rates her current pain as 7/10. The pain does not radiate. The symptoms are aggravated by bending, daily activities, descending stairs, ascending stairs and walking. In addition to the patient is also experiencing bruising, decreased mobility, locking, popping, clicking and balance problems. Pertinent negatives include night pain, nighttime awakening, difficulty going to sleep, pain when resting, catching, pulling, limping and warmth. The patient has had a previous x-ray. left knee (comments) Fell on . Last day worked due to current problem: 08/07/2024. Functional Status Date Functional Assessmen t No Information Instructions Date Instruction Additional Infor reena Dietary management e ducation, guidance, and counseling Related to Body mass index [BMI] 50.0-59.9, adult Assessments Type Assessment Date No Information Patient Care Teams Name Effective Dates (start - stop) Status Members No Information
--- OUTSIDE RECORDS SUMMARY | 2025-02-21 10:00 | XMS_ITS | Encounter Summary ---
Author Organization [facility] Address [address] [place] [address] Care Team Providers Care Lab Technologist Name Role Phone Mariel Braun Unavailable Reason for Visit * Reason Comments Post-op Visit Encounter Details Date Type Department Care Team (Late st Contact Info) Description 02/21/2025 10:00 AM EDT Office Visit [facility] [address] [place] [address] Jalen Loredo, DO [address] [place] [address] Postoperative examination Social History Tobacco Use Types Packs/Day Years Used Date Smoking Tobacco: Unknown Alcohol Use Standard Drinks/Week Comments Not Currently 0 (1 standard drink = 0.6 oz pur e alcohol) occasional Comments No Sex and Gender Information Value Date Recorded Sex Assigned at Not on file Legal Sex Female 11:47 PM EDT Gender Identity Female 03/03/2023 10:11 PM EDT Sexual Orientation Not on file documented as of this encounter Last Filed Vital Signs Vital Sign Reading Time Taken Comments Blood Pressure 120/70 02/21/2025 10:20 AM EDT Pulse - - Temperature - - Respiratory Rate - - Oxygen Saturation - - Inhaled Oxygen Concentration - - Weight 133 kg (293 lb 1.9 oz) 02/21/2025 10:20 A M EDT Height - - Body Mass Index 51.92 05/18/2024 11:42 AM EDT documented in this encounter Progress Notes * Sarah Early LPN - 02/21/2025 10:00 AM EDT Reason for Appointment: Patient ID: Gabriela Khan is a 29 y.o. female who presents for Post-op Visit Patient presents today for 1 Week Post Op Follow Up appointment. MEDICATIONS Current Outpatient Medications Medication Instructions cephalexin (KEFLEX) 500 mg, 3 times daily cholecalciferol (VITAMIN D-3) 400 Units, Daily metFORMIN XR (GLUCOPHAGE-XR) 500 mg, Oral, Daily with evening meal, Do not crush, chew, or split. metroNIDAZOLE (FLAGYL) 500 mg, Oral, 2 times daily, Do not drink alcohol while taking this medication ondansetron ODT (ZOFRAN-ODT) 4 mg, Every 8 hours PRN ALLERGIES No Known Allergies PROBLEMS Active Ambulatory Problems Diagnosis Date Noted Weight gain 04/01/2023 HSV (herpes simplex virus) infection 04/01/2023 Morbid obesity ([facility]) 04/01/2023 Ovarian cyst 04/01/2023 Pain in female genitalia on intercourse 04/01/2023 Pelvic pain 04/01/2023 Encounter for weight management 05/18/2024 COVID-19 05/18/2024 Insulin resistance 05/18/2024 Resolved Ambulatory Problems Diagnosis Date Noted No Resolved Ambulatory Problems Past Medical History: Diagnosis Date Abnormal weight gain Dyspareunia, female Encounter for gynecological examination (general) (routine) without abnormal findings Morbid obesity with BMI of 45.0-49.9, adult ([facility]) Patient desires HISTORY PAST MEDICAL HISTORY SOCIAL HISTORY Past Medical History: Diagnosis Date Abnormal weight gain Dyspareunia, female Encounter for gynecological examination (general) (routine) without abnormal findings HSV (herpes simplex virus) infection Morbid obesity with BMI of 45.0-49.9, adult ([facility]) Ovarian cyst Patient desires Pelvic pain Social History Tobacco Use Smoking status: Unknown Smokeless tobacco: Not on file Substance Use Topics Alcohol use: Not Currently Comment: occasional Drug use: Never FAMILY HISTORY Family History Problem Relation Name Age of Onset Diabetes Other Coronary artery disease Other Lung cancer Other COPD Other Emphysema Other Asthma Other Hyperlipidemia Other SURGICAL HISTORY Past Surgical History: Procedure Laterality Date LAPAROTOMY OVARIAN CYSTECTOMY Right 02/14/2025 robotic assisted REVIEW OF SYSTEMS Review of Systems: Review of Systems Constitutional: Negative. HENT: Negative. Eyes: Negative. Respiratory: Negative. Cardiovascular: Negative. Gastrointestinal: Negative. Genitourinary: Negative. Musculoskeletal: Negative. Skin: Negative. Neurological: Negative. All other systems reviewed and are negative. Hematological: Negative. Endocrine: Negative. Allergic/Immunologic: Negative. OBJECTIVE Objective: Physical Exam Constitutional: Appearance: Normal appearance. She is well-developed. Cardiovascular: Rate and Rhythm: Normal rate and regular rhythm. Pulmonary: Effort: Pulmonary effort is normal. Breath sounds: Normal breath sounds. Abdominal: General: Bowel sounds are normal. There is no distension. Palpations: Abdomen is soft. Tenderness: There is no abdominal tenderness. There is no guarding or rebound. Musculoskeletal: General: No swelling. Normal range of motion. Right lower leg: No edema. Left lower leg: No edema. Neurological: Mental Status: She is alert and oriented to person, place, and time. Skin: General: Skin is warm and dry. Psychiatric: Mood and Affect: Mood normal. Behavior: Behavior normal. Vitals and nursing note reviewed. Exam conducted with a cathead operator present. Vitals: Estimated body mass index is 51.92 kg/m?? as calculated from the following: Height as of 24: 5' 3 . Weight as of this encounter: 293 lb 1.9 oz. BP: 120/70 Patient's last menstrual period was 02/08/2025. ASSESSMENT & PLAN ICD-10-CM 1. Postoperative examination Z09 POCT urinalysis dipstick manually resulted Pt presents for postop appt. Robot assisted lap with right ovarian cystectomy. Pt doing well. Surgery discussed with pt in detail. Pt to return as needed. Pt has bruising from surgery- discussed withpt. Documented by Sarah Early LPN on behalf of: Jalen Loredo DO documented in this encounter Plan of Treatment Upcoming Encounters Date Type Department Care Team (Late st Contact Info) Description 03/22/2025 2:50 PM EDT Office Visit [facility] [address] [phone] Mariel Braun PA [address] [address] 04/18/2025 2:00 PM EDT Office Visit [facility] [address] [address] Jalen Loredo DO [address] [place], [place] [id number] documented as of this encounter Procedures Procedure Name Priority Date/Time Associated Diagnosis Comments POCT URINALYSIS DIPSTICK Routine 02/21/2025 10:28 AM EDT Postoperative examination documented in this encounter Results * (ABNORMAL) POCT urinalysis dipstick manually resulted (02/21/2025 10:28 AM EDT) Color, UA Yellow Clarity, UA Clear Glucose, UA Negative Negative - 2000(110) ++++ mg/dL Bilirubin, UA Negative Negative - 4(70) +++ mg/dL Ketones, UA Positive Negative - 160(16) ++++ mg/dL Spec Grav, UA 1.030 1 - 1.03 Blood, UA Negative Negative - 50 Adelfo/mcL pH, UA 5.5 5 - 9 Protein, UA Negative Negative - 2000(20) ++++ mg/dL Urobilinogen, UA 1.0 0.2 - 12 mg/dL Leukocytes, UA Trace Negative - 500+++ Orin/mcL Nitrite, UA Negative Negative - Positive Urine 02/21/2025 10:2 8 AM EDT Jalen Loredo DO POINT OF CARE TEST ENTER/EDIT OR DERABLES Final Result documented in this encounter Visit Diagnoses Diagnosis Postoperative examination Follow-up examination, following unspecified surgery documented in this encounter Care Teams Lab Technologist Relationship Specialty Start Date End Date Mariel Braun PA [address] [place], [place] [phone] PCP - [facility] 01/11/24 documented as of this encounter
--- OUTSIDE RECORDS SUMMARY | 2025-03-01 15:18 | XMS_ITS ---
Author Name Auto Generated Organization [place] Support Name Relationship Address Phone [facility] Next of Kin [address] [place] [phone] + [facility] Next of Kin [address] [place] [address] + [facility] Next of Kin [address] [place] [address] + [facility] [facility] Next of Kin [address] [place] [address] + [facility] [facility] Next of Kin [address] [place] [address] + [facility] Next of Kin [address] [place] [address] [place] [address] [place] [facility] Next of Kin [address] [place] [address] [place] [address] + [place] [address] + [facility] [facility] Next of Kin [address] [place] [address] [place] [address] + [facility] [facility] Next of Kin [address] [place] [address] [place] [address] [place] [address] + [facility] [facility] Next of Kin [address] [place] [address] [place] [address] [place] [facility] Next of Kin [address] [place] [address] [place] [address] [place] [address] + [facility] Next of Kin [address] [place] [address] + [facility] Next of Kin Unknown [phone] [place] [facility] Next of Kin Unknown [phone] [facility] Next of Kin [address] [place] [address] + [facility] Next of Kin [address] [place] [address] + [facility] [facility] Next of Kin [address] [place] [address] [place] [address] + [place] [facility] Next of Kin [address] [place] [address] [place] [address] + [place] [address] + Care Team Providers Care Roof Panel Hanger Name Role Phone CARLOS CASTANEDA Attending Unavailable DERRICK GARZA Attending Unavailable TONYA, CARLOS Attending Unavailable TONYA, CARLOS Attending Unavailable DERRICK GARZA Attending Unavailable TONYA, CARLOS Attending Unavailable DERRICK GARZA Attending Unavailable BINTA WILSON Attending Unavailable HERNANDEZ, WILI S Primary Care Unavailable COURSEDIANA Quijano Attending Unavailable HERNANDEZ, WILI S Referring Unavailable HERNANDEZ, WILI S Primary Care Unavailable STEPHANE HIGH Attending Unavailable HERNANDEZ, WILI S Primary Care Unavailable HERNANDEZ, WILI S Primary Care Unavailable DIANA GALVAN Attending Unavailable SHANIQUE VILLATORO Attending Unavailable CARLOS CASTANEDA Referring Unavailable TIFFANIE PETERSEN Primary Care Unavailable SHANIQUE VILLATORO Attending Unavailable TIFFANIE PETERSEN Referring Unavailable TIFFANIE PETERSEN Primary Care Unavailable CANDICE CALDERÓN Attending Unavailable SERVICES, [facility] Primary Care Unava ilable SERVICES, [facility] Primary Care Unava ilable PROBLEMS DATE TYPE CONDITION / CODE ATTENDING STATUS [facility] 02/03/2025 Unknown Unspecified ovar christina cyst, right side / N83.201(ICD-10) COURSEN [facility] 02/03/2025 Unknown Right lower quad rant pain / R10.31(ICD-10) [facility] 02/03/2025 Unknown Nausea with vomi ting, unspecified / R11.2(ICD-10) [facility] Acute cystitis w ithout hematuria / N30.00(ICD-10) MANDY [facility] 12/05/2024 Unknown Unspecified acut e conjunctivitis, right eye / H10.31(ICD-10) STEPHANE HIGH [facility] 09/12/2024 Unknown Vaginal Discharg e / FREETEXT(AOF) NA [facility] 08/25/2024 Unknown Acute bronchitis , unspecified / J20.9(ICD-10) KAITLYNN [facility] 08/25/2024 Unknown Shortness of corazon ath / R06.02(ICD-10) CANDICE CALDERÓN [facility] 08/25/2024 Unknown Shortness of Corazon ath / FREETEXT(AOF) CANDICE CALDERÓN [facility] 08/25/2024 Unknown Shortness of Corazon ath / UNK(Unknown) CANDICE CALDERÓN [facility] 04/12/2024 Unknown Acute vaginitis / N76.0(ICD-10) [facility] 04/12/2024 Unknown Other specified bacterial agents as the cause of diseases classified elsewhere / B96.89(ICD-10) [facility] 04/12/2024 Unknown Contact with and (suspected) exposure to infections with a predominantly sexual mode of transmission / Z20.2(ICD-10) [facility] 03/09/2024 Unknown Abnormal weight gain / R63.5(ICD-10) SHANIQUE VILLATORO [facility] 03/09/2024 Unknown Morbid (severe) obesity due to excess calories / E66.01(ICD-10) SHANIQUE VILLATORO [facility] PROCEDURES No Procedure Records Found RESULTS CT ABDOMEN PELVIS W IV CONTRAST Observed: 02/04/2025 1:26 AM Status: F Source: [facility] EXAMINATION: CT OF THE ABDOMEN AND PELVIS [...] equal to 10 cm: US promptly Reference: [place]son[place] et al. Managing Incidental Findings on Abdominal CT: White Paper of the ACR Incidental Findings Committee. J Am Emily Radiol 2010;7:754-773 Interpreted by: Amy Bundy MD Signed by: Amy Bundy MD 02/04/25 Final result US DUP ABD PEL RETRO SCROT COMPLETE Observed: 02/04/2025 1:22 AM Status: F Source: [facility] EXAMINATION: PELVIC ULTRASOUND; DOPPLER EVALUATION OF THE [...] by: Brian Prabhakar MD 02/04/25 Final result US NON OB TRANSVAGINAL Observed: 025 1:22 AM Status: F Source: [facility] EXAMINATION: PELVIC ULTRASOUND; DOPPLER EVALUATION OF THE [...] by: Brian Prabhakar MD 02/04/25 Final result CBC WITH DIFF Collected: 02/03/2025 10:28 PM Status: F Source: [facility] TYPE CODE TESTS RESULT OUT OF RANGE REFERENCE UNITS LAB WBC(LOINC) WBC Count 9.4 3.5-11.0 k/uL LAB RBC(LOINC) RBC Count 4.89 4.0-5.2 m/uL LAB HGB(LOINC) Hemoglobin 15.3 12.0-16.0 g/dL LAB HCT(LOINC) Hematocrit 44.2 36-46 % LAB MCV(LOINC) MCV 90.5 80-100 fL LAB MCH(LOINC) MCH 31.4 26-34 pg LAB MCHC(LOINC) MCHC 34.7 31-37 g/dL LAB RDW(LOINC) RDW 13.1 11.5-14.9 % LAB PLT(LOINC) Platelet Count 242 150-450 k/uL LAB MPVX(LOINC) MPV 7.0 6.0-12.0 fL LAB SEG(LOINC) Neutrophil (Seg) 57 36-66 % LAB LYM(LOINC) Lymphocyte 31 24-44 % LAB MON(LOINC) Monocyte 9 High 1-7 % LAB EO(LOINC) Eosinophil 2 0-4 % LAB BASO(LOINC) Basophil 1 0-2 % LAB ASEG(LOINC) Abs.Neutrophil (Seg) 5.30 1.3-9.1 k/uL LAB ALYM(LOINC) Abs. Lymph 2.90 1.0-4.8 k/uL LAB AMONO(LOINC) Abs. Monocyte 0.90 0.1-1.3 k/uL LAB AEO(LOINC) Abs. Eosinophil 0.20 0.0-0.4 k/uL LAB ABASO(LOINC) Abs. Basophil 0.10 0.0-0.2 k/uL Performed By: #### CDP, CP, HCG, MG, LIP, PT #### [facility] [address] [facility] [place] [address] Hardwood Floor Sander: Julian Rubio DO PT Collected: 02/03/2025 10:28 PM Status: F Source: [facility] TYPE CODE TESTS RESULT OUT OF RANGE REFERENCE UNITS LAB PTR(LOINC) Prothrombin Time 13.2 11.8-14.6 sec LAB INR(LOINC) INR 0.9 Result Comment: Therapeutic Range: Moderate Anticoagulant Intensity: INR = 2.0-3.0 High Anticoagulant Intensity: INR = 2.5-3.5 Performed By: #### CDP, CP, HCG, MG, LIP, PT #### [facility] [address] [facility] [place] [address] Hardwood Floor Sander: Julian Rubio DO HCG SCREEN, BLOOD Collected: 10:28 PM Status: F Source: [facility] TYPE [facility] TESTS RESULT OUT OF RANGE REFERENCE UNITS LAB HCG(LOINC) HCG Screen, Blood NEGATIVE NEG Result Comment: Specimens wi th hCG levels near the threshold of the test (25 mIU/mL) may give a negative or indeterminate result. In such cases, another test should be performed with a new specimen in 48-72 hours. If early is suspected clinically in this setting, correlation with quantitative serum b-hCG level is suggested. Performed By: #### CDP, CP, HCG, MG, LIP, PT #### [facility] [address] [facility] [place] [address] Hardwood Floor Sander: Julian Rubio DO COMP METABOLIC PROF Collected: 02/04/20 10:28 PM Status: F Source: [facility] TYPE CODE TESTS RESULT OUT OF RANGE REFERENCE UNITS LAB NA(LOINC) NA (Sodium) 141 136-145 mmol/L LAB K(LOINC) K (Potassium) 4.1 3.7-5.3 mmol/L LAB CL(LOINC) Chloride 108 High 98-107 mmol/L LAB HCO(LOINC) CO2 23 20-31 mmol/L LAB GAP(LOINC) Anion Gap 10 9-16 mmol/L LAB GLU(LOINC) Glucose 122 High 74-99 mg/dL LAB BUN(LOINC) BUN (Urea N) 9 6-20 mg/dL LAB CRE(LOINC) Creatinine 0.5 Low 0.7-1.2 mg/dL LAB EGFR(LOINC) eGFR >90 >60 mL/min/1. 73m2 Result Comment: These results are not intended [...] following therapy that affects renal tubular secretion. LAB CA(LOINC) Calcium 9.5 8.6-10.4 mg/dL LAB TP(LOINC) Protein, Total 6.9 6.6-8.7 g/dL LAB ALB(LOINC) Albumin 4.2 3.5-5.2 g/dL LAB TBIL(LOINC) Bilirubin, Total 0.5 0.0-1.2 mg/dL LAB ALP(LOINC) Alkaline Phos 40 35-104 U/L LAB ALT(LOINC) ALT 48 High 10-35 U/L LAB AST(LOINC) AST 26 10-35 U/L Performed By: #### CDP, CP, HCG, MG, LIP, PT #### [facility] [address] [facility] [place] [address] Hardwood Floor Sander: Julian Rubio DO LIPASE Collected: 10:28 PM Status: F Source: [facility] TYPE CODE TESTS RESULT OUT OF RANGE REFERENCE UNITS LAB LIP(LOINC) Lipase 21 13-60 U/L Performed By: #### CDP, CP, HCG, MG, LIP, PT #### [facility] [address] [facility] [place] [address] Hardwood Floor Sander: Julian Rubio DO MAGNESIUM Collected: 10:28 PM Status: F Source: [facility] TYPE CODE TESTS RESULT OUT OF RANGE REFERENCE UNITS LAB MG(LOINC) Magnesium 1.7 1.6-2.6 mg/dL Performed By: #### CDP, CP, HCG, MG, LIP, PT #### [facility] [address] [facility] [place], [place] [id number] Hardwood Floor Sander: Julian Rubio DO UA W/REFLEX CULTURE Collected: 02/03/2025 9:[address] atus: F Source: [facility] TYPE CODE TESTS RESULT OUT OF RANGE REFERENCE UNITS LAB UCO(LOINC) Color Yellow YEL LAB UTU(LOINC) Clarity, Urine Cloudy Abnormal CLEAR LAB UGL(LOINC) Glucose,Semi-q nt,Ur NEGATIVE NEG mg/dL LAB UBI(LOINC) Bilirubin, SemiQt,Ur NEGATIVE NEG LAB UKE(LOINC) Ketones, Urine TRACE Abnormal NEG mg/dL LAB USG(LOINC) Spec. Elmer,Ur 1.024 1.000-1.030 LAB UHB(LOINC) Blood, Urine NEGATIVE NEG LAB UPH(LOINC) PH,Ur 5.0 5.0-8.0 LAB UPR(LOINC) Protein, Semi-qnt,Ur NEGATIVE NEG mg/dL LAB UUR(LOINC) Urobilinogen,U r Normal 0.0-1.0 EU/dL LAB UNI(LOINC) Nitrite,Ur NEGATIVE NEG LAB ULE(LOINC) Leukocyte Esterase TRACE Abnormal NEG Performed By: #### VALE, UMIC AO, UAX #### [facility] [address] [place] [address] Hardwood Floor Sander: Julian Rubio DO URINALYSIS,MICRO Collected: 9:41 PM Status: F Source: [facility] TYPE CODE TESTS RESULT OUT OF RANGE REFERENCE UNITS LAB UWBC(LOINC) Urine WBC's 6 TO 9 Abnormal R05 /HPF LAB URBC(LOINC) Urine RBC's 0 TO 2 R02 /HPF LAB CAST(LOINC) Casts 3 to 5 Abnormal NONE /LPF LAB EPITH(LOINC) Epithelial cells 10 TO 20 /HPF LAB BACT(LOINC) Bacteria MANY Abnormal NONE Performed By: #### VALE, MIA AO, UAX #### [facility] [address] [facility] [place] [address] Hardwood Floor Sander: Julian Rubio DO DRUG SCR, ABUSE, UR Collected: 02/03/2025 9:[address] atus: F Source: [facility] TYPE CODE TESTS RESULT OUT OF RANGE REFERENCE UNITS LAB AMPH(LOINC) Amphetamine(s),U r NEGATIVE NEG Result Comment: Cutoff: 1000 ng/mL LAB MUSA(LOINC) Barbiturate(s),U r NEGATIVE NEG Result Comment: Cutoff: 200 ng/ml LAB CASSIE(LOINC) Benzodiazepine(s ) NEGATIVE NEG Result Comment: Cutoff: 200 ng/ml LAB BE(LOINC) Cocaine Metabolite NEGATIVE NEG Result Comment: Cutoff: 300 ng/ml LAB METH(LOINC) Methadone NEGATIVE NEG Result Comment: Cutoff: 300 ng/ml LAB OPIA(LOINC) Opiate(s), Ur NEGATIVE NEG Result Comment: Cutoff: 300 ng/ml LAB PCP(LOINC) Phencyclidine, Ur NEGATIVE NEG Result Comment: Cutoff: 25 n g/ml LAB THC(LOINC) Cannabinoid(s),U r NEGATIVE NEG Result Comment: Cutoff: 50 n g/ml LAB UOXY(LOINC) Oxycodone, Urine NEGATIVE NEG Result Comment: Cutoff: 100 ng/ml LAB UFENT(LOINC) Fentanyl, Urine NEGATIVE NEG Result Comment: Cutoff: 5 ng /ml LAB DAUII(LOINC) Interpretive Info This method is a screening test to detect only these drug classes as part of a Result Comment: medical work up. Confirmatory testing by another method should be ordered if clinically indicated. Performed By: #### VALE, FRANCISIC AO, UAX #### [facility] [address] [facility] [place] [address] Hardwood Floor Sander: Julian Rubio DO US PELVIS TRANSVAGINAL Observed: 025 12:58 PM Status: F Source: [facility] EPIC Order Comment: US PELVIS-TRA NSVAG IF INDICATED No LMP recorded. EXAM: US PELVIS TRANSVAGINAL HISTORY: PCOS, irregular [...] bilateral ovaries. Electronically Signed:Electronically signed by AMY BRATLETT II, MD, PHD at 21-Dec-2024 08:37:37 AM [facility] US PELVIS COMPLETE Observed: 12/05/2024 4:35 PM Status: C Source: [facility] ADDENDUM: 3.4 cm left ovarian adnexal cyst appears to be simple. In a patient of this age this almost certainly reflects physiologic cyst. Because transvaginal pelvis ultrasound imaging was not performed, suboptimally characterized adnexa, may and right pericolic consider follow-up pelvis ultrasound 8-12 weeks.* The results were called by Dr. Tamir Siegel to RUFINO NAVARRO on 12/05/2024 at 16:27. ____ * recommendation per the 2020 ACR White Paper, RP Best Practice recommendation Electronically Signed by: TAMIR SIEGEL on ThuDec 05, 2024 4:35:55 PM [...] sonographic appearance of the uterus. Interpreted by: Tamir Siegel MD Signed by: Tamir Siegel MD 12/05/24 Edited Result - FINAL US DUP ABD PEL RETRO SCROT COMPLETE Observed: 12/05/2024 4:35 PM Status: C Source: [facility] ADDENDUM: 3.4 cm left ovarian adnexal cyst appears to be simple. In a patient of this age this almost certainly reflects physiologic cyst. Because transvaginal pelvis ultrasound imaging was not performed, suboptimally characterized adnexa, may and right pericolic consider follow-up pelvis ultrasound 8-12 weeks.* The results were called by Dr. Tamir Siegel to RUFINO NAVARRO on 12/05/2024 at 16:27. ____ * recommendation per the 2020 ACR White Paper, RP Best Practice recommendation Electronically Signed by: TAMIR SIEGEL on ThuDec 05, 2024 4:35:54 PM [...] sonographic appearance of the uterus. Interpreted by: Tamir Siegel MD Signed by: Tamir Siegel MD 12/05/24 Edited Result - FINAL CHLAMYDIA/GC,DNA AMP Collected: 025 1:55 PM Status: F Source: [facility] TYPE CODE TESTS RESULT OUT OF RANGE REFERENCE UNITS LAB SWCT([facility]) Chlamydia Probe NEGATIVE NEG Result Comment: CHLAMYDIA TR ACHOMATIS DNA not detected by nucleic acid amplification. [...] results by an alternative nucleic acid target. LAB SWNG([facility]) Gonorrhea Probe NEGATIVE NEG Result Comment: NEISSERIA GO NORRHOEAE DNA not detected by nucleic acid amplification. [...] alternative nucleic acid target. Performed By: #### [facility] ### # [address] [id number] Hardwood Floor Sander: Juan Medley MD VAGINITIS DNA PROBE Collected: 12/05/19 1:55 PM Status: F Source: [facility] TYPE CODE TESTS RESULT OUT OF RANGE REFERENCE UNITS LAB SPVAG(LOINC) Source .VAGINAL SWAB LAB TRVAG(LOINC) Trichomonas NEGATIVE NEG Result Comment: for Trichomo radha Vaginalis LAB GARSP(LOINC) Gardnerella POSITIVE Abnormal NEG Result Comment: for Gardnere lla vaginalis LAB CANSP(LOINC) Angle NEGATIVE NEG Result Comment: for Angle sp. Method of testing is a DNA probe intended for detection and identification of Angle species, Gardnerella vaginalis, and Trichomonas vaginalis nucleic acid in vaginal fluid specimens from patients with symptoms of vaginitis/vaginosis. Performed By: #### VAGP #### [facility] [address] [facility] [place], [place] [id number] Hardwood Floor Sander: Julian Rubio DO HCG, ,URINE Collected: 12:30 PM Status: F Source: [facility] TYPE CODE TESTS RESULT OUT OF RANGE REFERENCE UNITS LAB UHCG(LOINC) HCG, ,Ur ine NEGATIVE NEG Result Comment: Specimens wi th hCG levels near the threshold of the test (25 mIU/mL) may give a negative or indeterminate result. In such cases, another test should be performed with a new specimen in 48-72 hours. If early is suspected clinically in this setting, correlation with quantitative serum b-hCG level is suggested. Performed By: #### UHCG #### [facility] [address] [facility] [place] [address] Hardwood Floor Sander: Julian Rubio DO UA W/REFLEX CULTURE Collected: 12/05/19 12:30 PM Status: F Source: [facility] TYPE CODE TESTS RESULT OUT OF RANGE REFERENCE UNITS LAB UCO(LOINC) Color Yellow YEL LAB UTU(LOINC) Clarity, Urine Cloudy Abnormal CLEAR LAB UGL(LOINC) Glucose,Semi-q nt,Ur NEGATIVE NEG mg/dL LAB UBI(LOINC) Bilirubin, SemiQt,Ur NEGATIVE NEG LAB UKE(LOINC) Ketones, Urine NEGATIVE NEG mg/dL LAB USG(LOINC) Spec. Elmer,Ur 1.016 1.000-1.030 LAB UHB(LOINC) Blood, Urine NEGATIVE NEG LAB UPH(LOINC) PH,Ur 5.5 5.0-8.0 LAB UPR(LOINC) Protein, Semi-qnt,Ur NEGATIVE NEG mg/dL LAB UUR(LOINC) Urobilinogen,U r Normal 0.0-1.0 EU/dL LAB UNI(LOINC) Nitrite,Ur NEGATIVE NEG LAB ULE(LOINC) Leukocyte Esterase TRACE Abnormal NEG Performed By: #### UAX, UMIC AO #### [facility] [address] [facility] [place] [address] Hardwood Floor Sander: Julian Rubio DO URINALYSIS,MICRO Collected: 12:30 PM Status: F Source: [facility] TYPE CODE TESTS RESULT OUT OF RANGE REFERENCE UNITS LAB UWBC([facility]) Urine WBC's 10 TO 20 Abnormal R05 /HPF LAB URBC(INC) Urine RBC's 0 TO 2 R02 /HPF LAB CAST(LOINC) Casts 0 TO 2 Abnormal NONE /LPF LAB EPITH(INC) Epithelial cells 10 TO 20 /HPF LAB BACT(INC) Bacteria FEW Abnormal NONE Performed By: #### UAX, UMIC AO #### [facility] [address] [place], [place] [id number] Hardwood Floor Sander: Julian Rubio DO CULT,URINE Observed: 12/05/2024 12:30 PM Status: F Source: [facility] Specimen Description .CLEAN CATCH URINE Culture NO SIGNIFICANT GROWTH Report Status FINAL 12/06/2024 Performed By: #### URC #### [facility] [address] [place], [place] [id number] Hardwood Floor Sander: Julian Rubio DO [address] [id number] Hardwood Floor Sander: Juan Medley MD URINE NURSING Collected: 09/12/2024 4 :12 PM Status: COMPLETED Source: [facility] TYPE CODE TESTS RESULT OUT OF RANGE REFERENCE UNITS LAB NUCG(LOINC) URINE NURSING Negative (qualifier value) NEG Performed By: #### [id number] ## ## [facility] ([id number]) [address] [place] [id number] URN MACROSCOPIC KATHERINE Collected: 09/12/2024 4:10 PM Status: COMPLETED Source: [facility] TYPE CODE TESTS RESULT OUT OF RANGE REFERENCE UNITS LAB SPGRN(LOINC) SPECIFIC GRAVITY KATHERINE >=1.030 1.003-1.035 LAB LESTN(LOINC) LEUKOCYTE ESTERASE KATHERINE Small Abnormal NEG LAB NITN(LOINC) NITRITE KATHERINE Negative (qualifier value) NEG LAB PHURN(LOINC) PH KATHERINE 5.0 5.0-8.5 LAB PRURN(LOINC) PROTEIN KATHERINE Negative (qualifier value) NEG mg/dL LAB GLURN(LOINC) GLUCOSE KATHERINE Negative (qualifier value) NEG mg/dL LAB KETN(LOINC) KETONES KATHERINE Negative (qualifier value) NEG mg/dL LAB UROBN(LOINC) UROBILINOGEN KATHERINE 0.2 <1.1 eu/dL LAB BILEN(LOINC) BILIRUBIN KATHERINE Negative (qualifier value) NEG LAB BLURN(LOINC) BLOOD/HGB KATHERINE Small Abnormal NEG Performed By: #### NUM #### [facility] ([id number]) [address] [place] [address] CHLAMYDIA/GC BY PCR Observed: 09/12/2024 4:05 PM Status: COMPLETED Source: [facility] SPECIMEN SOURCE VAGINAL CHLAMYDIA DNA(PCR) Negative (qualifier value) Chlamydia trachomatis not detected by nucleic acid amplification. This does not exclude the possibility of infection because results are dependent on adequate specimen collection. GONORRHOEAE DNA(PCR) Negative (qualifier value) Neisseria gonorrhoeae not detected by nucleic acid amplification. This does not exclude the possibility of infection because results are dependent on adequate specimen collection. Performed By: #### CGS #### [facility] ([id number]) [address] [place] [id number] [facility] ([id number]) [address] [place] [address], [address] [place] [address] VAGINITIS PANEL PCR Observed: 09/12/2024 4:05 PM Status: COMPLETED Source: [facility] BACT. VAGINOSIS DNA Detected (qualifier value) Qualitative results are reported based on detection and quantitation of targeted organism markers which include: Lactobacillus spp. (L. crispatus and L. jensenii), Gardnerella vaginalis, Atopobium vaginae, Bacterial Vaginosis Associated Bacteria-2 (BVAB-2) and Megasphaera-1 ANGLE SPECIES DNA Detected (qualifier value) Angle species result based on detection of one or more of the following species: C. albicans, C. tropicalis, C. parapsilosis or C. dubliniensis ANGLE KRUSEI DNA Not detected (qualifier value) No Angle krusei detected ANGLE GLABRATA DNA Not detected (qualifier value) No Angle glabrata detected TRICHOMONAS VAG DNA Detected (qualifier value) Trichomonas vaginalis detected NOTE BD MAX Vaginal Panel has not been evaluated for patients under 18 years old. Results for these patients should be reviewed and assessed in accordance with clinical presentation to determine patient diagnosis. Performed By: #### VPPCR ### # [facility] ([id number]) [address] [place] [address], [address] [address] SYPHILIS TOTAL Collected: 09/12/2024 4:03 PM S tatus: COMPLETED Source: [facility] TYPE CODE TESTS RESULT OUT OF RANGE REFERENCE UNITS LAB SYPHT(LOINC) Syphilis Total 0.2 0.0-0.8 AI Result Comment: NON REACTIVE No serologic evidence of infection to Treponema pallidum (syphilis). Repeat testing may be considered in patients with suspected acute or primary syphilis in 2 to 4 weeks. Performed By: #### [id number] # ### [facility] ([id number]) [address] [place] [address], [address] [place] [id number] CULT,URINE Observed: 08/30/2024 12:06 AM Status: F Source: [facility] Specimen Description .CLEAN CATCH URINE Culture ESCHERICHIA COLI >100,000 CFU/ML This organism is an Extended Spectrum Beta Lactamase (ESBL) [facility] and resistance to therapy with penicillins, cephalosporins [...] RESISTANT Amikacin <=2 SUSCEPTIBLE Meropenem <=0.25 SUSCEPTIBLE Performed By: #### URC #### [facility] [address] [facility] [place] [address] Hardwood Floor Sander: [place] [address] Hardwood Floor Sander: Juan Medley MD HCG, ,URINE Collected: 024 11:44 PM Status: F Source: [facility] TYPE CODE TESTS RESULT OUT OF RANGE REFERENCE UNITS LAB UHCG(LOINC) HCG, ,Ur ine NEGATIVE NEG Result Comment: Specimens wi th hCG levels near the threshold of the test (25 mIU/mL) may give a negative or indeterminate result. In such cases, another test should be performed with a new specimen in 48-72 hours. If early is suspected clinically in this setting, correlation with quantitative serum b-hCG level is suggested. Performed By: #### UHCG #### [facility] [address] [place] [address] Hardwood Floor Sander: Julian Rubio DO UA W/REFLEX CULTURE Collected: 08/29/20 24 11:44 PM Status: F Source: [facility] TYPE CODE TESTS RESULT OUT OF RANGE REFERENCE UNITS LAB UCO(LOINC) Color Yellow YEL LAB UTU(LOINC) Clarity, Urine Cloudy Abnormal CLEAR LAB UGL(LOINC) Glucose,Semi-q nt,Ur NEGATIVE NEG mg/dL LAB UBI(LOINC) Bilirubin, SemiQt,Ur NEGATIVE NEG LAB UKE(LOINC) Ketones, Urine NEGATIVE NEG mg/dL LAB USG(LOINC) Spec. Elmer,Ur 1.022 1.000-1.030 LAB UHB(LOINC) Blood, Urine NEGATIVE NEG LAB UPH(LOINC) PH,Ur 5.0 5.0-8.0 LAB UPR(LOINC) Protein, Semi-qnt,Ur NEGATIVE NEG mg/dL LAB UUR(LOINC) Urobilinogen,U r Normal 0.0-1.0 EU/dL LAB UNI(LOINC) Nitrite,Ur NEGATIVE NEG LAB ULE(LOINC) Leukocyte Esterase TRACE Abnormal NEG Performed By: #### CRIS U AX #### [facility] [address] [facility] [place], [place] [id number] Hardwood Floor Sander: Julian Rubio DO URINALYSIS,MICRO Collected: 4 11:44 PM Status: F Source: [facility] TYPE CODE TESTS RESULT OUT OF RANGE REFERENCE UNITS LAB UWBC(LOINC) Urine WBC's 10 TO 20 Abnormal R05 /HPF LAB URBC(LOINC) Urine RBC's 0 TO 2 R02 /HPF LAB CAST(LOINC) Casts HYALINE Abnormal NONE /LPF Result Comment: 0 TO 2 LAB EPITH(LOINC) Epithelial cells 10 TO 20 /HPF LAB BACT(LOINC) Bacteria FEW Abnormal NONE LAB AMORPH(LOINC) Amorphous Sediment 1+ Performed By: #### CRIS U AX #### [facility] [address] [place] [address] Hardwood Floor Sander: Julian Rubio DO CHLAMYDIA/GC,DNA AMP Collected: 024 11:42 PM Status: F Source: [facility] TYPE CODE TESTS RESULT OUT OF RANGE REFERENCE UNITS LAB SWCT(LOINC) Chlamydia Probe NEGATIVE NEG Result Comment: CHLAMYDIA TR ACHOMATIS DNA not detected by nucleic acid amplification. [...] results by an alternative nucleic acid target. LAB SWNG(LOINC) Gonorrhea Probe NEGATIVE NEG Result Comment: NEISSERIA GO NORRHOEAE DNA not detected by nucleic acid amplification. [...] alternative nucleic acid target. Performed By: #### SWCGP ### # [facility] [address] [place] [address] Hardwood Floor Sander: Juan Medley MD VAGINITIS DNA PROBE Collected: 08/29/20 11:42 PM Status: F Source: [facility] TYPE CODE TESTS RESULT OUT OF RANGE REFERENCE UNITS LAB SPVAG(LOINC) Source .VAGINAL SWAB LAB TRVAG(LOINC) Trichomonas NEGATIVE NEG Result Comment: for Trichomo radha Vaginalis LAB GARSP(LOINC) Gardnerella POSITIVE Abnormal NEG Result Comment: for Gardnere lla vaginalis LAB CANSP(LOINC) Angle NEGATIVE NEG Result Comment: for Angle sp. Method of testing is a DNA probe intended for detection and identification of Angle species, Gardnerella vaginalis, and Trichomonas vaginalis nucleic acid in vaginal fluid specimens from patients with symptoms of vaginitis/vaginosis. Performed By: #### VAGP #### [facility] [address] [place] [address] Hardwood Floor Sander: Julian Rubio DO XR CHEST 2 VWS Observed: 08/25/2024 2:52 PM Status: COMPLETED Source: [facility] X[facility] CHEST 2 VWS PA and lateral chest: HISTORY: Cough. 2 views the chest are obtained. Cardiac and mediastinal contours are within normal limits. Lungs are clear. There is no vascular congestion, effusion, or pneumothorax. Osseous structures appear intact. IMPRESSION: No acute findings. Finalized by Jaron Cruz MD on 08/25/2024 3:00 PM UA W/REFLEX CULTURE Collected: 04/12/2024 7:[address] atus: F Source: [facility] TYPE CODE TESTS RESULT OUT OF RANGE REFERENCE UNITS LAB UCO(LOINC) Color Yellow YEL LAB UTU(LOINC) Clarity, Urine Cloudy Abnormal CLEAR LAB UGL(LOINC) Glucose,Semi-q nt,Ur NEGATIVE NEG mg/dL LAB UBI(LOINC) Bilirubin, SemiQt,Ur NEGATIVE NEG LAB UKE(LOINC) Ketones, Urine TRACE Abnormal NEG mg/dL LAB USG(LOINC) Spec. Elmer,Ur 1.036 High 1.000-1.030 LAB UHB(LOINC) Blood, Urine NEGATIVE NEG LAB UPH(LOINC) PH,Ur 5.5 5.0-8.0 LAB UPR(LOINC) Protein, Semi-qnt,Ur TRACE Abnormal NEG mg/dL LAB UUR(LOINC) Urobilinogen,U r Normal 0.0-1.0 EU/dL LAB UNI(LOINC) Nitrite,Ur NEGATIVE NEG LAB ULE(LOINC) Leukocyte Esterase TRACE Abnormal NEG Performed By: #### JOSE ROJAS, UAX #### [facility] [address] [place] [id number] Hardwood Floor Sander: Julian Rubio DO HCG, ,URINE Collected: 7:36 PM Status: F Source: [facility] TYPE CODE TESTS RESULT OUT OF RANGE REFERENCE UNITS LAB UHCG(LOINC) HCG, ,Ur ine NEGATIVE NEG Result Comment: Specimens wi th hCG levels near the threshold of the test (25 mIU/mL) may give a negative or indeterminate result. In such cases, another test should be performed with a new specimen in 48-72 hours. If early is suspected clinically in this setting, correlation with quantitative serum b-hCG level is suggested. Performed By: #### UHCG JOSE WATTS, UAX #### [facility] [address] [place] [address] Hardwood Floor Sander: Julian Rubio DO URINALYSIS,MICRO Collected: 4 7:36 PM Status: F Source: [facility] TYPE CODE TESTS RESULT OUT OF RANGE REFERENCE UNITS LAB UWBC(LOINC) Urine WBC's 6 TO 9 Abnormal R05 /HPF LAB URBC(LOINC) Urine RBC's None Abnormal R02 /HPF LAB EPITH(LOINC) Epithelial cells TOO NUMEROUS TO COUNT /HPF LAB BACT(LOINC) Bacteria MANY Abnormal NONE LAB MUC(LOINC) Mucus Strands 1+ LAB AMORPH(LOINC) Amorphous Sediment 2+ Performed By: #### UHCG, JOSE WATTS, UAX #### [facility] [address] [place] [address] Hardwood Floor Sander: Julian Rubio DO CHLAMYDIA/GC,DNA AMP Collected: 024 7:20 PM Status: F Source: [facility] TYPE CODE TESTS RESULT OUT OF RANGE REFERENCE UNITS LAB SWCT(LOINC) Chlamydia Probe NEGATIVE NEG Result Comment: CHLAMYDIA TR ACHOMATIS DNA not detected by nucleic acid amplification. [...] results by an alternative nucleic acid target. LAB SWNG(LOINC) Gonorrhea Probe NEGATIVE NEG Result Comment: NEISSERIA GO NORRHOEAE DNA not detected by nucleic acid amplification. [...] alternative nucleic acid target. Performed By: #### [facility] ### # [place] [address] [place] [address] Hardwood Floor Sander: Juan Medley MD VAGINITIS DNA PROBE Collected: 04/12/20 24 7:20 PM Status: F Source: [facility] TYPE CODE TESTS RESULT OUT OF RANGE REFERENCE UNITS LAB SPVAG(LOINC) Source .VAGINAL SWAB LAB TRVAG(LOINC) Trichomonas NEGATIVE NEG Result Comment: for Trichomo radha Vaginalis LAB GARSP(LOINC) Gardnerella POSITIVE Abnormal NEG Result Comment: for Gardnere lla vaginalis LAB CANSP(LOINC) Angle NEGATIVE NEG Result Comment: for Angle sp. Method of testing is a DNA probe intended for detection and identification of Angle species, Gardnerella vaginalis, and Trichomonas vaginalis nucleic acid in vaginal fluid specimens from patients with symptoms of vaginitis/vaginosis. Performed By: #### VAGP #### [facility] [address] [place] [address] Hardwood Floor Sander: Julian Rubio DO ALLERGIES DATE TYPE / CODE NAME / CODE REACTION SEVERITY SOURCE Drug Class/233784241(SNO MED CT) NO KNOWN ALLERGIES [facility] ENCOUNTERS ADMIT/DISCHARGE ACCOUNT NUMBER ADMITTING ENCOUNTER CLASS LOCATION SOURCE 03/01/2025/03/01/20 [id number] Ambulatory Building:[facility] 02/21/2025/02/22/20 [id number] Ambulatory Building:[facility] 02/07/2025/02/08/20 [id number] Ambulatory Building:[facility] 02/03/2025/02/05/20 [id number] Emergency Building:[facility] Room: 08Bed: 08 [facility] 12/20/2024/12/21/19 [id number] Ambulatory Building:[facility] 12/05/2024/12/05/19 [id number] Emergency Building:[facility] Room: DCBed: [facility] 11/28/2024/11/28/19 [id number] Ambulatory Building:[facility] 09/12/2024/09/12/20 [id number] Emergency Building:[facility] _EDRoom: 10Bed: 10 [facility] 08/29/2024/08/30/20 24 [id number] Emergency Building:[facility] Room: 11Bed: 11 [facility] 08/25/2024/08/25/20 24 [id number] Emergency Building:[facility] _EDRoom: 2Bed: 02 [facility] 06/06/2024/06/06/20 24 [id number] Ambulatory Building:[facility] 05/18/2024/05/18/20 24 [id number] Ambulatory Building:[facility] 04/12/2024/04/12/20 24 [id number] Emergency Building:[facility] Room: FBed: [facility] 04/12/2024/04/12/20 24 [id number] Ambulatory Building:[facility] 03/15/2024/03/15/20 24 [id number] Ambulatory Building:[facility] 03/09/2024/03/09/20 24 [id number] Ambulatory Building:[facility] PAYERS ENCOUNTER GUARANTOR PAYER SUBSCRIBER SOURCE 03/01/2025 LISANDRA [place]HMANB: [place] [address]Cho: (HP) Primary Insurance:[employer] MEDICAIDPolicy Number: [id number] Date:2018-03-12 LISANDRA LEHMANB: [id number] [place] [address] [facility] 02/21/2025 LISANDRA [place]HMANB: [place] [address]Tgp: (HP) Primary Insurance:[employer] MEDICAIDPolicy Number: [id number] Date:2018-03-12 LISANDRA LEHMANB: [id number] [place] [address] [facility] 02/07/2025 LISANDRA LEHMANB: [id number] [place] [address]Lgf: (HP) Primary Insurance:[employer] MEDICAIDPolicy Number: [id number] Date:2018-03-12 LISANDRA LEHMANB: [id number] [facility] [place] [place] [address] [facility] 02/03/2025 LISANDRA LEHMANB: [facility] [place], [place] [address]Gcx: (HP) Primary Insurance:[facility] Number: [id number] Date:2017-10-12[address], [place] [address]VJ: LISANDRA LEHMANB: [id number] [facility] [place], [place] [address]Dcz: (HP) [facility] 12/20/2024 LISANDRA LEHMANB: [facility] [place] [address]Ydh: (HP) Primary Insurance:[employer] MEDICAIDPolicy Number: [id number] Date:2018-03-12 LISANDRA LEHMANB: [id number] [facility] [place] [address] [facility] 12/05/2024 LISANDRA LEHMANB: [facility] [place] [address]Eiw: (HP) Primary Insurance:[facility]Policy Number: [id number] Date:2017-10-12[address], [place] [address]GP: LISANDRA LEHMANB: [id number] [facility] [place], [place] [address]Rio: (HP) [facility] 11/28/2024 LISANDRA LEHMANB: [facility] [place] [address]Vpz: (HP) Primary Insurance:[employer] MEDICAIDPolicy Number: [id number] Date:2018-03-12 LISANDRA LEHMANB: [id number] [facility] [place] [address] [facility] 09/12/2024 LISANDRA LEHMANB: [facility] [place] [address]Mbl: (HP) Primary Insurance:[place] MEDICAIDPolicy Number: [id number] Date:2003-06-12 LISANDRA LEHMANB: [id number] [facility] [place] [address]Jec: (WP) [facility] 08/29/2024 LISANDRA LEHMANB: [facility] [place] [address]Rdd: (HP) Primary Insurance:[facility]Policy Number: [id number] Date:2017-10-12P.OJero ANNE [address] [place] [address]OW: LSIANDRA LEHMANB: [id number] [facility] [place], [place] [address]Uzh: (HP) [facility] 08/25/2024 LISANDRA LEHMANB: [facility] [place] [address]Idl: (HP) Primary Insurance:[place] MEDICA[employer]Policy Number: [id number] Date:2003-06-12 LISANDRA LEHMANB: [id number] [facility] [place] [address]Uij: (WP) [facility] 06/06/2024 LISANDRA LEHMANB: [facility] [place] [address]Jxw: (HP) Primary Insurance:[place] MEDICAIDPolicy Number: [id number] Date:2003-06-12 LISANDRA CARDENASZABETH DOMINIKB: [id number] [facility] [place], [place] [address]Xoq: (HP) () [facility] 05/18/2024 LISANDRA LEHMANB: [facility] [place] [address]Dco: (HP) Primary Insurance:[employer] MEDICAIDPolicy Number: [id number] Date:2018-03-12 LISANDRA LEHMANB: [id number] [facility] [place] [address] [facility] 04/12/2024 LISANDRA LEHMANB: [facility] [place] [address]Wrv: (HP) Primary Insurance:[facility] PLANPolicy Number: [id number] Date:2017-10-12PVince ANNE [address] [place] [address]TK: LISANDRA LEHMANB: [id number] [facility] [place], [place] [address]Fct: (HP) [facility] 04/12/2024 LISANDRA LEHMANB: [facility] [place] [place] [address]Moy: (HP) Primary Insurance:[employer] MEDICAIDPolicy Number: [id number] Date:2018-03-12 LISANDRA LEHMANB: [id number] [facility] [place] [address] [facility] 03/15/2024 LISANDRA LEHMANB: [facility] [place] [address]Hke: (HP) Primary Insurance:[employer] MEDICAIDPolicy Number: [id number] Date:2018-03-12 LISANDRA MARTINEZ: [id number] [place] [address] [facility] 03/09/2024 LISANDRA MARTINEZ: [facility] [place], [place] [address]Lmq: () Primary Insurance:[place] MEDICAIDPolicy Number: [id number] Date:2003-06-12 LISANDRA LEHMANB: [id number] [facility] [place], [place] [address]Jgn: () () [facility]
--- OUTSIDE RECORDS SUMMARY | 2025-03-01 15:30 | XMS_ITS | Encounter Summary ---
Author Organization [facility] Address [address] [place] [address] Care Team Providers Care Elementary Supervisor Name Role Phone Mariel Braun Unavailable Reason for Visit * Reason Comments STI Screening Pt present today for std check. Encounter Details Date Type Department Care Team (Late st Contact Info) Description 03/01/2025 3:30 PM EDT Office Visit [facility] [address] [place] [address] Mariel Braun PA [address] [place], [place] [id number] Exposure to STD; Pelvic pain in female Social History Tobacco Use Types Packs/Day Years [...] Sign Reading Time Taken Comments Blood Pressure - - Pulse - - Temperature - - Respiratory Rate - - Oxygen Saturation - - Inhaled Oxygen Concentration - - Weight 134 kg (295 lb) 03/01/2025 3:53 PM EDT Height - - Body Mass Index 52.26 05/18/2024 11:42 AM EDT documented in this encounter Progress Notes * DEEJAY Chauhan - 03/01/2025 3:30 PM EDT Reason for Appointment: Patient ID: Gabriela Khan is a 29 y.o. female who presents for STI Screening (Pt present today for std check.) Patient presents today for STD Check. MEDICATIONS Current Outpatient Medications Medication Instructions cephalexin [...] (herpes simplex virus) infection 04/01/2023 Morbid obesity ([facility]) 04/01/2023 Ovarian cyst 04/01/2023 Pain in female genitalia on intercourse 04/01/2023 Pelvic pain 04/01/2023 Encounter for weight management 05/18/2024 COVID-19 05/18/2024 Insulin resistance 05/18/2024 Resolved Ambulatory Problems Diagnosis Date Noted No Resolved Ambulatory Problems Past Medical History: Diagnosis Date Abnormal weight gain Dyspareunia, female Encounter for gynecological examination (general) (routine) without abnormal findings Morbid obesity with BMI of 45.0-49.9, adult ([facility]) Patient desires HISTORY PAST MEDICAL HISTORY SOCIAL HISTORY Past Medical History: Diagnosis Date Abnormal weight gain Dyspareunia, female Encounter for gynecological examination (general) (routine) without abnormal findings HSV (herpes simplex virus) infection Morbid obesity with BMI of 45.0-49.9, adult ([facility]) Ovarian cyst Patient desires Pelvic pain [...] Objective: Physical Exam Constitutional: Appearance: Normal appearance. Genitourinary: Right Adnexa: not tender and no mass present. Left Adnexa: not tender and no mass present. No cervical discharge. Breasts: Breasts are soft. Right: Normal. Left: Normal. HENT: Head: Normocephalic. Nose: Nose normal. Mouth/Throat: Mouth: Mucous membranes are moist. Cardiovascular: Rate and Rhythm: Normal rate. Pulmonary: Effort: Pulmonary effort is normal. Abdominal: General: Bowel sounds are normal. Palpations: Abdomen is soft. Musculoskeletal: General: Normal range of motion. Cervical back: Normal range of motion. Neurological: General: No focal deficit present. Mental Status: She is alert. Skin: General: Skin is warm and dry. Psychiatric: Mood and Affect: Mood normal. Vitals and nursing note reviewed. Exam conducted with a polarity tester present. Vitals: Estimated body mass index is 51.92 kg/m?? as calculated from the following: Height as of 05/18/24: 5' 3 . Weight as of 02/21/25: 293 lb 1.9 oz. BP: Patient's last menstrual period was 02/08/2025. ASSESSMENT & PLAN ICD-10-CM 1. Exposure to STD Z20.2 SURESWAB(R) ADVANCED VAGINITIS PLUS, TMA CHLAMYDIA TRACHOMATIS (GENITO/STI) Neisseria gonorrhea DNA probe, direct POCT urinalysis dipstick manually resulted POCT , urine manually resulted Pt present today to have cx's done. Pt is still with the same partner, partner is taking measures to make sure she has no std's or yeast infection. Pt states she has started having left side pain near the ovary. Pt states she has a h/o cysts on her left ovary however, the cysts are small and resolve on their own. Cx's were taken by Mariel Braun and a pelvic US was ordered for patient to obtain. Documented by Kay Felix MA on behalf of: DEEJAY Chauhan documented in this encounter Plan of Treatment Upcoming Encounters Date Type Department Care Team (Late st Contact Info) Description 03/22/2025 2:50 PM EDT Office Visit [facility] [address] [place] [phone] Mariel Braun PA [address] [place], [place] [id number] 04/18/2025 2:00 PM EDT Office Visit [facility] [address] [place] [address] Jalen Loredo, DO [address] [place], [place] [id number] Scheduled Orders Name Type Priority Associated Diagnoses Order Schedule SURESWAB(R) ADVANCED VAGINITIS PLUS, TMA Pathology and Cytology Routine Exposure to STD Ordered: 03/01/2025 CHLAMYDIA TRACHOMATIS (GENITO/STI) Lab Routine Exposure to STD Ordered: 03/01/2025 Neisseria gonorrhea DNA probe, direct Lab Routine Exposure to STD Ordered: 03/01/2025 US Pelvis w/ TV Imaging Routine Pelvic pain in female Expected: 03/01/2025, Expires: 09/01/2025 documented as of this encounter Visit Diagnoses Diagnosis Exposure to STD Pelvic pain in female Unspecified symptom associated with female genital organs documented in this encounter Care Teams Elementary Supervisor Relationship Specialty Start Date End Date Mariel Braun PA [address] [place] [address] [address] [place], [place] [phone] PCP - [facility] 01/11/24 documented as of this encounter
--- NOTE | 2025-03-03 07:56 | US_ITS ---
The [address] [address] Patient Name: LISANDRA KINSEY MRN: [id number] date: 1995 Sex: F Assigned Patient Location: US Current Patient Location: US Accession/Order Number: [id number] Exam Date: 03/03/2025 15:27 Report Date: 03/03/2025 15:30 At the request of: CALROS CASTANEDA DO Procedure: US pelvis w/ transvaginal Transabdominal and transvaginal pelvic ultrasound HISTORY: Pelvic pain Uterus is anteverted. Uterus measures 8.7 x 4.1 x 5.3 cm. There is 11 mm hypoechoic lesion within the uterus likely representing small fibroid. A total combined thickness of the endometrium is 4.4 mm. Right ovary measures 2.6 x 2.4 x 3.1 cm. Left ovary measures 2.6 x 2.3 x 1.8 cm. Normal blood flow of the ovaries identified. Bilateral ovarian follicles identified. No adnexal mass identified. No free fluid. US/US pelvis w/ transvaginal IMPRESSION: Small uterine fibroid with anteverted uterus. Unremarkable ovaries. Bilateral ovarian follicles. No adnexal mass or free fluid.. Impression dictated by: Jose Edge M.D. 03/03/2025 3:30 PM Dictation Location: [facility] Electronically authenticated by: [id number] Y Date: 03/03/2025 15:30
--- OUTSIDE RECORDS SUMMARY | 2025-03-03 07:56 | XMS_ITS | Encounter Summary ---
Author Organization [facility] Address [address] [place] [address] Care Team Providers Care Behavioral Specialist Name Role Phone Mariel Braun Unavailable Encounter Details Date Type Department Care Team (Late st Contact Info) Description 02/27/2025 Telephone [facility] [address] [place] [address] Larissa Álvarez LPN [address] [place] [address] Social History Tobacco Use Types [...] could give me a call back at [phone] would appreciate it. Thank you. documented in this encounter Plan of Treatment Upcoming Encounters Date Type Department Care Team (Late st Contact Info) Description 03/22/2025 2:50 PM EDT Office Visit [facility] [address] [place] [address] Mariel Braun PA [address] [facility] [place] [address] 04/18/2025 2:00 PM EDT Office Visit [facility] [address] [place] [address] Jalen Loredo DO [address] [facility] [place] [address] Scheduled Orders Name Type Priority Associated Diagnoses Orde r Schedule CBC Lab Routine Low platelet count (CMS/HCC) Expected: 02/27/2025 (Approximate), Expires: 02/27/2026 documented as of this encounter Visit Diagnoses Diagnosis Low platelet count (CMS/HCC) documented in this encounter Care Teams Behavioral Specialist Relationship Specialty Start Date End Date Mariel Braun PA [address] [place] [address] [place] [address] [facility] - [facility] 01/11/24 documented as of this encounter
--- OUTSIDE RECORDS SUMMARY | 2025-03-03 07:56 | XMS_ITS | Encounter Summary ---
Author Organization [facility] Address [address] [facility] [place] [address] Care Team Providers Care Revolving Inventory Clerk Name Role Phone Mariel Braun Unavailable Encounter Details Date Type Department Care Team (Late st Contact Info) Description 02/25/2024 Abstract [facility] OB [address] [place] [address] Lorin Rojas LPN [address] [facility] [address] [facility] Social History Tobacco Use Types Packs/Day Years [...] 03/22/2025 2:50 PM EDT Office Visit [facility] OB [address] [place] [address] Mariel Braun PA [address] [place] [address] [address] [place], [place] [id number] 04/18/2025 2:00 PM EDT Office Visit [facility] OB [address] [place] [address] [place] [address] Jalen Loredo DO [address] [place], [place] [address] documented as of this encounter Visit Diagnoses Not on filedocumented in this encounter Care Teams Revolving Inventory Clerk Relationship Specialty Start Date End Date Mariel Braun PA [address] [place], [place] [phone] PCP - [facility] 01/11/24 documented as of this encounter
--- OUTSIDE RECORDS SUMMARY | 2025-03-03 07:56 | XMS_ITS | Clinical Summary ---
Author Organization [facility] 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 Primary Care Provider Allergies No known active allergies Medications [id number] ( 1 + IRON PO) Take by [...] EDT - 02/04/2025 1:47 AM EDT Emergency [facility] Emergency Department [address] [place] [id number] Jose Sanchez MD Cyst of right ovary (Primary Dx); Right lower quadrant abdominal pain; Nausea and vomiting, unspecified vomiting type; Acute cystitis without hematuria Discharge Disposition: Home or Self Care 02/03/2025 Travel 12/05/2024 12:35 PM EST - 12/05/2024 4:49 PM EST Emergency [facility] Emergency Department [address] [place] [id number] Romel Avila DO Acute bacterial conjunctivitis of [...] - 11.0 k/uL 02/03/2025 10:28 PM EDT [facility] RBC 4.89 4.0 - 5.2 m/uL 02/03/2025 10:28 PM EDT [facility] Hemoglobin 15.3 12.0 - 16.0 g/dL 02/03/2025 10:28 PM EDT [facility] Hematocrit 44.2 36 - 46 % 02/03/2025 10:28 PM EDT [facility] MCV 90.5 80 - 100 fL 02/03/2025 10:28 PM EDT [facility] MCH 31.4 26 - 34 pg 02/03/2025 10:28 PM EDT [facility] MCHC 34.7 31 - 37 g/dL 02/03/2025 10:28 PM EDT [facility] RDW 13.1 11.5 - 14.9 % 02/03/2025 10:28 PM EDT [facility] Platelets 242 150 - 450 k/uL 02/03/2025 10:28 PM EDT [facility] MPV 7.0 6.0 - 12.0 fL 02/03/2025 10:28 PM EDT [facility] Neutrophils % 57 36 - 66 % 02/03/2025 10:28 PM EDT [facility] Lymphocytes % 31 24 - 44 % 02/03/2025 10:28 PM EDT [facility] Monocytes % 9(H) 1 - 7 % 02/03/2025 10:28 PM EDT [facility] Eosinophils % 2 0 - 4 % 02/03/2025 10:28 PM EDT [facility] Basophils % 1 0 - 2 % 02/03/2025 10:28 PM EDT [facility] Neutrophils Absolute 5.30 1.3 - 9.1 k/uL 02/03/2025 10:28 PM EDT [facility] Lymphocytes Absolute 2.90 1.0 - 4.8 k/uL 02/03/2025 10:28 PM EDT [facility] Monocytes Absolute 0.90 0.1 - 1.3 k/uL 02/03/2025 10:28 PM EDT [facility] Eosinophils Absolute 0.20 0.0 - 0.4 k/uL 02/03/2025 10:28 PM EDT [facility] Basophils Absolute 0.10 0.0 - 0.2 k/uL 02/03/2025 10:28 PM EDT [facility] Blood BLOOD SPECIMEN / Unknown 02/03/2025 10:28 PM EDT 02/03/2025 10:30 PM EDT us Jose Sanchez MD HEMATOLOGY ORDERABLES Final R esult [facility] [address] Or[address]. [address] [phone] * Protime-INR (02/03/2025 10:28 PM EDT) Protime 13.2 11.8 - 14.6 sec 02/03/2025 10:28 PM EDT [facility] INR 0.9 02/03/2025 10:28 PM EDT [facility] Comment: Therapeutic Range: Moderate Anticoagulant Intensity: INR = 2.0-3.0 High Anticoagulant Intensity: INR = 2.5-3.5 Blood BLOOD SPECIMEN / Unknown 02/03/2025 10:28 PM EDT 02/03/2025 10:30 PM EDT us Jose Sanchez MD HEMATOLOGY ORDERABLES Final R esult Performing Organization Address [facility]/ZIP Co de Phone Number [facility] [address] [place] [address], [facility] [phone] * HCG Qualitative, Serum (02/03/2025 10:28 PM EDT) Preg, Serum NEGATIVE NEGATIVE 02/03/2025 10:28 PM EDT [facility] Comment: Specimens with hCG levels near [...] ORDERABLES Final Re sult Performing Organization Address [facility] Co de Phone Number [facility] [address] [place] [address], [facility] [phone] * Magnesium (02/03/2025 10:28 PM EDT) Magnesium 1.7 1.6 - 2.6 mg/dL 02/03/2025 10:28 PM EDT [facility] Blood BLOOD SPECIMEN / Unknown 02/03/2025 10:28 PM EDT 02/03/2025 10:30 PM EDT us Jose Sanchez MD CHEMISTRY ORDERABLES Final Re sult Performing Organization Address City/[facility]/ZIP Co de Phone Number [facility] [address] [place] [address], [facility] [phone] * Lipase (02/03/2025 10:28 PM EDT) Lipase 21 13 - 60 U/L 02/03/2025 10:28 PM EDT [facility] Blood BLOOD SPECIMEN / Unknown 02/03/2025 10:28 PM EDT 02/03/2025 10:30 PM EDT Joes Sanchez MD CHEMISTRY ORDERABLES Final Re sult [facility] [address] [place] [address], [facility] [phone] * (ABNORMAL) CMP (02/03/2025 10:28 PM EDT) Sodium 141 136 - 145 mmol/L 02/03/2025 10:28 PM EDT [facility] Potassium 4.1 3.7 - 5.3 mmol/L 02/03/2025 10:28 PM EDT [facility] Chloride 108(H) 98 - 107 mmol/L 02/03/2025 10:28 PM EDT [facility] CO2 23 20 - 31 mmol/L 02/03/2025 10:28 PM EDT [facility] Anion Gap 10 9 - 16 mmol/L 02/03/2025 10:28 PM EDT [facility] Glucose 122(H) 74 - 99 mg/dL 02/03/2025 10:28 PM EDT [facility] BUN 9 6 - 20 mg/dL 02/03/2025 10:28 PM EDT [facility] Creatinine 0.5(L) 0.7 - 1.2 mg/dL 02/03/2025 10:28 PM EDT [facility] Est, Glom Filt Rate >90 >60 mL/min/1.7 3m2 02/03/2025 10:28 PM EDT [facility] Comment: These results are not intended [...] - 10.4 mg/dL 02/03/2025 10:28 PM EDT [facility] Total Protein 6.9 6.6 - 8.7 g/dL 02/03/2025 10:28 PM EDT [facility] Albumin 4.2 3.5 - 5.2 g/dL 02/03/2025 10:28 PM EDT [facility] Total Bilirubin 0.5 0.0 - 1.2 mg/dL 02/03/2025 10:28 PM EDT [facility] Alkaline Phosphatase 40 35 - 104 U/L 02/03/2025 10:28 PM EDT [facility] ALT 48(H) 10 - 35 U/L 02/03/2025 10:28 PM EDT [facility] AST 26 10 - 35 U/L 02/03/2025 10:28 PM EDT [facility] Blood BLOOD SPECIMEN / Unknown 02/03/2025 10:28 PM EDT 02/03/2025 10:30 PM EDT us Jose Sanchez MD CHEMISTRY ORDERABLES Final Re sult [facility] [address] [place] [address], [facility] [phone] * (ABNORMAL) Urinalysis with Reflex to Culture (02/03/2025 9:41 PM EDT) Only the most recent of2 resultswithin the time period is included. Color, UA Yellow Yellow 02/03/2025 9:41 PM EDT [facility] Turbidity UA Cloudy(A) Clear 02/03/2025 9:41 PM EDT [facility] Glucose, Ur NEGATIVE NEGATIVE mg/dL 02/03/2025 9:41 PM EDT [facility] Bilirubin, Urine NEGATIVE NEGATIVE 02/03/2025 9:41 PM EDT [facility] Ketones, Urine TRACE(A) NEGATIVE mg/dL 02/03/2025 9:41 PM EDT [facility] Specific [place], UA 1.024 1.000 - 1.030 02/03/2025 9:41 PM EDT [facility] Urine Hgb NEGATIVE NEGATIVE 02/03/2025 9:41 PM EDT [facility] pH, Urine 5.0 5.0 - 8.0 02/03/2025 9:41 PM EDT [facility] Protein, UA NEGATIVE NEGATIVE mg/dL 02/03/2025 9:41 PM EDT [facility] Urobilinogen, Urine Normal 0.0 - 1.0 EU/dL 02/03/2025 9:41 PM EDT [facility] Nitrite, Urine NEGATIVE NEGATIVE 02/03/2025 9:41 PM EDT [facility] Leukocyte Esterase, Urine TRACE(A) NEGATIVE 02/03/2025 9:41 PM EDT [facility] Urine 02/03/2025 9:41 PM EDT 02/03/2025 10:07 PM EDT Jose Sanchez MD URINE ORDERABLES Final Result [facility] [place] [address], [facility] [phone] * Urine Drug Screen (02/03/2025 9:41 PM EDT) Amphetamine Screen, Ur NEGATIVE NEGATIVE 02/03/2025 9:41 PM EDT [facility] Comment:Cutoff: 1000 ng/mL Barbiturate Screen, Ur NEGATIVE NEGATIVE 02/03/2025 9:41 PM EDT [facility] Comment:Cutoff: 200 ng/ml Benzodiazepine Screen, Urine NEGATIVE NEGATIVE 02/03/2025 9:41 PM EDT [facility] Comment:Cutoff: 200 ng/ml Cocaine Metabolite, Urine NEGATIVE NEGATIVE 02/03/2025 9:41 PM EDT [facility] Comment:Cutoff: 300 ng/ml Methadone Screen, Urine NEGATIVE NEGATIVE 02/03/2025 9:41 PM EDT [facility] Comment:Cutoff: 300 ng/ml Opiates, Urine NEGATIVE NEGATIVE 02/03/2025 9:41 PM EDT [facility] Comment:Cutoff: 300 ng/ml Phencyclidine, Urine NEGATIVE NEGATIVE 02/03/2025 9:41 PM EDT [facility] Comment:Cutoff: 25 ng/ml Cannabinoid Scrn, Ur NEGATIVE NEGATIVE 02/03/2025 9:41 PM EDT [facility] Comment:Cutoff: 50 ng/ml Oxycodone Screen, Ur NEGATIVE NEGATIVE 02/03/2025 9:41 PM EDT [facility] Comment:Cutoff: 100 ng/ml Fentanyl, Ur NEGATIVE NEGATIVE 02/03/2025 9:41 PM EDT [facility] Comment:Cutoff: 5 ng/ml Test Information This method is a screening test to detect only these drug classes as part of a medical workup. Confirmatory testing by another method should be ordered if clinically indicated. 02/03/2025 9:41 PM EDT [facility] Urine 02/03/2025 9:41 PM EDT 02/03/2025 10:07 PM EDT Jose Sanchez MD URINE ORDERABLES Final Result [facility] [address] [place] [address], [facility] [phone] * (ABNORMAL) Microscopic Urinalysis (02/03/2025 9:41 PM EDT) Only the most recent of2 resultswithin the time period is included. WBC, UA 6 TO 9(A) 0 TO 5 /HPF 02/03/2025 9:41 PM EDT [facility] RBC, UA 0 TO 2 0 TO 2 /HPF 02/03/2025 9:41 PM EDT [facility] Casts UA 3 to 5(A) None /LPF 02/03/2025 9:41 PM EDT [facility] Epithelial Cells, UA 10 TO 20 /HPF 02/03/2025 9:41 PM EDT [facility] Bacteria, UA MANY(A) None 02/03/2025 9:41 PM EDT [facility] 02/03/2025 9:41 PM EDT 02/03/2025 10:07 PM EDT us Jose Sanchez MD URINE ORDERABLES Final Result [facility] [address] [phone] * US PELVIS COMPLETE (12/05/2024 2:31 PM [...] Specimen Description .CERVIX 12/05/2024 1:55 PM EST [facility] C. trachomatis DNA NEGATIVE NEGATIVE 12/05/2024 1:55 PM EST [facility] Comment: CHLAMYDIA TRACHOMATIS DNA not detected by [...] DNA NEGATIVE NEGATIVE 12/05/2024 1:55 PM EST [facility] Comment: NEISSERIA GONORRHOEAE DNA not detected by [...] MICROBIOLOGY - GENERAL O RDERABLES Final Result [facility] [address] [place] [address], [facility] [phone] [facility] [address] [place] [address], [facility] [phone] * (ABNORMAL) Vaginitis DNA Probe (12/05/2024 1:55 PM EST) Source .VAGINAL SWAB 12/05/2024 1:55 PM EST [facility] Trichomonas NEGATIVE NEGATIVE 12/05/2024 1:55 PM EST [facility] Comment:for Trichomonas Vagi nalis GARDNERELLA VAGINALIS POSITIVE(A) NEGATIVE 12/05/2024 1:55 PM EST [facility] Comment:for Gardnerella vagi nalis Angle species NEGATIVE NEGATIVE 1:55 PM EST [facility] Comment: for Angle sp. Method of [...] O RDERABLES Final Result Performing Organization Address [facility] Co de Phone Number [facility] [address] [place] [address]. [place] [address], [facility] [phone] * , Urine (12/05/2024 12:30 PM EST) Pathologist [facility] , Urine NEGATIVE NEGATIVE 12/05/19 12:30 PM EST [facility] Comment: Specimens with hCG levels near [...] ORDERABLES Final R esult Performing Organization Address City/[facility]/ZIP Co de Phone Number [facility] [address] [place] [address]. [place] [address], [facility] [phone] * Culture, Urine (12/05/2024 12:30 PM EST) Pathologist [facility] Specimen Description .CLEAN CATCH URINE 12/05/2024 12:30 PM EST [facility] Culture NO SIGNIFICANT GROWTH 12/05/2024 12:30 PM EST [employer] URINE SPECIMEN / Unknown 12/05/2024 12:30 PM EST 12/05/2024 1:02 PM EST Fransico Reece CLEAN ROOM OPERATOR - MOTEL MANAGER MICROBIOLOGY - GENERAL ORDERABLES Final Result [facility] [address] [place] [address], [facility] [phone] [facility] [address] [place] [address], [facility] [phone] from Last 3 Months Additional Health Concerns Infection Onset Date Last Indicated ESBL (Extended Spectrum Beta Lactamase) 08/30/20 24 08/30/[address] [place] [address] [address] [facility] [place] [address] [facility] Care Teams Tile Picker Relationship Specialty Start Date End Date Fransico Reece, CLEAN ROOM OPERATOR - MOTEL MANAGER PCP - General Family Medicine 03/17/18
--- OUTSIDE RECORDS SUMMARY | 2025-03-03 07:56 | XMS_ITS | Encounter Summary ---
Author Organization [facility] Address [address] [place] [address] Care Team Providers Care Stuntman Name Role Phone Mariel Braun Unavailable Encounter Details Date Type Department Care Team (Late st Contact Info) Description 02/21/2025 Bamboo flowsheet [facility] [address] [place] [address] Jalen Loredo DO [address] [place] [address] Dr Avi [place], [facility] Social History Tobacco Use Types Packs/Day [...] 03/22/2025 2:50 PM EDT Office Visit [facility] [address] [place] [address] Mariel Braun PA [facility] [address], [facility] 04/18/2025 2:00 PM EDT Office Visit [facility] [place] [address] [place] [address] Jalen Loredo DO [address] [place] [address] documented as of this encounter Visit Diagnoses Not on filedocumented in this encounter Care Teams Stuntman Relationship Specialty Start Date End Date Mariel Braun PA [address] [place] [address] PCP - [facility] 01/11/24 documented as of this encounter
--- OUTSIDE RECORDS SUMMARY | 2025-03-03 07:56 | XMS_ITS | Patient Health Record ---
Author Organization [facility] Address [address] [place] [id number] Care Team Providers Care Fixture Repairer Fabricator Name Role Phone Steph Babb Primary Care Provider Char Lin Unavailable [phone] Diana Arriola Unavailable [phone] Allergies No Known Allergies Results Component Value Reference Range Notes VITAMIN D 25 HYDROXY Reviewed date:01/11/2025 08:09:19 AM Interpretation: Performing Lab: Notes/Report: VITAMIN D, 25 HYDROXY 14.2 30.0-100.0 ng/mL 25-OH VITAMIN D INTERPRETATION Deficiency.... <20.0 ng/ml Insufficiency..20.0-29.0 ng/ml Sufficiency....30.0-100.0 ng/ml Possible Toxicity...>150 ng/ml UNLESS OTHERWISE INDICATED, ALL TESTING PERFORMED AT: [email or web address] [address] [place] [address] COMMISSIONER CONSERVATION OF RESOURCES: DANIELLE SOUZA M.D. CLIA NUMBER [id number] CAP ACCREDITATION AUID [id number] Reason For Referral No Information Medications Medication [...] 01/05/2014 Administer ed Status:Complete ,Reason:Given or N/A ,[facility] [id number] Influenza, quadrivalent, split, preservative free, 3 years or older ID Intradermal 08/07/2015 Administered Status:Complete ,Reason:Given or N/A Influenza (split), 3 yrs and above IM Intramuscular 08/16/2010 Administered Status:Complete ,Reason:Given or N/A Influenza (split), 3 yrs and above IM Intramuscular 08/19/2012 Administered Status:Complete ,Reason:Given or N/A Influenza (split), 3 yrs and above IM Intramuscular 08/10/2013 Administered Status:Complete ,Reason:Given or N/A ,[facility]# [id number] Influenza (split), 3 yrs and above IM Intramuscular 07/27/2014 Administered Status:Complete ,Reason:Given or N/A *Hep A, ped/adol, 2 dose-VFC IM Intramuscular 01/05/2014 Administered Status:Complete ,Reason:Given or N/A ,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 Stress is when someone feels tense, nervous, anxious, or can't sleep at night because their mind is troubled Not at all patient entered data In the past year have you sp ent more than 2 nights in a row in a [facility], residential, residential center, or juvenile correctional facility? No patient [...] Problem Status W/U Status Risk Notes Problem 216675845 BMI 45.0-49.9, adult (Z68.42) Active confirmed Problem Paresthesia (53495797) Paresthesia (R20.2) Active confirmed Problem Hyperkalemia (98749981) Hyperkalemia (E87.5) Active confirmed Comment:-BMP was redrawn; potassium has normalized -K+ is at 4.6 -Pt is asymptomatic, Problem Hypokalemia (27859384) Hypokalemia (E87.6) Active confirmed Problem Nausea (592801653) Nausea (R11.0) Active confirmed Comment:N ausea and appetite change, weight gain, secondary amenorrhea: UCG neg. BHCG ordered. Patiuent counseled. Follow up HCG in a week. vitamin advised., Problem Venereal disease screening (886403653) Screening for STD (sexually transmitted disease) (Z11.3) Active confirmed Comment:pt desires bloodwork for std testing, Problem Chronic idiopathic constipation (55546149) Chronic idiopathic constipation (K59.04) Active confirmed Comment:-Pt [...] -Will refer to GI, Problem Viral syndrome (286803721) Viral syndrome (B34.9) Active confirmed Comment:VS stable. Patient appears well, in NAD, well hydrated. diet as discussed above tylenol for headaches. rest and fluids., Problem Intolerant of cold (74903559) Cold intolerance (R68.89) Active confirmed Comment:labs reviewed KATHARINA, CBC, ESR and TSH All WNL This is first occurence, has not had previous henson advised to limit drastic change in temperatures, wear gloves outdoors, layers to arm Monitor at this time. If pain worsening or skin color not returning to normal, RTO and can offer rheumatology referal mom verbalized understanding, Problem Impaired fasting glycaemia (318329265) Elevated fasting blood sugar (R73.01) Active confirmed Problem Depression screening (935464103) Screening for depression (Z13.31) Active confirmed Description:De pression screening Problem Trichomonal vulvovaginitis (40799690) Trichomonas vaginalis (TV) infection (A59.01) Active confirmed Comment:pt took antibiotic course, her for ijeoma, partner treated, Problem Needs influenza immunization (851718898) Need for prophylactic vaccination and inoculation against influenza (V04.81) (V04.81) Active confirmed Problem Acute non-suppurative otitis media - serous (305713761) ACUTE SEROUS OTITIS MEDIA (H65.00) 2008 Active confirmed Story:ASSESSME NT: RESOLVED, Problem Dyspepsia (848673645) Dyspepsia (K30) Active confirmed Comment:-Feel abdominal pain is possibly r/t to either GERD or peptic ulcer -Discussed lifestyle modifications that include avoiding tomato based foods, citrus foods, fatty/greasy foods, eating late at night, laying down after eating, and coffee -Start on trial of PPI for 1 month -If symptoms worsen, fever develops rto office, patient and mother verified understanding, Problem Pain in limb (52859469) Foot pain, left (M79.672) Active confirmed Comment:Get x-rays. Refer to podiatry for evaluation. Advised and explained RICE protocol. Discontinue Naproxen. Advised tylenol PRN for pain. Questions answered, PVU, Problem Urinary tract infectious disease (61193924) UTI symptoms (R39.9) Active confirmed Comment:+LE in urine Suspect UTI based on exam abx as ordered send for culture PVU, Problem Needs influenza immunization (054324418) Flu Shot > 3 yrs old (V04.81) (72384) (V04.81) Active confirmed Problem Metatarsalgia (68343652) Metatarsalgia (M77.40) Active confirmed Comment:Since pt is [...] mother agreed. RTO prn, Problem Follow-up status (740802923) Follow up (Z09) Active confirmed Comment: FOLLOW UP IN ONE MONTH AFTER LETTER SENT ON 12/20/19, Problem Irregular menstruation (10685897) Menstrual abnormality (N92.6) Active confirmed Comment:-Has abnormal period this months -States had 2 days of spotting -Not like normal -Had a negative urine home test -Take another home test or RTO; PVU, Problem Noninflammatory disorder of the vagina (47988850) Discharge from the vagina (N89.8) Active confirmed Comment:pt complains vaginal discharge, vaginal itching. Was treated for std exposure in ER a week ago - was given injection and pills, cannot recall name, will try and obtain records probiotics pt to keep areas clean and dry, stressed hygiene. encouraged condom use,Descriptio n:Vaginal Discharge Problem Skin rash (593788733) Skin rash (R21) Active confirmed Comment:pt has [...] with me as needed, Problem Requires vaccination (026889257) Need for prophylactic vaccination against viral hepatitis (Z23) Active confirmed Description: [facility] [address] Problem Gastroenteritis (97290066) Gastroenteritis (K52.9) Active confirmed Comment:genera lized stomach pain likely viral as mother and sister is also ill with similar symptoms advised on clear liquid diet today follow by BRAT diet To ER if suddnen and severe worsening of abdominal pains PVU, Problem Abnormal vaginal bleeding (365858472) DUB (dysfunctional uterine bleeding) (N93.8) Active confirmed Comment:-pt has been having DUB -was bleeding for about 3 weeks - has finally started slowing down -pt has never had this issue previously -starting thyroid medication at this time to see if it helps bleeding -suggest pt f/u with Dr. Duncan, her WORKPLACE RELATIONS ADVISER -could also be PCOS or another cause of DUB -had a UTI in ED as well - has not yet started antibiotic. suggested she do so as soon as possible -f/u as needed before getting into Dr. Duncan, Problem Weight gain (718323051) Weight gain (R63.5) Active confirmed Comment:-Pt has weight gain of unknown etiology -GI wanted TSH redraw; previously TSH in 10/2014 was normal -Will reorder TSH and other baseline labs -Discussed importance of lifestyle modifications; also increased fruits and vegetables, Problem Allergic rhinitis (36046091) Allergic rhinitis (J30.9) Active confirmed Comment:-Nasal congestion and sneezing r/t allergic rhinitis -Start on flonase -Discusessed use of humidifier and normal nasal saline prn, Problem MENACTRA - MENINGOCOCCAL VACCINE (V03.89) 93259 (V03.89) Active confirmed Problem Abdominal pain (41115340) Abdominal cramping (R10.9) Active confirmed Comment:Suspec t [...] dicyclomine as needed., Problem Vitamin D deficiency (75329788) Vitamin D deficiency (E55.9) Active confirmed Comment:-Labs [...] voided before leaving), Problem Needs influenza immunization (358436585) Flu Shot > 3 yrs old (Non-Medicare) (V04.81) (86154) (V04.81) Active confirmed Problem Acute diarrhea (336369446) Acute diarrhea (R19.7) Active confirmed Comment:-Acute diarrhea; likely r/t to viral gastroenteriti s -No red flag findings on examination -Patient is eating and drinking without issue -Will treat short tx with loperamide -Encourage light diet; do not eat greasy foods; avoid dairy, Problem Hypothyroid (65337436) Hypothyroid (E03.9) Active confirmed Comment:-pt had TSH [...] (719.46) (719.46) Active confirmed Problem Requires vaccination (562766043) Need for immunization against influenza (Z23) Active confirmed Description: Fl u vaccine need Problem Pruritus of vagina (46396675) Vaginal itching (N89.8) Active confirmed Problem History and physical examination, pre-employment (508076198) Physical exam, pre-employment (Z02.1) Active confirmed Comment:-Overa ll patient is healthy; 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 Rapid Strep was negative. 2)Reassured Mom that what she saw was in fact just normal tongue papillae. 3)If any problems to come back PRN. Mom verbalized understanding. ,Description:F U ER Visit for SORE THROAT Problem Exposure to tuberculosis (6358370637022) TB TEST FOR EXPOSURE TO TUBERCULOSIS (V01.1) (V01.1) Active confirmed Problem Non-suppurative otitis media (980823554) LSOM (left serous otitis media) (H65.92) Active confirmed Comment:-Fluid bubbles visible behind left TM; no inflammation, bulging, or retractions -Pt is getting over URI and strep throat -No fever, chills, or systemic issues -F/u prn, Problem Lumbar strain (232943477) Lumbar strain (S39.012A) Active confirmed Comment:-LBP result of acute lumbar strain -Encouraged to take ibuprofen and flexeril given at the ER; discussed safe; take with food; flexeril can cause drowsiness -Encouraged home stretches and exercises -Can use heat and ice -Will start on PT -F/u in 1 month, Problem Childhood obesity (845416585) BMI (body mass index) pediatric, > 99% for age, obese child, tertiary care intervention (E66.9) Active confirmed Problem Acute upper respiratory infection (66652307) Acute upper respiratory infection of multiple sites (J06.9) Active confirmed Problem Tuberculosis screening (256893209) Screening examination for pulmonary tuberculosis (Z11.1) Active confirmed Comment:Blue Card given TST reading negative,Descr iption:SCREENI NG FOR PULMONARY TB Problem 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) Encounter for tuberculin skin test (Z11.1) Active confirmed Description:Tu berculin skin test encounter Problem Vaginal odor (349117452) Vaginal odor (N89.8) Active confirmed Comment:pt now sexually active, discussed safe sexual practices pt declines contraception, uses condoms, Problem Skin sensation disturbance (09184512) Paresthesia of hand, bilateral (R20.2) Active confirmed [...] neuro and possible EMG; PVU, Problem Overweight (966806540) Excess weight (E66.3) 2008 Active confirmed Comment:EDUCAT ED ON DIET AND EXERCISE.,Desc ription:Overwe ight Problem Well child visit (059425843) Routine or child health check (V20.2) (V20.2) 2007 Active confirmed Vital Signs Heart Rate 78 /min 02/08/2025 Blood pressure diastolic 66 mm Hg 02/08/2025 Height-cm 162.56 cm 02/08/2025 Weight-kg 127.01 kg 02/08/2025 Height 64.00 in 02/08/2025 Blood pressure systolic 120 mm Hg 02/08/2025 Weight 280 lbs 02/08/2025 BMI 48.06 kg/m2 02/08/2025 Encounters Encounter Location Date Provider Diagnosis [facility] [address] [place], [place] [id number] 10/06/2024 Diana Arriola BMI 45.0-49.9, joann lt Z68.42 ; Dental caries into dentine K02.62 ; Encounter for dental examination and cleaning with abnormal findings Z01.21 ; Dietary counseling Z71.3 and Exercise counseling Z71.82 [facility] [address], [place] [id number] 02/08/2025 Char Lin Dental caries into dentine K02.62 and Encounter for dental examination and cleaning with abnormal findings Z01.21 [address] [place], [place] [id number] 03/04/2024 Steph ShethNeal Vitamin D deficien cy E55.9 [address] [place], [place] [id number] 03/09/2024 Steph Skinny Vitamin D deficien cy E55.9 [address] [place], [place] [id number] 01/09/2025 Steph Skinny Vitamin D deficien cy [...] Test Test Name Order Date Strep Screen (97148) 04/01/2012 Vitamin D, 25-Hydroxy (27928) 12/25/2015 Next Appt Details Provider Name:Diana rivera, 04/17/2025 02:15:00 PM, [address] [place] [address], [phone], Insurance Providers Payer Name Payer Address Payer Phone Subscriber Number Group Number Insured Name Patient Relationship to Insured Coverage Start Date Coverage End Date [employer] [address] [address] [place] [address] [id number] Gabriela Khan Self - patient is the insured 2 [place] [facility] [employer] [address] [place] [address] [id number] Gabriela Khan Self - patient is the insured 2 [employer] after [place] [employer] [address] [place], [place] [id number] Gabriela Khan Self - patient is the insured 2 Medicaid CFC after [place] [address] [place] [address] [id number] Gabriela Khan Self - patient is the insured 2 Medical (General) History Medical History History ICD Code Allergic rhinitis Excess weight, DESCRIPTION: Overweight Vitamin D deficiency Surgical History Surgery Date(Month/Year)
--- OUTSIDE RECORDS SUMMARY | 2025-03-03 07:56 | XMS_ITS | Encounter Summary ---
Author Organization [facility] Address [address] [place] [address] Care Team Providers Care Solvent Plant Treater Name Role Phone Mariel Braun Unavailable Encounter Details Date Type Department Care Team (Late st Contact Info) Description 05/01/2023 Abstract [facility] [address] [address] Mariel Braun PA [address] [place], [facility] Social History Tobacco Use Types Packs/Day [...] PM EDT Sexual Orientation Not on file COVID-19 Exposure Response Date Recorded In the last 10 days, have yo u been in contact with someone who was confirmed or suspected to have Coronavirus/COVID-19? No / Unsure 05/03/2023 5:44 PM EDT documented as of this encounter Plan of Treatment Upcoming Encounters Date Type Department Care Team (Late st Contact Info) Description 03/22/2025 2:50 PM EDT Office Visit [facility] [address] [place] [address] Mariel Braun PA [address] [place] [address] 04/18/2025 2:00 PM EDT Office Visit [facility] [address] [address] Jalen Loredo DO [address] [place], [place] [id number] documented as of this encounter Visit Diagnoses Not on filedocumented in this encounter Care Teams Solvent Plant Treater Relationship Specialty Start Date End Date Mariel Braun PA [address] [place] [address] PCP - [facility] 01/11/24 documented as of this encounter
--- OUTSIDE RECORDS SUMMARY | 2025-03-03 07:56 | XMS_ITS | Clinical Summary ---
Author Organization [facility] Healthcare Address [address] [place] [address] Care Team Providers Care Ancient Art Curator Name Role Phone Mariel Braun Unavailable Allergies [...] before bedtime. 5 02/12/20 25 HYDROcodone-acetam inophen ([place]) 5-325 MG tablet Take 1 tablet by [...] Encounters Date Type Department Care Team Description 03/01/2025 3:30 PM EDT Office Visit [facility] [address] [facility] [place] [address] Mariel Braun PA Exposure to STD; Pelvic pain in female 03/01/2025 Clinisync Result Encounter [facility] External Department Unsolicited Jalen Loredo, 02/27/20[address] Tele[address] [facility] [address] [place] [address] Larissa Álvarez LPN 02/21/2025 10:00 AM EDT Office Visit [facility] [address] [place] [address] Jalen Loredo, DO Postoperative examination 02/21/2025 Bamboo flowsheet [facility] [address] [place] [address] Jalen Loredo, 02/16/2025 Telephone [facility] [address] [place] [address] Jalen Loredo, DO 02/14/2025 Telephone [facility] OB [address] [place] [address] [place] [address] Katya Verdugo LPN 02/14/2025 Clinisync Result Encounter [facility]S External Department Unsolicited Jalen Loredo, 02/09/2025 Telephone [facility] [address] [place] [address] Kay Felix MA 02/07/2025 9:00 AM EDT Office Visit [facility] OB [address] [facility] [place] [address] Jalen Loredo, DO Cyst of right ovary; Pelvic pain in female 02/07/2025 External Result Encounter [facility] External Department Unsolicited Jalen Loredo, DO 02/07/2025 Bamboo flowsheet [facility] [address] [place] [address] Jalen Loredo, DO 12/29/2024 Clinisync Result Encounter [facility]OMS External Department Unsolicited Jalen Loredo, DO 12/28/2024 Telephone [facility] [address] [place] [address] Katya Verdugo LPN 12/20/2024 1:00 PM EDT Ancillary Procedure [facility] [address] [place] [address] PCOS (polycystic ovarian syndrome); Irregular periods/menstrual cycles 12/20/2024 Travel 12/12/2024 Telephone [facility] [address] [place] [address] Katya Verdugo LPN from Last 3 [...] (295 lb) 03/01/2025 3:53 PM EDT Height 160 cm (5' 3 ) 05/18/2024 11:42 AM EDT Body Mass Index 52.26 05/18/2024 11:42 AM EDT Plan of Treatment Upcoming Encounters Date Type Department Care Team (Late st Contact Info) Description 03/22/2025 2:50 PM EDT Office Visit [facility] OB [address] [facility] [place] [address] Mariel Braun PA [address] [facility] [address] [place], [place] [id number] 04/18/2025 2:00 PM EDT Office Visit [facility] OB [address] [facility] [place] [address] Jalen Loredo DO [address] [facility] [address] [place], [place] [id number] Health Maintenance Due Date Last Done Comments Influenza Vaccine (Season Ended) 2025 10/13/2017, 08/07/2015, 07/27/2014, Additional history exists Procedures Procedure Name Priority Date/Time Associated Diagnosis Comments RECURRENT VAGINITIS (HTRX) Routine 03/01 4:59 PM EDT ALL CBC WITH AUTO DIFF Routine 5 2:25 PM EDT POCT URINALYSIS DIPSTICK Routine 025 10:28 AM EDT Postoperative examination [facility] PREG QUANT HCG Routine 02/14/2025 6: 20 AM EDT ALL CBC WITH AUTO DIFF Routine 5 6:20 AM EDT RECURRENT VAGINITIS (HTRX) Routine [...] PM EDT ALL LUTEINIZING HORMONE Routine 12/30/19 1:15 PM EDT ALL DHEA SULFATE Routine 12/29/2024 1:15 PM EDT ALL CBC WITH AUTO DIFF Routine 1:15 PM EDT ALL THYROXINE (T4) FREE Routine 12/30/19 1:15 PM EDT TBH PREG QUANT HCG Routine 12/29/2024 1: 15 PM EDT ALL THYROID STIM HORMONE Routine 025 1:15 PM EDT MLR HEMOGLOBIN A1C Routine 12/29/2024 1: 15 PM EDT US PELVIS TRANSVAGINAL Routine 5 1:16 PM EDT PCOS (polycystic ovarian syndrome) Irregular periods/menstrual cycles from Last 3 Months Results * (ABNORMAL) RECURRENT VAGINITIS (HTRX) (03/01/2025 4:59 PM EDT) Only the most recent of2 resultswithin the time period is included. ATOPOBIUM VAGINAE 0.000 19.961 - 24.689 ppm 03/03/2025 6:28 [address] EDT [facility] ATOPOBIUM VAGINAE Not Detected 19.961 - 24.689 ppm 03/03/2025 6:28 AM EDT [facility] BVAB 2,3 (BACTERIAL VAGINOSIS ASSOCIATED BACTERIA 2, 3); MOBILUNCUS SPP 0.000 19.961 - 24.689 ppm 03/03/2025 6:28 AM EDT [facility] BVAB 2,3 (BACTERIAL VAGINOSIS ASSOCIATED BACTERIA 2, 3); MOBILUNCUS SPP Not Detected 19.961 - 24.689 ppm 03/03/2025 6:28 AM EDT [facility] LORI ALBICANS, PARAPSILOSIS, TROPICALIS 0.000 19.961 - 30.770 ppm 03/03/2025 6:28 AM EDT [facility] LORI ALBICANS, PARAPSILOSIS, TROPICALIS Not Detected 19.961 - 30.770 ppm 03/03/2025 6:28 AM EDT [facility] LORI GLABRATA 0.000 23.000 - 32.138 ppm 03/03/2025 6:28 AM EDT [facility] LORI GLABRATA Not Detected 23.000 - 32.138 ppm 03/03/2025 6:28 AM EDT [facility] LORI KRUSEI 0.000 23.000 - 32.271 ppm 03/03/2025 6:28 AM EDT [facility] LORI KRUSEI Not Detected 23.000 - 32.271 ppm 03/03/2025 6:28 AM EDT [facility] CHLAMYDIA TRACHOMATIS 0.000 23.000 - 31.467 ppm 03/03/2025 6:28 AM EDT [facility] CHLAMYDIA TRACHOMATIS Not Detected 23.000 - 31.467 ppm 03/03/2025 6:28 AM EDT [facility] GARDNERELLA VAGINALIS 29.260(A) 19.961 - 24.689 ppm 03/03/2025 6:28 AM EDT [facility] GARDNERELLA VAGINALIS Detected(A) 19.961 - 24.689 ppm 03/03/2025 6:28 AM EDT [facility] MEGASPHAERA (TYPES 1, 2) 0.000 19.961 - 24.689 ppm 03/03/2025 6:28 AM EDT [facility] MEGASPHAERA (TYPES 1, 2) Not Detected 19.961 - 24.689 ppm 03/03/2025 6:28 AM EDT [facility] NEISSERIA GONORRHOEAE 0.000 23.000 - 32.117 ppm 03/03/2025 6:28 AM EDT [facility] NEISSERIA GONORRHOEAE Not Detected 23.000 - 32.117 ppm 03/03/2025 6:28 AM EDT [facility] TRICHOMONAS VAGINALIS 0.000 23.000 - 32.119 ppm 03/03/2025 6:28 AM EDT [facility] TRICHOMONAS VAGINALIS Not Detected 23.000 - 32.119 ppm 03/03/2025 6:28 AM EDT [facility] MYCOPLASMA GENITALIUM 0.000 19.961 - 24.689 ppm 03/03/2025 6:28 AM EDT [facility] MYCOPLASMA GENITALIUM Not Detected 19.961 - 24.689 ppm 03/03/2025 6:28 AM EDT [facility] ERMB, C; MEFA 23.495(A) 23.000 - 27.611 ppm 03/03/2025 6:28 AM EDT [facility] ERMB, C; MEFA Detected(A) 23.000 - 27.611 ppm 03/03/2025 6:28 AM EDT [facility] TET B, TET M 24.706(A) 23.000 - 27.778 ppm 03/03/2025 6:28 AM EDT [facility] TET B, TET M Detected(A) 23.000 - 27.778 ppm 03/03/2025 6:28 AM EDT [facility] Tissue 03/01/2025 4:59 PM EDT 03/03/2025 1:28 AM EDT Mariel VILLALBA LAB BLOOD ORDERABLES Final Resul t [facility] [address] [place] [address] * (ABNORMAL) ALL CBC WITH AUTO DIFF (03/01/2025 2:25 PM EDT) Only the most recent of3 resultswithin the time period is included. TBH WBC 7.7 4.0 - 11.0 10 3/uL TBH TBH RBC 4.97 4.20 - 5.40 10 6/uL TBH TBH HGB 15.4 12.0 - 16.0 g/dL TBH TBH HCT 45.4 36.0 - 48.0 % TBH TBH MCV 91.3 81.0 - 99.0 fL TBH TBH MCH 31.0 26.7 - 34.0 pg TBH TBH MCHC 33.9 29.9 - 35.2 g/dL TBH TBH RDW 12.7 11.0 - 15.0 % TBH TBH PLT 294 150 - 450 10 3/uL TBH TBH MPV 8.8(L) 9.5 - 13.5 fL TBH NEUTROPHILS PERCENT AUTO 59.1 43.0 - 75.0 % TBH LYMPHOCYTES PERCENT AUTO 30.3 20.5 - 60.0 % TBH MONOCYTES PERCENT AUTO 7.7 1.7 - 12.0 % TBH TBH EO % 2.2 0.9 - 7.0 % TBH BASOPHILS PERCENT AUTO 0.4 0.2 - 2.0 % TBH IMMATURE GRANULOCYTES PCT AUTO 0.3 0.0 - 0.5 % TBH NEUTROPHILS ABSOLUTE AUTO 4.5 1.4 - 6.5 10 3/uL TBH LYMPHOCYTES ABSOLUTE AUTO 2.3 1.2 - 3.8 10 3/uL TBH MONOCYTES ABSOLUTE AUTO 0.6 0.3 - 0.8 10 3/uL TBH TBH EO # 0.2 0.0 - 0.7 10 3/uL TBH BASOPHILS ABSOLUTE AUTO 0.0 0.0 - 0.1 10 3/uL TBH IMMATURE GRANULOCYTES ABS AUTO 0.02 0.00 - 0.03 10 3/uL [facility]H 03/01/2025 2:25 PM EDT 03/01/2025 2:28 PM EDT Narrative CLINISYNC - 03/01/2025 2:36 PM EDT [facility] Final Result MICHELLE [facility] * (ABNORMAL) POCT urinalysis dipstick manually resulted [...] Positive Urine 02/21/2025 10:2 8 AM EDT [facility] POINT OF CARE TEST ENTER/EDIT OR DERABLES Final Result * [facility] PREG QUANT HCG (02/14/2025 6:20 AM EDT) Only the most recent of2 resultswithin the time period is included. HCG QUANTITATIVE <1 mIU/mL [facility] Comment: 5-50 0.2-1 WEEK 50-500 1-2 WEEKS 100-5,000 2-3 WEEKS 500-10,000 3-4 WEEKS 1,000-50,000 4-5 WEEKS 10,000-100,000 5-6 WEEKS 15,000-200,000 6-8 WEEKS 10,000-100,000 2-3 MONTHS 02/14/2025 6:20 AM EDT 02/14/2025 6:22 AM EDT Narrative CLINISYNC - 02/14/2025 6:50 AM EDT Jalen Facundo DO CLINISYNC Final Result [facility] * POCT , urine manually resulted (02/07/2025 9:21 AM EDT) Preg Test, Ur Negative Negative Urine 02/07/2025 9:21 AM EDT Jalen Facundo DO POINT OF CARE TEST ENTER/EDIT OR DERABLES Final Result * MLR HEMOGLOBIN A1C (12/29/2024 1:15 PM EDT) [facility] GLYCOHEMOGLOBIN A1C 5.1 4.5 - 6.2 % [facility] Comment: ADA RECOMMENDED LIMIT 4.0 - 6.0 ADA THERAPEUTIC TARGET < 7.0 ACTION SUGGESTED > 7.0 ESTIMATED AVERAGE GLUCOSE 100 mg/dL [facility] 12/29/2024 1:15 PM EDT 12/29/2024 1:17 PM EDT Narrative CLINISYNC - 12/29/2024 1:46 PM EDT Result [facility] Jalen Facundo DO CLINISYNC Final Result Performing Organization Address [facility] Co de Phone Number [facility] * ALL THYROXINE (T4) FREE (12/29/2024 1:15 PM EDT) [facility] FREE T4 1.05 0.76 - 1.46 ng/dL [facility] 12/29/2024 1:15 PM EDT 12/29/2024 1:17 PM EDT Narrative CLINISYNC - 12/29/2024 2:19 PM EDT Jalen Facundo DO CLINISYNC Final Result [facility] * ALL THYROID STIM HORMONE (12/29/2024 1:15 PM EDT) THYROID STIMULATING HORMONE 1.946 0.358 - 3.740 uIU/mL [facility] 12/29/2024 1:15 PM EDT 12/29/2024 1:17 PM EDT Narrative CLINISYNC - 12/29/2024 2:19 PM EDT [facility] Facundo DO CLINISYNC Final Result Performing Organization Address [facility] de Phone Number [facility] * ALL PROGESTERONE (12/29/2024 1:15 PM EDT) PROGESTERONE 0.4 . ng/mL [facility] Comment: Follicular phase 0.1 - 0.9 Luteal phase 1.8 - 23.9 Ovulation phase 0.1 - 12.0 First trimester 11.0 - 44.3 Second trimester 25.4 - 83.3 Third trimester 58.7 - 214.0 Postmenopausal 0.0 - 0.1 Performed at: [facility] [address] [id number] Electromechanical Engineer: Jaron Lewis PhD, Phone: [phone] 12/29/2024 1:15 PM EDT 12/29/2024 1:17 PM EDT Narrative CLINISYNC - 12/30/2024 4:07 AM EDT [facility] CLIN[facility]NC Final Result Performing Organization Address [facility] de Phone Number [facility] * ALL LUTEINIZING HORMONE (12/29/2024 1:15 PM EDT) LUTEINIZING HORMONE(LH) 12.8 . mIU/mL [facility] Comment: Adult Female Range Follicular phase 2.4 - 12.6 Ovulation phase 14.0 - 95.6 Luteal phase 1.0 - 11.4 Postmenopausal 7.7 - 58.5 12/29/2024 1:15 PM EDT 12/29/2024 1:17 PM EDT Narrative CLINISYNC - 12/30/2024 4:07 AM EDT Jalen Facundo DO CLINISYNC Final Result [facility] * ALL FOLLICLE STIMULATING HORMONE (12/29/2024 1:15 PM EDT) FSH 5.4 . mIU/mL [facility] Comment: Adult Female Range Follicular phase 3.5 - 12.5 Ovulation phase 4.7 - 21.5 Luteal phase 1.7 - 7.7 Postmenopausal 25.8 - 134.8 12/29/2024 1:15 PM EDT 12/29/2024 1:17 PM EDT Narrative CLINISYNC - 12/30/2024 4:07 AM EDT [facility] Facundo DO CLINISYNC Final Result Performing Organization Address [facility]/ZIP Co de Phone Number [facility] * ALL DHEA SULFATE (12/29/2024 1:15 PM EDT) DHEA-SULFATE 107.0 84.8 - 378.0 ug/dL [facility] 12/29/2024 1:15 PM EDT 12/29/2024 1:17 PM EDT Narrative CLINISYNC - 12/30/2024 4:07 AM EDT [facility] Facundo DO CLINISYNC Final Result Performing Organization Address City[facility]/ZIP Co de Phone Number [facility] * ALL DEHYDROEPIANDROSTERONE (12/29/2024 1:15 PM EDT) DHEA, SERUM 212 31 - 701 ng/dL [facility] Comment: This test was developed and its performance characteristics determined by [facility]. It has not been cleared or approved by the Food and Drug Administration. Performed at: [address] [id number] Electromechanical Engineer: Mina Dasilva MD, Phone: [phone] 12/29/2024 1:15 PM EDT 12/29/2024 1:17 PM EDT Narrative CLINISYNC - 01/06/2025 2:07 AM EDT us Jalen Loredo DO MICHELLE Final Result MICHELLE [facility] * US pelvis transvaginal (12/20/2024 1:16 PM [...] II, MD, PHD at 21-Dec-2024 08:37:37 AM [facility] Procedure Note Amy Bartlett MD - [...] Result from Last [address] [place] [address] [employer] Care Teams Ancient Art Curator Relationship Specialty Start Date End Date Mariel Braun PA [address] [place] [address] [place] [address] [facility] 01/11/24
--- OUTSIDE RECORDS SUMMARY | 2025-03-03 07:56 | XMS_ITS | Clinical Summary ---
Author Organization [employer] tem Address [id number] [address] [place] [address] Care Team Providers Care Crocheter Hand Name Role Phone Services, [facility] Primary Care Provider Allergies No known [...] on file Insurance [employer] Care Teams Crocheter Hand Relationship Specialty Start Date End Date Services, [facility] [address] [place], [place] PCP - General Family Medicine 08/25/24
== END 2025-03-03 07:55 | disposition home or self-care (01) ==
LOC: US 07:54
PROVIDERS: Visit Provider Obstetrics & Gynecology
DX: R10.2 Pelvic and perineal pain (principal); D25.9 Leiomyoma of uterus, unspecified
CPT/HCPCS: 76830; 76856

== ENCOUNTER 2025-08-07 19:52 | Outpatient (REF) | payer OTHER, SELFPAY ==
--- OUTSIDE RECORDS SUMMARY | 2025-04-17 10:15 | XMS_ITS ---
Author Organization [facility] vices Address [address] [place] [id number] Care Team Providers Care Oil Heater Installer Name Role Phone Brandi Herring Unavailable [phone] Diana Arriola Unavailable [phone] REASON FOR VISIT Recall (A) 29 Social History Sex Assigned At : Social History Observation Description Sex Assigned At Female Encounters Encounter Location Date Provider Diagnosis Dental [facility] [address] [place], [place] [id number] 04/17/2025 Diana Arriola Plan Of Treatment Next Appt Details Provider Name:Char coburn, 08/08/2025 02:30:00 PM, [address] [place] [address], [phone], Provider Name:Brandi Herring , 10/16/2025 02:00:00 PM, [address] [place] [address], [phone], Progress Notes * Gabriela KHAN EDOB:1995 (29 yo F)Acc No.[id number]:04/17/2025 Patient:?Gabriela KHAN :?Diana Arriola DDSDOB:1995???Age:29 Y ???Sex:FemaleDate:04/17/2025Phone:[phone]:[facility] [address] [id number] Subjective: * Chief Complaints: * 1 . Recall (A) 27. * Medical History: Objective: * Vitals: Assessment: Plan: * Treatment: * Billing Information: * Visit Code: * Procedure Codes: * Electronic signature of Diana Arriola DDS on 08/07/2025 at 07:55 PM EDTSign off status: Pending * Provider: Svitlana Arriola DDS Date: 0 04/17/2025 Generated for Printing/Faxing/eTransmitting on:?08/07/2025 07:55 PM EDT
--- OUTSIDE RECORDS SUMMARY | 2025-05-19 04:45 | XMS_ITS ---
Author Organization [facility] vices Address [address] [place] [id number] Care Team Providers Care Registration Manager Name Role Phone Simeon Herringyssa Unavailable [phone] Char Lin [phone] REASON FOR VISIT Recall (A) (27) Social History Sex Assigned At : Social History Observation Description Sex Assigned At Female Encounters Encounter Location Date Provider Diagnosis [facility] [address] [place], [place] [id number] 05/19/2025 Char Lin Plan Of Treatment Next Appt Details Provider Name:Char coburn, 08/08/2025 02:30:00 PM, [address] [place] [address], [phone], Provider Name:Brandi Herring , 10/16/2025 02:00:00 PM, [address] [place] [address], [phone], Progress Notes * Gabriela KHAN EDOB:1995 (29 yo F)Acc No.[id number]:05/19/2025 Dental Note Patient: Kael LINDOGabriela :?Char Lin DDS?Resource:Ana Rosa Llamas RDH :1995???Age:29 Y???Sex:FemaleDate:05/19/2025Phone:[phone]: [address] [id number] Subjective: * Chief Complaints: * 1 . Recall (A) (27). * Medical History: Objective: * Vitals: Assessment: Plan: * Treatment: * Billing Information: * Visit Code: * Procedure Codes: * Electronic signature of Char Lin DDS on 08/07/2025 at 07:54 PM EDT Sign off status: Pending * Provider: Kael Lin DDS Date: 0 05/19/2025 Generated for Printing/Faxing/eTransmitting on:?08/07/2025 07:54 PM EDT
--- OUTSIDE RECORDS SUMMARY | 2025-06-07 12:00 | XMS_ITS ---
Author Organization [facility] vices Address [address] [place], [place] [phone] Care Team Providers Care Convention Services Manager Name Role Phone Brandi Herring [phone] REASON FOR VISIT blurry vision-wants referral to clinical data specialist Social History Sex Assigned At : Social History Observation Description Sex Assigned At Female Encounters Encounter Location Date Provider Diagnosis Main [address] [place], [place] [phone] 06/07/2025 Brandi Herring Plan Of Treatment Next Appt Details Provider Name:Char coburn, 08/08/2025 02:30:00 PM, [address] [place] [address], [phone], Provider Name:Brandi Herring , 10/16/2025 02:00:00 PM, [address] [place] [address], [phone], Progress Notes * Gabriela KHAN EDOB:1995 (29 yo F)Acc No.[id number]:06/07/2025 Patient:?Gabriela KHAN :?Brandi HerringDOB:1995???Age:29 Y???Sex: FemaleDate:06/07/2025Phone:[phone]:[facility] [id number] Subjective: * Chief Complaints: * 1 . Blurry vision-wants referral to clinical data specialist. * Medical History: Objective: * Vitals: Assessment: Plan: * Treatment: * Billing Information: * Visit Code: * Procedure Codes: * Electronic signature of AMPARO Melton on 08/07/2025 at 07:55 PM EDTSign off status: Pending * Provider: Ezio Herring Date: 0 06/07/2025 Generated for Printing/Faxing/eTransmitting on:?08/07/2025 07:55 PM EDT
--- OUTSIDE RECORDS SUMMARY | 2025-06-30 07:00 | XMS_ITS ---
Author Organization [facility] vices Address [address] [place], [place] [phone] Care Team Providers Care Fence Gate Assembler Name Role Phone Brandi Herring [phone] REASON FOR VISIT blurry vision-wants referral to foot specialist Social History Sex Assigned At : Social History Observation Description Sex Assigned At Female Encounters Encounter Location Date Provider Diagnosis Main [address] [place], [place] [phone] 06/30/2025 Brandi Herring Plan Of Treatment Next Appt Details Provider Name:Char coburn, 08/08/2025 02:30:00 PM, [address] [place] [address], [phone], Provider Name:Brandi Herring , 10/16/2025 02:00:00 PM, [address] [place] [address], [phone], Progress Notes * Gabriela KHAN EDOB:1995 (29 yo F)Acc No.[id number]:06/30/2025 Patient:?Gabriela KHAN :?Bradni HerringDOB:1995???Age:29 Y???Sex: FemaleDate:06/30/2025Phone:[phone]:[facility] [id number] Subjective: * Chief Complaints: * 1 . Blurry vision-wants referral to foot specialist. * Medical History: Objective: * Vitals: Assessment: Plan: * Treatment: * Billing Information: * Visit Code: * Procedure Codes: * Electronic signature of AMPARO Melton on 08/07/2025 at 07:56 PM EDTSign off status: Pending * Provider: Ezio Herring Date: 0 06/30/2025 Generated for Printing/Faxing/eTransmitting on:?08/07/2025 07:56 PM EDT
--- OUTSIDE RECORDS SUMMARY | 2025-07-07 04:45 | XMS_ITS ---
Author Organization [facility] vices Address [address] [place], [place] [phone] Care Team Providers Care Plate Colorer Name Role Phone Brandi Herring Unavailable [phone] Diana Arriola Unavailable [phone] REASON FOR VISIT Recall (A) 27 Social History Sex Assigned At : Social History Observation Description Sex Assigned At Female Encounters Encounter Location Date Provider Diagnosis Dental Main [address] [place], [place] [phone] 07/07/2025 Diana Arriola Plan Of Treatment Next Appt Details Provider Name:Char coburn, 08/08/2025 02:30:00 PM, [address] [place] [address], [phone], Provider Name:Brandi Nevaeh , 10/16/2025 02:00:00 PM, [address] [place] [address], [phone], Progress Notes * Gabriela KHAN EDOB:1995 (29 yo F)Acc No.[id number]:07/07/2025 Patient:?Gabriela KHAN :?Diana Arriola DDS?Resource:Vadim Llamas RDHn :1995???Age:29 Y???Sex:FemaleDate:07/07/2025Phone:[phone]: [facility] [address] [id number] Subjective: * Chief Complaints: * 1 . Recall (A) 27. * Medical History: Objective: * Vitals: Assessment: Plan: * Treatment: * Billing Information: * Visit Code: * Procedure Codes: * Electronic signature of Diana Arriola DDS on 08/07/2025 at 07:55 PM EDTSign off status: Pending * Provider: Svitlana Arriola DDS Date: 0 07/07/2025 Generated for Printing/Faxing/eTransmitting on:?08/07/2025 07:55 PM EDT
--- OUTSIDE RECORDS SUMMARY | 2025-07-07 08:15 | XMS_ITS ---
Author Organization Count Includes [facility] vices Address [address] [place], [place] [id number] Care Team Providers Care Forging Press Lever Tender Name Role Phone Brandi Herring [phone] REASON FOR VISIT blurry vision-wants referral to floor care specialist Social History Sex Assigned At : Social History Observation Description Sex Assigned At Female Encounters Encounter Location Date Provider Diagnosis Main [address] [place], [place] [id number] 07/07/2025 Brandi Herring Plan Of Treatment Next Appt Details Provider Name:Char coburn, 08/08/2025 02:30:00 PM, [address] [place] [address], [phone], Provider Name:Brandi Herring , 10/16/2025 02:00:00 PM, [address] [place] [address], [phone], Progress Notes * Gabriela KHAN EDOB:1995 (29 yo F)Acc No.[id number]:07/07/2025 Patient:?Gabriela KHAN :?Brandi HerringDOB:1995???Age:29 Y???Sex: FemaleDate:07/07/2025Phone:[phone]:[facility] U[place]-[id number] Subjective: * Chief Complaints: * 1 . Blurry vision-wants referral to floor care specialist. * Medical History: Objective: * Vitals: Assessment: Plan: * Treatment: * Billing Information: * Visit Code: * Procedure Codes: * Electronic signature of AMPARO Melton on 08/07/2025 at 01:08 PM EDTSign off status: Pending * Provider: Ezio Herring Date: 0 07/07/2025 Generated for Printing/Faxing/eTransmitting on:?08/07/2025 01:08 PM EDT
--- OUTSIDE RECORDS SUMMARY | 2025-07-25 09:30 | XMS_ITS ---
Author Organization [facility] vices Address [address] [place] [id number] Care Team Providers Care Technical Professional Name Role Phone Brandi Herring Unavailable [phone] Allergies No Known Allergies REASON FOR VISIT wellness Medications Medication SIG (Take, Route, Frequency, Duration) Notes Start Date End Date Status Vitamin D3 50 MCG (1999) 1 capsule Orally Onc e a day; Duration: 90 days 5Active Social History Sex Assigned At : Social History Observation Description Sex Assigned At Female PRAPARE Question Answer Notes What is your current housing situation? I have h ousing Are you worried about losing your housing?NoWhat is the highest level of school that you have finished?High school diploma or GEDWhat is your current work situation?Otherwise unemployed but not seeking work (ex. 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 Check all that applyI do not have problems meeting my needsHas lack of transportation kept you from medical appointments, meetings, work or from getting things needed for daily living?NoHow often do you see or talk to people that you care about and feel close to? (For example: talkingto friends on the phone, visiting friends or family, going to buddhist or club meetings)More than 5 times a weekHow stressed are you? Stress is when someone feels tense, nervous, anxious, or can't sleep at nightbecause their mind is troubledA little bitIn the past year have you spent more than 2 nights in a row in a assisted, fdc, long term center, orjuvenile correctional facility?NoAre you a refugee?NoWhat country are you from?[place]Do you feel physically and emotionally safe where you currently live?YesIn the past year, have you been afraid of your partner or ex-partner?NoPRAPARE Score:4 Vital Signs Temperature 97.7 degrees Fahrenheit 07/25/20 25 Weight 296 lbs 07/25/2025 Height 64.00 in 07/25/2025 BMI 50.8 kg/m2 07/25/2025 Blood pressure systolic 90 mm Hg 07/25/20 Blood pressure diastolic 61 mm Hg Heart Rate 80 /min 07/25/2025 Respiratory Rate 18 /min 07/25/2025 Oximetry 98 % 07/25/2025 Weight-kg 134.26 kg 07/25/2025 Height-cm 162.56 cm 07/25/2025 Thomas Webb 025 01:23:44 PM EDT > Encounters Encounter Location Date Provider Diagnosis Main [address] [place], [place] [id number] 07/25/2025 [facility] Wellness examination Z00.00 ; Obesity, morbid, BMI 50 or higher E66.01 and Body mass index (BMI) of 50-59.9 in adult Z68.43 Assessments Encounter Date Diagnosis (ICD Code) Assessment Notes Treatment Notes Treatment Clinical Notes Section Notes 07/25/2025 Wellness examination (ICD-10 - Z 00.00) Completed pt's Yearly Preventative Wellness Exam. Pt advised on healthy diet and exercise. Encouraged to limit fried, fatty, and processed foods and eat healthier options such as fruits, vegetables, and lean meats. Blood work recently completed and overall WNL 07/25/2025Obesity, morbid, BMI 50 or higher (ICD-10 - E66.01)07/25/2025ody mass index (BMI) of 50-59.9 in adult (ICD-10 - Z68.43) Plan Of Treatment Treatment Notes Assessment Notes Wellness examination Completed pt's Yearly Preventative Wellness Exam. Pt advised on healthy diet and exercise. Encouraged to limit fried, fatty, and processed foods and eat healthier options such as fruits, vegetables, and lean meats. Blood work recently completed and overall WNL Next Appt Details Follow Up: 10/16/25, Reason: Provider Name:Char Emilycristhian almas, 08/08/2025 02:30:00 PM, [address] [place] [address], [id number], Provider Name:Brandi Herring , 10/16/2025 02:00:00 PM, [address] [place] [address], [phone], Progress Notes * Gabriela KHAN EDOB:1995 (29 yo F)Acc No.[id number]:07/25/2025 Medical Note Patient: Gabriela MERAZ :?Brandi HerringDOB:1995???Age:29 Y???Sex: FemaleDate:07/25/2025Phone:[phone]:[facility] Subjective: * Chief Complaints: * W mario * HPI: ???Interim History:?WELLNESS 29 Year old patient is here today for wellness visit. Today patient denies any new complaints. Health has been good recently. Pt has hx of Ovarian Cyst removal that was 10cm, following brunilda/ Daria Lored[facility]? Blood pressure today is: 90/61? Cholesterol screening: Ordering Cervical cancer screening: Pt will have a pap soon this month Depression screening: Completed? Smoking status: Denies? Alcohol use: Rarely? Drug use including marijuana: Denies? Dental screeninth for cleaning this month Vision screeninrd Retina Specialist? Diet: Pt reports her diet consists of home-cooked meals, rarely eats out, fruits and vegetables Exercise: Pt reports she walks often. ???Depression screening:?PHQ-9?Little interest or pleasure in doing things Not at all ?Feeling down, depressed, or hopeless?Several days ?Trouble falling or staying asleep, or sleeping too much?Not at all ?Feeling tired or having little energy?Several days ?Poor appetite or overeating?Not at all ?Feeling bad about yourself or that you are a failure, or have let yourself or your family down?Not at all ?Trouble concentrating on things, such as reading the newspaper or watching television?Not at all ?Moving or speaking so slowly that other people could have noticed; or the opposite, being so fidgety or restless that you have been moving arounda lot more than usual?Not at all ?Thoughts that you would be better off orof hurting yourself in some way?Not at all ?Total Score?2 ?Interpretation?Minimal Depression * ROS: ???Negative except mentioned above in the HPI. * Medical History: * Surgical History: c yst removal ovaries right side february 2025 * Hospitalization/Major Diagno stic Procedure: D enies Past Hospitalization * Family History: F ather: alive, diagnosed with High Cholesterol. M other: alive, thrombophilia. P aternal Grand Father: , [place]. P aternal Grand Mother: , diagnosed with Diabetes. M aternal Grand Father: , COPD, emphysema. M aternal Grand Mother: , diagnosed with Cancer. B rother: alive. S ister: alive. 1 brother(s) , 1 sister(s) . . * Social History: ???Social Determinants:?PRAPARE?What is your current housing situation??I have housing ?Are you worried about losing your housing? No ?What is the highest level of school that you have finished??High school diploma or GED ?What is your current work situation??Otherwise unemployed but not seeking work (ex. 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 Check all that a pply?I do not have problems meeting my needs ?Has lack of transportation kept you from medical appointments, meetings, work or from getting things needed for daily living??No ?How often do you see or talk to people that you care about and feel close to? (For example: talking to friends on the phone, visiting friends or f amily, going to buddhist or club meetings)?More than 5 times a week ?How stressed are you? Stress is when someone feels tense, nervous, anxious, or can't sleep at night because their mind is troubled?A little bit ?In the past year have you spent more than 2 nights in a row in a assisted, fdc, long term center, or juvenile correctional facility??No ?Are you a refugee??No ?What country are you from??[place] ?Do you feel physically and emotionally safe where you currently live?? Yes ?In the past year, have you been afraid of your partner or ex-partner?? No ?PRAPARE Score:?4 * Medications: T akingVitamin D3 50 MCG (2000 UT) Capsule 1 capsule Orally Once a day Medication List reviewed and reconciled with the patientTaking Vitamin D3 50 MCG (2000 UT) Capsule 1 capsule Orally Once a day Medication List reviewed and reconciled with the patient * Allergies: N .K.D.A.no[Allergies Verified] Objective: * Vitals: T emp:97.7F, Wt:296lbs, Ht: 64.00 in, BMI:50.8Index, BP:90/61mm Hg, HR:80/min, RR:18/min, Pain scale:41-10, Oxygen sat %:98%, Wt-k.26 kg, Ht-cm: 162.56 cm, Body Surface Area: 2.46. Thomsa Webb 07/25/2025 01:23:44 PM EDT >. * Examination: ???CQM Exceptions: ?Currently taking Aspirin:?Aspirin Use:?No?General Examination: ?General appearance:?alert, pleasant, well-nourished and inno acute distress.?Head:?normocephalic, atraumatic.?Heart:?regular rate and rhythm without murmurs, gallops, clicks or rubs.?Lungs:?clear to auscultation bilaterally, with good air movement and no rales, rhonchi or wheezes.?Psych:?alert and oriented x 3 , cooperative with exam, normal affect / mood , speech is clear and coherent.? Assessment: * Assessment: 1.?Wellness examination - Z00.00 (Primary)???2.?Obesity, morbid, BMI 50 orhigher - E66.01???3.?Body mass index (BMI) of 50-59.9 in adult - Z68.43? ? Plan: * Treatment: Notes: Completed pt's Yearly Preventative Wellness Exam. Pt advised on healthy diet and exercise. Encouraged to limit fried, fatty, and processed foods and eat healthier options such as fruits, vegetables, and lean meats. Blood work recently completed and overall WNL?? * Procedure Codes: 3 078F HTN DIAST BP < 431734F HTN SYST BP < 130 * Preventive Medicine: ??Counseling:?Communication to patient:?Counseling for nutrition provided?Yes ?Counseling for physical activity provided?Yes * Follow Up: * Billing Information: * Visit Code: 23909 [facility] Compre Prev Med Ree/M Est Pt 18-39. * Procedure Codes: 3078F HTN DIAST BP < 80. 3074F HTN SYST BP < 130. * Sign off status: Completed true * Provider: Ezio Herring Date: 1 Generated for Printing/Faxing/eTransmitting on:?08/07/2025 07:54 PM EDT History and Physical Notes * HPI (History of Present Illness) CategorySub-CategoryDetailNotesCategory NotesDepression screeningPHQ-9Little interest or pleasure in doing things: Not at allFeeling down, depressed, or hopeless: Several daysTrouble falling or staying asleep, or sleeping too much: Not at allFeeling tired or having little energy: Several daysPoor appetite or overeating: Not at allFeeling bad about yourself or that you are a failure, or have let yourself or your family down: Notat allTrouble concentrating on things, such as reading the newspaper or watching television: Not at allMoving or speaking so slowly that other people could have noticed; or the opposite, being so fidgety or restless that you have been moving around a lot more than usual: Not at allThoughts that you would be better off or of hurting yourself in some way: Not at allTotal Score: 2Interpretation: Minimal Depression Examination CategorySub-CategoryDetailNotesCategory NotesGeneral ExaminationGeneral appearance:alert, pleasant, well-nourished and in no acute distressHead: normocephalic, atraumaticHeart:regular rate and rhythm without murmurs, gallops, clicks or rubsLungs:clear to auscultation bilaterally, with good air movement and no rales, rhonchi or wheezesPsych:alert and oriented x 3 , cooperative with exam, normal affect / mood , speech is clear and coherentCQM ExceptionsCurrently taking Aspirin:Aspirin Use:: No
--- OUTSIDE RECORDS SUMMARY | 2025-07-26 14:40 | XMS_ITS | Encounter Summary ---
Author Organization [facility] Address [address] [place] [address] Care Team Providers Care Assembly Press Operator Name Role Phone Mariel Braun Unavailable Reason for Visit * ReasonCommentsSTI ScreeningPt present today for an STD check. Encounter Details DateTypeDepartmentCare Team (Latest Contact Info)Cfwggphtljf23/15/2025 2:40 PM EDTOffice Visit MOISÉS CESAR [address] [place] [place] [address] Mariel Braun PA [address] [place] [address] Exposure to STD; Missed menses; Vaginal odor; Bacterial infection due to mycoplasma Social History Tobacco UseTypesPacks/DayYears UsedDateSmoking Tobacco: UnknownAlcohol Use Standard Drinks/WeekCommentsNot Currently0 (1 standard drink = 0.6 oz pure alcohol)occasionalCommentsNoSex and Gender InformationValueDate Recorded Sex Assigned at BirthNot on fileLegal UtxWivgku16/15/2023 11:47 PM EDTGender ZeptekhvOgxlej70/23/2023 10:11 PM EDTSexual OrientationNot on filedocumented as of this encounter Last Filed Vital Signs Vital SignReadingTime TakenCommentsBlood Vczkfpau499/7607/26/2025 3:00 PM EDT Pulse--Temperature--Respiratory Rate--Oxygen Saturation--Inhaled Oxygen Concentration--Fcdxck548 kg (292 lb)07/26/2025 3:00 PM FLKRqigkw301 cm (5' 3 ) 07/26/2025 3:00 PM EDTBody Mass Index51.7307/26/2025 3:00 PM EDTdocumented in this encounter Progress Notes * DEEJAY Chauhan - 07/26/2025 2:40 PM EDT Reason for Appointment: Patient ID: Gabriela Khan is a 29 y.o. female who presents for STI Screening (Pt present today for an STD check.) Patient presents today for STD Check. MEDICATIONS Current Outpatient Medications Medication Instructions cholecalciferol (VITAMIN D-3) 400 Units, Daily metFORMIN XR (GLUCOPHAGE-XR) 500 mg, Oral, Daily with evening meal, Do not crush, chew, or split. ondansetron ODT (ZOFRAN-ODT) 4 mg, Every 8 hours PRN ALLERGIES Allergies[1] PROBLEMS Active Ambulatory Problems Diagnosis Date Noted Weight gain 04/01/2023 HSV (herpes simplex virus) infection 04/01/2023 Morbid obesity ([facility]) 04/01/2023 Ovarian cyst 04/01/2023 Pain in female genitalia on intercourse 04/01/2023 Pelvic pain 04/01/2023 Encounter for weight management 05/18/2024 COVID-19 05/18/2024 Insulin resistance 05/18/2024 Resolved Ambulatory Problems Diagnosis Date Noted No Resolved Ambulatory Problems Past Medical History: Diagnosis Date Abnormal weight gain Dyspareunia, female Encounter for gynecological examination (general) (routine) without abnormal findings Morbid obesity with BMI of 45.0-49.9, adult ([facility]) Patient desires HISTORY PAST MEDICAL HISTORY SOCIAL HISTORY Medical History[2] Social History Tobacco Use Smoking status: Unknown Smokeless tobacco: Not on file Substance Use Topics Alcohol use: Not Currently Comment: occasional Drug use: Never FAMILY HISTORY Family History[3] SURGICAL HISTORY Surgical History[4] REVIEW OF SYSTEMS Review of Systems: Review [...] nursing note reviewed. Exam conducted with a bedspread cutter hand present. Vitals: Estimated body mass index is 51.73 kg/m?? as calculated from the following: Height as of this encounter: 5' 3 . Weight as of this encounter: 292 lb. BP: 118/76 No LMP recorded (lmp unknown). (Menstrual status: No Periods). ASSESSMENT & PLAN ICD-10-CM 1. Exposure to STD Z20.2 SURESWAB(R) ADVANCED VAGINITIS PLUS, TMA CHLAMYDIA TRACHOMATIS (GENITO/STI) Neisseria gonorrhea DNA probe, direct 2. Missed menses N92.6 POCT , urine manually resulted 3. Vaginal odor N89.8 Pt present today for an STD check. Pt verbalizes she does have protected sex w/partner. And has noticed a light odor to herself. However, she just wants to make sure she hasn't contracted anything from her partner. Pt states she has not had her period in weeks and would like to get tested for . Pt gave us a urine sample to test. test came back negative. Cx's were taken and pt was advised it does take about 1-2 days for results to come back. PVU. Documented by Kay Felix MA on behalf of: DEEJAY Chauhan [1] No Known Allergies [2] Past Medical History: Diagnosis Date Abnormal weight gain Dyspareunia, female Encounter for gynecological examination (general) (routine) without abnormal findings HSV (herpes simplex virus) infection Morbid obesity with BMI of 45.0-49.9, adult ([facility]) Ovarian cyst Patient desires Pelvic pain [3] Family History Problem Relation Name Age of Onset Diabetes Other Coronary artery disease Other Lung cancer Other COPD Other Emphysema Other Asthma Other Hyperlipidemia Other [4] Past Surgical History: Procedure Laterality Date LAPAROTOMY OVARIAN CYSTECTOMY Right 02/14/2025 robotic assisted documented in this encounter Plan of Treatment NameTypePriorityAssociated DiagnosesOrder ScheduleSURESWAB(R) ADVANCED VAGINITIS PLUS, TMAPathology and CytologyRoutine Exposure to STD Ordered: 07/26/2025HLAMYDIA TRACHOMATIS (GENITO/STI)LabRoutine Exposure to STD Ordered: 07/26/2025Neisseria gonorrhea DNA probe, directLabRoutine Exposure to STD Ordered: 07/26/2025documented as of this encounter Procedures Procedure NamePriorityDate/TimeAssociated DiagnosisCommentsPOCT , URINE Nihkvvr8607/26/2025 3:00 PM EDT Missed menses documented in this encounter Results * POCT , urine manually resulted (07/26/2025 3:00 PM EDT)ComponentValue Ref RangeTest MethodAnalysis TimePerformed AtPathologist SignaturePreg Test, UrNegativeNegativeSpecimen (Source)Anatomical Location / LateralityCollection Method / VolumeCollection TimeReceived ZbfgKnkwk47/15/2025 3:00 PM EDT Narrative Authorizing ProviderResult TypeResult StatusMariel Braun PAPOINT OF CARE TEST ENTER/EDIT ORDERABLESFinal Result documented in this encounter Visit Diagnoses Diagnosis Exposure to STD Missed menses Vaginal odor Unspecified symptom associated with female genital organs Bacterial infection due to mycoplasma documented in this encounter Care Teams Team MemberRelationshipSpecialtyStart DateEnd Date Mariel Braun PA [address] [place] [address] [address] [place], [id number] PCP - [facility]01/11/24documented as of this encounter
--- OUTSIDE RECORDS SUMMARY | 2025-07-31 11:00 | XMS_ITS ---
Author Organization [facility] vices Address [address] [place] [id number] Care Team Providers Care Assembly Line Robot Operator Name Role Phone Brandi Herring Unavailable [phone] REASON FOR VISIT hpv vaccine Social History Sex Assigned At : Social History Observation Description Sex Assigned At Female Vital Signs Temperature 98.0 degrees Fahrenheit 07/31/20 Weight 290 lbs 07/31/2025 Height 64.00 in 07/31/2025 BMI 49.77 kg/m2 07/31/2025 Weight-kg 131.54 kg 07/31/2025 Height-cm 162.56 cm 07/31/2025 Thomas Webb 025 03:05:37 PM EDT > Encounters Encounter Location Date Provider Diagnosis [place] [address] [place], [place] [id number] 07/31/2025 Brandi Herring Encounter for immuni zation Z23 Assessments Encounter Date Diagnosis (ICD Code) Assessment Notes Treatment Notes Treatment Clinical Notes Section Notes 07/31/2025 Encounter for immunization (ICD- 10 - Z23) Pt reported to appt today thinking she needed the HPV vaccine. Nurse roomed her and had her Impacts printed, pt did receive the 3-part series when she was 13 years old. Pt left appt today w/o vaccine as she is already UTD, vitals were taken. Plan Of Treatment Treatment Notes Assessment Notes Encounter for immunization Pt reported to appt today thinking she needed the HPV vaccine. Nurse roomed her and had her Impacts printed, pt did receive the 3-part series when she was 13 years old. Pt left appt today w/o vaccine as she is already UTD, vitals were taken. Next Appt Details Follow Up: 10/16/25, Reason: Provider Name:Char coburn, 08/08/2025 02:30:00 PM, [address] [place] [address], [phone], Provider Name:Brandi Herring , 10/16/2025 02:00:00 PM, [address] [place] [address], [id number], Progress Notes * Gabriela KHAN EDOB:1995 (29 yo F)Acc No.[id number]:07/31/2025 Nurse Visit Note Patient: Gabriela MERAZ :?Brandi HerringDOB:1995???Age:29 Y???Sex: FemaleDate:07/31/2025Phone:[phone]:[address], [place], [place]-[id number] Subjective: * Chief Complaints: * H pv vaccine * Medical History: * Surgical History: * Hospitalization/Major Diagno stic Procedure: * Medications: Objective: * Vitals: T emp:98.0F, Wt:290lbs, Ht: 64.00 in, BMI:49.77Index, Wt-k.54 kg, Ht-cm: 162.56 cm, Body Surface Area: 2.43. Thomas Webb 07/31/2025 03:05:37 PM EDT >. Assessment: * Assessment: 1.?Encounter for immunization - Z23??? Plan: * Treatment: Notes: Pt reported to appt today thinking she needed the HPV vaccine. Nurse roomed her and had her Impacts printed, pt did receive the 3-part series when she was 13 years old. Pt left appt today w/o vaccine as she is already UTD, vitals were taken.?? * Procedure Codes: * Preventive Medicine: ??Counseling:?Communication to patient:?Counseling for nutrition provided?Yes ?Counseling for physical activity provided?Yes * Follow Up: * Billing Information: * Visit Code: [id number] Office Visit Est 10-19 Minutes. Modifiers: SA * Procedure Codes: * Sign off status: Completed true * Provider: Ezio Herring Date: Generated for Printing/Faxing/eTransmitting on:?08/07/2025 07:55 PM EDT
--- OUTSIDE RECORDS SUMMARY | 2025-08-07 13:20 | XMS_ITS | Encounter Summary ---
Author Organization [facility] Address [address] [place] [address] [place] [address] Care Team Providers Care Oil Analyst Name Role Phone Mariel Braun Unavailable Reason for Visit * ReasonCommentsWell Women VisitInfertility Encounter Details DateTypeDepartmentCare Team (Latest Contact Info)Vsvvaxqtmii74/27/2025 1:20 PM EDTProcedure Visit MOISÉS [place] [facility] [address] [place] [address] Jalen Loredo DO [address] [place] [address] PCOS (polycystic ovarian syndrome) (Primary Dx); Well woman exam with routine gynecological exam; Anovulation; Exposure to STD; Vaginal discharge Social History Tobacco UseTypesPacks/DayYears UsedDateSmoking Tobacco: UnknownAlcohol Use Standard Drinks/WeekCommentsNot Currently0 (1 standard drink = 0.6 oz pure alcohol)occasionalCommentsNoSex and Gender InformationValueDate Recorded Sex Assigned at BirthNot on fileLegal PvuDnfclv51/15/2023 11:47 PM EDTGender TlnzwahaLdbcxd09/23/2023 10:11 PM EDTSexual OrientationNot on filedocumented as of this encounter Last Filed Vital Signs Vital SignReadingTime TakenCommentsBlood Wgmlhfro266/801 1:14 PM EDT Pulse--Temperature--Respiratory Rate--Oxygen Saturation--Inhaled Oxygen Concentration--Avbkzb099 kg (292 lb 12.8 oz)08/07/2025 1:14 PM EDTHeight--Body Mass Index51.8710 3:00 PM EDTdocumented in this encounter Plan of Treatment NameTypePriorityAssociated DiagnosesOrder SchedulePap SmearPathology and CytologyRoutine Well woman exam with routine gynecological exam Ordered: 08/07/2025SURESWAB(R) ADVANCED VAGINITIS PLUS, TMAPathology and CytologyRoutine Vaginal discharge Ordered: 08/07/2025HLAMYDIA TRACHOMATIS (GENITO/STI)LabRoutine Exposure to STD Ordered: 08/07/2025Neisseria gonorrhea DNA probe, directLabRoutine Exposure to STD Ordered: 08/07/2025documented as of this encounter Visit Diagnoses Diagnosis PCOS (polycystic ovarian syndrome)- Primary Polycystic ovaries Well woman exam with routine gynecological exam Routine gynecological examination Anovulation Female infertility associated with anovulation Exposure to STD Vaginal discharge Leukorrhea, not specified as infective documented in this encounter Care Teams Team MemberRelationshipSpecialtyStart DateEnd Date Mairel Braun PA [address] [place] [address] [place] [address] PCP - Felicia Jones [facility]01/11/24documented as of this encounter
--- OUTSIDE RECORDS SUMMARY | 2025-08-07 19:55 | XMS_ITS | Encounter Summary ---
Author Organization [facility] Address [address] [facility] [place] [address] Care Team Providers Care Zipper Trimmer Name Role Phone Mariel Braun Unavailable Encounter Details DateTypeDepartmentCare Team (Latest Contact Info)Lkkqpdhzqkh69/15/2025amboo flowsheet [facility] [address] [address] Mariel Braun PA [address] [place], [facility]11 Social History Tobacco UseTypesPacks/DayYears UsedDateSmoking Tobacco: UnknownAlcohol Use Standard Drinks/WeekCommentsNot Currently0 (1 standard drink = 0.6 oz pure alcohol)occasionalCommentsNoSex and Gender InformationValueDate Recorded Sex Assigned at BirthNot on fileLegal LehZiqadm13/15/2023 11:47 PM EDTGender ZfzqumrdQjmnkb89/23/2023 10:11 PM EDTSexual OrientationNot on filedocumented as of this encounter Plan of Treatment Not on file documented as of this encounter Visit Diagnoses Not on filedocumented in this encounter Care Teams Team MemberRelationshipSpecialtyStart DateEnd Date Mariel Braun PA [address], [facility]11 [facility]01/11/24documented as of this encounter
--- OUTSIDE RECORDS SUMMARY | 2025-08-07 19:55 | XMS_ITS | Encounter Summary ---
Author Organization [facility] Address [address] [facility] [place] [address] Care Team Providers Care Pharmaceutical Service Representative Name Role Phone Mariel Braun Unavailable Encounter Details DateTypeDepartmentCare Team (Latest Contact Info)Ecvkmgorttf78/17/2025Telephone [facility] [address] [place] [place] [address] Mariel Braun PA [address], [facility]11 Social History Tobacco UseTypesPacks/DayYears UsedDateSmoking Tobacco: UnknownAlcohol Use Standard Drinks/WeekCommentsNot Currently0 (1 standard drink = 0.6 oz pure alcohol)occasionalCommentsNoSex and Gender InformationValueDate Recorded Sex Assigned at BirthNot on fileLegal PloErydvz60/15/2023 11:47 PM EDTGender CojwpznuQbjzmj61/23/2023 10:11 PM EDTSexual OrientationNot on filedocumented as of this encounter Miscellaneous Notes * Telephone Encounter - Lorin Rojas LPN - 07/28/2025 10:01 AM EDT Patient was called with results and advised script would be sent in for the patient to her pharmacy. documented in this encounter Plan of Treatment Not on file documented as of this encounter Visit Diagnoses Diagnosis BV (bacterial vaginosis) Unspecified vaginitis and vulvovaginitis documented in this encounter Care Teams Team MemberRelationshipSpecialtyStart DateEnd Date Mariel Braun PA [address] [place] [address] [place] [address] PCP - [facility]01/11/24documented as of this encounter
--- OUTSIDE RECORDS SUMMARY | 2025-08-07 19:55 | XMS_ITS | Encounter Summary ---
Author Organization [facility] Address [address] [facility] [place] [address] Care Team Providers Care Seed Sorter Name Role Phone Mariel Braun Unavailable Encounter Details DateTypeDepartmentCare Team (Latest Contact Info)Qkjtpnvlhvx52/27/2025amboo flowsheet [facility] [address] [facility] [facility] [place] [address] Jalen Loredo DO [address] [place], [facility]11 Social History Tobacco UseTypesPacks/DayYears UsedDateSmoking Tobacco: UnknownAlcohol Use Standard Drinks/WeekCommentsNot Currently0 (1 standard drink = 0.6 oz pure alcohol)occasionalCommentsNoSex and Gender InformationValueDate Recorded Sex Assigned at BirthNot on fileLegal GlwQsetaa19/15/2023 11:47 PM EDTGender IhzcdabvPaonlz95/23/2023 10:11 PM EDTSexual OrientationNot on filedocumented as of this encounter Plan of Treatment Not on file documented as of this encounter Visit Diagnoses Not on filedocumented in this encounter Care Teams Team MemberRelationshipSpecialtyStart DateEnd Date Mariel Braun PA [address], [facility]11 [facility]01/11/24documented as of this encounter
--- OUTSIDE RECORDS SUMMARY | 2025-08-07 19:55 | XMS_ITS | Encounter Summary ---
Author Organization [facility] Address [address] [place] [address] Care Team Providers Care Lay Out Carpenter Name Role Phone Mariel Braun Unavailable Encounter Details DateTypeDepartmentCare Team (Latest Contact Info)Mjptuvagctn44/15/2025External Result Encounter [facility] External Department Unsolicited Mariel Braun PA [address] [place] [address] [place] [address] Social History Tobacco UseTypesPacks/DayYears UsedDateSmoking Tobacco: UnknownAlcohol Use Standard Drinks/WeekCommentsNot Currently0 (1 standard drink = 0.6 oz pure alcohol)occasionalCommentsNoSex and Gender InformationValueDate Recorded Sex Assigned at BirthNot on fileLegal InuFuhwtn32/15/2023 11:47 PM EDTGender OwhohjqeWuophl23/23/2023 10:11 PM EDTSexual OrientationNot on filedocumented as of this encounter Plan of Treatment Not on file documented as of this encounter Procedures Procedure NamePriorityDate/TimeAssociated DiagnosisCommentsRECURRENT VAGINITIS (HTRX)Pixbfxh7507/26/2025 4:22 PM EDT documented in this encounter Results * (ABNORMAL) RECURRENT VAGINITIS (HTRX) (07/26/2025 4:22 PM EDT)ComponentValue Ref RangeTest MethodAnalysis TimePerformed AtPathologist SignatureATOPOBIUM MAXEVVI85.858(A)19.961 - 24.689 ppm10/ 7:21 AM EDTHealthTrackRx at [facility] HospitalATOPOBIUM VAGINAEDetected(A)19.961 - 24.689 ppm07/28/2025 7:21 AM EDT [facility] at LabPortBVAB 2,3 (BACTERIAL VAGINOSIS ASSOCIATED BACTERIA 2, 3); MOBILUNCUS SPP18.179(A)19.961 - 24.689 ppm07/28/2025 7:21 AM EDT [facility] at LabPortBVAB 2,3 (BACTERIAL VAGINOSIS ASSOCIATED BACTERIA 2, 3); MOBILUNCUS SPPDetected(A)19.961 - 24.689 ppm07/28/2025 7:21 AM EDT [facility] at LabPortCANDIDA ALBICANS, PARAPSILOSIS, OJKICNTYHC556.000 - 30.347 ppm07/28/2025 7:21 AM EDTHealthTrackRx at LabPortCANDIDA ALBICANS, PARAPSILOSIS, TROPICALISNot Vuuutkgy50.000 - 30.347 ppm07/28/2025 7:21 AM EDT [facility] LabPortCANDIDA ZLSDGKEQ606.000 - 31.618 ppm07/28/2025 7:21 AM EDTHealthTrackRx at LabPortCANDIDA GLABRATANot Vwnqtlwp44.000 - 31.618 ppm 07/28/2025 7:21 AM EDTHealthTrackRx at LabPortCANDIDA MIPERG338.000 - 30.873 ppm07/28/2025 7:21 AM EDTHealthTrackRx at LabPortCANDIDA KRUSEINot Detected 23.000 - 30.873 ppm07/28/2025 7:21 AM EDTHealthTrackRx at LabPortCHLAMYDIA TOTYGFUKUIW818.000 - 31.586 ppm07/28/2025 7:21 AM EDTHealthTrackRx at [facility] CHLAMYDIA TRACHOMATISNot Knapwzqs42.000 - 31.586 ppm07/28/2025 7:21 AM EDT [facility] CenterPortGARDNERELLA GFIPTBQCA70.1070(A)19.961 - 24.689 ppm 07/28/2025 7:21 AM EDTHealthTrackRx at LabPortGARDNERELLA VAGINALISDetected(A) 19.961 - 24.689 ppm07/28/2025 7:21 AM EDTHealthTrackRx at [facility] HospitalMEGASPHAERA (TYPES 1, 2)22.7140(A)19.961 - 24.689 ppm07/28/2025 7:21 AM EDTHealthTrackRx at [facility] HospitalMEARSPBANNER PAYSON MEDICAL CENTERRA (TYPES 1, 2)Detected(A)19.961 - 24.689 ppm07/28/2025 7:21 AM EDTHealthTrackRx at [facility] HospitalNEISSERIA ODOXZBBNGJG956.000 - 32.587 ppm 07/28/2025 7:21 AM EDTHealthTrackRx at [facility] HospitalNEISSERIA GONORRHOEAENot Lpjgksgl89.000 - 32.587 ppm07/28/2025 7:21 AM EDT[facility] at [facility] TRICHOMONAS QTXBZSGBC258.000 - 31.995 ppm07/28/2025 7:21 AM EDTHealthTrackRx at [facility] HospitalTRICHOMONAS VAGINALISNot Ckalkwda30.000 - 31.995 ppm07/28/2025 7:21 AM EDTHealthTrackRx at [facility] HospitalMYCOPLASMA MPHJTTQHOU900.961 - 24.689 ppm 07/28/2025 7:21 AM EDTHealthTrackRx at [facility] HospitalMYCOPLASMA GENITALIUMNot Diodlrba35.961 - 24.689 ppm07/28/2025 7:21 AM EDTHealthTrackRx at [facility], C; MEFA20.597(A)23.000 - 27.500 ppm07/28/2025 7:21 AM EDTHealthTrackRx at [facility], C; MEFADetected(A)23.000 - 27.500 ppm07/28/2025 7:21 AM EDT [facility] HospitalTET B, TET M20.679(A)23.000 - 27.500 ppm07/28/2025 7:21 AM EDTHealthTrackRx at [facility] HospitalTET B, TET MDetected(A)23.000 - 27.500 ppm 07/28/2025 7:21 AM EDTHealthTrackRx at LabFranciscan Health Crown PointSpecimen (Source)Anatomical Location / LateralityCollection Method / VolumeCollection TimeReceived Time Sgzqrc7507/26/2025 4:22 PM EDT1 2:19 AM EDT Narrative Authorizing ProviderResult TypeResult StatusAmy Aparna ALAN BLOOD ORDERABLES Final ResultPerforming OrganizationAddressCity/State/ZIP CodePhone Number [facility] [address] [place] [address] documented in this encounter Visit Diagnoses Not on filedocumented in this encounter Care Teams Team MemberRelationshipSpecialtyStart DateEnd Date Mariel Braun PA [address] [place] [address] [place] [address] PCP - [facility]01/11/24documented as of this encounter
--- OUTSIDE RECORDS SUMMARY | 2025-08-07 19:55 | XMS_ITS | Patient Health Record ---
Author Organization Formerly [facility] vices Address [address] [place] [id number] Care Team Providers Care Weapons Mechanic Name Role Phone Brandi Herring Unavailable [phone] Char Lin Unavailable [phone] Diana Arriola Unavailable [phone] Steph Babb Unavailable [phone] Allergies No Known Allergies Results Component Value Reference Range Notes CBC W/AUTO DIFF Reviewed date:07/10/2025 09:14:08 AM Interpretation: Performing Lab: Notes/Report: WBC 6.8 3.6-11.0 THDS/CMM RBC4.893.80-5.20 MILL/MLCXYZ28.211.9-16.0 G/DLHCT45.435-47 %VZG9109-740 fLMCH 31.126.0-33.0 ixSPNX44.531.0-36.0 g/dlRDW12.411.2-14.8 %ZUKWVMTX989048-925 THOUS/KXUEZBNVXVJEJR07.745-75 %RLTWPSHPFWO09.920-45 %MONOCYTES8.40-13 % EOSINOPHILS1.30-5 %BASOPHILS0.60-2 %IMMATURE GRAN0.10-2 %ABS NEUTROPHILS3.851.9- 8.0 K/uLABS LYMPHOCYTES2.240.9-5.2 K/uLABS MONOCYTES0.570.1-1.0 K/uLABS EOSINOPHILS0.090.0-0.80 K/uLABS BASOPHILS0.040.0-0.2 K/uLABS IMMATURE GRAN0.01 0.00-0.06 K/uLTSH WITH T4 REFLEX Reviewed date:07/10/2025 09:14:08 AM Interpretation: Performing Lab: Notes/Report:TSH1.600.270-4.200 uIU/mL The [employer] (ADAN) recommends the following reference ranges for TSH levels during : First trimester: 0.1 to 2.5 mIU/L Second trimester: 0.2 to 3.0 mIU/L Third trimester: 0.3 to 3.0 mIU/L VITAMIN B12 Reviewed date:07/10/2025 09:14:08 AM Interpretation: Performing Lab: Notes/Report:VITAMIN [id number] pg/mL It has been reported that between 5 and 10% of patients with values between 200 and 400 pg/ml may experience neuropsychiatric and hematologic abnormalities due to occult B12 deficiency. Less than 1% of patients with values above 400 pg/ml will have symptoms. VITAMIN D 25 HYDROXY Reviewed date:07/10/2025 09:14:08 AM Interpretation: Performing Lab: Notes/Report:VITAMIN D, 25 IDQJJIU12.030.0-100.0 ng/mL 25-OH VITAMIN D INTERPRETATION Deficiency.... <20.0 ng/ml Insufficiency..20.0-29.0 ng/ml Sufficiency....30.0-100.0 ng/ml Possible Toxicity...>150 ng/ml UNLESS OTHERWISE INDICATED, ALL TESTING PERFORMED AT: [employer] [address] [place] [address] REFRIGERATING ENGINEER HEAD: DANIELLE SOUZA M.D. CLIA NUMBER [id number] CAP ACCREDITATION AUID [id number] POCT A1C Reviewed date:07/10/2025 07:29:15 AM Interpretation: Performing Lab: Notes/Report:COMPREHENSIVE METABOLIC PANEL (AMA) Reviewed date:07/10/2025 09:14:08 AM Interpretation: Performing Lab: Notes/Report:GAZGYCH28759-009 mg/oDMADMFW572116-543 mmol/LPOTASSIUM4.03.5-5.4 mmol/YBDFLKOSE78496-051 mmol/UUW96037-61 mmol/SSVD446-65 mg/dLCREATININE, BLOOD 0.550.51-1.15 mg/dLeGFR (2020 CKD-EPI)129>59 mL/min/1.34t3VPFMYBY7.48.6-10.5 mg/Tash. PROTEIN6.96.0-8.3 g/dLALBUMIN4.63.5-5.2 g/dLGLOBULIN2.31.8-3.8 g/dLA/G RATIO2.01.0-2.5 RATIOALK QJTQ0763-782 U/TUMU-BLTT618-83 U/ZBWO-FHQY493-75 U/LT. BILIRUBIN0.8<1.3 mg/dLVITAMIN D 25 HYDROXY Reviewed date:01/11/2025 08:09:19 AM Interpretation: Performing Lab: Notes/Report:VITAMIN D, 25 SKFLQYP20.230.0-100.0 ng/mL 25-OH VITAMIN D INTERPRETATION Deficiency.... <20.0 ng/ml Insufficiency..20.0-29.0 ng/ml Sufficiency....30.0-100.0 ng/ml Possible Toxicity...>150 ng/ml UNLESS OTHERWISE INDICATED, ALL TESTING PERFORMED AT: [facility] [employer] [address] [place] [address] REFRIGERATING ENGINEER HEAD: DANIELLE SOUZA M.D. CLIA NUMBER [id number] CAP ACCREDITATION AUID [id number] Reason For Referral Reason Pt followed w/ [place], was told she may have white dot syndrome, needs to see retina specialist, pls eval & treat Diagnosis 1 Blurry vision (H53.8 ) Referral Organization Main Referring Provider First Name Brandi Referring Provider Last Name Former[facility] Referred Provider [facility] Referred Provider Specialty Ophthalmolog y Referral Priority Routine Medications Medication SIG (Take, Route, Frequency, Duration) Notes Start Date End Date Status Vitamin D3 50 MCG (1999) 1 capsule Orally Onc e a day; Duration: 90 days 5Active Immunizations Vaccine Route Administration Date Status Comme nts *Hep A, ped/adol, 2 dose-VFC IM Intramuscular 01/05/2014 Administered Status:Complete ,Reason:Given or N/A ,NDC [id number] Influenza (split), 3 yrs and above IM Intramuscular 08/16/2010 Administered Status:Complete ,Reason:Given or N/A Influenza (split), 3 yrs and above IM Intramuscular 08/19/2012 Administered Status:Complete ,Reason:Given or N/A Influenza (split), 3 yrs and above IM Intramuscular 08/10/2013 Administered Status:Complete ,Reason:Given or N/A ,[facility]# [id number] Influenza (split), 3 yrs and above IM Intramuscular 07/27/2014 Administered Status:Complete ,Reason:Given or N/A Influenza, quadrivalent, split, preservative free, 3 years or older ID Intradermal 08/07/2015 Administered Status:Complete ,Reason:Given or N/A Meningococcal MCV4P IM Intramuscular 01/05/2014 Administer ed Status:Complete ,Reason:Given or N/A ,[facility] [id number] Social History Tobacco Use: Social History Observation Description Date Details (start date - stop date) Never Smoker NA - NA Sex Assigned At : Social History Observation Description Sex Assigned At Female Tobacco Use/Smoking Question Answer Notes Tobacco use: nonsmoker patient enter ed data Alcohol Screen (Audit-C) Question Answer Notes Did you have a drink containing alcohol in the p ast year? Yes How often did you have a drink containing alcohol in the past year?Monthly or less (1 point)How many drinks did you have on a typical day when you were drinking in the past year?3 or 4 drinks (1 point)How often did you have 6 or more drinks on one occasion in the past year?Never (0 point)Points2 InterpretationNegativeCAGE-AID Questionnaire (2018 Edition) Question Answer Notes Have [...] No patient entered data CAGE-AID Score 0 InterpretationNegativePRAPARE Question Answer Notes What is your current housing situation? I have housing patient entered data Are you worried about losing your housing? No patient entered data What is the highest level of school that you have finished? High school diploma or GED patient entered data What is your current work situation? Otherwise unemployed but not seeking work (ex. 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 Check all that applyI do not have problems meeting my needsHas lack of transportation kept you from medical appointments, meetings, work or from getting things needed for daily living?No How often do you see or talk to people that you care about and feel close to? (For example: talkingto friends on the phone, visiting friends or family, going to lutheran or club meetings)More than 5 times a weekHow stressed are you? Stress is when someone feels tense, nervous, anxious, or can't sleep at nightbecause their mind is troubledA little bitIn the past year have you spent more than 2 nights in a row in a residential, intermediate, senior care center, orjuvenile correctional facility?Nopatient entered dataAre you a refugee?Nopatient entered data What country are you from?[place] Statespatient entered dataDo you feel physically and emotionally safe where you currently live?Yespatient entered dataIn the past year, have you been afraid of your partner or ex-partner?No patient entered dataPRAPARE Score:4 Problems Problem Type SNOMED Code ICD Code Onset Dates Problem Status W/U Status Risk Notes Problem Chronic fatigue syndrome (87517867) Chron ic fatigue (R53.82) ActiveconfirmedProblemPrimary hypothyroidism (17029472)Primary hypothyroidism (E03.9)ActiveconfirmedProblemHyperkalemia (16351774)Hyperkalemia (E87.5)Active confirmed Comment:-BMP was redrawn; potassium has normalized -K+ is at 4.6 -Pt is asymptomatic, ProblemVitamin D deficiency (38722902)Vitamin D deficiency (E55.9)Active confirmed Comment:-Labs demonstrated mod-severe vit d deficiency [...] give sample b/c already voided before leaving), Vital Signs Heart Rate 80 /min 07/25/2025 Webb, Ser vando 07/25/2025 01:23:44 PM EDT > Temperature 98.0 degrees Fahrenheit 07/31/2025 Vald ovinos, Thomas 07/31/2025 03:05:37 PM EDT > Respiratory Rate 18 /min 07/25/2025 Webb, Thomas 07/25/2025 01:23:44 PM EDT > Oximetry 98 % 07/25/2025 Webb, Ser vando 07/25/2025 01:23:44 PM EDT > Blood pressure diastolic 61 mm Hg 07/25/2025 Judy dovinos, Thomas 07/25/2025 01:23:44 PM EDT > Height-cm 162.56 cm 07/31/2025 Webb, Ser vando 07/31/2025 03:05:37 PM EDT > Weight-kg 131.54 kg 07/31/2025 Webb, Ser vando 07/31/2025 03:05:37 PM EDT > Height 64.00 in 07/31/2025 Webb, Ser vando 07/31/2025 03:05:37 PM EDT > Blood pressure systolic 90 mm Hg 07/25/2025 Vald ovinos, Thomas 07/25/2025 01:23:44 PM EDT > Weight 290 lbs 07/31/2025 Webb, Ser vando 07/31/2025 03:05:37 PM EDT > BMI 49.77 kg/m2 07/31/2025 Webb, Ser vando 07/31/2025 03:05:37 PM EDT > Encounters Encounter Location Date Provider Diagnosis Dental Main [address], [place] [id number] 10/06/2024 Diana Arriola BMI 45.0-49.9, adult Z68.42 ; Dental caries into dentine K02.62 ; Encounter for dental examination and cleaning with abnormal findings Z01.21 ; Dietary counseling Z71.3 and Exercise counseling Z71.82 Dental Main [address] [place], [place] [id number] 02/08/2025 Char Lin Dental caries into dentine K02.62 and Encounter for dental examination and cleaning with abnormal findings Z01.21 Main [address] [place] [id number] 07/07/2025 [facility] Blurry vision H53.8 ; Primary hypothyroidism E03.9 ; Vitamin D deficiency E55.9 ; BMI 45.0-49.9, adult Z68.42 ; Obesity, morbid, BMI 40.0-49.9 E66.01 and Chronic fatigue R53.82 Main [address] [place] [id number] 07/25/2025 [facility] Wellness examination Z00.00 ; Obesity, morbid, BMI 50 or higher E66.01 and Body mass index (BMI) of 50-59.9 in adult Z68.43 Main [address] [id number] 07/31/2025 [facility] Encounter for immunization Z23 Main [address], [place] [id number] 01/09/2025 Steph Skinny Vitamin D deficiency E55.9 Main [address] [id number] 07/10/2025 [facility] Vitamin D deficiency E55.9 Main [address], [place] [id number] 07/26/2025 [facility] Assessments Encounter Date Diagnosis (ICD Code) Assessment Notes Treatment Notes Treatment Clinical Notes Section Notes 01/09/2025 Vitamin D deficiency (ICD-10 - E 55.9) 4BMI 45.0-49.9, adult (ICD-10 - Z68.42)02/08/2025Dental caries into dentine (ICD-10 - K02.62)5Blurry vision (ICD-10 - H53.8) A1C WNL, no concern for DM2, BP WNL at appt today, on BP medication Pt reports she does not take her BP medication regularly, denies elevated BP's Referral sent for Retina Specialist at this time for further evaluation from Ophthamalogist in [place] Continue w/ Ibuprofen for headaches CT Head pt reports WNL F/U 3 months or PRN 07/07/2025Primary hypothyroidism (ICD-10 - E03.9) Ordering labs at this time, pt does not take any medication for hypothyroidism, does have dx Will call w/ results and recommendations 07/10/2025Vitamin D deficiency (ICD-10 - E55.9) Comment:-Labs demonstrated [...] give sample b/c already voided before leaving), 07/25/2025Wellness examination (ICD-10 - Z00.00) Completed pt's Yearly Preventative Wellness Exam. Pt advised on healthy diet and exercise. Encouraged to limit fried, fatty, and processed foods and eat healthier options such as fruits, vegetables, and lean meats. Blood work recently completed and overall WNL 07/25/2025Obesity, morbid, BMI 50 or higher (ICD-10 - E66.01)07/31/2025Encounter for immunization (ICD-10 - Z23) Pt reported to appt today thinking she needed the HPV vaccine. Nurse roomed her and had her Impacts printed, pt did receive the 3-part series when she was 13 years old. Pt left appt today w/o vaccine as she is already UTD, vitals were taken. 07/25/2025ody mass index (BMI) of 50-59.9 in adult (ICD-10 - Z68.43)07/07/2025 Vitamin D deficiency (ICD-10 - E55.9)Ordering labs to evaluate. Pt does not currently take her Vitamin D nwudylcspj59/26/2024ental caries into dentine (ICD-10 - K02.62)02/08/2025Encounter for dental examination and cleaning with abnormal findings (ICD-10 - Z01.21)10/06/2024Encounter for dental examination and cleaning with abnormal findings (ICD-10 - Z01.21)09/26/2025BMI 45.0-49.9, adult (ICD-10 - Z68.42)10/06/2024ietary counseling (ICD-10 - Z71.3)07/07/2025 Obesity, morbid, BMI 40.0-49.9 (ICD-10 - E66.01)10/06/2024Exercise counseling (ICD-10 - Z71.82)07/07/2025hronic fatigue (ICD-10 - R53.82)Ordering labs to screen for deficiencies Plan Of Treatment Pending Test Test Name Order Date Strep Screen (86402) 04/01/2012 Vitamin D, 25-Hydroxy (30085) 12/25/2015 Next Appt Details Provider Name:Char coburn, 08/08/2025 02:30:00 PM, [address] [place] [address], [phone], Provider Name:Brandi Herring , 10/16/2025 02:00:00 PM, [address] [place] [address], [phone], Insurance Providers Payer Name Payer Address Payer Phone Subscriber Number Group Number Insured Name Patient Relationship to Insured Coverage Start Date Coverage End Date [facility] [address] [place] [address] [id number] Cy Khan - patient is the [id number] 2021Medicaid CF [facility] [address] [place], [place] [id number], MaryannSelf - patient is the [id number] 2021[employer] MCDPO [address] [address] [place] [address] [phone], MaryannSelf - patient is the [id number] 2021 DMedicaid CF after [employer] EnvolvePO [address] [place], [place] [id number], MaryannSelf - patient is the [id number] 2021 Medical (General) History Medical History History ICD Code Allergic rhinitis Vitamin D deficiencySurgical History Surgery Date(Month/Year) cyst removal ovaries right side february 2025
--- OUTSIDE RECORDS SUMMARY | 2025-08-07 19:56 | XMS_ITS | Clinical Summary ---
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 Primary Care Provider Allergies No known active allergies Medications MedicationSigDispense QuantityRefillsLast FilledStart DateEnd DateStatus Vsxkbxfo-Uct-Xy-FA ( 1 + IRON PO) Take by mouthActive cetirizine (ZYRTEC) 10 MG tablet 08/04/2022ctive fluticasone (FLONASE) 50 MCG/ACT nasal spray 08/04/2022ctive metFORMIN (GLUCOPHAGE-XR) 500 MG extended release tablet 08/21/2022ctive phentermine 15 MG capsule Take 15 mg by mouth daily.Active anespymrmeovter-pakjmgbyeihpvll-UE 2-30-10 MG/5ML syrup 08/04/2022ctive valACYclovir (VALTREX) 1 g tablet Indications:Herpes simplex infectionTake one pill PO daily as suppressive therapy 30 tablet ctive valACYclovir (VALTREX) 1 g tablet Indications:Herpes simplex infectionTake one tablet PO BID x 3 days at first sign of HSV flare 18 tablet ctive ondansetron (ZOFRAN-ODT) 4 MG disintegrating tablet Take 1 tablet by mouth 3 times daily as needed for Nausea or Vomiting 21 tablet 5Active Social History Tobacco UseTypesPacks/DayYears UsedDateSmoking Tobacco: NeverSmokeless Tobacco: Never Tobacco Cessation:Counseling Given: Not Answered Alcohol UseStandard Drinks/WeekCommentsNo0 (1 standard drink = 0.6 oz pure alcohol)AUDIT-CAnswerDate RecordedQ1: How often do you have a drink containing alcohol?Monthly or less02/03/2025Q2: How many drinks containing alcohol do you have on a typical day when you are drinking?1 or Q3: How often do you have six or more drinks on one occasion?Never02/03/2025Interpersonal Safety Domain Source: IP Abuse ScreeningAnswerDate RecordedPhysical abuseDenies 02/03/2025Verbal glgdqDumbue65/25/2025Emotional jcdpaVomjew57/25/2025Financial fheizTfgwmf43/25/2025Sexual kvsgkOrkstk10/25/2025CommentsUnknownSex and Gender InformationValueDate RecordedSex Assigned at KsckyVbtjfc77/24/2025 12:57 PM ESTLegal RqoGnluyj83/23/2018 12:45 AM EDTGender IdentityNot on fileSexual OrientationNot on file Last Filed Vital Signs Vital SignReadingTime TakenCommentsBlood Ptpbguab996/7804 1:24 AM EDT Rxecu9038 1:24 AM UUUMbjbrbcvmur66.7 ??C (98 ??F)02/04/2025 1:24 AM EDT Respiratory Uigg7480 1:24 AM EDTOxygen Ofwndvkigw709%02/04/2025 1:24 AM EDTInhaled Oxygen Concentration--Qnhsnh012 kg (280 lb)02/03/2025 9:26 PM EDT Pdlqov430 cm (5' 3 )02/03/2025 9:26 PM EDTBody Mass Index49.6002/03/2025 9:26 PM EDT Plan of Treatment Health MaintenanceDue DateLast DoneCommentsDepression Pgarwd8411/05/2009Varicella vaccine (1 of 2 - 13+ 2-dose series)2010HIV tajrcf1511/05/2012Hepatitis C kgnazz8211/05/2015DTaP/Tdap/Td vaccine (1 - Tdap)2016Hepatitis B vaccine (1 of 3 - 19+ 3-dose series)2016Pap smear2018Flu vaccine (#1)05/12/2025 10/13/2017COVID-19 Vaccine ( - 2023- season)5Chlamydia/GC screen Gykyqmlajcfo73/24/2025, 08/29/2024, 04/12/2024, Additional history existsHPV vaccine (No Doses Required)CompletedHepatitis A vaccineAged OutNo longer eligible based on patient's age to complete this topicHib vaccineAged OutNo longer eligible based on patient's age to complete this topicMeningococcal (ACWY) vaccineAged OutNo longer eligible based on patient's age to complete this topicMeningococcal B vaccineAged OutNo longer eligible based on patient's age to complete this topicPneumococcal 0-49 years VaccineAged OutNo longer eligible based on patient's age to complete this topicPolio vaccineAged OutNo longer eligible based on patient's age to complete this topic Procedures Procedure NamePriorityDate/TimeAssociated DiagnosisCommentsC.TRACHOMATIS N.GONORRHOEAE DNAStat Sunquest Label print12/05/2024 1:55 PM EST from Last 3 Months or Most Recently Relevant to Health Maintenance Results * C.trachomatis N.gonorrhoeae DNA (12/05/2024 1:55 PM EST)ComponentValueRef RangeTest MethodAnalysis TimePerformed AtPathologist SignatureSpecimen Description.CDSABO0812/05/2024 1:55 PM ESTMERCY LABORATORIESC. trachomatis DNA PLWZXTMGXVQVAZNS84/24/2025 1:55 PM ESTMERCY LABORATORIESComment: CHLAMYDIA TRACHOMATIS DNA not detected by nucleic acid amplification. ? This test is intended for medical purposes only and is not valid for the evaluation of suspected sexual abuse or for other forensic purposes. In certain contexts, culture may be required to meet applicable laws and regulations for diagnosis of C. trachomatis and N. gonorrhoeae infections. Per 2014 ??CDC recommendations, this test does not include confirmation of positive results by an alternative nucleic acid target. N. gonorrhoeae JFZCGXZOAEKGCOIEUEK67/24/2025 1:55 PM ESTMERSportsBeep LABORATORIES Comment: NEISSERIA GONORRHOEAE DNA not detected by nucleic acid amplification. ? This test is intended for medical purposes only and is not valid for the evaluation of suspected sexual abuse or for other forensic purposes. In certain contexts, culture may be required to meet applicable laws and regulations for diagnosis of C. trachomatis and N. gonorrhoeae infections. Per 2014 ??CDC recommendations, this test does not include confirmation of positive results by an alternative nucleic acid target. Specimen (Source)Anatomical Location / LateralityCollection Method / Volume Collection TimeReceived TimeCERVICAL SWAB / Qrivzxk0512/05/2024 1:55 PM EST 12/05/2024 1:57 PM EST Narrative Authorizing ProviderResult TypeResult StatusAdrijevon WALDROPCMICROBIOLOGY - GENERAL ORDERABLESFinal ResultPerforming OrganizationAddressCity/State/ZIP CodePhone Number [facility] [address] [place], [place] [address] [phone] [facility] [address] [id number] [phone] from Last 3 Months or Most Recently Relevant to Health Maintenance Additional Health Concerns InfectionOnset DateLast IndicatedESBL (Extended Spectrum Beta Lactamase) [place] [address] [place] [address] Care Teams Team MemberRelationshipSpecialtyStart DateEnd Date Fransico Reece, VACUUM METALIZER OPERATOR - MINISTER PCP - GeneralFamily Medicine03/17/18
--- OUTSIDE RECORDS SUMMARY | 2025-08-07 19:56 | XMS_ITS | Clinical Summary ---
Author Organization [facility] Address [address] [place] [address] Care Team Providers Care Transit Survey Worker Name Role Phone Mariel Braun Unavailable Allergies No known active allergies Medications MedicationSigDispense QuantityRefillsLast FilledStart DateEnd DateStatus metFORMIN XR (Glucophage-XR) 500 MG 24 hr tablet Indications:PCOS (polycystic ovarian syndrome),Irregular periods/menstrual cyclesTake 1 tablet (500 mg) by mouth in the evening. Take with meals Do not crush, chew, or split. 30 tablet 5Active ondansetron ODT (Zofran-ODT) 4 MG disintegrating tablet Take 4 mg by mouth every 8 (eight) hours if needed for nausea or vomiting 5Active cholecalciferol (Vitamin D-3) 10 MCG (400 UNIT) capsule Take 400 Units by mouth DailyActive metroNIDAZOLE (Metrogel) 0.75 % vaginal gel Indications:BV (bacterial vaginosis)Use vaginally nightly for 5 days, then twice weekly thereafter for 4 months 140 g 5Active cephalexin (Keflex) 500 MG capsule Take 500 mg by mouth in the morning and 500 mg in the evening and 500 mg before bedtime.07/26/2025Discontinued(Therapy completed) doxycycline (Vibramycin) 100 MG capsule Indications:Bacterial infection due to mycoplasmaTake 1 capsule (100 mg) by mouth in the morning and 1 capsule (100 mg) before bedtime. Do all this for 7 days. Take with at least 8 ounces (large glass) of water, do not lie down for 30 minutes after. 14 capsule /Expired azithromycin (Zithromax) 500 MG tablet Indications:Bacterial infection due to mycoplasmaDay 1: Take 2 tablets PO onetime dose; Day 2,3,4: Take 1 tablet daily 5 tablet Discontinued moxifloxacin (Avelox) 400 MG tablet Indications:Bacterial infection due to mycoplasmaTake 1 tablet (400 mg) by mouth Daily for 7 days start medication AFTER completing course of Doxycycline & Azithromycin. 7 tablet Expired metroNIDAZOLE (Flagyl) 500 MG tablet Indications:BV (bacterial vaginosis)Take 1 tablet (500 mg) by mouth in the morning and 1 tablet (500 mg) before bedtime. Do all this for 7 days. Do not drink alcohol while taking this medication. 14 tablet Expired fluconazole (Diflucan) 150 MG tablet Indications:BV (bacterial vaginosis)Take 1 tablet (150 mg) by mouth every 3rd (third) day for 2 doses 2 tablet Expired Active Problems ProblemNoted DateDiagnosed DateEncounter for weight erqprkcwuu74/07/2024OVID-19 05/18/2024Insulin jsucupyaza40/07/2024Weight gain04/01/2023HSV (herpes simplex virus) idrrzrjag00/21/2023Morbid vvjaaxn5704/01/2023Ovarian cyst04/01/2023ain in female genitalia on rspebskjbka80/21/2023elvic pain04/01/2023 Encounters DateTypeDepartmentCare MjnuYlvkjergoev98/27/2025 1:20 PM EDTProcedure Visit [facility] [address] [facility] [place] [address] Jalen Loredo DO PCOS (polycystic ovarian syndrome) (Primary Dx); Well woman exam with routine gynecological exam; Anovulation; Exposure to STD; Vaginal bfpetogjk04/27/2025amboo flowsheet [facility] [address] [place] [address] Jalen Loredo DO 07/28/2025Telephone [facility] [address] [facility] [place] [address] Mariel Braun PA 07/26/2025 2:40 PM EDTOffice Visit [facility] [address] [facility] [place] [address] Mariel Braun PA Exposure to STD; Missed menses; Vaginal odor; Bacterial infection due to ftpmhadoig03/15/2025External Result Encounter [facility] External Department Unsolicited Mariel Braun PA 07/26/2025amboo flowsheet [facility] [address] [facility] [place] [address] Mariel Braun PA from Last 3 Months Family History Medical HistoryRelationNameCommentsAsthmaOtherCOPDOtherCoronary artery disease OtherDiabetesOtherEmphysemaOtherHyperlipidemiaOtherLung cancerOtherRelationName StatusCommentsOther Social History Tobacco UseTypesPacks/DayYears UsedDateSmoking Tobacco: Unknown Tobacco Cessation:Counseling Given: Not Answered Alcohol UseStandard Drinks/WeekCommentsNot Currently0 (1 standard drink = 0.6 oz pure alcohol)occasionalCommentsNoSex and Gender InformationValueDate RecordedSex Assigned at BirthNot on fileLegal CxgFxpaqw74/15/2023 11:47 PM EDT Gender UpnhsasnCuqjcr22/23/2023 10:11 PM EDTSexual OrientationNot on file Last Filed Vital Signs Vital SignReadingTime TakenCommentsBlood Kmtseadc366/801 1:14 PM EDT Pulse--Temperature--Respiratory Rate--Oxygen Saturation--Inhaled Oxygen Concentration--Hyhbhx515 kg (292 lb 12.8 oz)08/07/2025 1:14 PM XTTWsyatk192 cm (5' 3 )07/26/2025 3:00 PM EDTBody Mass Index51.8707/26/2025 3:00 PM EDT Plan of Treatment Health MaintenanceDue DateLast DoneCommentsMMR Vaccines (1 of 1 - Standard series)1998DTaP/Tdap/Td Vaccines (1 - Tdap)2004Varicella Vaccines (1 of 2 - 13+ 2-dose series)2010Hepatitis B Vaccines (1 of 3 - 19+ 3-dose series)2016HPV Vaccines (1 - 3-dose SCDM series)5COVID-19 Vaccine (1 - season)2025Influenza Vaccine (#1)501/11/2017, 08/07/2015, 07/27/2014, Additional history existsHIB VaccinesAged OutNo longer eligible based on patient's age to complete this topicHepatitis A VaccinesAged OutNo longer eligible based on patient's age to complete this topicIPV Vaccines Aged OutNo longer eligible based on patient's age to complete this topic Meningococcal B VaccineAged OutNo longer eligible based on patient's age to complete this topicMeningococcal VaccineAged OutNo longer eligible based on patient's age to complete this topicPneumococcal Vaccine: Pediatrics (0 to 5 Years) and At-Risk Patients (6 to 64 Years)Aged OutNo longer eligible based on patient's age to complete this topicRotavirus VaccinesAged OutNo longer eligible based on patient's age to complete this topic Procedures Procedure NamePriorityDate/TimeAssociated DiagnosisCommentsRECURRENT VAGINITIS (HTRX)Mnvnwwg1407/26/2025 4:22 PM EDT POCT , NRXAOSdazrky14/15/2025 3:00 PM EDT Missed menses from Last 3 Months Results * (ABNORMAL) RECURRENT VAGINITIS (HTRX) (07/26/2025 4:22 PM EDT)ComponentValue Ref RangeTest MethodAnalysis TimePerformed AtPathologist SignatureATOPOBIUM OCPXATK90.858(A)19.961 - 24.689 ppm07/28/2025 7:21 AM EDTHealthTrackRx at LabPortATOPOBIUM VAGINAEDetected(A)19.961 - 24.689 ppm07/28/2025 7:21 AM EDT [facility] at LabPortBVAB 2,3 (BACTERIAL VAGINOSIS ASSOCIATED BACTERIA 2, 3); MOBILUNCUS SPP18.179(A)19.961 - 24.689 ppm07/28/2025 7:21 AM EDT [facility] at LabPortBVAB 2,3 (BACTERIAL VAGINOSIS ASSOCIATED BACTERIA 2, 3); MOBILUNCUS SPPDetected(A)19.961 - 24.689 ppm07/28/2025 7:21 AM EDT [facility] at LabPortCANDIDA ALBICANS, PARAPSILOSIS, TTROVUERXW148.000 - 30.347 ppm07/28/2025 7:21 AM EDTHealthTrackRx at LabPortCANDIDA ALBICANS, PARAPSILOSIS, TROPICALISNot Qofmjkmq53.000 - 30.347 ppm07/28/2025 7:21 AM EDT [facility] LabPortCANDIDA IBEOSFOV430.000 - 31.618 ppm07/28/2025 7:21 AM EDTHealthTrackRx at LabPortCANDIDA GLABRATANot Gytvnswb87.000 - 31.618 ppm 07/28/2025 7:21 AM EDTHealthTrackRx at LabPortCANDIDA LKUZOW586.000 - 30.873 ppm07/28/2025 7:21 AM EDTHealthTrackRx at LabPortCANDIDA KRUSEINot Detected 23.000 - 30.873 ppm07/28/2025 7:21 AM EDT[facility] LXTXKZBDSIB012.000 - 31.586 ppm07/28/2025 7:21 AM EDT[facility] CHLAMYDIA TRACHOMATISNot Pmfuvhxk74.000 - 31.586 ppm07/28/2025 7:21 AM EDT [facility]PortGARDNERELLA DJZAVQJCJ95.1070(A)19.961 - 24.689 ppm 07/28/2025 7:21 AM EDTHealthTrackRx at PeaceHealthGARDNERELLA VAGINALISDetected(A) 19.961 - 24.689 ppm07/28/2025 7:21 AM EDTHealthTrackRx at PeaceHealthMEGASPHAERA (TYPES 1, 2)22.7140(A)19.961 - 24.689 ppm10 7:21 AM EDTHealthTrackRx at LabBloom[facility] Orange CountyMEGASPHAERA (TYPES 1, 2)Detected(A)19.961 - 24.689 ppm07/28/2025 7:21 AM EDTHealthTrackRx at LabBloom[facility] Of Orange CountyNEISSERIA WPLNIQAYTDG607.000 - 32.587 ppm 07/28/2025 7:21 AM EDTHealthTrackRx at PeaceHealthNEISSERIA GONORRHOEAENot Cbwisvju74.000 - 32.587 ppm07/28/2025 7:21 AM EDTHealth[facility] at [facility] TRICHOMONAS BRAUAKKPZ642.000 - 31.995 ppm07/28/2025 7:21 AM EDTHealthTrackRx at PeaceHealthTRICHOMONAS VAGINALISNot Woszckqt43.000 - 31.995 ppm07/28/2025 7:21 AM EDTHealthTrackRx at PeaceHealthMYCOPLASMA JRYHRMBWAZ662.961 - 24.689 ppm 07/28/2025 7:21 AM EDTHealthTrackRx at PeaceHealthMYCOPLASMA GENITALIUMNot Ndsbattk26.961 - 24.689 ppm07/28/2025 7:21 AM EDTHealthTrackRx at [facility], C; MEFA20.597(A)23.000 - 27.500 ppm07/28/2025 7:21 AM EDTHealthTrackRx at [facility], C; MEFADetected(A)23.000 - 27.500 ppm07/28/2025 7:21 AM EDT [facility] at PeaceHealthTET B, TET M20.679(A)23.000 - 27.500 ppm07/28/2025 7:21 AM EDTHealthTrackRx at PeaceHealthTET B, TET MDetected(A)23.000 - 27.500 ppm 07/28/2025 7:21 AM EDTHealthTrackRx at PeaceHealthSpecimen (Source)Anatomical Location / LateralityCollection Method / VolumeCollection TimeReceived Time Twyswp2407/26/2025 4:22 PM EDT1 2:19 AM EDT Narrative Authorizing ProviderResult TypeResult StatusAmy Aparna PALAB BLOOD ORDERABLES Final ResultPerforming OrganizationAddressCity/State/ZIP CodePhone Number [facility] [address] [address] * POCT , urine manually resulted (07/26/2025 3:00 PM EDT)ComponentValue Ref RangeTest MethodAnalysis TimePerformed AtPathologist SignaturePreg Test, UrNegativeNegativeSpecimen (Source)Anatomical Location / LateralityCollection Method / VolumeCollection TimeReceived GhlrJhnlu42/15/2025 3:00 PM EDT Narrative Authorizing ProviderResult TypeResult StatusAmy Aparna PAPOINT OF CARE TEST ENTER/EDIT ORDERABLESFinal Result from Last 3 Months Insurance * Guarantor: Carlos Enrique Khan TypeRelation to PatientDate of BirthPhone Billing AddressPersonal/GtvrvtGpwu11/25/1996 [facility] [place] [address] Care Teams Team MemberRelationshipSpecialtyStart DateEnd Date Mariel Braun PA [address] [place] [address] [place] [address] [facility]01/11/24
--- OUTSIDE RECORDS SUMMARY | 2025-08-07 19:56 | XMS_ITS | Clinical Summary ---
Author Organization [employer] tem Address [id number] [address] [place] [address] Care Team Providers Care Trucksmith Name Role Phone Services, [facility] Primary Care Provider Allergies No known active allergies Medications MedicationSigDispense QuantityRefillsLast FilledStart DateEnd DateStatus 25/iron fum/folic/dha (-1 ORAL) Take by mouth.Active acetaminophen (TYLENOL EXTRA STRENGTH) 500 mg tablet Take 2 tablets (1,000 mg total) by mouth every 6 (six) hours as needed for pain. 30 tablet 10/27/2022ctive Additional Information Patient not taking.Reported on 08/25/2024 ibuprofen (MOTRIN) 600 mg tablet Take 1 tablet (600 mg total) by mouth every 6 (six) hours as needed for pain. 30 tablet 10/27/2022ctive Additional Information Patient not taking.Reported on 08/25/2024 Active Problems No known active problems Social History Tobacco UseTypesPacks/DayYears UsedDateSmoking Tobacco: NeverSmokeless Tobacco: NeverAlcohol UseStandard Drinks/WeekCommentsYes0 (1 standard drink = 0.6 oz pure alcohol)occasionalChildcareAnswerDate OozwmjzcAcazhhfugYzdpggl85/12/2019 EmploymentAnswerDate OoryvsurDqqgaqvjagAujommp44/12/2019Hunger ScreeningAnswer Date RecordedWithin the past 12 months we worried whether our food would run out before we got money to buy more.Never True09/12/2024Within the past 12 months the food we bought just didn't last and we didn't have money to get more.Never True4Purpose - LifeAnswerDate RecordedPurpose and direction in life Qbsrphu27/11/2021CommentsUnknownSex and Gender InformationValueDate RecordedSex Assigned at BirthNot on fileLegal RujBqyhwt44/06/2015 11:53 AM EDT Gender IdentityNot on fileSexual OrientationNot on file Last Filed Vital Signs Vital SignReadingTime TakenCommentsBlood Rzaecgrm571/9909/12/2024 3:44 PM EST Oaeuh414909/12/2024 3:44 PM NZDRqzhixbijzn26.3 ??C (99.2 ??F)09/12/2024 3:44 PM ESTRespiratory Qhsl608411/13/2023 3:44 PM ESTOxygen Lowgrkmaca215%09/12/2024 3:44 PM ESTInhaled Oxygen Concentration--Zianfd831 kg (280 lb)09/12/2024 3:44 PM EST Favibk092 cm (5' 3 )09/12/2024 3:44 PM ESTBody Mass Index49.6111/13/2023 3:44 PM EST Plan of Treatment Health MaintenanceDue DateLast DoneCommentsDepression Wfvejfyxc46/25/2010dult BMI Follow Up Plan2015DTaP,Tdap and Td Vaccines (7 - Td or Tdap)11/10/2018 11/10/2008, 01/16/2003, 11/16/1998, Additional history existsPap Smear03/18/2025 03/18/2022Influenza Uhbbzqu35/11/2017, 08/07/2015, 07/27/2014, Additional history existsAdult BMI Hvrfuqqfv11Tobacco Kdtkvrlie42 Medical Devices [place] [address] Care Teams Team MemberRelationshipSpecialtyStart DateEnd Date Services, [facility] [address] [place] [place] [facility] - [facility] Vzqxxtch69/14/24
== END 2025-08-07 19:53 | disposition home or self-care (01) ==
LOC: LAB 19:52
PROVIDERS: Visit Provider Obstetrics & Gynecology
DX: Z01.419 Encounter for gynecological examination (general) (routine) without abnormal findings (principal)
CPT/HCPCS: 88175